=== PATIENT | male | born 1965 | race Caucasian/White ===

== ENCOUNTER 2018-01-26 13:47 | Emergency (ER) | payer BC, SELFPAY ==
[2018-01-26 14:41] LABS: Absolute Lymphocytes (CBC) 1.6 K/uL (0.7-4.9); Absolute Monocytes 0.4 K/uL (0.1-1.3); Absolute Neutrophil 7.6 K/uL (1.8-8.0); Basophils % 0.9 % (0-1.3); Eosinophils % 0.5 % (0-4.4); Lymphocytes % 16.2 % (15.3-44.8); MCH 27.3 pg (27.0-35.0); MCV 82.9 fL (80-100); MPV 7.7 fL (7.6-11.3); Monocytes % 4.3 % (3.3-12.3); RBC Red Blood Cell Count 5.67 M/uL (4.33-5.43)
--- NOTE | 2018-01-26 14:41 | RAD REPORT ---
EXAM DESCRIPTION: CT - Head Brain Wo Cont - 01/26/2018 2:33 pm CLINICAL HISTORY: Dizziness, syncope. COMPARISON: 12/24/2013 TECHNIQUE: All CT scans are performed using dose optimization technique as appropriate and may inclu de automated exposure control or mA/KV adjustment according to patient size. FINDINGS: No intracranial hemorrhage, hydrocephalus or extra-axial fluid collection.No areas of brai n edema or evidence of midline shift. The paranasal sinuses and mastoids are clear. The calvarium is intact. IMPRESSION: No acute intracranial abnormality.
[2018-01-26 14:44] LABS: Protime INR 0.99
[2018-01-26] MEDS ORDERED: ONDANSETRON 4 MG/2 ML VIAL ONE (14:48)
[2018-01-26 14:51] LABS: Bicarbonate 32 mEq/L (21-31); Glucose Level 128 mg/dL (65-120); Potassium 3.9 mEq/L (3.6-5.0); Sodium Level 139 mEq/L (135-145)
[2018-01-26 14:54] LABS: BUN Blood Urea Nitrogen 12 mg/dL (6-20); Creatine Phosphokinase 142 IU/L (22-269)
[2018-01-26 15:01] LABS: CKMB Creatine Kinase MB 3.1 ng/ml (0.3-4.0)
[2018-01-26] MEDS ORDERED: NA CHLORIDE 0.9% 500 ML ONE (15:02)
--- NOTE | 2018-01-26 15:57 | ER ---
Nurse's Notes [facility] Name: Kingston Harris Age: 52 yrs Sex: Male : 1965 Arrival Date: 01/26/2018 Time: 13:48 Bed 5 Private MD: Diagnosis: Urgency of urination;Dehydration Presentation: 01/26 13:58 Presenting complaint: Patient states: Reports Dizziness, weakness, and urinary aj frequency. Patient appears SOB. Transition of care: patient was not received from another setting of care. Onset of symptoms was January 26, 2018. Initial Sepsis Screen: Does the patient meet any 2 criteria? No. Patient's initial sepsis screen is negative. Does the patient have a suspected source of infection? No. Patient's initial sepsis screen is negative. Care prior to arrival: None. 13:58 Method Of Arrival: Ambulatory 13:58 Acuity: SHANTE 3 aj Triage Assessment: 14:00 General: Appears in no apparent distress. uncomfortable, Behavior is cooperative, aj anxious. Pain: Denies pain. Neuro: Level of Consciousness is awake, alert, obeys commands, Oriented to person, place, time, situation, Appropriate for age. Respiratory: Reports shortness of breath Airway is patent Respiratory effort is even, unlabored, Respiratory pattern is regular, symmetrical, Onset: The symptoms/episode began/occurred the patient has mild shortness of breath. Derm: Skin is intact, is healthy with good turgor, Skin is pink, warm \T\ dry. normal. Historical: - Allergies: 14:00 Erythromycin; aj - Home Meds: 14:00 alprazolam 1 mg Oral tab twice a day [Active]; bisoprolol-hydrochlorothiazide 5-6.25 mg aj Oral tab 1 tab once daily [Active]; Remeron Oral [Active]; Suboxone 8-2 mg sublingual subl for Chronic pain [Active]; - PMHx: 14:00 Anxiety; Chronic pain; COPD; Degenerative disc disease; Hypertension; psoriasis; aj - PSHx: 14:00 None; aj - Immunization history:: Adult Immunizations up to date. - Family history:: not pertinent. - Social history:: Smoking status: unknown. - Hospitalizations: : No recent hospitalization is reported. Screenin:35 Abuse screen: Denies threats or abuse. Denies injuries from another. Nutritional jl7 screening: No deficits noted. Tuberculosis screening: No symptoms or risk factors identified. Fall Risk IV access (20 points). Total Joe Fall Scale indicates No Risk (0-24 pts). Assessment: 14:35 General: Appears in no apparent distress. uncomfortable, Behavior is anxious. Pain: jl7 Denies pain. Neuro: Level of Consciousness is awake, alert, obeys commands, Oriented to person, place, time, situation. Cardiovascular: Rhythm is sinus rhythm. Respiratory: Airway is patent Respiratory effort is even, unlabored, Respiratory pattern is regular, symmetrical, Breath sounds are clear bilaterally. GI: Reports nausea, Patient currently denies diarrhea, vomiting. : Urine is clear, Reports urinary frequency, since 0500. EENT: No signs and/or symptoms were reported regarding the EENT system. Derm: Skin is pink, warm \T\ dry. Musculoskeletal: No signs and/or symptoms reported regarding the musculoskeletal system. 15:30 Reassessment: No changes from previously documented assessment. Patient and/or family jl7 updated on plan of care and expected duration. Pain level reassessed. Patient is alert, oriented x 3, equal unlabored respirations, skin warm/dry/pink. Vital Signs: 14:00 BP 169 / 96; Pulse 63; Resp 24; Temp 98.4; Pulse Ox 97% on R/A; Weight 100.24 kg; aj Height 5 ft. 11 in. (180.34 cm); 15:00 BP 149 / 94; Pulse 66; Resp 16; Pulse Ox 97% ; jl7 15:45 BP 149 / 93; Pulse 65; Resp 16; Pulse Ox 98% ; jl7 14:00 Body Mass Index 30.82 (100.24 kg, 180.34 cm) ED Course: 13:48 Patient arrived in ED. sb2 13:52 Herve Gómez MD is Attending Physician. rn 13:59 Triage completed. aj 14:00 Arm band placed on left wrist. Patient placed in an exam room, on a stretcher. aj 14:14 Betito Simpson, ANGELA is Primary Nurse. jl7 14:24 Inserted saline lock: 20 gauge in right antecubital area, using aseptic technique. ss Blood collected. 14:31 CT completed. Patient moved to CT via stretcher. Patient moved back from CT. cw1 14:33 CT Head Brain wo Cont In Process Unspecified. EDMS 14:35 Patient has correct armband on for positive identification. Placed in gown. Bed in low jl7 position. Call light in reach. Side rails up X2. rodding anode worker on. Pulse ox on. NIBP on. 16:03 No provider procedures requiring assistance completed. IV discontinued, intact, jl7 bleeding controlled, No redness/swelling at site. Pressure dressing applied. Administered Medications: 14:50 Drug: Zofran 4 mg Route: IVP; Site: right antecubital; jl7 15:12 Follow up: Response: No adverse reaction; Nausea is decreased jl7 15:04 Drug: NS 0.9% 500 ml Route: IV; Rate: bolus; Site: right antecubital; jl7 15:30 Follow up: IV Status: Completed infusion jl7 Point of Care Testing: Blood Glucose: 14:05 Blood Glucose: 103 mg/dL; Ranges: Outcome: 15:56 Discharge ordered by . rn 16:03 Discharged to home ambulatory. jl7 16:03 Condition: stable 16:03 Discharge instructions given to patient, Instructed on discharge instructions, Demonstrated understanding of instructions, follow-up care. 16:04 Patient left the ED. jl7 Signatures: Dispatcher [employer] EDMS Yoselyn Hernandez RN Herve Roman MD MD rn Smirch, Shelby, RN RN ss Woodley, Crystal cw1 Betito Simpson RN RN jl7 Laury Bone sb2 Corrections: (The following items were deleted from the chart) 15:13 14:35 GI: No signs and/or symptoms were reported involving the gastrointestinal system. jl7 jl7
--- NOTE | 2018-01-26 15:57 | EDPHYS ---
Physician Documentation [facility] Name: Kingston Harris Age: 52 yrs Sex: Male : 1965 Arrival Date: 01/26/2018 Time: 13:48 Bed 5 Private MD: ED Physician Herve Gómez HPI: 01/26 14:29 This 52 yrs old Male presents to ER via Ambulatory with complaints of rn generalized weakness, increased urination. 14:29 The patient has shortness of breath at rest. Onset: The symptoms/episode began/occurred rn today. Duration: The symptoms are continuous. The patient's shortness of breath is aggravated by nothing, is alleviated by nothing. Severity of symptoms: At their worst the symptoms were moderate in the emergency department the symptoms are unchanged. The patient has not experienced similar symptoms in the past. Reports generalized weakness, fatigue, began today, reports increased thirst but increased urination as well, on suboxone, takes benzos for anxiety, no fever/headache/chest pain, no abd pain/vomiting/diarrhea. . Historical: - Allergies: 14:00 Erythromycin; aj - Home Meds: 14:00 alprazolam 1 mg Oral tab twice a day [Active]; bisoprolol-hydrochlorothiazide 5-6.25 mg aj Oral tab 1 tab once daily [Active]; Remeron Oral [Active]; Suboxone 8-2 mg sublingual subl for Chronic pain [Active]; - PMHx: 14:00 Anxiety; Chronic pain; COPD; Degenerative disc disease; Hypertension; psoriasis; aj - PSHx: 14:00 None; aj - Immunization history:: Adult Immunizations up to date. - Family history:: not pertinent. - Social history:: Smoking status: unknown. - Hospitalizations: : No recent hospitalization is reported. ROS: 14:29 Constitutional: Negative for fever, chills, and weight loss, Eyes: Negative for injury, rn pain, redness, and discharge, Neck: Negative for injury, pain, and swelling, Cardiovascular: Negative for chest pain, palpitations, and edema, Respiratory: Negative for shortness of breath, cough, wheezing, and pleuritic chest pain, Abdomen/GI: Negative for abdominal pain, nausea, vomiting, diarrhea, and constipation, Back: Negative for injury and pain, MS/Extremity: Negative for injury and deformity, Skin: Negative for injury, rash, and discoloration, Neuro: Negative for headache, numbness, tingling, and seizure. Exam: 14:29 Constitutional: This is a well developed, well nourished patient who is awake, alert, rn appears anxious Head/Face: Normocephalic, atraumatic. Eyes: Pupils equal round and reactive to light, extra-ocular motions intact. Lids and lashes normal. Conjunctiva and sclera are non-icteric and not injected. Cornea within normal limits. Periorbital areas with no swelling, redness, or edema. ENT: dry MM Neck: Trachea midline, no thyromegaly or masses palpated, and no cervical lymphadenopathy. Supple, full range of motion without nuchal rigidity, or vertebral point tenderness. No Meningismus. Cardiovascular: Regular rate and rhythm with a normal S1 and S2. No gallops, murmurs, or rubs. Normal PMI, no JVD. No pulse deficits. Respiratory: mild tachypnea, no retractions, speaking full sentences Abdomen/GI: Soft, non-tender, with normal bowel sounds. No distension or tympany. No guarding or rebound. No evidence of tenderness throughout. MS/ Extremity: Pulses equal, no cyanosis. Neurovascular intact. Full, normal range of motion. Equal circumference. Neuro: Awake and alert, GCS 15, oriented to person, place, time, and situation. Cranial nerves II-XII grossly intact. Motor strength 5/5 in all extremities. Sensory grossly intact. Cerebellar exam normal. Vital Signs: 14:00 BP 169 / 96; Pulse 63; Resp 24; Temp 98.4; Pulse Ox 97% on R/A; Weight 100.24 kg; aj Height 5 ft. 11 in. (180.34 cm); 15:00 BP 149 / 94; Pulse 66; Resp 16; Pulse Ox 97% ; jl7 15:45 BP 149 / 93; Pulse 65; Resp 16; Pulse Ox 98% ; jl7 14:00 Body Mass Index 30.82 (100.24 kg, 180.34 cm) aj MDM: 13:59 Patient medically screened. rn 15:51 Differential diagnosis: Anemia renal failure, hyperglycemia, UTI, dehydration. Data rn reviewed: vital signs, nurses notes, lab test result(s), EKG, radiologic studies, CT scan, and as a result, I will discharge patient. Counseling: I had a detailed discussion with the patient and/or guardian regarding: the historical points, exam findings, and any diagnostic results supporting the discharge/admit diagnosis, lab results, radiology results, the need for outpatient follow up, to return to the emergency department if symptoms worsen or persist or if there are any questions or concerns that arise at home. Response to treatment: the patient's symptoms have markedly improved after treatment, the patient's condition has returned to base line, the patient is now symptom free, patient is well hydrated. and as a result, I will discharge patient. ED course: Pt feels much better, normal HR, afebrile, no acute findings in blood work, normal ct scan of head and normal neuro exam, states feels much better. . 01/26 14:02 Order name: Urine Microscopic Only rn 01/26 14:02 Order name: Basic Metabolic Panel; Complete Time: 15:17 rn 01/26 14:02 Order name: BNP; Complete Time: 15:17 rn 01/26 14:02 Order name: CBC with Diff; Complete Time: 14:46 rn 01/26 14:02 Order name: Ckmb; Complete Time: 15:17 rn 01/26 14:02 Order name: CPK; Complete Time: 15:17 rn 01/26 14:02 Order name: CT Head Brain wo Cont; Complete Time: 14:41 rn 01/26 14:02 Order name: Magnesium; Complete Time: 15:17 rn 01/26 14:02 Order name: Protime (+inr); Complete Time: 14:46 rn 01/26 14:02 Order name: Ptt, Activated; Complete Time: 14:46 rn 01/26 14:02 Order name: Troponin (emerg Dept Use Only); Complete Time: 15:17 rn 01/26 14:02 Order name: [place] Screen Profile; Complete Time: 15:17 rn 01/26 15:09 Order name: Urine Dipstick--Ancillary (enter results) eb 01/26 15:37 Order name: Glucose, Ancillary Testing; Complete Time: 15:46 EDMS 01/26 14:02 Order name: EKG; Complete Time: 14:02 rn 01/26 14:02 Order name: Cardiac monitoring; Complete Time: 14:35 rn 01/26 14:02 Order name: EKG - Nurse/Tech; Complete Time: 14:35 rn 01/26 14:02 Order name: IV Saline Lock; Complete Time: 14:35 rn 01/26 14:02 Order name: Labs collected and sent; Complete Time: 14:35 rn 01/26 14:02 Order name: O2 Per Protocol; Complete Time: 14:35 rn 01/26 14:02 Order name: O2 Sat Monitoring; Complete Time: 14:35 rn 01/26 14:02 Order name: Urine Dipstick-Ancillary (obtain specimen); Complete Time: 15:05 rn Administered Medications: 14:50 Drug: Zofran 4 mg Route: IVP; Site: right antecubital; jl7 15:12 Follow up: Response: No adverse reaction; Nausea is decreased jl7 15:04 Drug: NS 0.9% 500 ml Route: IV; Rate: bolus; Site: right antecubital; jl7 15:30 Follow up: IV Status: Completed infusion jl7 Point of Care Testing: Blood Glucose: 14:05 Blood Glucose: 103 mg/dL; ss Ranges: Critical Glucose Levels:Adult <50 mg/dl or >400 mg/dl <40 mg/dl or >180 mg/dl Disposition: 01/26/18 15:56 Discharged to Home. Impression: Urgency of urination, Dehydration. - Condition is Stable. - Discharge Instructions: Dehydration, Adult. - Medication Reconciliation Form, Thank You Letter, Antibiotic Education, Prescription Opioid Use form. - Follow up: Private Physician; When: As needed; Reason: Recheck today's complaints, Re-evaluation by your physician. - Problem is new. - Symptoms have improved. Signatures: Dispatcher [employer] Yoselyn Mendez RN RN aj Nieto, Roman, MD MD rn Leal, Jahala, RN RN jl7 Corrections: (The following items were deleted from the chart) 16:04 15:56 01/26/2018 15:56 Discharged to Home. Impression: Urgency of urination; jl7 Dehydration. Condition is Stable. Forms are Medication Reconciliation Form, Thank You Letter, Antibiotic Education, Prescription Opioid Use. Follow up: Private Physician; When: As needed; Reason: Recheck today's complaints, Re-evaluation by your physician. Problem is new. Symptoms have improved. rn
[2018-01-26 16:06] LABS: Urine Bacteria NONE SEEN /HPF (NONE SEEN); Urine Culture Reflex Order NOT NEEDED; Urine RBC NONE SEEN /HPF (NONE SEEN)
[2018-01-26 16:19] VITALS: TEMP 98.4
[2018-01-26 16:22] VITALS: BP 149/93; O2SAT 98
[2018-01-26 16:22] LABS: Urine Blood NEGATIVE (NEG); Urine Glucose NEGATIVE (NEG); Urine Protein 1+ (NEG); Urine Specific Gravity 1.015 (1.005-1.030)
--- NOTE | 2018-01-27 11:07 | EKG ---
Test Date: 2018-01-26 Test Time: 13:55:11 Corporate Risk Analyst: KEYONA MEASUREMENT RESULTS: Intervals: Rate: 66 LA: 166 QRSD: 96 QT: 418 QTc: 438 [place]: P: 28 LA: 166 QRS: 51 T: 45 INTERPRETIVE STATEMENTS: Normal sinus rhythm Normal ECG Compared to ECG 01/30/2017 21:54:49 No significant changes Electronically Signed On 01-27-18 11:07:20 CDT by Alpesh Kelley
== END 2018-01-26 16:04 | disposition home or self-care (01) ==
LOC: ER 13:47
DX: E86.0 Dehydration (principal); R39.15 Urgency of urination; I10 Essential (primary) hypertension; J44.9 Chronic obstructive pulmonary disease, unspecified; Z88.3 Allergy status to other anti-infective agents
CPT/HCPCS: 36415; 70450; 80048; 81003; 81015; 82550; 82553; 82962; 83735; 83880; 84484; 85025; 85610; 85730; 86308; 93005; 96374; 99285; J2405

== ENCOUNTER 2018-02-14 10:18 | Emergency (ER) | payer BC, SELFPAY ==
[2018-02-14 10:47] LABS: Absolute Lymphocytes (CBC) 1.3 K/uL (0.7-4.9); Absolute Monocytes 0.5 K/uL (0.1-1.3); Absolute Neutrophil 12.5 K/uL (1.8-8.0); Basophils % 0.4 % (0-1.3); Eosinophils % 0.2 % (0-4.4); Hematocrit 48.8 % (39.6-49.0); Lymphocytes % 9.3 % (15.3-44.8); MCH 27.4 pg (27.0-35.0); MCV 82.5 fL (80-100); MPV 7.5 fL (7.6-11.3); Monocytes % 3.2 % (3.3-12.3); RBC Red Blood Cell Count 5.92 M/uL (4.33-5.43)
[2018-02-14 11:06] LABS: Protime INR 1.08
[2018-02-14 11:07] LABS: CKMB Creatine Kinase MB 1.8 ng/ml (0.3-4.0)
[2018-02-14] MEDS ORDERED: NA CHLORIDE 0.9% 1,000 ML ONE ×2 (11:08→13:13)
--- NOTE | 2018-02-14 11:13 | RAD REPORT ---
EXAM DESCRIPTION: CT - Head Brain Wo Cont - 02/14/2018 11:00 am CLINICAL HISTORY: TIA/CVA. COMPARISON: 01/26/2018, 12/24/2013 TECHNIQUE: All CT scans are performed using dose optimization technique as appropriate and may inclu de automated exposure control or mA/KV adjustment according to patient size. FINDINGS: No intracranial hemorrhage, hydrocephalus or extra-axial fluid collection.No areas of brai n edema or evidence of midline shift. The paranasal sinuses and mastoids are clear. The calvarium is intact. IMPRESSION: No acute intracranial abnormality.
--- NOTE | 2018-02-14 11:16 | RAD REPORT ---
EXAM DESCRIPTION: RAD - Chest Single View - 02/14/2018 10:51 am CLINICAL HISTORY: Hypertension, COPD. COMPARISON: 01/30/2017 FINDINGS: Portable technique limits examination quality. Linear subsegmental atelectasis in the right lung base is noted. The lungs are otherwise clear. The h eart is mildly prominent size. No displaced fractures. IMPRESSION: No acute intrathoracic process suspected.
[2018-02-14 11:19] LABS: Blood Morphology Comment NOT SEEN (NOT SEEN); Platelet Estimate ADEQ
[2018-02-14] MEDS ORDERED: ONDANSETRON 4 MG/2 ML VIAL ONE (11:30)
[2018-02-14 12:00] LABS: Bicarbonate 28 mEq/L (21-31); Glucose Level 132 mg/dL (65-120); Sodium Level 135 mEq/L (135-145)
[2018-02-14 12:06] LABS: ALT/SGPT 32 IU/L (10-60); AST/SGOT 26 IU/L (10-42); Albumin 4.4 g/dL (3.2-5.5); Alkaline Phosphatase 93 IU/L (42-121); BUN Blood Urea Nitrogen 14 mg/dL (6-20); Bilirubin Direct < 0.1 mg/dL (0-0.2); Bilirubin Total 0.8 mg/dL (0.3-1.2); Creatine Phosphokinase 87 IU/L (22-269); Magnesium 2.2 mg/dL (1.8-2.5); Protein, Total 8.5 g/dL (6.0-8.3)
[2018-02-14 13:32] LABS: Urine Blood TRACE (NEG); Urine Glucose NEGATIVE (NEG); Urine Protein 1+ (NEG); Urine Specific Gravity 1.015 (1.005-1.030)
[2018-02-14 14:21] LABS: Urine Bacteria <20 /HPF (NONE SEEN); Urine Culture Reflex Order NOT NEEDED; Urine RBC <5 /HPF (NONE SEEN)
--- NOTE | 2018-02-14 16:35 | ER ---
Nurse's Notes [facility] Name: Kingston Harris Age: 52 yrs Sex: Male : 1965 Arrival Date: 02/14/2018 Time: 10:23 Bed 24 Private MD: Diagnosis: Weakness;Dizziness Presentation: 02/14 10:23 Presenting complaint: EMS states: He has been feeling weak and dizzy for the past 4 aj1 days, and has noticed that he is urinating more often than usual and when he does urinate his urine is pink. Laying down is the only thing that makes the dizziness better. He has been weaning himself off of his medications because he does not want to take them anymore. Reports nausea and palpitations. Denies syncope, pain, chest pain. Transition of care: patient was not received from another setting of care. Onset of symptoms was February 10, 2018. Risk Assessment: Do you want to hurt yourself or someone else? Patient reports no desire to harm self or others. Initial Sepsis Screen: Does the patient meet any 2 criteria? No. Patient's initial sepsis screen is negative. Does the patient have a suspected source of infection? No. Patient's initial sepsis screen is negative. Care prior to arrival: Glucose check: 130. 10:23 Method Of Arrival: EMS: [facility] aj1 10:23 Acuity: SHANTE 3 aj1 Triage Assessment: 10:27 General: Appears in no apparent distress. uncomfortable, ill, Behavior is cooperative. aj1 Pain: Denies pain. Historical: - Allergies: 10:27 Erythromycin; aj1 - Home Meds: 10:27 alprazolam 1 mg Oral tab twice a day [Active]; bisoprolol-hydrochlorothiazide 10-6.25 aj1 mg oral tab [Active]; Remeron 45 mg oral tab once daily [Active]; Suboxone 8-2 mg sublingual subl twice daily for Chronic pain [Active]; - PMHx: 10:27 Anxiety; Chronic pain; COPD; Degenerative disc disease; Hypertension; psoriasis; aj1 - Immunization history:: Adult Immunizations up to date. - Social history:: Smoking status: Patient/guardian denies using tobacco. - Ebola Screening: : No symptoms or risks identified at this time. Screenin:28 Abuse screen: Denies threats or abuse. Denies injuries from another. Nutritional aj1 screening: No deficits noted. Tuberculosis screening: No symptoms or risk factors identified. 17:05 Fall Risk None identified. aj1 Assessment: 10:28 General: Appears uncomfortable, ill, Behavior is appropriate for age. Pain: Denies aj1 pain. Neuro: Level of Consciousness is awake, alert, obeys commands, Oriented to person, place, time, situation, Interstate Planner are weak bilaterally Speech is normal, Facial symmetry appears normal, Reports dizziness, weakness Denies syncope. Cardiovascular: Reports fatigue, nausea, palpitations, shortness of breath, Denies chest pain, diaphoresis, syncope, vomiting, Heart tones S1 S2 present Capillary refill < 3 seconds in bilateral fingers. Respiratory: Reports shortness of breath yesterday that is now resolved Airway is patent Respiratory effort is even, unlabored, Respiratory pattern is regular, symmetrical, Breath sounds are clear bilaterally. GI: Reports nausea, Patient currently denies abdominal pain, diarrhea, vomiting. : Reports urinary frequency, pink urine. EENT: No signs and/or symptoms were reported regarding the EENT system. Derm: Skin is pale. Musculoskeletal: Circulation, motion, and sensation intact. 11:30 Reassessment: Patient appears in no apparent distress at this time. No changes from aj1 previously documented assessment. Patient and/or family updated on plan of care and expected duration. Pain level reassessed. 12:30 Reassessment: Patient appears in no apparent distress at this time. No changes from aj1 previously documented assessment. Patient and/or family updated on plan of care and expected duration. Pain level reassessed. Patient states I just don't feel good, denies pain. 13:29 Reassessment: Patient appears in no apparent distress at this time. No changes from aj1 previously documented assessment. Patient and/or family updated on plan of care and expected duration. Pain level reassessed. Patient states I feel a little better but I still don't feel good. Patient given warm blanket. 14:33 Reassessment: Patient appears in no apparent distress at this time. No changes from aj1 previously documented assessment. Patient and/or family updated on plan of care and expected duration. Pain level reassessed. Patient is alert, oriented x 3, equal unlabored respirations, skin warm/dry/pink. Patient states feeling better. 15:36 Reassessment: Patient appears in no apparent distress at this time. No changes from aj1 previously documented assessment. Patient and/or family updated on plan of care and expected duration. Pain level reassessed. Patient is alert, oriented x 3, equal unlabored respirations, skin warm/dry/pink. 16:40 Reassessment: Patient appears in no apparent distress at this time. No changes from aj1 previously documented assessment. Patient and/or family updated on plan of care and expected duration. Pain level reassessed. Patient is alert, oriented x 3, equal unlabored respirations, skin warm/dry/pink. Vital Signs: 10:27 BP 139 / 76; Pulse 69; Resp 17; Temp 98.2(TE); Pulse Ox 95% on R/A; Weight 101.6 kg; aj1 Height 6 ft. 0 in. (182.88 cm); Pain 0/10; 11:00 BP 123 / 75 Supine; Pulse 68; aj1 11:03 BP 129 / 85 Sitting; Pulse 73; aj1 11:05 BP 125 / 88 Standing; Pulse 93; aj1 12:06 BP 134 / 86; Pulse 65; Resp 18; Pulse Ox 94% on R/A; aj1 13:30 BP 130 / 68; Pulse 54; Resp 18; Pulse Ox 95% on R/A; aj1 14:33 BP 156 / 84; Pulse 63; Resp 18; Pulse Ox 99% ; aj1 15:38 BP 143 / 78; Pulse 62; Resp 18; Pulse Ox 95% on R/A; aj1 16:52 BP 139 / 80; Pulse 66; Resp 18; Pulse Ox 97% on R/A; mt 10:27 Body Mass Index 30.38 (101.60 kg, 182.88 cm) aj1 ED Course: 10:23 Patient arrived in ED. aj1 10:26 Triage completed. aj1 10:26 Dustin Fernandez PA is PHCP. cp 10:26 Dustin Reyes MD is Attending Physician. cp 10:27 Arm band placed on. aj1 10:28 Ileana Lee, ANGELA is Primary Nurse. aj1 10:28 Patient has correct armband on for positive identification. Bed in low position. Call aj1 light in reach. Side rails up X 1. environmental monitoring technician on. Pulse ox on. NIBP on. 10:28 No provider procedures requiring assistance completed. aj1 10:30 Inserted saline lock: 22 gauge in right upper arm, using aseptic technique. Blood aj1 collected. 10:50 X-ray completed. Portable x-ray completed in exam room. Patient tolerated procedure ml well. 10:[address] vm2 10:52 XRAY Chest (1 view) In Process Unspecified. EDMS 11:00 CT completed. Patient tolerated procedure well. Patient moved to CT via stretcher. Patient moved back from CT. 11:01 CT Head Brain wo Cont In Process Unspecified. EDMS 12:07 Inserted saline lock: 22 gauge in left antecubital area, using aseptic technique. aj1 Previous IV infiltrated, IV to right upper arm dc'd. 17:05 IV discontinued, intact, bleeding controlled, No redness/swelling at site. Pressure aj1 dressing applied. Administered Medications: 11:15 Drug: NS 0.9% 1000 ml Route: IV; Rate: 1 bolus; Site: right upper arm; aj1 15:00 Follow up: IV Status: Completed infusion; IV Intake: 1000ml aj1 13:22 Drug: NS 0.9% 1000 ml Route: IV; Rate: 1 bolus; Site: left antecubital; aj1 17:00 Follow up: IV Status: Completed infusion; IV Intake: 1000ml aj1 15:16 Drug: NS 0.9% 1000 ml Route: IV; Rate: 125 ml/hr; Site: left antecubital; aj1 17:04 Follow up: IV Status: Order to discontinue infusion; IV Intake: 125ml aj1 Intake: 15:00 IV: 1000ml; Total: 1000ml. aj1 17:00 IV: 1000ml; Total: 2000ml. aj1 17:04 IV: 125ml; Total: 2125ml. aj1 Outcome: 16:35 Discharge ordered by . cp 17:06 Discharged to home ambulatory. aj1 17:06 Condition: good 17:06 Discharge instructions given to patient, Instructed on discharge instructions, follow up and referral plans. medication usage, Demonstrated understanding of instructions, follow-up care, wound care, Prescriptions given X 2. 17:06 Patient left the ED. aj1 Signatures: Dispatcher [employer] EDMS Ileana Lee RN RN aj1 Gabrielle Hauser Melissa ml Page, Corey, PA PA cp McGuire, Victoria 2 Michelle Mcnulty mt
--- NOTE | 2018-02-14 16:36 | EDPHYS ---
Physician Documentation [facility] Name: Kingston Harris Age: 52 yrs Sex: Male : 1965 Arrival Date: 02/14/2018 Time: 10:23 Bed 24 Private MD: ED Physician Dustin Reyes HPI: 02/14 11:04 This 52 yrs old Male presents to ER via EMS with complaints of Dizziness. cp 11:04 The patient presents with dizziness, feeling faint. cp 11:04 Onset: The symptoms/episode began/occurred 4 day(s) ago. cp 11:04 Modifying factors: the symptoms are aggravated by changing position. Associated signs cp and symptoms: Pertinent positives: nausea, near-syncope, general weakness, increased urination, Pertinent negatives: abdominal pain, chest pain, focal weakness, headache, shortness of breath, syncope. Severity of symptoms: in the emergency department the symptoms are unchanged despite home interventions. Patient's baseline: Neuro: alert and fully oriented, Motor: no deficits, Ambulation: walks without assistance, Speech: normal. Historical: - Allergies: 10:27 Erythromycin; aj1 - Home Meds: 10:27 alprazolam 1 mg Oral tab twice a day [Active]; bisoprolol-hydrochlorothiazide 10-6.25 aj1 mg oral tab [Active]; Remeron 45 mg oral tab once daily [Active]; Suboxone 8-2 mg sublingual subl twice daily for Chronic pain [Active]; - PMHx: 10:27 Anxiety; Chronic pain; COPD; Degenerative disc disease; Hypertension; psoriasis; aj1 - Immunization history:: Adult Immunizations up to date. - Social history:: Smoking status: Patient/guardian denies using tobacco. - Ebola Screening: : No symptoms or risks identified at this time. ROS: 11:10 Constitutional: Negative for body aches, chills, fever, poor PO intake. cp 11:10 Eyes: Negative for injury, pain, redness, and discharge. cp 11:10 ENT: Negative for drainage from ear(s), ear pain, sore throat, difficulty swallowing, difficulty handling secretions. 11:10 Cardiovascular: Negative for chest pain, edema, palpitations. 11:10 Respiratory: Negative for cough, shortness of breath, wheezing. 11:10 Abdomen/GI: Positive for nausea, Negative for abdominal pain, vomiting, diarrhea, constipation, black/tarry stool, rectal bleeding. 11:10 Back: Negative for pain at rest, pain with movement. 11:10 : Positive for urinary frequency, Negative for burning with urination, difficulty urinating. 11:10 Skin: Negative for cellulitis. 11:10 Neuro: Positive for dizziness, near syncope, general weakness, Negative for altered mental status, headache, numbness, syncope. 11:10 All other systems are negative. Exam: 11:15 Constitutional: The patient appears in no acute distress, alert, awake, cp non-diaphoretic, non-toxic, well developed, well nourished. 11:15 Head/Face: Normocephalic, atraumatic. Eyes: Pupils equal round and reactive to light, cp extra-ocular motions intact. Lids and lashes normal. Conjunctiva and sclera are non-icteric and not injected. Cornea within normal limits. Periorbital areas with no swelling, redness, or edema. ENT: Nares patent. No nasal discharge, no septal abnormalities noted. Tympanic membranes are normal and external auditory canals are clear. Oropharynx with no redness, swelling, or masses, exudates, or evidence of obstruction, uvula midline. Mucous membranes moist. Neck: Trachea midline, no thyromegaly or masses palpated, and no cervical lymphadenopathy. Supple, full range of motion without nuchal rigidity, or vertebral point tenderness. No Meningismus. Chest/axilla: Normal chest wall appearance and motion. Nontender with no deformity. No lesions are appreciated. 11:15 Cardiovascular: Rate: normal, Rhythm: regular, Pulses: Pulses are 2+ in right radial artery and left radial artery. Edema: is not appreciated, JVD: is not appreciated. 11:15 Respiratory: the patient does not display signs of respiratory distress, Respirations: normal, no use of accessory muscles, no retractions, no splinting, no tachypnea, labored breathing, is not present, Breath sounds: are clear throughout, no decreased breath sounds, no stridor, no wheezing. 11:15 Abdomen/GI: Inspection: abdomen appears normal, Bowel sounds: active, all quadrants, Palpation: abdomen is soft and non-tender, in all quadrants, rebound tenderness, is not appreciated, voluntary guarding, is not appreciated, involuntary guarding, is not appreciated. 11:15 Back: pain, is absent, ROM is normal. 11:15 Skin: cellulitis, is not appreciated, consistent with psoriasis, and is diffusely located. 11:15 Neuro: Orientation: to person, place \T\ time. Mentation: lucid, able to follow commands, Cerebellar function: is grossly normal, Motor: moves all fours, strength is normal, Sensation: no obvious gross deficits. 11:37 ECG was reviewed by the Attending Physician. cp Vital Signs: 10:27 BP 139 / 76; Pulse 69; Resp 17; Temp 98.2(TE); Pulse Ox 95% on R/A; Weight 101.6 kg; aj1 Height 6 ft. 0 in. (182.88 cm); Pain 0/10; 11:00 BP 123 / 75 Supine; Pulse 68; aj1 11:03 BP 129 / 85 Sitting; Pulse 73; aj1 11:05 BP 125 / 88 Standing; Pulse 93; aj1 12:06 BP 134 / 86; Pulse 65; Resp 18; Pulse Ox 94% on R/A; aj1 13:30 BP 130 / 68; Pulse 54; Resp 18; Pulse Ox 95% on R/A; aj1 14:33 BP 156 / 84; Pulse 63; Resp 18; Pulse Ox 99% ; aj1 15:38 BP 143 / 78; Pulse 62; Resp 18; Pulse Ox 95% on R/A; aj1 16:52 BP 139 / 80; Pulse 66; Resp 18; Pulse Ox 97% on R/A; mt 10:27 Body Mass Index 30.38 (101.60 kg, 182.88 cm) aj1 MDM: 10:38 Patient medically screened. cp 11:00 Differential diagnosis: cardiac arrhythmia, generalized weakness, GI bleed, cp hypovolemia, idiopathic dizziness, vertigo, dehydration, electrolyte abnormality. 16:00 Data reviewed: vital signs, nurses notes, lab test result(s), EKG, radiologic studies, cp CT scan, plain films. 16:00 Test interpretation: by ED physician or midlevel provider: ECG, plain radiologic cp studies. 16:30 Counseling: I had a detailed discussion with the patient and/or guardian regarding: the cp historical points, exam findings, and any diagnostic results supporting the discharge/admit diagnosis, lab results, radiology results, the need for outpatient follow up, a family practitioner, to return to the emergency department if symptoms worsen or persist or if there are any questions or concerns that arise at home. 02/14 10:29 Order name: Basic Metabolic Panel; Complete Time: 12:14 cp 02/14 12:14 Interpretation: Normal except: CL 96; GLUC 132. cp 02/14 10:29 Order name: BNP; Complete Time: 11:20 cp 02/14 10:29 Order name: CBC with Diff; Complete Time: 11:20 cp 02/14 11:21 Interpretation: Normal except: WBC 14.4; RBC 5.92; MPV 7.5; NANCY% 86.9; LYM% 9.3; MN% cp 3.2; NEUT A 12.5. 02/14 10:29 Order name: Ckmb; Complete Time: 12:14 cp 02/14 10:29 Order name: CPK; Complete Time: 12:14 cp 02/14 10:29 Order name: LFT's; Complete Time: 12:14 cp 02/14 12:14 Interpretation: Normal except: TP 8.5; GLOB 4.1. cp 02/14 10:29 Order name: Magnesium; Complete Time: 12:14 cp 02/14 10:29 Order name: PT-INR; Complete Time: 11:20 cp 02/14 10:29 Order name: Ptt, Activated; Complete Time: 11:20 cp 02/14 10:29 Order name: Troponin (emerg Dept Use Only); Complete Time: 11:20 cp 02/14 10:29 Order name: Urine Microscopic Only; Complete Time: 14:32 cp 02/14 15:54 Interpretation: Reviewed. cp 02/14 11:18 Order name: Manual Differential; Complete Time: 11:20 EDMS 02/14 11:21 Interpretation: Normal except: SEGS 88; LYM 8. cp 02/14 13:22 Order name: Urine Dipstick--Ancillary (enter results); Complete Time: 14:32 ag 02/14 14:33 Interpretation: UBLD TRACE; UPROT 1+. cp 02/14 15:29 Order name: Blood Culture Adult (2) cp 02/14 10:29 Order name: XRAY Chest (1 view); Complete Time: 11:20 cp 02/14 10:29 Order name: EKG; Complete Time: 10:30 cp 02/14 10:29 Order name: Cardiac monitoring; Complete Time: 10:32 cp 02/14 10:29 Order name: EKG - Nurse/Tech; Complete Time: 11:59 02/14 10:29 Order name: IV Saline Lock; Complete Time: 10:32 02/14 10:29 Order name: Labs collected and sent; Complete Time: 10:32 02/14 10:29 Order name: O2 Per Protocol; Complete Time: 10:32 02/14 10:29 Order name: O2 Sat Monitoring; Complete Time: 10:32 02/14 10:29 Order name: Urine Dipstick-Ancillary (obtain specimen); Complete Time: 13:22 02/14 10:29 Order name: CT Head Brain wo Cont; Complete Time: 11:20 02/14 11:21 Interpretation: Report reviewed. 02/14 10:29 Order name: Orthostatics; Complete Time: 11:15 02/14 15:29 Order name: Diet Regular; Complete Time: 15:29 cp EC:37 Rate is 62 beats/min. Rhythm is regular. AL interval is normal. QRS interval is normal. cp QT interval is normal. T waves are Inverted in lead aVL. No ST changes noted. Interpreted by me. Reviewed by me. Administered Medications: 11:15 Drug: NS 0.9% 1000 ml Route: IV; Rate: 1 bolus; Site: right upper arm; [facility] 15:00 Follow up: IV Status: Completed infusion; IV Intake: 1000ml [facility] 13:22 Drug: NS 0.9% 1000 ml Route: IV; Rate: 1 bolus; Site: left antecubital; aj1 17:00 Follow up: IV Status: Completed infusion; IV Intake: 1000ml [facility] 15:16 Drug: NS 0.9% 1000 ml Route: IV; Rate: 125 ml/hr; Site: left antecubital; aj1 17:04 Follow up: IV Status: Order to discontinue infusion; IV Intake: 125ml aj Disposition: 02/14/18 16:35 Discharged to Home. Impression: Weakness, Dizziness. - Condition is Stable. - Discharge Instructions: Dizziness, Weakness. - Prescriptions for Meclizine 25 mg Oral Tablet - take 1 tablet by ORAL route every 8 hours As needed; 30 tablet. Zofran 4 mg Oral Tablet - take 1 tablet by ORAL route every 12 hours As needed; 20 tablet. - Work release form, Medication Reconciliation Form, Thank You Letter, Antibiotic Education, Prescription Opioid Use form. - Follow up: Private Physician; When: 1 - 2 days; Reason: Recheck today's complaints. - Problem is new. - Symptoms have improved. Addendum: 02/18/2018 09:06 Co-signature as Attending Physician, Dustin Reyes MD I agree with the assessment and c sherwood plan of care. Signatures: Dispatcher [employer] EDIleana Adler RN RN aj1 Dustin Reyes MD MD cha Page, Corey, PA PA cp Corrections: (The following items were deleted from the chart) 02/14 17:06 16:35 02/14/2018 16:35 Discharged to Home. Impression: Weakness; Dizziness. Condition aj1 is Stable. Forms are Medication Reconciliation Form, Thank You Letter, Antibiotic Education, Prescription Opioid Use. Follow up: Private Physician; When: 1 - 2 days; Reason: Recheck today's complaints. Problem is new. Symptoms have improved. cp
[2018-02-14 17:21] VITALS: TEMP 98.2
[2018-02-14 17:30] VITALS: BP 139/80; O2SAT 97
--- NOTE | 2018-02-14 17:38 | EKG ---
Test Date: 2018-02-14 Test Time: 11:27:29 [employer]ics Systems Repairer: ЕЛЕНА MEASUREMENT RESULTS: Intervals: Rate: 62 ID: [id number] QRSD: 92 QT: 406 QTc: 412 [place]: P: 31 ID: [id number] QRS: 33 T: 60 INTERPRETIVE STATEMENTS: Normal sinus rhythm Possible Inferior infarct, age undetermined Abnormal ECG Compared to ECG 01/26/2018 13:55:11 Myocardial infarct finding now present Electronically Signed On 02-14-18 17:36:50 CDT by Julian Galaviz
== END 2018-02-14 17:06 | disposition home or self-care (01) ==
LOC: ER 10:18
DX: R53.1 Weakness (principal); I10 Essential (primary) hypertension; F41.9 Anxiety disorder, unspecified; J44.9 Chronic obstructive pulmonary disease, unspecified; Z88.3 Allergy status to other anti-infective agents
CPT/HCPCS: 36415; 70450; 71045; 80048; 80076; 81003; 81015; 82550; 82553; 83735; 83880; 84484; 85025; 85610; 85730; 87040; 93005; 96360; 96361; 99285; J2405; J7030

== ENCOUNTER 2020-01-13 12:18 | Emergency (ER) | payer BC, SELFPAY ==
--- OUTSIDE RECORDS SUMMARY | 2020-01-13 12:21 | XMS REPORT ---
:1965 Author Organization [facility] t Address [address] [place] [address] [address] [place] [address] Care Team Providers Name Role Phone Unavailable Unavailable Unavailable Problems This patient has no known problems. Allergies, Adverse Reactions, Alerts This patient has no known allergies or adverse reactions. Medications This patient has no known medications.
--- OUTSIDE RECORDS SUMMARY | 2020-01-13 12:21 | XMS REPORT | Encounter Summary ---
:1965 Author Care Team Providers Name Role Phone Dr. Warren Hu Primary Care Provider [phone] Malvin Crowder MD Critical Care Rn [phone] Greta Russell MD Coke Worker [phone] Sammy Bullock MD Coke Worker [phone] Scott Ren MD Addiction Medicine [phone] Reason for Visit Annual physical - male with PSA Instructions 1. Adult health examination CBC w/ auto diff CMP, serum or plasma TSH, serum or plasma lipid panel, serum PSA, serum or plasma HbA1c (hemoglobin A1c), bl ood 2. Screening for malignant neopl asm of colon colon cancer screening, st [facility] colonoscopy referral 3. Immunization Adacel (Tdap Adolesn/Adult )(PF)2 Lf-(2.5-5-3-5)-5 Lf/0.5 mL IM syringe 4. Hypertensive disorder bisoprolol 10 mg-hydrochlo rothiazide 6.25 mg tablet 5. Insomnia Remeron SolTab 45 mg disin tegrating tablet 6. Anxiety disorder alprazolam 1 mg tablet 7. Body mass index 30+ - obesity Discussion Note: None recorded.Patient educational handouts: No information available. Plan of Care Patient Instructions RTC prn Reminders Provider Appointments [employer] ATTENDANT/EST CPX on or around Luis E Hu MD 03/18/2020 Lab CBC W/ Auto 03/18/2019 [facility] CMP, Serum 03/18/2019 [facility] TSH, Serum 03/18/2019 [facility] Lipid Panel, 03/18/2019 [facility] PSA, Serum 03/18/2019 [facility] HbA1C 03/18/2019 [facility] jameel (Hemoglobin a1C), Practice Labor atory Blood Colon Cancer 03/18/2019 [facility] Screening, [facility] (C komal Orders Only) Referral Colonoscopy 03/18/2019 Sammy Bullock MD Referral Procedures None recorded. Surgeries None recorded. Imaging None recorded. Medications Name Start Date alprazolam 1 mg tablet Take 1 tablet every 12 hours by oral route as needed. bisoprolol 10 mg-hydrochlorothiazide 6.25 mg tablet Take 1 tablet every day by oral route. Remeron SolTab 45 mg disintegrating tablet Take 1 tablet every day by oral route at bedtime. Suboxone 8 mg-2 mg sublingual film per Addiction Medications Administered None recorded. Vitals Height Weight BMI Blood Pressure 6 ft 221.4 lbs 30 kg/m2 (1) 140/90 mm[H g] (2) 138/88 mm[Hg ] Lab Results None recorded. Allergies Code Code System Name Reaction Severity Status Onset 4053 RxNorm Erythromycin Base Respiratory Active Distress Problems Name Status Onset Date Source Anxiety Disorder Active 03/02/2019 Opioid Dependence Active 03/02/2019 Insomnia Active 03/02/2019 Hypertensive Disorder Active 03/02/2019 Psoriasis Active 03/02/2019 Procedures Date Name Performed by Extraction of [place] [facility] Information n ot available Cardiac Catheterization Information not available Vaccine List Vaccine Type Tdap 03/18/20190.5 mL Social History Smoking Status Former Smoker Past Encounters 03/18/2019 Adult Health Examination; Screening for Malignant Neoplasm of Colon; Immunization; Hypertensive Disorder; Insomnia; Anxiety Disorder; Body Mass Index 30+ - Obesity Warren Hu MD: [address] [address], Ph. 03/02/2019 Anxiety Disorder; Opioid Dependence; Bod y Mass Index 30+ - Obesity Warren Hu MD: [id number] [place], [address] [address], Ph. History of Present Illness Note: [place] desired.<div>
</div><div>anxiety disorder - Stable. Taking meds. No problems with side effects or cost.
<div>ALPRAZolam 1 mg tablet from every 12 hoursto every 12 hours as needed
</div><div>
</div><div>opioid d ependence - Stable. Taking meds. No problems with side effects or cost. Restarted Suboxone.
</div><div>Refer Addiction, Dr. Ren - more[place]</div></div>Review of Systems: ROS as noted in the HPI Review of Systems Comprehensive General Adult ROS Reported By: Patient Constitutional: Constitutional: no fever, no night sweats, no significant weight gain, no significant weight loss, no exercise intolerance Eyes: Eyes: no dry eyes, no vision change, no irritation ENMT: Ears: no difficulty hearing, no ear pain. Nose: no frequent nosebleeds, no nose problems , no sinus problems. Mouth/Throat: no sore throat, no bleeding gums, no snoring, no dry mouth, no mouth ulcers, no oral abnorm alities, no teeth problems Cardiovascular: Cardiovascular: no chest modesto n, no arm pain on exertion, no shortness of breath when wal [place], no shortness of breath when lying down, no palpitations, no known heart murmur, no lightheadedness Respiratory: Respiratory: no cough, no wh eezing, no shortness of breath, no coughing up blood, no sleep apnea Gastrointestinal: Gastrointestinal: no abdomin al pain, no nausea, no vomiting, no constipation, normal appe tite, no diarrhea, not vomiting blood, no dyspepsia, no GERD Genitourinary: Genitourinary: no incontinen ce, no difficulty urinating, no hematuria, no increased freq uency Musculoskeletal: Musculoskeletal: no muscle a ches, no muscle weakness, no arthralgias/joint pain, no b ack pain, no swelling in the extremities Integumentary: Skin: no abnormal mole, no j aundice, no rashes, no laceration Neurologic: Neurologic: no loss of consc iousness, no weakness, no numbness, no seizures, no di zziness, no migraines, no headaches, no tremor Psychiatric: Psych: no depression, no sle ep disturbances, feeling safe in a relationship, no alcohol abu se, no anxiety, no hallucinations, no suicidal thoughts Endocrine: Endocrine: no fatigue Hematologic/Lymphatic: Hematologic/Lymphatic no swo llen glands, no bruising, no excessive bleeding Allergic/Immunologic: Allergy/Immunologic: no runn y nose, no sinus pressure, no itching, no hives, no freque nt sneezing Physical Exam General Adult Exam (male) Reported By: Patient Constitutional: General Appearance: healthy- appearing, well-nourished, well-developed. Level of Dis tress: NAD. Ambulation: ambulating normally Psychiatric: Insight: good judgement. Men nicole Status: active and alert, normal mood, normal affect. Orienta tion: to time, to place, to person. Memory: recent memory normal , remote memory normal Head: Head: normocephalic, atrauma tic Eyes: Lids and Conjunctivae: non-i njected, no discharge, no pallor. Pupils: PERRLA. EOM: EOMI. L ens: clear. Sclerae: non-icteric. Vision: peripheral vision gr ossly intact, acuity grossly intact ENMT: Ears: no lesions on external ear, EACs clear, TMs clear, TM mobility normal. Hearing: no hearing loss. Nose: no lesions on external nose, nares patent, no septal deviation, nasal passages clear, no sinus tenderness, no nasal discharge. Lips, Teeth, and Gums: no mouth or lip ulcers , no bleeding gums, normal dentition. Oropharynx: moist mucous mem branes, no erythema, no exudates, tonsils not enlarged Neck: Neck: supple, trachea midlin e, no masses, FROM. Lymph Nodes: no cervical LAD, no supraclavic ular LAD, no axillary LAD, no inguinal LAD. Thyroid: no enlargement , non-tender, no nodules Lungs: Respiratory effort: no dyspn ea. Auscultation: breath sounds normal, good air movement, CTA excep t as noted, no wheezing, no rales/crackles, no rhonchi Cardiovascular: Heart Auscultation: RRR, nor mal S1, normal S2, no murmurs, no rubs, no gallops. Neck vessels: no carotid bruits. Pulses including femoral / pedal: normal thro ughout Abdomen: Bowel Sounds: normal. Inspec tion and Palpation: soft, non-distended, no tenderness , no guarding, no rebound tenderness, no masses, no CVA tenderness . Liver: non-tender, no hepatomegaly. Spleen: non-tender, no splen omegaly Male : Male Exam: patient declin ed exam Rectal: Rectal Exam: patient decline d exam Musculoskeletal:: Motor Strength and Tone: nor mal, normal tone. Joints, Bones, and Muscles: normal movement of all extremities, no contractures, no bony abnormalities, no malal ignment, no tenderness. Extremities: no cyanosis, no edema, no varic osities Neurologic: Gait and Station: normal gai t, normal station. Cranial Nerves: grossly intact. Sensation: g rossly intact. Reflexes: DTRs 2+ bilaterally throughout. Coor dination and Cerebellum: no tremor Skin: Inspection and palpation: no lesions, no jaundice Back: Thoracolumbar Appearance: no rmal curvature; No spinal tenderness to palpation Notes: Decline
--- OUTSIDE RECORDS SUMMARY | 2020-01-13 12:21 | XMS REPORT | Encounter Summary ---
:1965 Author Care Team Providers Name Role Phone Dr. Warren Hu Primary Care Provider [phone] Malvin Crowder MD Granite Countertop Installer [phone] Greta Russell MD Cabin Cleaning Supervisor [phone] Reason for Visit other - see typed reason Instructions 1. Anxiety disorder alprazolam 1 mg tablet 2. Opioid dependence addiction psychiatry refer ral 3. Body mass index 30+ - obesity body mass index: care inst ructions learning about healthy jazmin ght Discussion Note: None recorded. Plan of Care Patient Instructions RTC prn Reminders Provider Appointments None recorded. Lab None recorded. Referral Jona Ren Psychiatry Referral 03/02/2019 Procedures None recorded. Surgeries None recorded. Imaging None recorded. Medications Name Start Date alprazolam 1 mg tablet Take 1 tablet every 12 hours by oral route as needed. bisoprolol 10 mg-hydrochlorothiazide 6.25 mg tablet Take 1 tablet every day by oral route. Remeron SolTab 45 mg disintegrating tablet Take by oral route. Suboxone 8 mg-[address] 1 film every day by sublingual route. Medications Administered None recorded. Vitals Height Weight BMI Blood Pressure 6 ft 225.9 lbs 30.6 kg/m2 118/64 mm[Hg] Lab Results None recorded. Allergies Code Code System Name Reaction Severity Status Onset 4053 RxNorm Erythromycin Base Respiratory Active Distress Problems Name Status Onset Date Source Anxiety Disorder Active 03/02/2019 Opioid Dependence Active 03/02/2019 Insomnia Active 03/02/2019 Hypertensive Disorder Active 03/02/2019 Psoriasis Active 03/02/2019 Procedures Date Name Performed by Extraction of [place] Tooth Information n ot available Cardiac Catheterization Information not available Vaccine List None recorded. Social History Smoking Status Former Smoker Past Encounters 03/02/2019 Anxiety Disorder; Opioid Dependence; Bod y Mass Index 30+ - Obesity Warren Hu MD: [address], [address] [address], Ph. History of Present Illness Note: <div>Get est. Per Pt PCP has pancreatic CA and closed down office.</div><div>
</div>Anxiety - Stable. running out of meds. cutting meds to make it stretch. No problems with side effects or cost. <div>
</div><div>Opioid - Stable. running out of meds. cutting meds to make it stretch. No problems with side effects or cost.
</div><div> </div>Review of Systems: ROS as noted in the HPI Review of Systems Comprehensive General Adult ROS Reported By: Patient Constitutional: Constitutional: no fever Eyes: Eyes: no vision change, no i rritation ENMT: Ears: no difficulty hearing, no ear pain. Nose: no nose problems, no sinus problems. Mouth/Throat: no sore throat, no oral abnormalities Cardiovascular: Cardiovascular: no chest modesto n, no palpitations Respiratory: Respiratory: no cough, no wh eezing, no shortness of breath Gastrointestinal: Gastrointestinal: no abdomin al pain, no nausea, no vomiting, no constipation, normal appe tite, no diarrhea, no GERD Genitourinary: Genitourinary: no difficulty urinating, no hematuria, no increased frequency Musculoskeletal: Musculoskeletal: no muscle a ches Integumentary: Skin: no rashes Neurologic: Neurologic: no headaches Endocrine: Endocrine: no fatigue Hematologic/Lymphatic: Hematologic/Lymphatic no swo llen glands Allergic/Immunologic: Allergy/Immunologic: no runn y nose, no sinus pressure, no itching, no frequent sneezin g Physical Exam General Adult Exam (male) Reported By: Patient Constitutional: General Appearance: healthy- appearing, well-nourished, well-developed. Level of Dis tress: NAD. Ambulation: ambulating normally Psychiatric: Insight: good judgement. Men nicole Status: normal mood, normal affect Head: Head: normocephalic, atrauma tic Eyes: Lids and Conjunctivae: non-i njected, no discharge, no pallor. Pupils: PERRLA. EOM: EOMI ENMT: Ears: no lesions on external ear, EACs clear, TMs clear. Hearing: no hearing loss. Nose: no le sions on external nose, nares patent, nasal passages clear, no sin us tenderness, no nasal discharge. Oropharynx: moist mucous mem branes, no erythema, no exudates, tonsils not enlarged Neck: Neck: supple, trachea midlin e, no masses, FROM. Lymph Nodes: no cervical LAD, no supraclavic ular LAD Lungs: Respiratory effort: no dyspn ea. Auscultation: breath sounds normal, good air movement, CTA excep t as noted, no wheezing, no rales/crackles, no rhonchi Cardiovascular: Heart Auscultation: RRR, nor mal S1, normal S2, no murmurs, no rubs, no gallops Abdomen: Bowel Sounds: normal. Inspec tion and Palpation: soft, non-distended, no tenderness , no guarding, no masses. Liver: non-tender, no hepatomegaly. Spleen: non-tender, no splenomegaly Musculoskeletal:: Extremities: no edema Neurologic: Gait and Station: normal gai t, normal station Skin: Inspection and palpation: ra sh; flaky red rash in UE / Face
--- OUTSIDE RECORDS SUMMARY | 2020-01-13 12:22 | XMS REPORT | Encounter Summary ---
:1965 Author Care Team Providers Name Role Phone Dr. Warren Hu Primary Care Provider [phone] Malvin Crowder MD Director Of Digital Platforms [phone] Greta Russell MD Precision Filer Hand [phone] Sammy Bullock MD Precision Filer Hand [phone] Scott Ren MD Addiction Medicine [phone] Reason for Visit nausea; chronic conditions Instructions 1. Anxiety disorder alprazolam 1 mg tablet 2. Nausea ondansetron HCl 4 mg table t 3. Rheumatoid arthritis rheumatology referral 4. Opioid dependence 5. Body mass index 30+ - obesity body mass index: care inst ructions learning about healthy jazmin ght Discussion Note: None recorded. Plan of Care Patient Instructions RTC prn Reminders Provider Appointments INSOLE AND HEEL STIFFENER/EST CPX on or around Luis E Sweeneyg 03/18/2020 MD Fritz Lab None recorded. Referral Rheumatology 07/13/2019 Bola Burroughs MD Procedures None recorded. Surgeries None recorded. Imaging None recorded. Medications Name Start Date alprazolam 1 mg tablet Take 1 tablet every 12 hours by oral route as needed. bisoprolol 10 mg-hydrochlorothiazide 6.25 mg tablet Take 1 tablet every day by oral route. ondansetron HCl 4 mg tablet Take 1 tablet twice a day by oral route as needed. Remeron SolTab 45 mg disintegrating tablet Take 1 tablet every day by oral route at bedtime. Suboxone 8 mg-2 mg sublingual film per Addiction Medications Administered None recorded. Vitals Height Weight BMI Blood Pressure 6 ft 224 lbs 30.4 kg/m2 120/80 mm[Hg] Results Lab Results None recorded. Allergies Code Code System Name Reaction Severity Status Onset 4053 RxNorm Erythromycin Base Respiratory Active Distress Problems Name Status Onset Date Source Anxiety Disorder Active 03/02/2019 Opioid Dependence Active 03/02/2019 Insomnia Active 03/02/2019 Hypertensive Disorder Active 03/02/2019 Psoriasis Active 03/02/2019 Dyslipidemia Active 03/20/2019 Prediabetes Active 03/20/2019 Rheumatoid Arthritis Active 07/13/2019 Procedures Date Name Performed by Extraction of [place] Tooth Information n ot available Cardiac Catheterization Information not available Vaccine List Vaccine Type influenza, recombinant, quadrIvalent,inj ectable, preservative free 06/01/20190.5 mL Tdap 03/18/20190.5 mL Social History Tobacco Smoking Status Former Smoker Past Encounters 07/13/2019 Anxiety Disorder; Nausea; Rheumatoid Art hritis; Opioid Dependence; Body Mass Index 30+ - Obesity Warren Hu MD: [address], [address] [address], Ph. 06/29/2019 Anxiety Disorder; Body Mass Index 30+ - Obesity Warren Hu MD: [address], [address] [address], Ph. 06/15/2019 Anxiety Disorder; Body Mass Index 25-29 - Overweight Warren Hu MD: [address], [address] [address], Ph. History of Present Illness Note: Knee - swelling, better. Has RA. Not sure if related. No fall / trauma / strain.<div>No Tx.
<div>
</div><div>Opioids - considering stopping med. Talkedto an addiction center.<div>
</div><div>anxiety disorder - Stable. Takingmeds. No problems with side effects or cost.
</div><div>alprazolam 1 mg tablet&l t;/div><div>
</div><div>Nausea - not sure from what. Worst since eating Sushi 5 d ago. Would like med for prn use.</div><div>No diarrhea / vomitting.</div><div>No Tx.</div></div></div>Review of Systems: ROS as noted in the [...] By: Patient Constitutional: General Appearance: healthy- appearing, well-developed, obese. Level of Distress: NAD. Ambulation : ambulating normally Psychiatric: Insight: good judgement. Men nicole Status: active and alert, normal mood, normal affect Head: Head: normocephalic, atrauma tic Lungs: Respiratory effort: no dyspn ea. Auscultation: breath sounds normal, good air movement, CTA excep t as noted Cardiovascular: Heart Auscultation: RRR, nor mal S1, normal S2 Neurologic: Gait and Station: normal gai t, normal station
--- OUTSIDE RECORDS SUMMARY | 2020-01-13 12:22 | XMS REPORT | Encounter Summary ---
:1965 Author Care Team Providers Name Role Phone Dr. Warren Hu Primary Care Provider [phone] Malvni Crowder MD Airplane Flight Attendant [phone] Greta Russell MD Drafter Plumbing [phone] Sammy Bullock MD Drafter Plumbing [phone] Scott Ren MD Addiction Medicine [phone] Reason for Visit chronic conditions Instructions 1. Acute gastroenteritis Cipro 500 mg tablet 2. Serum TSH level abnormal TSH, serum or plasma T4, free, serum T3, total, serum 3. Anxiety disorder alprazolam 1 mg tablet 4. Screening for malignant neopl asm of colon colon cancer screening, [facility] 5. Body mass index 25-29 - overw eight learning about healthy [facility] Discussion Note: None recorded. Plan of Care Patient Instructions RTC prn Reminders Provider Appointments STORE WORKER/EST on or around Warren Hu MD CPX 03/18/2020 Lab TSH, 05/18/2019 [facility] Serum or Plasma Practice Laborat ory T4, 05/18/2019 [facility] Free, Serum Practice Laborat ory T3, 05/18/2019 [facility] Total, Serum Practice Laborat ory Colon 05/18/2019 [facility] Cancer Screening, Laboratories ( Cologuard Stool Orders Only) Referral None recorded. Procedures None recorded. Surgeries None recorded. Imaging None recorded. Medications Name Start Date alprazolam 1 mg tablet Take 1 tablet every 12 hours by oral route as needed. bisoprolol 10 mg-hydrochlorothiazide 6.25 mg tablet Take 1 tablet every day by oral route. buprenorphine hcl/naloxone hcl 8-2mg subl Cipro 500 mg tablet Take 1 tablet every 12 hours by oral route. Remeron SolTab 45 mg disintegrating tablet Take 1 tablet every day by oral route at bedtime. Suboxone 8 mg-2 mg sublingual film per Addiction Medications Administered None recorded. Vitals Height Weight BMI Blood Pressure 6 ft 215 lbs 29.2 kg/m2 128/90 mm[Hg] Lab Results None recorded. Allergies Code Code System Name Reaction Severity Status Onset 4053 RxNorm Erythromycin Base Respiratory Active Distress Problems Name Status Onset Date Source Anxiety Disorder Active 03/02/2019 Opioid Dependence Active 03/02/2019 Insomnia Active 03/02/2019 Hypertensive Disorder Active 03/02/2019 Psoriasis Active 03/02/2019 Dyslipidemia Active 03/20/2019 Prediabetes Active 03/20/2019 Procedures Date Name Performed by Extraction of [place] Tooth Information n ot available Cardiac Catheterization Information not available Vaccine List Vaccine Type Tdap 03/18/20190.5 mL Social History Tobacco Smoking Status Former Smoker Past Encounters 05/18/2019 Acute Gastroenteritis; Serum TSH Level A bnormal; Anxiety Disorder; Screening for Malignant Neoplasm of Colon; Body Mass Index 25-29 - Overweight Warren Anitra Hu MD: [address], [address], [place] [address], Ph. History of Present Illness Note: <div>[facility] - N, V, dehydrated. Lots of blood, Urine, EKG, Strep / Flu test. Provider Told Pt he was fine.</div><div>Dx: Stomach bug</div><div>Rx: Zofran, Tylenol, Reglan</div><div>x Thurs</div><div>Still does not feel well. Dec. appetite. No diarrhea. Still w/ sweats, chills, tingling in hands / feet.</div><div>
</div><div>Colonoscopy, refer GI - Dr. Bullock - not yet</div><div><br&gt ;</div><div></div><div>hypertensive disorder - Stable. Taking meds. No problems with side effects or cost. </div><div>bisoprolol 10 mg-hydrochlorothiazide 6.25 mg ta blet</div><div>
</div><div>insomnia - Stable. Taking meds. No problems with side effects or cost. </div><div>Remeron SolTab 45 mg disintegrating tablet from1 po qhs prn insomnia to 1 tablet every day at bedtime</div><div>
</div><div>anxiety disorder - Stable. Taking meds. No problems with side effects or cost. Addiction doctor and his CYRUS were filling med out of convenience so I would not have to refill. Pt said now they will not do it so he wants me to refill. Pt also had to switch pharms for supply issues.</div><div>ALPRAZolam 1 mg tablet</div><div>
</div><div>Your labs are normal except...
</div><div>1. Lipids are high. I recommend low fat diet andwalking. I will monitor.
</div><div>2. You are borderline diabetic. I recommendlow carb / sugar diet and walking. I will monitor.
</div><div>3. Your thyroid test is abnormal. I need to check more labs.
</div><div>4. Your white blood cellswere a little abnormal. This may be a lab variation or other cause. I will monitor.</div>Review of Systems: ROS as noted in the [...] appearing, well-nourished, well-developed. Level of Dis tress: NAD, acutely ill. Ambulation: ambulating normally Psychiatric: Insight: good judgement. [...]
--- OUTSIDE RECORDS SUMMARY | 2020-01-13 12:22 | XMS REPORT | Encounter Summary ---
:1965 Author Care Team Providers Name Role Phone Dr. Warren Hu Primary Care Provider [phone] Malvin Crowder MD Waste Reduction Coordinator [phone] Greta Russell MD Fire And Safety Helper [phone] Sammy Bullock MD Fire And Safety Helper [phone] Scott Ren MD Addiction Medicine [phone] Reason for Visit chronic conditions Instructions 1. Anxiety disorder alprazolam 1 mg tablet 2. Body mass index 25-29 - overw eight learning about healthy jazmin ght Discussion Note: None recorded. Plan of Care Patient Instructions RTC prn Reminders Provider Appointments FOREX TRADER/EST on or around Warren Hu, [facility] 03/18/2020 Lab None recorded. Referral None recorded. Procedures None recorded. Surgeries None recorded. Imaging None recorded. Medications Name Start Date alprazolam 1 mg tablet Take 1 tablet every 12 hours by oral route as needed. bisoprolol 10 mg-hydrochlorothiazide 6.25 mg tablet Take 1 tablet every day by oral route. bisoprolol fumarate/hydrochlorothiazide 10-6.25 mg tab s buprenorphine hcl/naloxone hcl 8-2mg subl mirtazapine odt 45 mg tbdp Remeron SolTab 45 mg disintegrating tablet Take 1 tablet every day by oral route at bedtime. Suboxone 8 mg-2 mg sublingual film per Addiction Medications Administered None recorded. Vitals Height Weight BMI Blood Pressure 6 ft 219 lbs 29.7 kg/m2 120/74 mm[Hg] Lab Results Date Name Specimen Result Interpretation Description Value Range Status Address 05/18/2019 T3, Normal T3, 114 76-181 [facility] Total, Total NG/dL NG/dL Practice Serum Laboratory : [address] 05/18/2019 T4, Free, T4 Free 1.12 0.70-1.48 Final [facility] Serum NG/dL NG/dL Practice Laboratory : [address] [place] 05/18/2019 TSH, Tsh 3.825 0.350-4.9 Final [facility] Serum or uIU/mL 40 uIU/mL Pract ice Plasma Laboratory : [address] [facility] Aruna [place] Allergies Code Code System Name Reaction Severity Status Onset 4053 RxNorm Erythromycin Base Respiratory Active Distress Problems Name Status Onset Date Source Anxiety Disorder Active 03/02/2019 Opioid Dependence Active 03/02/2019 Insomnia Active 03/02/2019 Hypertensive Disorder Active 03/02/2019 Psoriasis Active 03/02/2019 Dyslipidemia Active 03/20/2019 Prediabetes Active 03/20/2019 Procedures Date Name Performed by Extraction of [place] Tooth Information n ot available Cardiac Catheterization Information not available Vaccine List Vaccine Type influenza, recombinant, quadrIvalent,inj ectable, preservative free 06/01/20190.5 mL Tdap 03/18/20190.5 mL Social History Tobacco Smoking Status Former Smoker Past Encounters 06/15/2019 Anxiety Disorder; Body Mass Index 25-29 - Overweight Warren Hu MD: [address] [place] [address], Ph. 06/01/2019 Anxiety Disorder; Influenza Vaccination; Body Mass Index 25-29 - Overweight Warren Hu MD: [address] [place] [address], [address] [address], Ph. 05/18/2019 Acute Gastroenteritis; Serum TSH Level A bnormal; Anxiety Disorder; Screening for Malignant Neoplasm of Colon; Body Mass Index 25-29 - Overweight Warren Hu MD: [address] [place] [address], [address] [address], Ph. History of Present Illness Note: anxiety disorder - Stable. Taking meds. No problems with side effects or cost.
<div>ALPRAZolam 1 mg tablet
</div>Review of Systems: ROS as noted in [...]
--- OUTSIDE RECORDS SUMMARY | 2020-01-13 12:22 | XMS REPORT | Encounter Summary ---
:1965 Author Care Team Providers Name Role Phone Dr. Warren Hu Primary Care Provider [phone] Malvin Crowder MD Intervention Teacher [phone] Greta Russell MD Sales Inspector [phone] Sammy Bullock MD Sales Inspector [phone] Scott Ren MD Addiction Medicine [phone] Reason for Visit chronic conditions Instructions 1. Anxiety disorder alprazolam 1 mg tablet 2. Body mass index 30+ - obesity body mass index: care inst ructions learning about healthy jazmin ght Discussion Note: None recorded. Plan of Care Patient Instructions RTC prn Reminders Provider Appointments RIBBON BLOCKMAKER/EST on or around Warren Hu, [facility] 03/18/2020 Lab None recorded. Referral None recorded. [...] Height Weight BMI Blood Pressure 6 ft 222 lbs 30.1 kg/m2 125/80 mm[Hg] Results Lab Results None recorded. Allergies Code Code System Name Reaction Severity Status Onset 4053 RxNorm Erythromycin Base Respiratory Active Distress Problems Name Status Onset Date Source Anxiety Disorder Active 03/02/2019 Opioid Dependence Active 03/02/2019 Insomnia Active 03/02/2019 Hypertensive Disorder Active 03/02/2019 Psoriasis Active 03/02/2019 Dyslipidemia Active 03/20/2019 Prediabetes Active 03/20/2019 Procedures Date Name Performed by Extraction of [place] Tooth Information n ot available Cardiac Catheterization Information not available Vaccine List Vaccine Type influenza, recombinant, quadrIvalent,inj ectable, preservative free 06/01/20190.5 mL Tdap 03/18/20190.5 mL Social History Tobacco Smoking Status Former Smoker Past Encounters 06/29/2019 Anxiety Disorder; Body Mass Index 30+ - Obesity Warren Hu MD: [address], [address] [address], Ph. 06/15/2019 Anxiety Disorder; Body Mass Index 25-29 - Overweight Warren Hu MD: [address], [address], [place] [address], Ph. 06/01/2019 Anxiety Disorder; Influenza Vaccination; Body Mass Index 25-29 - Overweight Warren Hu MD: [address], [address], [place] [address], Ph. History of Present Illness Note: anxiety disorder - Stable. Taking meds. No problems with side effects or cost.
<div>alprazolam 1 mg tablet</div>Review of Systems: ROS as noted in the [...]
--- OUTSIDE RECORDS SUMMARY | 2020-01-13 12:22 | XMS REPORT | Encounter Summary ---
:1965 Author Care Team Providers Name Role Phone Dr. Warren Hu Primary Care Provider [phone] Malvin Crowder MD Internet Marketing Manager [phone] Greta Russell MD Hourly Shift Manager [phone] Sammy Bullock MD Hourly Shift Manager [phone] Scott Ren MD Addiction Medicine [phone] Reason for Visit chronic conditions Instructions 1. Anxiety disorder alprazolam 1 mg tablet 2. Influenza vaccination Flublok Quad [id number] (PF ) 180 mcg (45 mcg x 4)/0.5 mL IM syringe 3. Body mass index 25-29 - overw eight learning about healthy jazmin ght Discussion Note: None recorded. Plan of Care Patient Instructions RTC prn Reminders Provider Appointments CHEMICAL PUMPER/EST on or around Warren Sweeneyelma Hu, CPX 03/18/2020 Lab None recorded. Referral [...] Pressure 6 ft 219 lbs 29.7 kg/m2 122/82 mm[Hg] Lab Results Date Name Specimen Result Interpretation Description Value Range Status Address 05/18/2019 T3, Normal T3, 114 76-181 Final [facility] Total, Total NG/dL NG/dL Practice Serum Laboratory : [address] [address], [place] 05/18/2019 T4, Free, T4 Free 1.12 0.70-1.48 Final [facility] Serum NG/dL NG/dL Practice Laboratory : [address] [place] 05/18/2019 TSH, Tsh 3.825 0.350-4.9 Final [facility] Serum or uIU/mL 40 uIU/mL Pract ice Plasma Laboratory : [address] [place] Allergies Code Code System Name Reaction Severity Status Onset 4053 RxNorm Erythromycin Base Respiratory Active Distress Problems Name Status Onset Date Source Anxiety Disorder Active 03/02/2019 Opioid Dependence Active 03/02/2019 Insomnia Active 03/02/2019 Hypertensive Disorder Active 03/02/2019 Psoriasis Active 03/02/2019 Dyslipidemia Active 03/20/2019 Prediabetes Active 03/20/2019 Procedures Date Name Performed by Extraction of [place] Tooth Information n ot available Cardiac Catheterization Information not available Vaccine List Vaccine Type influenza, recombinant, quadrIvalent,inj ectable, preservative free 06/01/20190.5 mL Tdap 03/18/20190.5 mL Social History Tobacco Smoking Status Former Smoker Past Encounters 06/01/2019 Anxiety Disorder; Influenza Vaccination; Body Mass Index 25-29 - Overweight Warren Hu MD: [address] [place] [address], [address] [address], Ph. 05/18/2019 Acute Gastroenteritis; Serum TSH Level A bnormal; Anxiety Disorder; Screening for Malignant Neoplasm of Colon; Body Mass Index 25-29 - Overweight Warren Hu MD: [address] [place] [address], [facility] [address], [place] [address], Ph. History of Present Illness Note: acute gastroenteritis - resolved
<div>Cipro 500 mg tablet 1 tablet every 12 hours& lt;br></div><div>
</div><div>serum TSH level abnormal - resolved& lt;/div><div>
</div><div>anxiety disorder - Stable. Taking meds. No problems with side effects or cost. Pt only getting med from me now.
</div><div>ALPRAZolam 1 mg tablet
</div><div>
</div><div>1. Your lab results are Normal.</div>Review of Systems: ROS as noted in the [...]
--- OUTSIDE RECORDS SUMMARY | 2020-01-13 12:22 | XMS REPORT | Summary of Care ---
:1965 Author Organization [facility] - [facility] Address [address] [place] [address] Care Team Providers Name Role Phone Pcp, Does Not Have A Primary Care Provider Reason for Visit Reason Comments Nausea Shortness of Breath Auth/Cert Status Reason Specialty Diagnoses / Referred By Referred To Procedures Contact Contact Emergency Medicine [facility] Em ergency Dept [address] [place] [address] [place] [address] Fax: Encounter Details Date Type Department Care Team Description 05/14/2019 Emergency [facility]-Emergency Dejan Fishman III, Marieu e, unspecified type (Primary Dx); Department PA Acute viral syndrome [address] [place] [address] [place] [address] [place] [address] [place], [place] [id number] Allergies Active Allergy Reactions Severity Noted Date Comments Erythromycin Hives 06/16/2008 documented as of this encounter (statuses as of 05/14/2019) Medications Medication Sig Dispensed Refills Start Date End Date Status mirtazapine (REMERON) Take 45 mg by 0 Active 45 mg tablet mouth at bedtime. buprenorphine-naloxone Place 1 Film 0 Active (SUBOXONE) 8-2 mg under the tongue sublingual film 2 (two) times daily. albuterol (PROAIR HFA) Inhale 2 Puffs 8.5 g 2 02/20/2017 Active 90 mcg/actuation every 6 (six) inhaler hours as needed for Wheezing or Shortness of Breath (Max 2 times a day). ALPRAZolam (XANAX) 1 Take 1 tablet by 14 tablet 0 05/22/2017 Active mg tabletIndications: mouth 2 (two) Generalized anxiety times daily. disorder aspirin 81 mg chewable Take 1 tablet by 30 tablet 2 08/13/2017 Active tablet mouth daily. atorvastatin 20 mg Take 1 tablet by 30 tablet 2 08/13/2017 Active tablet mouth at bedtime. cyclobenzaprine 5 mg Take 1 tablet by 30 tablet 0 10/13/2017 Active tablet mouth 3 (three) times daily. traMADOL (ULTRAM) 50 Take 1 tablet by 20 tablet 0 10/13/2017 Active mg tablet mouth every 6 (six) hours as needed for Pain (scale 4-6). BISOPROLOL-HYDROCHLORO TAKE ONE TABLET 30 tablet 0 12/05/2018 Active THIAZIDE 10-6.25 mg BY MOUTH DAILY per tabletIndications: Essential hypertension ranitidine (ZANTAC) Take 1 tablet by 30 tablet 1 05/14/2019 Active 150 mg mouth 2 (two) tabletIndications: times daily. Fatigue, unspecified Follow up with type, Acute viral your MD for syndrome further evaluation and treatment. ondansetron (ZOFRAN Take 1 tablet by 6 tablet 0 05/14/2019 Active ODT) 4 mg mouth every 8 disintegrating (eight) hours as tabletIndications: needed for Nausea Fatigue, unspecified and Vomiting type, Acute viral (N/V). syndrome ibuprofen 600 mg Take 1 tablet by 10 tablet 0 05/14/201905/19 Active tabletIndications: mouth 4 (four) Fatigue, unspecified times daily as type, Acute viral needed for Pain syndrome (scale 4-6) for up to 5 days. acetaminophen Take 3 tablets by 60 tablet 0 05/14/2019 019 Active (TYLENOL) 325 mg mouth 4 (four) tabletIndications: times daily for 5 Fatigue, unspecified days. This is the type, Acute viral maximum safe dose syndrome for a healthy adult. documented as of this encounter (statuses as of 05/14/2019) Active Problems Problem Noted Date Chest pain 08/09/2017 Obesity (BMI 30-39.9) 02/26/2017 Chest pain, atypical 06/09/2016 Chest pain at rest 02/03/2016 Drug-seeking behavior 11/29/2013 Essential hypertension, benign 03/09/2009 Generalized anxiety disorder 03/09/2009 documented as of this encounter (statuses as of 05/14/2019) Social History Tobacco Use Types Packs/Day Years Used Date Former Smoker Cigarettes 1 25 Smokeless Tobacco: Never Used Comments: last smoke in 2012 Alcohol Use Drinks/Week oz/Week Comments No Sex Assigned at Date Recorded Not on file Job Start Date Occupation Industry Not on file Not on file Not on file Travel History Travel Start Travel End No recent travel history available. documented as of this encounter Last Filed Vital Signs Vital Sign Reading Time Taken Comments Blood Pressure 131/79 05/14/2019 7:00 PM CDT Pulse 57 05/14/2019 7:00 PM CDT Temperature 36.8 C (98.3 F) 05/14/2019 3:25 PM CDT Respiratory Rate 18 05/14/2019 7:00 PM CDT Oxygen Saturation 95% 05/14/2019 6:00 PM CDT Inhaled Oxygen Concentration - - Weight 99.8 kg (220 lb) 05/14/2019 3:25 PM CDT Height 182.9 cm (6') 05/14/2019 3:25 PM CDT Body Mass Index 29.84 05/14/2019 3:25 PM CDT documented in this encounter Discharge Instructions Dejan Valle III, PA - 05/14/2019 @@@@@@@@@@@@@@@@@@@@@@@@@@@@@@@@@@@@@@@@@@@@@@@@@@@@@ [facility] RETURN TO WORK / SCHOOL EXCUSE [place] Harris WAS SEEN IN THE ER AND DISCHARGED 05/14/2019 TODAY, 6:52 PM & May return to Work / School / Incarceration on 05/15/19 with No limitations unless indicated below. ___The following limitations apply until pt is seen by Physician and cleared to return to normal activity. ___ Light duty ___ No Sports ___ No work ___ Do not return until fever free for 24 hours. ___ No school Amari Fishman PA-C [facility] [address] [place] [address] [place] [address] If you are unprepared to return to work tomorrow due to pain please give this note to your employer and make a follow up appointment with your MD for further evaluation and limitations. ### The patient may have been given Narcotic pain medications during their stay in the ED that may show up on a Drug Screen. The hospital discharge paper work will identify these medications. @@@@@@@@@@@@@@@@@@@@@@@@@@@@@@@@@@@@@@@@@@@@@@@@@@@@@ Thank you for trusting us with your care. The emergency room is the first stop in the medical management of your complaint . Our primary pupose is to identify life threatening emergancies and to rapidly address those issues. We are releasing you today after evaluation for emergency or life threatening problems related to your complaint. At this time we are comfortable that your condition is stable enough to go home, take oral medications and follow up for further care. If you can't afford a doctor OR MEDICATIONS consider [facility], [address] [place] [address]; [phone] Medications [employer] WILL SHOW YOU WHERE YOU CAN GET YOUR MEDICATIONS CHEAPEST. 1. Call your doctor and let them know you were seen for ICD-10-CM ICD-9-CM 1. Fatigue, unspecified type R53.83 780.79 2. Acute viral syndrome B34.9 079.99 2. Schedule a follow up within 3 days of your ER visit. 3. Take your prescriptions to the pharmacy and get them filled today. 4. Take the medications as prescribed and until completed. 5. You have been referred for further care 6. You may need additional tests Your doctors will help you figure out what you need and how to get them done. 7. Please read all paperwork provided to you. Additional instructions See Attached NAUSEA VOMITING AND DIARRHEA CLEAR LIQUID DIET This includes liquids that you can see through and have no chunks in it. This includes diluted juices, diluted gatoraid, soup broth (no solid chunks), Jello and clear icee pops ( the kind you stick in the freezer and squeeze up ). This diet should be followed for 24 hours. The next 24 hours start the Brat diet listed below. If your symptoms return then go back to a clear liquid diet for another 24 hours. Repeat this process for up to 3 days. If you still have symptoms see your Doctor again for re-evaluation. What is the BRAT diet? If you have recently had an upset stomach or diarrhea, your doctor may suggest that you limit your diet to bland foods that won?t irritate your stomach. The BRAT diet is a bland-food diet that is oftenrecommended for adults and children. BRAT stands for Bananas, Rice, Applesauce and [place]. The BRAT diet can help you recover from an upset stomach or diarrhea for the following reasons: It includes ?binding? foods. These are low-fiber foods that can help make your stools firmer. It includes bananas, which are high in potassium and help replace nutrients your body has lost because of vomiting or diarrhea. When should I follow the BRAT diet? After you have diarrhea or vomiting, follow the BRAT diet to help your body ease back into normal eating. This diet may also help ease the nausea and vomiting some women experience during . You can add other bland foods to the BRAT diet. For example, you can try saltine crackers, boiled potatoes or clear soups. Don?t start eating dairy products and sugary or fatty foods right away. These foods may trigger nausea or lead to more diarrhea. When should I avoid the BRAT diet? Solid foods, like those in the BRAT diet, are not recommended for adults or children who are actively vomiting. Instead, stick to clear liquids at first and wait until you can eat solid foods without vomiting. If you have been vomiting or have diarrhea, drinking an electrolyte beverage (some brand names: Pedialyte, Rehydralyte) can help protect against dehydration. Use these products according to your doctor?s instructions. How long should I follow the BRAT diet? Both adults and children should follow the BRAT diet for only a short period of time because it doesnot provide all the elements of a healthy diet. Following the BRAT diet for too long can cause your body to become malnourished. This means you are not getting enough of many important nutrients. If your body is malnourished, it will be hard for you to get better. You should be able to start eating a more regular diet, including fruits and vegetables, within about 24 to 48 hours after vomiting or having diarrhea. Ask your family doctor if you have any questions about whether you or your child should follow the BRAT diet. AttachmentsThe following attachments cannot be sent through Care Everywhere. Viral Syndrome (Adult) (Paraguayan)documented in this encounter Plan of Treatment Name Type Priority Associated Diagnoses Date/Ti me BLOOD CULTURE SCREEN LAB STAT Fatigue, unspecified type 05/14/2019 5:04 PM CDT BLOOD CULTURE SCREEN LAB STAT Fatigue, unspecified type 05/14/2019 4:23 PM CDT URINE CULTURE LAB STAT Fatigue, unspecified type 0 05/14/2019 6:15 PM CDT THROAT CULTURE LAB STAT Fatigue, unspecified type 05/14/2019 4:24 PM CDT Name Type Priority Associated Diagnoses Order S chedule BLOOD CULTURE SCREEN LAB Routine Fatigue, unspecified type ONCE for 1 Occurrences starting 2018 until 05/14/2019 BLOOD CULTURE SCREEN LAB Routine Fatigue, unspecified type ONCE for 1 Occurrences starting 2018 until 05/14/2019 Lactic Acid Whole LAB Routine Fatigue, unspecified ty pe STAT for 1 Occurrences Blood starting 2018 URINE CULTURE LAB Routine Fatigue, unspecified type O NCE for 1 Occurrences starting 2018 until 05/14/2019 THROAT CULTURE LAB Routine Fatigue, unspecified type ONCE for 1 Occurrences starting 2018 until 05/14/2019 Health Maintenance Due Date Last Done Comments DTaP,Tdap,and Td Vaccines (1 - 1986 Tdap) COLONOSCOPY 2017 Zoster Recombinant Vaccine 2017 (SHINGRIX) (1 of 2) INFLUENZA VACCINE (Retired 05/24/2019 version) PNEUMOCOCCAL 0-64 YEARS COMBINED Aged Out No longer eligible based on SERIES patient's age to complete this topic documented as of this encounter Procedures Procedure Name Priority Date/Time Associated Diagnosis Comme nts ADC / LCC - DRUG STAT 05/14/2019 6:15 Fatigue, unspecified Results for this SCREEN TRIAGE PM CDT type procedure are in the results section. URINALYSIS STAT 05/14/2019 6:14 Fatigue, unspecified Res ults for this PM CDT type procedure are i n the results section. ACTIVATED PARTIAL STAT 05/14/2019 5:04 Fatigue, unspecifie d Results for this THRMPLAS MIKAEL PM CDT type procedure are i n the results section. PROTHROMBIN TIME / STAT 05/14/2019 5:04 Fatigue, unspecifi ed Results for this INR PM CDT type procedure are i n the results section. ADC,CLC OR LCC ONLY - STAT 05/14/2019 4:24 Fatigue, unspec ified Results for this INFLUENZA A & B PM CDT type procedure ar e in DIRECT ANTIGEN the results section. RAPID STREP SCREEN STAT 05/14/2019 4:24 Fatigue, unspecifi ed Results for this FOR GROUP A PM CDT type procedure are i n the results section. EBV-MONONUCLEOSIS STAT 05/14/2019 4:24 Fatigue, unspecifie d Results for this SCREEN PM CDT type procedure are i n the results section. ETHANOL STAT 05/14/2019 4:24 Fatigue, unspecified Res ults for this PM CDT type procedure are i n the results section. COMP. METABOLIC PANEL STAT 05/14/2019 4:24 Fatigue, unspec ified Results for this (31688) PM CDT type procedure are i n the results section. AMMONIA, PLASMA STAT 05/14/2019 4:24 Fatigue, unspecified Results for this PM CDT type procedure are i n the results section. MAGNESIUM STAT 05/14/2019 4:24 Fatigue, unspecified Res ults for this PM CDT type procedure are i n the results section. LIPASE STAT 05/14/2019 4:24 Fatigue, unspecified Res ults for this PM CDT type procedure are i n the results section. CREATINE KINASE STAT 05/14/2019 4:24 Fatigue, unspecified Results for this PM CDT type procedure are i n the results section. CBC WITH DIFFERENTIAL STAT 05/14/2019 4:23 Fatigue, unspec ified Results for this PM CDT type procedure are i n the results section. CBC WITH DIFF Routine 05/14/2019 4:23 Fatigue, unspecified Re sults for this PM CDT type procedure are i n the results section. LACTIC ACID WHOLE STAT 05/14/2019 4:13 Fatigue, unspecifie d Results for this BLOOD PM CDT type procedure are i n the results section. EKG-12 LEAD Routine 05/14/2019 3:39 PM CDT NOTICE OF PRIVACY Routine 05/14/2019 3:20 PRACTICES PM CDT CONSENT/REFUSAL FOR Routine 05/14/2019 3:20 DIAGNOSIS AND PM CDT TREATMENT documented in this encounter Results [facility] / LCC - DRUG SCREEN TRIAGE (05/14/2019 6:15 PM CDT) BENZO U Presumptive Negative [facility] Positive (A) HOSPITAL LABORATORY CASH U Negative Negative [facility] AMPHET Negative Negative [facility] THC Negative Negative [facility] METHADONE Negative Negative [facility] Meth U Negative Negative [facility] OPIATES Negative Negative [facility] Cocaine Metabolite Negative Negative [facility] PROPOXY Negative Negative [facility] Tric U Negative Negative [facility] PCP Negative Negative [facility] OXYCOD Negative Negative [facility] Specimen Urine - URINE, CLEAN CATCH Narrative Performed At Urine Drug Cutoff Ranges [facility] Benzodiazepines: 150 ng/mL Barbiturates: 200 ng/mL Amphetamine: 500 ng/mL Cannabinoids: 50ng/mL Methadone: 200 ng/mL Methamphetamine: 500 ng/mL Opiates: 100 ng/mL or 2000 ng/mL Cocaine: 150 ng/mL Propoxyphene:300 ng/mL Tricyclics:300 ng/mL Oxycodone: 100 ng/mL PCP: 25 ng/mL The results are to be used only for medical (i.e., treatment) purposes. Unconfirmed screening results must not be used for non-medical purposes (e.g., employment testing, legal testing). Performing Organization Address City/State/Zipcode Phone Number [facility] CLIA: [id number], [address] [place], [place] [address] URINALYSIS (05/14/2019 6:14 PM CDT) Pathologist Sig nature APPEARANCE Clear Clear [facility] COLOR Pale Yellow (A) Yellow [facility] PH 7.5 4.8 - 8.0 [facility] SP GRAVITY 1.010 1.003 - 1.030 [facility] GLU U QUAL Negative Negative [facility] BLOOD Negative Negative [facility] KETONES Negative Negative [facility] PROTEIN Negative Negative [facility] UROBILIN 0.2 mg/dL 0-1.0 mg/dL [facility] BILIRUBIN Negative Negative [facility] NITRITE Negative Negative [facility] LEUK EMIL Negative Negative [facility] RBC/HPF 0 0 - 3 HPF [facility] WBC/HPF 0 0 - 5 HPF [facility] BACTERIA Negative Negative [facility] Specimen Urine - URINE, CLEAN CATCH Performing Organization Address [facility] [[email or web address] Phone Number [facility] CLIA: [id number], [address] [place] [address] PROTHROMBIN TIME / INR (05/14/2019 5:04 PM CDT) PROTIME PATIENT 12.8 12.0 - 14.7 [facility] LABORATORY INR 1.0Comment: Normal [facility] INR <1.1; Warfarin [facility] Therapeutic range LABORATORY 2.0 to 3.0 or 2.5 to 3.5, depending upon the indications. Specimen Blood - VENOUS Performing Organization Address [facility] [[email or web address] Phone Number [facility] CLIA: [id number], [address] [place] [address] aPTT (05/14/2019 5:04 PM CDT) Pathologist Sig nature APTT Patient 32 23 - 38 Seconds [facility] Specimen Blood - VENOUS Narrative Performed At The [facility] patient population mean normal value [facility] for aPTT is 30 seconds. Performing Organization Address [facility] [[email or web address] Phone Number [facility] CLIA: [id number], [address] [place] [address] AMMONIA, PLASMA (05/14/2019 4:24 PM CDT) Pathologist Sig nature AMMONIA 24Comment: Slight 9 - 33 umol/L [facility] LABORATORY Specimen Blood - VENOUS Performing Organization Address [facility] [[email or web address] Phone Number [facility] CLIA: [id number], [address] [place] [address] ETHANOL (05/14/2019 4:24 PM CDT) Pathologist Sig nature ALCOHOL <10 mg/dL [facility] Specimen Blood - VENOUS Narrative Performed At <10 Negative [facility] 50-100 Toxic >100 Depression of SOW MANAGER >400 Fatalities Reported Performing Organization Address [facility] [[email or web address] Phone Number [facility] CLIA: [id number], [address] [place] [address] ADC,CLC OR LCC ONLY - INFLUENZA A & B DIRECT ANTIGEN (05/14/2019 4:24 PM CDT) Pathologist Sig nature Influenza A NEGATIVE Negative [facility] Influenza B NEGATIVE Negative [facility] Specimen Swab - NARE, LEFT SIDE Performing Organization Address [facility] Phone Number [facility] CLIA: [id number], [address] [place] [address] CREATINE KINASE (05/14/2019 4:24 PM CDT) Pathologist Sig nature CK 98 33 - 194 U/L [facility] Specimen Blood - VENOUS Performing Organization Address [facility] [[email or web address] Phone Number [facility] CLIA: [id number], [address] [place] [address] MAGNESIUM (05/14/2019 4:24 PM CDT) Pathologist Sig nature MAGNESIUM 2.3 1.7 - 2.4 mg/dL [facility] Specimen Blood - VENOUS Performing Organization Address [facility] Phone Number [facility] CLIA: [id number], [address] [place] [address] EBV-MONONUCLEOSIS SCREEN (05/14/2019 4:24 PM CDT) Pathologist Sig nature EBV Mononucleosis Screen Negative Negative [facility] Specimen Blood - VENOUS Performing Organization Address [facility] Phone Number [facility] CLIA: [id number], [address] [place] [address] RAPID STREP SCREEN FOR GROUP A (05/14/2019 4:24 PM CDT) Pathologist Sig nature Streptococcus pyogenes Negative Negative [facility] (group A) antigen [facility] LAB[facility] Specimen Swab - THROAT Performing Organization Address [facility] Phone Number [facility] CLIA: [id number], [address] [place] [address] LIPASE (05/14/2019 4:24 PM CDT) Pathologist Sig nature LIPASE 28 0 - 220 U/L [facility] Specimen Blood - VENOUS Performing Organization Address [facility] [[email or web address] Phone Number [facility] CLIA: [id number], [address] [place] [address] COMP. METABOLIC PANEL ([id number]) (05/14/2019 4:24 PM CDT) Pathologist Sig nature NA 141 135 - 145 [facility] mmol/L [facility] LABORAT[facility] K 4.1 3.5 - 5.0 [facility] mmol/L [facility] LAB[facility] CL 103 98 - 108 mmol/L [facility] CO2 TOTAL 27 23 - 31 mmol/L [facility] AGAP 11 2 - 16 [facility] BUN 13 7 - 23 mg/dL [facility] GLUCOSE 116 (H) 70 - 110 mg/dL [facility] CREATININE 0.70 0.60 - 1.25 [facility] mg/dL [facility] TOTAL BILI 0.4 0.1 - 1.1 mg/dL [facility] CALCIUM 9.4 8.6 - 10.6 [facility] mg/dL [facility] LAB[facility] T PROTEIN 8.1 6.3 - 8.2 g/dL [facility] ALBUMIN 4.4 3.5 - 5.0 g/dL [facility] ALK PHOS 96 34 - 122 U/L [facility] ALT(SGPT) 16 9 - 51 U/L [facility] AST(SGOT) 28 13 - 40 U/L [facility] eGFR Calculation 118.4 mL/min/1.73m2 [facility] (Non-[facility] LABORATORY Sudanese) eGFR Calculation 143.5 mL/min/1.73m2 [facility] () [facility] Specimen Blood - VENOUS Narrative Performed At Association of Glomerular Filtration Rate (GFR) [facility] LABORATORY and Staging of Kidney Disease* + + +- + | GFR (mL/min/1.73 m2)| With Kidney Damage|Without Kidney Damage + + +- + |>90| Stage one| Normal + + +- + |60-89|S tage two| Decreased GFR + + +- + |30-59|S tage three| Stage three + + +- + |15-29|S tage four | Stage four + + +- + |<15 (or dialysis)|Stage five | Stage five + + +- + *Each stage assumes the associated GFR level has been in effect for at least three months.Stages 1 to 5, with or without kidney disease, indicate chronic kidney disease . Notes: Determination of stages one and two (with eGFR >59mL/min/1.73 m2) requires estimation of kidney damage for at least three months as defined by structural or functional abnormalities of the kidney, manifested by either: Pathological abnormalities or Markers of kidney damage (including abnormalities in the composition of the blood or urine or abnormalities in imaging tests). Performing Organization Address City/State/Zipcode Phone Number [facility] CLIA: [id number], [address] [place], [place] [address] CBC WITH DIFFERENTIAL (05/14/2019 4:23 PM CDT) WBC 10.04 4.20 - 10.70 [facility] 10*3/L [facility] RBC 5.25 4.26 - 5.52 [facility] 10*6/L [facility] HGB 14.4 12.2 - 16.4 [facility] g/dL [facility] HCT 44.8 38.4 - 49.3 % [facility] MCV 85.3 81.7 - 95.6 [facility] LABORATORY MCH 27.4 26.1 - 32.7 [facility] pg [facility] LABORATORY MCHC 32.1 31.2 - 35.0 [facility] g/dL [facility] LABORATORY RDW-SD 42.2 38.5 - 51.6 [facility] LABORATORY RDW-CV 13.5 12.1 - 15.4 % [facility] PLT 188 150 - 328 [facility] 10*3/L [facility] MPV 10.7 9.8 - 13.0 fL [facility] IPF % 7.6Comment: Platelet 1.2 - 10.7 % [facility] count measured by HOSPITAL fluorescence method. LABORATORY NRBC/100 WBC 0.0 0.0 - 10.0 [facility] /100 WBCs [facility] NRBC x10^3 <0.01 10*3/L [facility] GRAN MAT (NEUT) % 70.3 % [facility] IMM GRAN % 0.30 % [facility] LYMPH % 22.6 % [facility] MONO % 5.5 % [facility] EOS % 0.6 % [facility] BASO % 0.7 % [facility] GRAN MAT 7.06 (H) 1.99 - 6.95 [facility] x10^3(ANC) 10*3/uL HOSPITAL LABORATORY IMM GRAN x10^3 0.03 0.00 - 0.06 [facility] 10*3/uL [facility] LAB[facility]ORY LYMPH x10^3 2.27 1.09 - 3.23 [facility] 10*3/uL [facility] LAB[facility]ORY MONO x10^3 0.55 0.36 - 1.02 [facility] 10*3/uL [facility]ITAL LABORATORY EOS x10^3 0.06 0.06 - 0.53 [facility] 10*3/uL [facility] BASO x10^3 0.07 0.01 - 0.09 [facility] 10*3/uL [facility] Specimen Blood - VENOUS Performing Organization Address City/[facility]/Zipcode Phone Number [facility] CLIA: [id number], [address] Lactic Acid Whole Blood (05/14/2019 4:13 PM CDT) [facility] LACTIC ACID 2.21 (H) 0.50 - 2.20 mmol/L [facility] Specimen Blood Performing Organization Address City/[facility] [email or web address] Phone Number [facility] CLIA: [id number], [address] documented in this encounter Visit Diagnoses Diagnosis Fatigue, unspecified type - Primary Acute viral syndrome documented in this encounter Administered Medications Medication Order MAR Action Action Date Dose Rate Site LORazepam (ATIVAN) injection 1 mg Given 05/14/2019 6:18 PM CDT 1 mg 1 mg, Slow IV Push, ONCE, 1 dose, [facility] 05/14/19 at 1900, STAT NaCl 0.9% (NS) bolus infusion New Bag 05/14/2019 5:05 PM CDT 1,000 mL 999 mL/hr 1,000 mL at 999 mL/hr, 1,000 mL, IV Infusion, ONCE, 1 dose, [facility] 05/14/19 at 1545, STAT ondansetron (ZOFRAN (PF)) injection 4 mg Given 05/14/2019 5:05 PM CDT 4 mg 4 mg, Slow IV Push, ONCE, 1 dose, Shawna 05/14/19 at 1645, Routine documented in this encounter Insurance Payer Benefit Plan Subscriber ID Effective Dates Phone Address Type / Group BCBS OF [facility] [id number] 2017-[id number] [phone] [address] PPO/POS [place] - OUT OF 7 [id number] [place] [address] (Work) [id number] documented as of this encounter"
--- OUTSIDE RECORDS SUMMARY | 2020-01-13 12:23 | XMS REPORT | Encounter Summary ---
:1965 Author Care Team Providers Name Role Phone Dr. Warren Hu Primary Care Provider [phone] Malvin Crowder MD Bridge Welder [phone] Greta Russell MD Roll Up Guider Operator [phone] Sammy Bullock MD Roll Up Guider Operator [phone] Scott Ren MD Addiction Medicine [phone] Reason for Visit chronic conditions Instructions 1. Psoriatic arthritis Otezla Starter 10 mg (4)-2 0 mg (4)-30 mg(47) tablets in a dose pack 2. Anxiety disorder alprazolam 1 mg tablet 3. Body mass index 30+ - obesity body mass index: care inst ructions learning about healthy jazmin ght Discussion Note: None recorded. Plan of Care Patient Instructions RTC prn Reminders Provider Appointments PUBLIC HEALTH AIDE/EST on or around Warren Hu CPX 03/18/2020 Lab None recorded. Referral None [...] a day by oral route as needed. Otezla Starter 10 mg (4)-20 mg (4)-30 mg(47) tablets i n a dose pack Start: 10 mg PO qam x1 day, then 10 mg PO bid x1 day, then 10 mg PO qam and 20 mg PO qpm x1 day, then 20 mg PO bid x1 day, then 20 mg PO qam and 30 mg PO qpm x1 day, then 30 mg PO bid Remeron SolTab 45 mg disintegrating tablet Take 1 tablet every day by oral route at bedtime. Suboxone 8 mg-2 mg sublingual film per Addiction Medications Administered None recorded. Vitals Height Weight BMI Blood Pressure 6 ft 225.4 lbs 30.6 kg/m2 138/78 mm[Hg] Results Lab Results None recorded. Allergies Code Code System Name Reaction Severity Status Onset 4053 RxNorm Erythromycin Base Respiratory Active Distress Problems Name Status Onset Date Source Anxiety Disorder Active 03/02/2019 Opioid Dependence Active 03/02/2019 Insomnia Active 03/02/2019 Hypertensive Disorder Active 03/02/2019 Psoriasis Active 03/02/2019 Dyslipidemia Active 03/20/2019 Prediabetes Active 03/20/2019 Rheumatoid Arthritis Active 07/13/2019 Psoriatic Arthritis Active 08/10/2019 Procedures Date Name Performed by Extraction of [place] To[facility] Information n ot available Cardiac Catheterization Information not available 07/27/2019 XR, Knee, 1 or 2 View [facility] Mary and [address] [place], [place] [phone] (Work Pl zaki) Vaccine List Vaccine Type influenza, recombinant, quadrIvalent,inj ectable, preservative free 06/01/20190.5 mL Tdap 03/18/20190.5 mL Social History Tobacco Smoking Status Former Smoker Past Encounters 08/10/2019 Psoriatic Arthritis; Anxiety Disorder; B sudha Mass Index 30+ - Obesity Warren Hu MD: [address] [address], Ph. 07/27/2019 Pain in Left Knee; Anxiety Disorder; Bod y Mass Index 30+ - Obesity Warren Hu MD: [address] [address], Ph. 07/13/2019 Anxiety Disorder; Nausea; Rheumatoid Art hritis; Opioid Dependence; Body Mass Index 30+ - Obesity Warren Hu MD: [address] [place], [address] [address], Ph. History of Present Illness Note: pain in left knee - better. thinks it is RA or Psoriatic Arth. Enbrel did not help. Humira helped in past for RA. Stopped when doc retired.
<div>XR, knee, 1 or 2 view - did not ne ed.
</div><div>predniSONE 20 mg tablet 2 tablets every day in the morning<br& gt;</div><div>
</div><div>anxiety disorder - Stable. Taking meds. No problems with side effects or cost.
</div><div>ALPRAZolam 1 mg tablet
</div>Review of Systems: ROS [...]
--- OUTSIDE RECORDS SUMMARY | 2020-01-13 12:23 | XMS REPORT | Encounter Summary ---
:1965 Author Care Team Providers Name Role Phone Dr. Warren Hu Primary Care Provider [phone] Malvin Crowder MD Talent Assistant [phone] Greta Russell MD Shoeshiner [phone] Sammy Bullock MD Shoeshiner [phone] Scott Ren MD Addiction Medicine [phone] Reason for Visit chronic conditions Instructions 1. Psoriasis dermatology referral 2. Anxiety disorder alprazolam 1 mg tablet 3. Body mass index 30+ - obesity body mass index: care inst ructions learning about healthy jazmin ght Discussion Note: None recorded. Plan of Care Patient Instructions RTC prn Reminders Provider Appointments ACCESS SERVICES LIBRARIAN/EST CPX on or around Luis E Hu, 03/18/2020 Lab None recorded. Referral Dermatology 08/24/2019 C-nario Referral Dermatology Clin ic Procedures None recorded. Surgeries None recorded. Imaging [...] Height Weight BMI Blood Pressure 6 ft 227 lbs 30.8 kg/m2 130/78 mm[Hg] Results Lab Results None recorded. Allergies [...] Procedures Date Name Performed by Extraction of [place] To[facility] Information n ot available Cardiac Catheterization Information not available 07/27/2019 XR, Knee, 1 or 2 View [facility] Mary and [address] [place], [place] [address] [phone] (Work Pl zaki) Vaccine List Vaccine Type influenza, recombinant, quadrIvalent,inj ectable, preservative free 06/01/20190.5 mL Tdap 03/18/20190.5 mL Social History Tobacco Smoking Status Former Smoker Past Encounters 08/24/2019 Psoriasis; Anxiety Disorder; Body Mass I ndex 30+ - Obesity Warren Hu MD: [address] [place], [facility] [address] [address], Ph. 08/10/2019 Psoriatic Arthritis; Anxiety Disorder; B sudha Mass Index 30+ - Obesity Warren Hu MD: [address] [place], [facility] [address], [place] [address], Ph. 07/27/2019 Pain in Left Knee; Anxiety Disorder; Bod y Mass Index 30+ - Obesity Warren Hu MD: [address] [place], [facility] [address], [place] [address], Ph. History of Present Illness Note: psoriatic arthritis - same. Med not covered. Wants to see Derm.
<div>Otezla Starter 10 mg (4)-20 mg (4)-30 mg(47) tablets in a dose pack Start: 10 mg PO qam x1 day, then 10 mg PO bid x1 day, then 10 mg PO qam and 20 mg PO qpm x1 day, then 20 mg PO bid x1 day, then 20 mg PO qam and 30 mg PO qpm x1 day, then 30 mg PO bid
</div><div>
</div><div>anxiety disorder - Stable. Taking meds. No problems with side effects or cost.
</div><div>ALPRAZolam 1 mg tablet
</div> Review of Systems: ROS as noted in the [...] Auscultation: RRR, nor mal S1, normal S2 Musculoskeletal:: Joints, Bones, and Muscles: limited ROM; below Neurologic: Gait and Station: normal gai t, normal station Notes: Lt knee brace
--- OUTSIDE RECORDS SUMMARY | 2020-01-13 12:23 | XMS REPORT | Encounter Summary ---
:1965 Author Care Team Providers Name Role Phone Dr. Warren Hu Primary Care Provider [phone] Malvin Crowder MD Helmet Hat Sweatband Puncher [phone] Eddie Leger DO Sweatband Maker [phone] Greta Russell MD Wire Spooler [phone] Sammy Bullock MD Wire Spooler [phone] Scott Ren MD Addiction Medicine [phone] Reason for Visit chronic conditions Instructions 1. Psoriatic arthritis 2. Anxiety disorder alprazolam 1 mg tablet 3. Obesity learning about healthy jazmin ght Discussion Note: None recorded. Plan of Care Patient Instructions RTC prn Reminders Provider Appointments RETAIL WIRELESS ASSOCIATE/EST on or around Warren Ayoub Fritz, CPX 03/07/2020 Lab None recorded. Referral None recorded. Procedures None recorded. Surgeries None recorded. Imaging None recorded. Medications Name Start Date alprazolam 1 mg tablet Take 1 tablet every 12 hours by oral route as needed. bisoprolol 10 mg-hydrochlorothiazide 6.25 mg tablet Take 1 tablet every day by oral route. isoniazid 300 mg tablet Take 1 tablet every day by oral route. Remeron SolTab 45 mg disintegrating tablet Take 1 tablet every day by oral route at bedtime. Suboxone 8 mg-2 mg sublingual film per Addiction Medications Administered None recorded. Vitals Height Weight BMI Blood Pressure 6 ft 226 lbs 30.7 kg/m2 123/83 mm[Hg] Results Lab Results None recorded. Allergies Code Code System Name Reaction Severity Status Onset 4053 RxNorm Erythromycin Base Respiratory Active Distress NKDA Problems Name Status Onset Date Source Anxiety Disorder Active 03/02/2019 Opioid Dependence Active 03/02/2019 Insomnia Active 03/02/2019 Hypertensive Disorder Active 03/02/2019 Psoriasis Active 03/02/2019 Dyslipidemia Active 03/20/2019 Prediabetes Active 03/20/2019 Rheumatoid Arthritis Active 07/13/2019 Psoriatic Arthritis Active 08/10/2019 Inactive Tuberculosis Active 09/21/2019 Procedures Date Name Performed by Extraction of [place] To[facility] Information n ot available Cardiac Catheterization Information not available Vaccine List Vaccine Type influenza, recombinant, quadrIvalent,inj ectable, preservative free 06/01/20190.5 mL Tdap 03/18/20190.5 mL Social History Tobacco Smoking Status Former Smoker Past Encounters 10/19/2019 Psoriatic Arthritis; Anxiety Disorder; O besity Warren Hu MD: [address] [address], Ph. 10/05/2019 Psoriatic Arthritis; Anxiety Disorder; O pioid Dependence; Body Mass Index 30+ - Obesity Warren Hu MD: [address] [place] [address], Ph. 09/21/2019 Inactive Tuberculosis; Anxiety Disorder; Body Mass Index 30+ - Obesity Warren Hu MD: [address] [address], Ph. History of Present Illness Note: psoriatic arthritis - same<div>
<div>anxiety disorder - Stable. Taking meds. No problems with side effects or cost. Needs refills.
</div><div>alprazolam 1mg tablet
</div><div>
</div><div>opioid dependence - above</div></div>Review of Systems: ROS as noted in the [...] Auscultation: RRR, nor mal S1, normal S2 Abdomen: Bowel Sounds: normal. Inspec tion and Palpation: soft, non-distended, no tenderness, no guarding, no masses. Liver: non-tender, no hepatomegaly. Spleen: non-te nder, no splenomegaly Neurologic: Gait and Station: normal gai t, normal station
--- OUTSIDE RECORDS SUMMARY | 2020-01-13 12:23 | XMS REPORT | Encounter Summary ---
:1965 Author Care Team Providers Name Role Phone Dr. Warren Hu Primary Care Provider [phone] Malvin Crowder MD Test Deck Supervisor [phone] Eddie Leger DO Cigar Head Piercer [phone] Greta Russell MD Refinery Pipeline Operator [phone] Sammy Bullock MD Refinery Pipeline Operator [phone] Scott Ren MD Addiction Medicine [phone] Reason for Visit chronic conditions Instructions 1. Psoriatic arthritis 2. Anxiety disorder alprazolam 1 mg tablet 3. Opioid dependence 4. Body mass index 30+ - obesity body mass index: care inst ructions learning about healthy jazmin ght Discussion Note: None recorded. Plan of Care Patient Instructions RTC prn Reminders Provider Appointments PERSONNEL INTERVIEWER/EST on or around Warren Ayoub Hu, CPX 03/07/2020 Lab None recorded. Referral None recorded. Procedures None recorded. Surgeries None recorded. Imaging None recorded. Medications Name Start Date alprazolam 1 mg tablet Take 1 tablet every 12 hours by oral route as needed. bisoprolol 10 mg-hydrochlorothiazide 6.25 mg tablet Take 1 tablet every day by oral route. buprenorphine hcl/naloxone hcl 8-2mg subl isoniazid 300 mg tablet Take 1 tablet every day by oral route. ondansetron HCl 4 mg tablet Take 1 tablet twice a day by oral route as needed. pyridoxine (vitamin B6) 50 mg tablet Take 1 tablet every day by oral route. Remeron SolTab 45 mg disintegrating tablet Take 1 tablet every day by oral route at bedtime. Suboxone 8 mg-2 mg sublingual film per Addiction Medications Administered None recorded. Vitals Height Weight BMI Blood Pressure 6 ft 226 lbs 30.7 kg/m2 123/80 mm[Hg] Results Lab Results None recorded. Allergies [...] Procedures Date Name Performed by Extraction of [place] To[facility] Information n ot available Cardiac Catheterization Information not available Vaccine List Vaccine Type influenza, recombinant, quadrIvalent,inj ectable, preservative free 06/01/20190.5 mL Tdap 03/18/20190.5 mL Social History Tobacco Smoking Status Former Smoker Past Encounters 10/05/2019 Psoriatic Arthritis; Anxiety Disorder; O pioid Dependence; Body Mass Index 30+ - Obesity Warren Hu MD: [address] [place] [address], Ph. 09/21/2019 Inactive Tuberculosis; Anxiety Disorder; Body Mass Index 30+ - Obesity Warren Hu MD: [address] [place] [address], Ph. 09/07/2019 Inactive Tuberculosis; Anxiety Disorder; Body Mass Index 25-29 - Overweight Warren Hu MD: [address] [place] [address], Ph. History of Present Illness Note: inactive tuberculosis - Stable. Taking meds. No problems with side effects or cost. <div>
<div>anxiety disorder - Stable. Taking meds. No problems with side effects or cost. &lt ;br></div><div>alprazolam 1 mg tablet</div></div> Review of Systems: ROS as noted in [...]
--- OUTSIDE RECORDS SUMMARY | 2020-01-13 12:23 | XMS REPORT | Encounter Summary ---
:1965 Author Care Team Providers Name Role Phone Dr. Warren Hu Primary Care Provider [phone] Malvin Crowder MD Pit Shovel Operator [phone] Eddie Leger DO Card Boxer [phone] Greta Russell MD [employer] [phone] Sammy Bullock MD [employer] [phone] Scott Ren MD Addiction Medicine [phone] Reason for Visit other - see typed reason Instructions 1. Inactive tuberculosis isoniazid 300 mg tablet pyridoxine (vitamin B6) 50 mg tablet 2. Anxiety disorder alprazolam 1 mg tablet alprazolam 1 mg tablet alprazolam 1 mg tablet 3. Body mass index 25-29 - overw eight learning about healthy jazmin ght Discussion Note: None recorded. Plan of Care Patient Instructions RTC prn Reminders Provider Appointments PHYSICIAN/EST on or around Warren Hu, CPX 03/07/2020 Lab None recorded. Referral None recorded. Procedures None recorded. Surgeries None recorded. Imaging None recorded. Medications Name Start Date alprazolam 1 mg tablet Take 1 tablet every 12 hours by oral route as needed. bisoprolol 10 mg-hydrochlorothiazide 6.25 mg tablet Take 1 tablet every day by oral route. bisoprolol fumarate/hydrochlorothiazide 10-6.25 mg tab s buprenorphine hcl/naloxone hcl 8-2mg subl isoniazid 300 mg tablet Take 1 tablet every day by oral route. mirtazapine odt 45 mg tbdp ondansetron HCl 4 mg tablet Take 1 tablet twice a day by oral route as needed. prednisone 10 mg tabs pyridoxine (vitamin B6) 50 mg tablet Take 1 tablet every day by oral route. Remeron SolTab 45 mg disintegrating tablet Take 1 tablet every day by oral route at bedtime. Suboxone 8 mg-2 mg sublingual film per Addiction Medications Administered None recorded. Vitals Height Weight BMI Blood Pressure 6 ft 220.8 lbs 29.9 kg/m2 121/85 mm[Hg] Results Lab Results None recorded. Allergies [...] Procedures Date Name Performed by Extraction of [place] Tooth Information n ot available Cardiac Catheterization Information not available Vaccine List Vaccine Type influenza, recombinant, quadrIvalent,inj ectable, preservative free 06/01/20190.5 mL Tdap 03/18/20190.5 mL Social History Tobacco Smoking Status Former Smoker Past Encounters 09/07/2019 Inactive Tuberculosis; Anxiety Disorder; Body Mass Index 25-29 - Overweight Warren Hu MD: [address] [address], Ph. 08/24/2019 Psoriasis; Anxiety Disorder; Body Mass I ndex 30+ - Obesity Warren Hu MD: [address] [place] [address], Ph. 08/10/2019 Psoriatic Arthritis; Anxiety Disorder; B sudha Mass Index 30+ - Obesity Warren Hu MD: [address] [place] [phone], Ph. History of Present Illness Note: psoriasis - w/u done. Wanted to start on Humira. Pt did a blood test. Tested positive for TB. No coughing up blood, wt loss, fevers. Derm will not Tx Psoriasis until TB txd. Neds letter for work.<div>Refer [place], Dr. Leger - saw CYRUS<div>
</div><div>anxiety disorder - Stable. Taking meds. No problems with side effects or cost.
</div><div>ALPRAZolam 1 mg tablet
</div></div>Review of Systems: ROS as noted in the [...] Patient Constitutional: General Appearance: healthy- appearing, well-developed, overweight. Level of Distress: NAD. Ambu lation: ambulating normally Psychiatric: Insight: good judgement. Men nicole Status: normal mood, normal affect Head: Head: normocephalic, atrauma tic Eyes: Lids and Conjunctivae: non-i njected, no discharge, no pallor. Pupils: PERRLA. EOM: EOMI ENMT: Ears: no lesions on external ear, EACs clear, TMs clear. Hearing: no hearing loss. Nose: no lesio ns on external nose, nares patent, nasal passages clear, no sinus ten derness, no nasal discharge. Oropharynx: moist mucous membranes, no e rythema, no exudates, tonsils not enlarged Neck: Neck: supple, trachea midlin e, no masses, FROM. Lymph Nodes: no cervical LAD, no supraclavic ular LAD Lungs: Respiratory effort: no dyspn ea. Auscultation: breath sounds normal, good air movement, CTA excep t as noted, no wheezing, no rales/crackles, no rhonchi Cardiovascular: Heart Auscultation: RRR, nor mal S1, normal S2, no murmurs, no rubs, no gallops Neurologic: Gait and Station: normal gai t, normal station
--- OUTSIDE RECORDS SUMMARY | 2020-01-13 12:23 | XMS REPORT | Encounter Summary ---
:1965 Author Care Team Providers Name Role Phone Dr. Warren Hu Primary Care Provider [phone] Malvin Crowder MD Senior Business Architect [phone] Eddie Leger DO Plane Tableman [phone] Greta Russell MD Director Of Consulting Services [phone] Sammy Bullock MD Director Of Consulting Services [phone] Scott Ren MD Addiction Medicine [phone] Reason for Visit Anxiety disorder Instructions 1. Inactive tuberculosis 2. Anxiety disorder alprazolam 1 mg tablet 3. Body mass index 30+ - obesity body mass index: care inst ructions learning about healthy jazmin ght Discussion Note: None recorded. Plan of Care Patient Instructions RTC prn Reminders Provider Appointments Est 10/05/2019 Warren Hu, Patient 1:45PM MD ARTIST MANAGER/EST CPX on or around Elian Hu, 03/07/2020 Lab None recorded. Referral None recorded. [...] Height Weight BMI Blood Pressure 6 ft 222.2 lbs 30.1 kg/m2 111/73 mm[Hg] Results Lab Results None recorded. Allergies [...] Procedures Date Name Performed by Extraction of [place] To[facility] Information n ot available Cardiac Catheterization Information not available Vaccine List Vaccine Type influenza, recombinant, quadrIvalent,inj ectable, preservative free 06/01/20190.5 mL Tdap 03/18/20190.5 mL Social History Tobacco Smoking Status Former Smoker Past Encounters 09/21/2019 Inactive Tuberculosis; Anxiety Disorder; Body Mass Index 30+ - Obesity Warren Hu MD: [address] [address], Ph. 09/07/2019 Inactive Tuberculosis; Anxiety Disorder; Body Mass Index 25-29 - Overweight Warren Hu MD: [address] [address], Ph. 08/24/2019 Psoriasis; Anxiety Disorder; Body Mass I ndex 30+ - Obesity Warren Hu MD: [address] [facility] [address], [place] [address], Ph. History of Present Illness Note: <div>inactive tuberculosis - Stable. Taking meds. No problems with side effects or cost.
</div><div>isoniazid 300 mg tablet
</div><div>pyridoxine (vitamin B6) 50 mg tablet</div><div>
</div>anxiety disorder - Stable. Taking meds. No problems [...]
--- OUTSIDE RECORDS SUMMARY | 2020-01-13 12:23 | XMS REPORT | Encounter Summary ---
:1965 Author Care Team Providers Name Role Phone Dr. Warren Hu Primary Care Provider [phone] Malvin Crowder MD Table Games Shift Manager [phone] Greta Russell MD Hspt Tutor [phone] Sammy Bullock MD Hspt Tutor [phone] Scott Ren MD Addiction Medicine [phone] Reason for Visit Left knee pain/problem; chronic conditio ns Instructions 1. Pain in left knee XR, knee, 1 or 2 view prednisone 20 mg tablet 2. Anxiety disorder alprazolam 1 mg tablet 3. Body mass index 30+ - obesity body mass index: care inst ructions learning about healthy jazmin ght Discussion Note: None recorded. Plan of Care Patient Instructions RTC prn Reminders Provider Appointments Est 08/10/2019 Warren Hu, Patient 9:00AM PRESIDENT/EST CPX on or around Elian Hu, 03/18/2020 Lab None recorded. Referral None recorded. Procedures None recorded. Surgeries None recorded. Imaging XR, Knee, 07/27/2019 [facility] Mri 1 or 2 View [place] Medications Name Start Date alprazolam 1 mg tablet Take 1 tablet every 12 hours by oral route as needed. bisoprolol 10 mg-hydrochlorothiazide 6.25 mg tablet Take 1 tablet every day by oral route. ondansetron HCl 4 mg tablet Take 1 tablet twice a day by oral route as needed. prednisone 20 mg tablet Take 2 tablets every day by oral route in the morning . Remeron SolTab 45 mg disintegrating tablet Take 1 tablet every day by oral route at bedtime. Suboxone 8 mg-2 mg sublingual film per Addiction Medications Administered None recorded. Vitals Height Weight BMI Blood Pressure 6 ft 225 lbs 30.5 kg/m2 136/82 mm[Hg] Results Lab Results None recorded. Allergies Code Code System Name Reaction Severity Status Onset 4053 RxNorm Erythromycin Base Respiratory Active Distress Problems Name Status Onset Date Source Anxiety Disorder Active 03/02/2019 Opioid Dependence Active 03/02/2019 Insomnia Active 03/02/2019 Hypertensive Disorder Active 03/02/2019 Psoriasis Active 03/02/2019 Dyslipidemia Active 03/20/2019 Prediabetes Active 03/20/2019 Rheumatoid Arthritis Active 07/13/2019 Procedures Date Name Performed by Extraction of [place] Tooth Information n ot available Cardiac Catheterization Information not available 07/27/2019 XR, Knee, 1 or 2 View [place] [facility] and [address] [place] [address] [phone] (Work Pl zaki) Vaccine List Vaccine Type influenza, recombinant, quadrIvalent,inj ectable, preservative free 06/01/20190.5 mL Tdap 03/18/20190.5 mL Social History Tobacco Smoking Status Former Smoker Past Encounters 07/27/2019 Pain in Left Knee; Anxiety Disorder; Bod y Mass Index 30+ - Obesity Warren Hu MD: [address] [place] [phone], Ph. 07/13/2019 Anxiety Disorder; Nausea; Rheumatoid Art hritis; Opioid Dependence; Body Mass Index 30+ - Obesity Warren Hu MD: [address] [place] [phone], Ph. 06/29/2019 Anxiety Disorder; Body Mass Index 30+ - Obesity Warren Hu MD: [address] [place] [phone], Ph. History of Present Illness Note: <div>Knee Pain - Lt knee pops, stiff. Hard to squat down.</div><div>No fall /trauma / strain.</div><div>x 6 - 7 wks.</div><div>ibuprofen helps some.</d iv><div>
</div>anxiety disorder - Stable. Taking meds. No problems with sideeffects or cost.
<div>ALPRAZolam 1 mg tablet
</div><div>
</div><div>nausea - Stable. Taking meds. No problems with side effects or cost.<br&g t;</div><div>ondansetron HCl 4 mg tablet 1 tablet 2 times a day as needed
</d iv><div>
</div><div>rheumatoid arthritis - stable
</div><div>Refer Rheum, Dr. Cedillo - has appt</div><div></div><div>opioid dependence - Stable. Taking meds. No problems with side effects or cost.
</div><div>F/U Addiction, Dr. Ren.</div> Review of Systems: ROS as noted in [...] normal S2 Musculoskeletal:: Joints, Bones, and Muscles: tenderness; below Neurologic: Gait and Station: normal gai t, normal station Notes: Skin: numerous plaques on sk in<div>Lt knee: mild swell, TTP inf patella, drawer neg, shanelle - can not relax due to pain.</div>
--- OUTSIDE RECORDS SUMMARY | 2020-01-13 12:24 | XMS REPORT | Encounter Summary ---
:1965 Author Care Team Providers Name Role Phone Warren Ayoub Fritz Primary Care Provider [phone] Malvin Crowder MD Sheetmetal Worker [phone] Eddie Leger DO Fuel Injection Servicer [phone] Greta Russell MD Rv Mechanic [phone] Sammy Bullock MD Rv Mechanic [phone] Oziel Hernandez III, MD Orthopedic Surgeon [phone] Scott Ren MD Addiction Medicine [phone] Reason for Visit Left knee pain/problem; chronic conditio ns Instructions 1. Pain in left knee prednisone 20 mg tablet cyclobenzaprine 10 mg tabl et 2. Anxiety disorder alprazolam 1 mg tablet 3. Body mass index 30+ - obesity body mass index: care inst ructions learning about healthy jazmin ght Discussion Note: None recorded. Plan of Care Patient Instructions RTC prn Reminders Provider Appointments SKIN GRADER/EST on or around Warren Hu, CPX 03/07/2020 Lab None recorded. Referral None recorded. Procedures None recorded. Surgeries None recorded. Imaging None recorded. Medications Name Start Date alprazolam 1 mg tablet Take 1 tablet every 12 hours by oral route as needed. bisoprolol 10 mg-hydrochlorothiazide 6.25 mg tablet Take 1 tablet every day by oral route. cyclobenzaprine 10 mg tablet Take 1 tablet as needed by oral route in the evening. isoniazid 300 mg tablet Take 1 tablet every day by oral route. prednisone 20 mg tablet Take 2 tablets every day by oral route in the morning . Remeron SolTab 45 mg disintegrating tablet Take 1 tablet every day by oral route at bedtime. Suboxone 8 mg-2 mg sublingual film per Addiction Medications Administered None recorded. Vitals Height Weight BMI Blood Pressure 6 ft 225 lbs 30.5 kg/m2 145/84 mm[Hg] Results Lab Results None recorded. Allergies [...] Procedures Date Name Performed by Extraction of [place] Tooth Information n ot available Cardiac Catheterization Information not available Vaccine List Vaccine Type influenza, recombinant, quadrIvalent,inj ectable, preservative free 06/01/20190.5 mL Tdap 03/18/20190.5 mL Social History Tobacco Smoking Status Former Smoker Past Encounters 11/02/2019 Pain in Left Knee; Anxiety Disorder; Bod y Mass Index 30+ - Obesity Warren Hu MD: [address] [place] [phone], Ph. 10/19/2019 Psoriatic Arthritis; Anxiety Disorder; O besity Warren Hu MD: [address] [place] [address], Ph. 10/05/2019 Psoriatic Arthritis; Anxiety Disorder; O pioid Dependence; Body Mass Index 30+ - Obesity Warren Hu MD: [address] [place] [phone], Ph. History of Present Illness Note: Knee Pain - worst on Lt. No fall / trauma / strain. Pt does lift heavy things at work but nothing unusual.<div>Ibuprofen not helping.</div><div>Pt has appt w/ Ortho at end of sat.
<div>
</div><div>anxiety disorder - Stable. Taking meds. No problems with side effects or cost. </div><div>alprazolam 1 mg tablet</div></div>Review of Systems: ROS as noted in the [...] obese. Level of Distress: NAD. Ambulation : limited ambulation Psychiatric: Insight: good judgement. Men nicole Status: [...] no hepatomegaly. Spleen: non-tender, no splenomegaly Musculoskeletal:: Joints, Bones, and Muscles: limited ROM, tenderness; Lt knee brace Neurologic: Gait and Station: irregular gait
--- OUTSIDE RECORDS SUMMARY | 2020-01-13 12:24 | XMS REPORT | Encounter Summary ---
:1965 Author Care Team Providers Name Role Phone Dr. Warren Hu Primary Care Provider [phone] Malvin Crowder MD Sightseeing Guide [phone] Eddie Leger DO Director Quality Systems [phone] Greta Russell MD Stadium Manager [phone] Sammy Bullock MD Stadium Manager [phone] Oziel Hernandez III, MD Orthopedic Surgeon [phone] Scott Ren MD Addiction Medicine [phone] Reason for Visit anxiety Instructions 1. Upper respiratory infection 2. Anxiety disorder alprazolam 1 mg tablet 3. Obesity learning about healthy jazmin ght Discussion Note: None recorded. Plan of Care Patient Instructions RTC prn Reminders Provider Appointments Est 11/30/2019 Warren Hu, Patient 10:00AM BINDER TECHNICIAN/EST CPX on or around Elian elma Ayoub Hu, 03/07/2020 Lab None recorded. Referral None recorded. Procedures None recorded. Surgeries None recorded. Imaging None recorded. Medications Name Start Date alprazolam 1 mg tablet Take 1 tablet every 12 hours by oral route as needed. bisoprolol 10 mg-hydrochlorothiazide 6.25 mg tablet Take 1 tablet every day by oral route. buprenorphine hcl/naloxone hcl 8-2mg subl cyclobenzaprine 10 mg tablet Take 1 tablet as needed by oral route in the evening. etodolac 500 mg tabs isoniazid 300 mg tablet Take 1 tablet every day by oral route. mirtazapine odt 45 mg tbdp prednisone 20 mg tablet Take 2 tablets every day by oral route in the morning . Remeron SolTab 45 mg disintegrating tablet Take 1 tablet every day by oral route at bedtime. Suboxone 8 mg-2 mg sublingual film per Addiction Medications Administered None recorded. Vitals Height Weight BMI Blood Pressure 6 ft 223 lbs 30.2 kg/m2 119/86 mm[Hg] Results Lab Results None recorded. Allergies [...] Procedures Date Name Performed by Extraction of [place] Tooth Information n ot available Cardiac Catheterization Information not available Vaccine List Vaccine Type influenza, recombinant, quadrIvalent,inj ectable, preservative free 06/01/20190.5 mL Tdap 03/18/20190.5 mL Social History Tobacco Smoking Status Former Smoker Past Encounters 11/16/2019 Upper Respiratory Infection; Anxiety Dis order; Obesity Warren Hu MD: [address] [address], Ph. 11/02/2019 Pain in Left Knee; Anxiety Disorder; Bod y Mass Index 30+ - Obesity Warren Hu MD: [address] [address], Ph. 10/19/2019 Psoriatic Arthritis; Anxiety Disorder; O besity Warren Hu MD: [address] [address], Ph. History of Present Illness Note: <div>Sick - Pt had "Flu-like symptoms" last week. Better now.</div><div>No ST,cough.</div><div>F 99.1.</div><div>No Tx.</div><div>
&lt ;/div>pain in left knee - better w/ Lodine. Sx recommended but PT is not ready.
<div>Saw Ortho.
</div><div>predniSONE 20 mg tablet 2 tablets every day in the morning
</div><div>cyclobenzaprine 10 mg tablet 1 tablet as needed in the evening& lt;br></div><div>
</div><div>anxiety disorder - Stable. Taking meds. No problems with side effects or cost. Needs refills.
</div><div>ALPRAZolam1 mg tablet
</div>Review of Systems: ROS as [...]
--- OUTSIDE RECORDS SUMMARY | 2020-01-13 12:24 | XMS REPORT | Encounter Summary ---
:1965 Author Care Team Providers Name Role Phone Dr. Warren Hu Primary Care Provider [phone] Malvin Crowder MD Auto Dealership Porter [phone] Eddie Leger DO Manager Utilization [phone] Greta Russell MD Rehab Specialist [phone] Sammy Bullock MD Rehab Specialist [phone] Oziel Hernandez III, MD Orthopedic Surgeon [phone] Scott Ren MD Addiction Medicine [phone] Reason for Visit chronic conditions; Telemedicine Visit Instructions 1. Anxiety disorder alprazolam 1 mg tablet Discussion Note: None recorded.Patient educational handouts: No information available. Plan of Care Patient Instructions RTC CPX 03/12 or later. Reminders Provider Appointments SAIL REPAIRER/EST on or around Warren Sweeneyelma Hu, CPX 03/07/2020 Lab None recorded. Referral None recorded. Procedures None recorded. Surgeries None recorded. Imaging None recorded. Medications Name Start Date alprazolam 1 mg tablet Take 1 tablet every 12 hours by oral route as needed. bisoprolol 10 mg-hydrochlorothiazide 6.25 mg tablet Take 1 tablet every day by oral route. buprenorphine 8 mg-naloxone 2 mg sublingual tablet per addict cyclobenzaprine 10 mg tablet Take 1 tablet as needed by oral route in the evening. etodolac 500 mg tablet Take 1 tablet every day by oral route as needed for 3 0 days. mirtazapine 45 mg disintegrating tablet Take 1 tablet every day by oral route at bedtime. Medications Administered None recorded. Vitals Height Weight BMI Blood Pressure 6 ft 222 lbs 30.1 kg/m2 Results Lab Results None recorded. Allergies Code [...] Procedures Date Name Performed by Extraction of [place] Tooth Information n ot available Cardiac Catheterization Information not available Vaccine List Vaccine Type influenza, recombinant, quadrIvalent,inj ectable, preservative free 06/01/20190.5 mL Tdap 03/18/20190.5 mL Social History Tobacco Smoking Status Former Smoker Past Encounters 01/11/2020 Anxiety Disorder Warren Hu MD: [address] [place] [address] [address], Ph. 12/28/2019 Anxiety Disorder Warren Hu MD: [address] [place] [address] [place] [phone], Ph. 12/14/2019 Anxiety Disorder Warren Hu MD: [address] [place] [address], [address] [place] [phone], Ph. History of Present Illness Note: I confirm that I received verbal consent from the patient for the virtual visit.<div>
</div><div>anxiety disorder - Stable. Taking meds. No problems with side effects or cost. Needs refills.
</div><div>alprazolam 1 mg tablet</div>Review of Systems: ROS as [...] appearing, well-nourished, well-developed. Level of Dis tress: NAD Psychiatric: Insight: good judgement. Men nicole Status: active and alert, normal mood, normal affect Head: Head: normocephalic, atrauma tic Lungs: Respiratory effort: no dyspn ea
--- OUTSIDE RECORDS SUMMARY | 2020-01-13 12:24 | XMS REPORT | Encounter Summary ---
:1965 Author Care Team Providers Name Role Phone Warren Ayoub Fritz Primary Care Provider [phone] Malvin Crowder MD Headrig Sawyer [phone] Eddie Leger DO Fire Hydrant Mechanic [phone] Greta Russell MD Middle School Guidance Counselor [phone] Sammy Bullock MD Middle School Guidance Counselor [phone] Oziel Hernandez III, MD Orthopedic Surgeon [phone] Scott Ren MD Addiction Medicine [phone] Reason for Visit Anxiety disorder Instructions 1. Anxiety disorder alprazolam 1 mg tablet Discussion Note: None recorded.Patient educational handouts: No information available. Plan of Care Patient Instructions RTC CPX 03/12 Reminders Provider Appointments MANAGER OF CREATIVE SERVICES/EST on or around Warren Hu, CPX 03/07/2020 Lab None recorded. Referral None recorded. Procedures None recorded. Surgeries None recorded. Imaging None recorded. Medications Name Start Date alprazolam 1 mg tablet Take 1 tablet every 12 hours by oral route as needed. bisoprolol 10 mg-hydrochlorothiazide 6.25 mg tablet Take 1 tablet every day by oral route. buprenorphine 8 mg-naloxone 2 mg sublingual tablet buprenorphine hcl/naloxone hcl 8-2mg subl cyclobenzaprine 10 [...] per Addiction Medications Administered None recorded. Vitals None recorded. Results Lab Results None recorded. Allergies Code [...] Procedures Date Name Performed by Extraction of [place] Tooth Information n ot available Cardiac Catheterization Information not available Vaccine List Vaccine Type influenza, recombinant, quadrIvalent,inj ectable, preservative free 06/01/20190.5 mL Tdap 03/18/20190.5 mL Social History Tobacco Smoking Status Former Smoker Past Encounters 12/14/2019 Anxiety Disorder Warren Hu MD: [address] [place] [address], Ph. 11/30/2019 Cough; Anxiety Disorder; Body Mass Index 30+ - Obesity Warren Hu MD: [address] [place] [phone], Ph. 11/16/2019 Upper Respiratory Infection; Anxiety Dis order; Obesity Warren Hu MD: [address] [place] [phone], Ph. History of Present Illness Note: <div>Telehealth visit.</div><div>
</div><div>anxiety disorder - Stable. Taking meds. No problems with side effects or cost. Needs refills.
</div><div>ALPRAZolam 1 mg tablet</div><div>
</div>cough - better. Still some cough. Breathing well.<div>Do not take Tamiflu since no F.
</div><div>Bromfed DM 2 mg-30 mg-10 mg/5 mL oral syrup
</div><div>amoxicillin 875 mg tablet 1 tablet every 12 hours for 10 days
</div><div>
</div> Review of Systems: ROS as noted in the HPI Review of Systems None recorded. Physical Exam General Adult Exam (male) Reported By: Patient Constitutional: General Appearance: healthy- appearing, well-nourished, well-developed. Level of Dis tress: NAD Psychiatric: Insight: good judgement. Men nicole Status: active and alert, normal mood, normal affect Lungs: Respiratory effort: no dyspn ea
--- OUTSIDE RECORDS SUMMARY | 2020-01-13 12:24 | XMS REPORT | Encounter Summary ---
:1965 Author Care Team Providers Name Role Phone Dr. Plummerg Anitra Hu Primary Care Provider [phone] Malvin Crowder MD Packing Line Operator [phone] Eddie Leger DO Mine Boss [phone] Greta Russell MD Plasterer Maintenance [phone] Sammy Bullock MD Plasterer Maintenance [phone] Oziel Hernandez III, MD Orthopedic Surgeon [phone] Scott Ren MD Addiction Medicine [phone] Reason for Visit chronic conditions; Telemedicine Visit Instructions 1. Anxiety disorder alprazolam 1 mg tablet Discussion Note: None recorded.Patient educational handouts: No information available. Plan of Care Patient Instructions RTC CPX 03/12 Reminders Provider Appointments TAX ACCOUNTING MANAGER/EST on or around Warren Hu, CPX 03/07/2020 [...] Procedures Date Name Performed by Extraction of [place] Tooth Information n ot available Cardiac Catheterization Information not available Vaccine List Vaccine Type influenza, recombinant, quadrIvalent,inj ectable, preservative free 06/01/20190.5 mL Tdap 03/18/20190.5 mL Social History Tobacco Smoking Status Former Smoker Past Encounters 12/28/2019 Anxiety Disorder Warren Hu MD: [address] [place] [phone], Ph. 12/14/2019 Anxiety Disorder Warren Hu MD: [address] [facility] [address] [place] [phone], Ph. 11/30/2019 Cough; Anxiety Disorder; Body Mass Index 30+ - Obesity Warren Hu MD: [address] [facility] [address] [place] [phone], Ph. History of Present Illness Note: I confirm that I received verbal consent from the patient for the virtual visit.<div>
</div><div>anxiety disorder - Stable. Taking meds. No problems with side effects or cost. Needs refills.
</div><div>alprazolam 1 mg tablet</div> Review of Systems: ROS as noted in the HPI Review of Systems None recorded. Physical Exam General Adult Exam (male) Reported By: Patient Constitutional: General Appearance: healthy- appearing, well-nourished, well-developed. Level of Dis tress: NAD. Ambulation: ambulating normally Psychiatric: Insight: good judgement. Men nicole Status: active and alert, normal mood, normal affect Head: Head: normocephalic, atrauma tic Lungs: Respiratory effort: no dyspn ea Neurologic: Gait and Station: normal gai t
--- OUTSIDE RECORDS SUMMARY | 2020-01-13 12:24 | XMS REPORT | Encounter Summary ---
:1965 Author Care Team Providers Name Role Phone Warren Nelsoni Primary Care Provider [phone] Malvin Crowder MD Aircraft Engine Technician [phone] Eddie Leger DO Supervisor Residential [phone] Greta Russell MD Screw Eye Assembler [phone] Sammy Bullock MD Screw Eye Assembler [phone] Oziel Hernandez III, MD Orthopedic Surgeon [phone] Scott Ren MD Addiction Medicine [phone] Reason for Visit Anxiety disorder Instructions 1. Cough Bromfed DM 2 mg-30 mg-10 m g/5 mL oral syrup amoxicillin 875 mg tablet 2. Anxiety disorder alprazolam 1 mg tablet 3. Body mass index 30+ - obesity body mass index: care inst ructions learning about healthy jazmin ght Discussion Note: None recorded. Plan of Care Patient Instructions RTC CPX 03/12 Reminders Provider Appointments NON DESTRUCTIVE TESTING SUPERVISOR/EST on or around Warren Hu, CPX 03/07/2020 Lab None recorded. Referral None recorded. Procedures None recorded. Surgeries None recorded. Imaging None recorded. Medications Name Start Date alprazolam 1 mg tablet Take 1 tablet every 12 hours by oral route as needed. amoxicillin 875 mg tablet Take 1 tablet every 12 hours by oral route for 10 day s. bisoprolol 10 mg-hydrochlorothiazide 6.25 mg tablet Take 1 tablet every day by oral route. Bromfed DM 2 mg-30 mg-10 mg/5 mL oral syrup Take 10 mL every 6 hours by oral route as needed. prn cough and congestion buprenorphine hcl/naloxone hcl 8-2mg subl cyclobenzaprine 10 mg tablet Take 1 tablet as needed by oral route in the evening. etodolac 500 mg tabs isoniazid 300 mg tablet Take 1 tablet every day by oral route. mirtazapine odt 45 mg tbdp oseltamivir 75 mg capsule Take 1 capsule twice a day by oral route. prednisone 20 mg tablet Take 2 tablets every day by oral route in the morning . Remeron SolTab 45 mg disintegrating tablet Take 1 tablet every day by oral route at bedtime. Suboxone 8 mg-2 mg sublingual film per Addiction Medications Administered None recorded. Vitals Height Weight BMI Blood Pressure 6 ft 223 lbs 30.2 kg/m2 115/80 mm[Hg] Results Lab Results None recorded. Allergies [...] Tobacco Smoking Status Former Smoker Past Encounters 11/30/2019 Cough; Anxiety Disorder; Body Mass Index 30+ - Obesity Warren Hu MD: [address] [place] [phone], Ph. 11/16/2019 Upper Respiratory Infection; Anxiety Dis order; Obesity Warren Hu MD: [address] [place] [phone], Ph. 11/02/2019 Pain in Left Knee; Anxiety Disorder; Bod y Mass Index 30+ - Obesity Warren Hu MD: [address] [place] [phone], Ph. History of Present Illness Note: influenza-like symptoms - AF.
<div>oseltamivir 75 mg capsule - did not pick.
</div><div>
</div><div>cough - Pt had coughing, sneezing, tearyeyed. AF.
</div><div>No ST, sinus pressure, PEREZ.</div><div>Bromfed DM 2 mg-30 mg-10 mg/5 mL oral syrup - has not picked up.
</div><div>amoxicillin 875 mg tablet - Pt was on Amoxicillin from [facility] for tooth abcess.</div><div>
</div><div>anxiety disorder - Stable. Taking meds. No [...]
[2020-01-13] MEDS ORDERED: NA CHLORIDE 0.9% 1,000 ML ONE (12:49)
[2020-01-13] MEDS ORDERED: ONDANSETRON 4 MG/2 ML VIAL ONE (12:49)
[2020-01-13 12:56] LABS: Absolute Lymphocytes (CBC) 2.2 K/uL (0.7-4.9); Basophils % 0.8 % (0-1.3); Hematocrit 44.4 % (39.6-49.0); MPV 7.7 fL (7.6-11.3); RBC Red Blood Cell Count 5.29 M/uL (4.33-5.43)
[2020-01-13 13:10] LABS: BUN Blood Urea Nitrogen 8 mg/dL (7-18); Bicarbonate 29 mmol/L (21-32); Glucose Level 113 mg/dL (74-106); Sodium Level 138 mmol/L (136-145)
--- NOTE | 2020-01-13 13:28 | EDPHYS ---
Physician Documentation [facility] Name: Kingston Harris Age: 54 yrs Sex: Male : 1965 Arrival Date: 01/13/2020 Time: 12: Bed 5 Private MD: ED Physician Henry Li HPI: 01/12 13:26 This 54 yrs old Male presents to ER via Ambulatory with complaints of kb Diarrhea. 13:26 The patient presents to the emergency department with nausea, diarrhea. Onset: The kb symptoms/episode began/occurred 2 day(s) ago. Possible causes: bad food exposure. The symptoms are aggravated by nothing. The symptoms are alleviated by nothing. Associated signs and symptoms: Pertinent positives: diarrhea, nausea, Pertinent negatives: abdominal pain, fever, vomiting. Severity of symptoms: At their worst the symptoms were moderate in the emergency department the symptoms are unchanged. The patient has not experienced similar symptoms in the past. The patient has not recently seen a physician. Pt reports nausea and diarrhea that started after eating [place] 2 days ago. . Historical: - Allergies: 12:25 Erythromycin; sv - PMHx: 12:25 Anxiety; Chronic pain; COPD; Degenerative disc disease; Hypertension; psoriasis; sv - Immunization history:: Flu vaccine is up to date. - Social history:: Smoking status: Patient denies any tobacco usage or history of. ROS: 13:25 Constitutional: Negative for fever, chills, and weight loss, Neck: Negative for injury, kb pain, and swelling, Cardiovascular: Negative for chest pain, palpitations, and edema, Respiratory: Negative for shortness of breath, cough, wheezing, and pleuritic chest pain, Back: Negative for injury and pain, : Negative for injury, bleeding, discharge, and swelling, MS/Extremity: Negative for injury and deformity, Skin: Negative for injury, rash, and discoloration, Neuro: Negative for headache, weakness, numbness, tingling, and seizure. 13:25 Abdomen/GI: Positive for nausea, diarrhea, Negative for abdominal pain, vomiting. Exam: 13:25 Constitutional: This is a well developed, well nourished patient who is awake, alert, kb and in no acute distress. Head/Face: Normocephalic, atraumatic. Chest/axilla: Normal chest wall appearance and motion. Nontender with no deformity. No lesions are appreciated. Cardiovascular: Regular rate and rhythm with a normal S1 and S2. No gallops, murmurs, or rubs. Normal PMI, no JVD. No pulse deficits. Respiratory: Lungs have equal breath sounds bilaterally, clear to auscultation and percussion. No rales, rhonchi or wheezes noted. No increased work of breathing, no retractions or nasal flaring. Abdomen/GI: Soft, non-tender, with normal bowel sounds. No distension or tympany. No guarding or rebound. No evidence of tenderness throughout. Back: No spinal tenderness. No costovertebral tenderness. Full range of motion. Skin: Warm, dry with normal turgor. Normal color with no rashes, no lesions, and no evidence of cellulitis. MS/ Extremity: Pulses equal, no cyanosis. Neurovascular intact. Full, normal range of motion. Neuro: Awake and alert, GCS 15, oriented to person, place, time, and situation. Cranial nerves II-XII grossly intact. Motor strength 5/5 in all extremities. Sensory grossly intact. Cerebellar exam normal. Normal gait. Vital Signs: 12:25 BP 126 / 96; Pulse 75; Resp 18; Pulse Ox 100% ; Weight 100.24 kg; Height 6 ft. 0 in. sv (182.88 cm); 12:25 Body Mass Index 29.97 (100.24 kg, 182.88 cm) sv MDM: 12:30 Patient medically screened. kb 13:25 Data reviewed: vital signs, nurses notes. Data interpreted: Pulse oximetry: on room air kb is 100 %. Interpretation: normal. Counseling: I had a detailed discussion with the patient and/or guardian regarding: the historical points, exam findings, and any diagnostic results supporting the discharge/admit diagnosis, lab results, the need for outpatient follow up, a family practitioner, to return to the emergency department if symptoms worsen or persist or if there are any questions or concerns that arise at home. 01/12 12:34 Order name: Basic Metabolic Panel; Complete Time: 13:20 kb 01/12 12:34 Order name: CBC with Diff; Complete Time: 13:05 kb 01/12 12:34 Order name: IV Saline Lock; Complete Time: 12:49 kb 01/12 12:34 Order name: Labs collected and sent; Complete Time: 12:50 kb Administered Medications: 12:45 Drug: NS 0.9% 1000 ml Route: IV; Rate: 1000 ml; Site: right forearm; bp 12:45 Drug: Zofran (Ondansetron) 4 mg Route: IVP; Site: right forearm; bp Disposition: 15:37 Co-signature as Attending Physician, Henry Li MD I agree with the assessment and kdr plan of care. Disposition: 01/13/20 13:27 Discharged to Home. Impression: Diarrhea, unspecified. - Condition is Stable. - Discharge Instructions: Food Choices to Help Relieve Diarrhea, Adult, Diarrhea, Adult, [id number], Food Poisoning, [id number]. - Prescriptions for Zofran 4 mg Oral Tablet - take 1 tablet by ORAL route every 6 hours As needed; 20 tablet. - Work release form, Medication Reconciliation Form, Thank You Letter, Antibiotic Education, Prescription Opioid Use form. - Follow up: Emergency Department; When: As needed; Reason: Worsening of condition. Follow up: Private Physician; When: 2 - 3 days; Reason: Recheck today's complaints, Continuance of care, Re-evaluation by your physician. Signatures: Dispatcher [employer] EDMS Irais Angeles, SHEET ROCK APPLICATOR-C SHEET ROCK APPLICATOR-Ckb Ambika Lam, RN RN Henry Carpio MD MD [facility] Dewey Dior, RN RN bp Corrections: (The following items were deleted from the chart) 14:58 13:27 01/13/2020 13:27 Discharged to Home. Impression: Diarrhea, unspecified. Condition sv is Stable. Forms are Medication Reconciliation Form, Thank You Letter, Antibiotic Education, Prescription Opioid Use. Follow up: Emergency Department; When: As needed; Reason: Worsening of condition. Follow up: Private Physician; When: 2 - 3 days; Reason: Recheck today's complaints, Continuance of care, Re-evaluation by your physician. kb
--- NOTE | 2020-01-13 13:28 | ER ---
Nurse's Notes [facility] Name: Kingston Harris Age: 54 yrs Sex: Male : 1965 Arrival Date: 01/13/2020 Time: 12: Bed 5 Private MD: Diagnosis: Diarrhea, unspecified Presentation: 01/12 12:23 Chief complaint: Patient states: diarrhea, decreased appetite, since Saturday. sv Coronavirus screen: Proceed with normal triage. Patient denies a cough. Patient denies shortness of breath or difficulty breathing. Patient reports a measured and/or subjective temperature greater than 100.4F. Patient denies travel on a cruise ship or to a country [facility] currently lists as an affected area. Patient denies contact with known and/or suspected case of COVID-19. Ebola Screen: No symptoms or risks identified at this time. Risk Assessment: Do you want to hurt yourself or someone else? Patient reports no desire to harm self or others. Onset of symptoms was January 11, 2020. 12:23 Method Of Arrival: Ambulatory sv 12:23 Acuity: SHANTE 3 sv Triage Assessment: 12:23 General: Appears in no apparent distress. comfortable, Behavior is calm, cooperative, sv appropriate for age. Neuro: Level of Consciousness is awake, alert, obeys commands, Gait is steady. Respiratory: Respiratory effort is even, unlabored. GI: Reports diarrhea. 12:36 General: Appears in no apparent distress. comfortable, obese, Behavior is cooperative, bp appropriate for age, anxious. Pain: Denies pain. EENT: No deficits noted. Neuro: No deficits noted. Cardiovascular: No deficits noted. Respiratory: No deficits noted. GI: Reports diarrhea. : No signs and/or symptoms were reported regarding the genitourinary system. Derm: No deficits noted. Musculoskeletal: No deficits noted. Historical: - Allergies: 12:25 Erythromycin; sv - PMHx: 12:25 Anxiety; Chronic pain; COPD; Degenerative disc disease; Hypertension; psoriasis; sv - Immunization history:: Flu vaccine is up to date. - Social history:: Smoking status: Patient denies any tobacco usage or history of. Screenin:37 Abuse screen: Denies threats or abuse. Denies injuries from another. Nutritional bp screening: No deficits noted. Tuberculosis screening: No symptoms or risk factors identified. Fall Risk None identified. Assessment: 12:37 General: SEE TRIAGE NOTE. bp Vital Signs: 12:25 BP 126 / 96; Pulse 75; Resp 18; Pulse Ox 100% ; Weight 100.24 kg; Height 6 ft. 0 in. sv (182.88 cm); 12:25 Body Mass Index 29.97 (100.24 kg, 182.88 cm) sv ED Course: 12:22 Patient arrived in ED. as 12:25 Triage completed. sv 12:25 Arm band placed on. sv 12:30 Irais Angeles FNP-C is PHCP. kb 12:30 Henry Li MD is Attending Physician. kb 12:36 Dewey Dior, RN is Primary Nurse. bp 12:37 Patient has correct armband on for positive identification. Bed in low position. Call bp light in reach. Side rails up X2. 12:48 Initial lab(s) drawn, by me, sent to lab. Inserted saline lock: 20 gauge in right dh3 forearm, using aseptic technique. Blood collected. Administered Medications: 12:45 Drug: NS 0.9% 1000 ml Route: IV; Rate: 1000 ml; Site: right forearm; bp 12:45 Drug: Zofran (Ondansetron) 4 mg Route: IVP; Site: right forearm; bp Outcome: 13:27 Discharge ordered by MD. kb 14:58 Patient left the ED. sv Signatures: Irais Angeles FNP-C FNP-Ckb Verde, Stephanie, RN RN sv Martinez, Amelia as Herrera, [facility] Dewey Dior, ANGELA RN bp
[2020-01-13 15:03] VITALS: BP 126/96; O2SAT 100
== END 2020-01-13 14:58 | disposition home or self-care (01) ==
LOC: ER 12:18
DX: R19.7 Diarrhea, unspecified (principal); R11.0 Nausea; I10 Essential (primary) hypertension; Z88.3 Allergy status to other anti-infective agents
CPT/HCPCS: 85025; 80048; 36415; 96374; 99283; J7030; J2405

== ENCOUNTER 2020-10-22 06:19 | Emergency (ER) | payer BC, SELFPAY ==
--- OUTSIDE RECORDS SUMMARY | 2020-10-22 06:22 | XMS REPORT | Encounter Summary ---
:1965 Author Care Team Providers Name Role Phone Dr. Warren Hu Primary Care Provider [phone] Malvin Crowder MD Medicine Teacher [phone] Eddie Leger DO Client Resource Specialist [phone] Greta Russell MD Assistant Store Manager Sales [phone] Sammy Bullock MD Assistant Store Manager Sales [phone] Oziel Hernandez III, MD Orthopedic Surgeon [phone] Scott Ren MD Addiction Medicine [phone] Reason for Visit chronic conditions Instructions 1. Hypertensive disorder 2. Anxiety disorder alprazolam 1 mg tablet 3. Obesity learning about healthy jazmin ght Discussion Note: None recorded. Plan of Care Patient Instructions RTC prn Reminders Provider Appointments None recorded. Lab None recorded. Referral None recorded. Procedures None recorded. Surgeries None recorded. Imaging None recorded. Medications Name Start Date alprazolam 1 mg tablet Take 1 tablet every 12 hours by oral route as needed. bisoprolol 10 mg-hydrochlorothiazide 6.25 mg tablet TAKE ONE TABLET BY MOUTH DAILY buprenorphine 8 mg-naloxone 2 mg sublingual tablet per addict mirtazapine [address] ONE TABLET BY MOUTH AT BEDTIME ondansetron HCl 4 mg tablet TAKE 1 TABLET BY MOUTH EVERY 6 HOURS NEEDED Medications Administered None recorded. Vitals Height Weight BMI Blood Pressure 6 ft 225 lbs 30.5 kg/m2 124/82 mm[Hg] Results Lab Results None recorded. Allergies Code Code System Name Reaction Severity Status Onset 4053 RxNorm Erythromycin Base Respiratory Active Distress Problems Name Status Onset Date Source Anxiety Disorder Active 03/02/2019 Opioid Dependence Active 03/02/2019 Insomnia Active 03/02/2019 Hypertensive Disorder Active 03/02/2019 Psoriasis Active 03/02/2019 Dyslipidemia Active 03/20/2019 Rheumatoid Arthritis Active 07/13/2019 Psoriatic Arthritis Active 08/10/2019 Inactive Tuberculosis Active 09/21/2019 Procedures Date Name Performed by Extraction of [facility] Information n ot available Cardiac Catheterization Information not available Vaccine List Vaccine Type influenza, injectable, quadrivalent 06/04/2020 influenza, recombinant, quadrIvalent,inj ectable, preservative free 06/01/20190.5 mL Tdap 03/18/20190.5 mL zoster, unspecified formulation 06/04/2020 09/22/2020 Social History Tobacco Smoking Status Former Smoker Past Encounters Encounter Date Diagnosis Provider 10/11/2020 Hypertensive Disorder; Anxiety Warren Hu MD: 6122 Disorder; Obesity [facility], [address], [place] [address], Ph. 09/26/2020 Psoriatic Arthritis; Anxiety Warren Hu MD: 6122 Disorder; Opioid Dependence; [facility] , [address], Body Mass Index 25-29 - [place], [place] [phone], Overweight Ph. 09/12/2020 Anxiety Disorder; Body Mass Warren chery MD: 6122 Index 25-29 - Overweight [facility], [address], [place] [address], Ph. History of Present Illness Note: anxiety disorder - Stable. Taking meds. No problems with side effects or cost. Needs refills.
<div>alprazolam 1 mg tablet</div> Review of Systems: ROS [...]
--- OUTSIDE RECORDS SUMMARY | 2020-10-22 06:22 | XMS REPORT | Encounter Summary ---
:1965 Author Care Team Providers Name Role Phone Dr. Warren Hu Primary Care Provider [phone] Malvin Crowder MD Registered Midwife [phone] Eddie Leger DO Intelligence Specialist [phone] Greta Russell MD Mobile Home Lot Utility Worker [phone] Sammy Bullock MD Mobile Home Lot Utility Worker [phone] Oziel Hernandez III, MD Orthopedic Surgeon [phone] Scott Ren MD Addiction Medicine [phone] Reason for Visit chronic conditions; Telemedicine Visit [...] PLACE ONE TABLET BY MOUTH AT BEDTIME Medications Administered None recorded. Vitals Height Weight BMI Blood Pressure 6 ft 226 lbs 30.7 kg/m2 Results Lab Results None recorded. Allergies [...] Procedures Date Name Performed by Extraction of [place] [facility] Information n ot available Cardiac Catheterization Information not available Vaccine List Vaccine Type influenza, injectable, quadrivalent 06/04/2020 influenza, recombinant, quadrIvalent,inj ectable, preservative free 06/01/20190.5 mL Tdap 03/18/20190.5 mL zoster, unspecified formulation 06/04/2020 Social History Tobacco Smoking Status Former Smoker Past Encounters Encounter Date Diagnosis Provider 07/29/2020 Anxiety Disorder; Body Mass Warren Anitra chery MD: 6122 Index 30+ - Obesity [facility], [address], [place] [address], Ph. History of Present Illness Note: I confirm that I received verbal consent from the patient for the virtual visit.
This telemedicine encounter was performed using live {{video and audio*|audio only because either patient did not have technology or unable to connect due to technical problems}}.<div>
<div&g t;
</div><div>anxiety disorder - Stable. Taking meds. No problems with side effects or cost. Needs refills.
</div><div>alprazolam 1 mg tablet</div></div>Review of Systems: ROS [...] ea Neurologic: Gait and Station: normal gai t, normal station"
--- OUTSIDE RECORDS SUMMARY | 2020-10-22 06:22 | XMS REPORT | Encounter Summary ---
:1965 Author Care Team Providers Name Role Phone Dr. Warren Hu Primary Care Provider [phone] Malvin Crowder MD Trailer Sections Assembler [phone] Eddie Leger DO Tile Helper [phone] Greta Russell MD Sas Programmer [phone] Sammy Bullock MD Sas Programmer [phone] Oziel Hernandez III, MD Orthopedic Surgeon [phone] Scott Ren MD Addiction Medicine [phone] Reason for Visit chronic conditions; Telemedicine Visit Instructions 1. Anxiety disorder alprazolam 1 mg tablet 2. Body mass index 25-29 - overw eight learning about healthy jazmin ght Discussion Note: None recorded. Plan of Care Patient Instructions RTC prn Reminders Provider Appointments [facility] 09/12/2020 Warren Hu MD 9:15AM Lab None recorded. Referral None recorded. Procedures [...] NEEDED Medications Administered None recorded. Vitals Height 6 ft Results Lab Results None recorded. Allergies Code [...] Procedures Date Name Performed by Extraction of [place] [facility] Information n ot available Cardiac Catheterization Information not available Vaccine List Vaccine Type influenza, injectable, quadrivalent 06/04/2020 influenza, recombinant, quadrIvalent,inj ectable, preservative free 06/01/20190.5 mL Tdap 03/18/20190.5 mL zoster, unspecified formulation 06/04/2020 Social History Tobacco Smoking Status Former Smoker Past Encounters Encounter Date Diagnosis Provider 08/29/2020 Anxiety Disorder; Body Mass Warren chery MD: 6122 Index 25-29 - Overweight [address] [address], Ph. 08/12/2020 Anxiety Disorder; Body Mass Warren chery MD: 6122 Index 25-29 - Overweight [address] [address], Ph. History of Present Illness Note: I confirm that I received verbal consent from the patient for the virtual visit.
This telemedicine encounter was performed using live {{video and audio|audio only because either patient did not have technology or unable to connect due to technical problems*}}.
<strong>(for a udio only)</strong> Total time spent with patient: {{5#| }} minutes.<div>
</div><div>anxiety disorder - Stable. Taking meds. No [...] itching, no frequent sneezin g Physical Exam Telemedicine/Virtual Visit Reported By: Patient Constitutional: Level of Distress: NAD Psychiatric: Insight: good judgement Notes: Voice only"
--- OUTSIDE RECORDS SUMMARY | 2020-10-22 06:22 | XMS REPORT | Continuity of Care Document ---
:1965 Author Organization [facility] t Address 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 ge tuberculos Tuberculos 2-30 Fa [facility] is is 00:00: Practic 00 e Psoriatic Psoriatic Problem Active 2018-09 Анна gordo arthritis Arthritis 1-18 Fami ly 00:00: Practic 00 e Rheumatoid Rheumatoid Problem Active 2018-09 [facility] arthritis Arthritis 0-21 Fami ly 00:00: Practic 00 e Dyslipidem Dyslipidem Problem Active [facility] ia ia 6-28 Family 00:00: Practic 00 e Anxiety Anxiety Problem Active [facility] disorder Disorder 6-10 Family 00:00: Practic 00 e Opioid Opioid Problem Active [facility] dependence Dependence 6-10 [facility] 00:00: Practic 00 e Insomnia Insomnia Problem Active Blackman ge 6-10 Family 00:00: Practic 00 e Hypertensi Hypertensi Problem Active V illage ve ve 6-10 Family disorder Disorder 00:00: Practi c 00 e Psoriasis Psoriasis Problem Active Анна gordo 6-10 Family 00:00: Practic 00 e Allergies, Adverse Reactions, Alerts Allergy Allergy Status Severity Reaction(s) Onset Inactive Treating Comm ents Source Name Type Date Date Clinician Erythrom Allergy Active Respiratory Vi llage ycin to distress [facility] Practic e e Social History Smoking Status Start Date Stop Date Source Former Smoker [facility] P ractice Medications Ordered Filled Start Stop Current Ordering Indication Dosage Frequency Signature Comments Components Source Medication Medication Date Date Medication? Clinician (SIG) Name Name alprazolam alprazolam No 1 Q12H alprazolam [facility] 1 mg tablet 1 mg tablet 1 mg F amily Take 1 Take 1 tablet Practic tablet tablet Take 1 e every 12 every 12 tablet hours by hours by every 12 oral route oral route hours by as needed. as needed. oral route as needed. bisoprolol bisoprolol No bisoprolol [facility] 10 10 10 Family mg-hydrochl mg-hydrochl mg-hydroch Practic orothiazide orothiazide lorothiazi e 6.25 mg 6.25 mg de 6.25 mg tablet TAKE tablet TAKE tablet ONE TABLET ONE TABLET TAKE ONE BY MOUTH BY MOUTH TABLET BY DAILY DAILY MOUTH DAILY buprenorphi buprenorphi No buprenorph [facility] ne 8 ne 8 ine 8 Family mg-naloxone mg-naloxone mg-naloxon Practic 2 mg 2 mg e 2 mg e sublingual sublingual sublingual tablet per tablet per tablet per addict addict addict mirtazapine mirtazapine No mirtazapin [facility] 45 mg 45 mg e 45 mg Family disintegrat disintegrat disintegra Practic ing tablet ing tablet ting e PLACE ONE PLACE ONE tablet TABLET BY TABLET BY PLACE ONE MOUTH AT MOUTH AT TABLET BY BEDTIME BEDTIME MOUTH AT BEDTIME ondansetron ondansetron No ondansetro [facility] HCl 4 mg HCl 4 mg n HCl 4 mg F amily tablet TAKE tablet TAKE tablet Practic 1 TABLET BY 1 TABLET BY TAKE 1 e MOUTH EVERY MOUTH EVERY TABLET BY 6 HOURS 6 HOURS MOUTH NEEDED NEEDED EVERY 6 HOURS NEEDED Immunizations Ordered Immunization Filled Immunization Date Status Commen ts Source Name Name zoster, unspecified zoster, unspecified 2020-09-[address] [facility] formulation formulation 00:00:00 Practice zoster, unspecified zoster, unspecified 2020-06-[address] [facility] formulation formulation 00:00:00 Practice influenza, influenza, 2020-06-[address] [facility] injectable, injectable, 00:00:00 Practice quadrivalent quadrivalent influenza, influenza, 2019-06-[address] [facility] recombinant, recombinant, 13:21:00 Practice quadrIvalent,injecta quadrIvalent,injecta ble, preservative ble, preservative free free Tdap Tdap 2019-03-18 Completed [facility] 11:21:00 [facility] Vital Signs Vital Name Observation Time Observation Value Comments Source BP Diastolic 2020-10-11 00:00:00 82 mm[Hg] [facility] Height 2020-10-11 00:00:00 72 [in_i] [facility] BMI (Body Mass 2020-10-11 00:00:00 30.5 kg/m2 [facility] BP Systolic 2020-10-11 00:00:00 124 mm[Hg] [facility] Body Weight 2020-10-11 00:00:00 225 [lb_av] [facility] BP Diastolic 2020-09-26 00:00:00 79 mm[Hg] [facility] Height 2020-09-26 00:00:00 72 [in_i] [facility] BMI (Body Mass 2020-09-26 00:00:00 29.8 kg/m2 [facility] BP Systolic 2020-09-26 00:00:00 116 mm[Hg] [facility] Body Weight 2020-09-26 00:00:00 220 [lb_av] [facility] BP Diastolic 2020-09-12 00:00:00 59 mm[Hg] [facility] Height 2020-09-12 00:00:00 72 [in_i] [facility] BP Systolic 2020-09-12 00:00:00 102 mm[Hg] [facility] Height 2020-08-29 00:00:00 72 [in_i] [facility] Height 2020-08-12 00:00:00 72 [in_i] [facility] BMI (Body Mass 2020-08-12 00:00:00 30.5 kg/m2 [facility] Body Weight 2020-08-12 00:00:00 225 [lb_av] [facility] Height 2020-07-29 00:00:00 72 [in_i] [facility] BMI (Body Mass 2020-07-29 00:00:00 30.7 kg/m2 [facility] Body Weight 2020-07-29 00:00:00 226 [lb_av] [facility] BP Diastolic 2020-06-27 00:00:00 81 mm[Hg] [facility] Height 2020-06-27 00:00:00 72 [in_i] [facility] BMI (Body Mass 2020-06-27 00:00:00 30 kg/m2 [facility] BP Systolic 2020-06-27 00:00:00 139 mm[Hg] [facility] Body Weight 2020-06-27 00:00:00 221 [lb_av] [facility] Height 2020-06-13 00:00:00 72 [in_i] [facility] Height 2020-05-31 00:00:00 72 [in_i] [facility] Height 2020-05-16 00:00:00 72 [in_i] [facility] Height 2020-05-03 00:00:00 72 [in_i] [facility] Height 2020-04-18 00:00:00 72 [in_i] [facility] BMI (Body Mass 2020-04-18 00:00:00 30.4 kg/m2 [facility] Body Weight 2020-04-18 00:00:00 224 [lb_av] [facility] BP Diastolic 2020-04-04 00:00:00 87 mm[Hg] [facility] Height 2020-04-04 00:00:00 72 [in_i] [facility] BMI (Body Mass 2020-04-04 00:00:00 30.4 kg/m2 [facility] BP Systolic 2020-04-04 00:00:00 143 mm[Hg] [facility] Body Weight 2020-04-04 00:00:00 224 [lb_av] [facility] Height 2020-03-21 00:00:00 72 [in_i] [facility] Height 2020-03-07 00:00:00 72 [in_i] [facility] BMI (Body Mass 2020-03-07 00:00:00 30.4 kg/m2 [facility] Body Weight 2020-03-07 00:00:00 224.5 [lb_av] [facility] BP Diastolic 2020-02-22 00:00:00 86 mm[Hg] [facility] Height 2020-02-22 00:00:00 72 [in_i] [facility] BMI (Body Mass 2020-02-22 00:00:00 30.4 kg/m2 [facility] BP Systolic 2020-02-22 00:00:00 142 mm[Hg] [facility] Body Weight 2020-02-22 00:00:00 224.5 [lb_av] [facility] Height 2020-02-08 00:00:00 72 [in_i] [facility] BP Diastolic 2020-01-25 00:00:00 82 mm[Hg] [facility] Height 2020-01-25 00:00:00 72 [in_i] [facility] BMI (Body Mass 2020-01-25 00:00:00 30.1 kg/m2 [facility] BP Systolic 2020-01-25 00:00:00 140 mm[Hg] [facility] Body Weight 2020-01-25 00:00:00 222 [lb_av] [facility] Height 2020-01-11 00:00:00 72 [in_i] [facility] BMI (Body Mass 2020-01-11 00:00:00 30.1 kg/m2 [facility] Body Weight 2020-01-11 00:00:00 222 [lb_av] [facility] BP Diastolic 2019-11-30 00:00:00 80 mm[Hg] [facility] Height 2019-11-30 00:00:00 72 [in_i] [facility] BMI (Body Mass 2019-11-30 00:00:00 30.2 kg/m2 [facility] BP Systolic 2019-11-30 00:00:00 115 mm[Hg] [facility] Body Weight 2019-11-30 00:00:00 223 [lb_av] [facility] BP Diastolic 2019-11-16 00:00:00 86 mm[Hg] [facility] Height 2019-11-16 00:00:00 72 [in_i] [facility] BMI (Body Mass 2019-11-16 00:00:00 30.2 kg/m2 [facility] BP Systolic 2019-11-16 00:00:00 119 mm[Hg] [facility] Body Weight 2019-11-16 00:00:00 223 [lb_av] [facility] BP Diastolic 2019-11-02 00:00:00 84 mm[Hg] [facility] Height 2019-11-02 00:00:00 72 [in_i] [facility] BMI (Body Mass 2019-11-02 00:00:00 30.5 kg/m2 [facility] BP Systolic 2019-11-02 00:00:00 145 mm[Hg] [facility] Body Weight 2019-11-02 00:00:00 225 [lb_av] [facility] BP Diastolic 2019-10-19 00:00:00 83 mm[Hg] [facility] Height 2019-10-19 00:00:00 72 [in_i] [facility] BMI (Body Mass 2019-10-19 00:00:00 30.7 kg/m2 [facility] BP Systolic 2019-10-19 00:00:00 123 mm[Hg] [facility] Body Weight 2019-10-19 00:00:00 226 [lb_av] [facility] BP Diastolic 2019-10-05 00:00:00 80 mm[Hg] [facility] Height 2019-10-05 00:00:00 72 [in_i] [facility] BMI (Body Mass 2019-10-05 00:00:00 30.7 kg/m2 [facility] BP Systolic 2019-10-05 00:00:00 123 mm[Hg] [facility] Body Weight 2019-10-05 00:00:00 226 [lb_av] [facility] BP Diastolic 2019-09-21 00:00:00 73 mm[Hg] [facility] Height 2019-09-21 00:00:00 72 [in_i] [facility] BMI (Body Mass 2019-09-21 00:00:00 30.1 kg/m2 [facility] BP Systolic 2019-09-21 00:00:00 111 mm[Hg] [facility] Body Weight 2019-09-21 00:00:00 222.2 [lb_av] [facility] BP Diastolic 2019-09-07 00:00:00 85 mm[Hg] [facility] Height 2019-09-07 00:00:00 72 [in_i] [facility] BMI (Body Mass 2019-09-07 00:00:00 29.9 kg/m2 [facility] BP Systolic 2019-09-07 00:00:00 121 mm[Hg] [facility] Body Weight 2019-09-07 00:00:00 220.8 [lb_av] [facility] BP Diastolic 2019-08-24 00:00:00 78 mm[Hg] [facility] Height 2019-08-24 00:00:00 72 [in_i] [facility] BMI (Body Mass 2019-08-24 00:00:00 30.8 kg/m2 [facility] BP Systolic 2019-08-24 00:00:00 130 mm[Hg] [facility] Body Weight 2019-08-24 00:00:00 227 [lb_av] [facility] BP Diastolic 2019-08-10 00:00:00 78 mm[Hg] [facility] Height 2019-08-10 00:00:00 72 [in_i] [facility] BMI (Body Mass 2019-08-10 00:00:00 30.6 kg/m2 [facility] BP Systolic 2019-08-10 00:00:00 138 mm[Hg] [facility] Body Weight 2019-08-10 00:00:00 225.4 [lb_av] [facility] BP Diastolic 2019-07-27 00:00:00 82 mm[Hg] [facility] Height 2019-07-27 00:00:00 72 [in_i] [facility] BMI (Body Mass 2019-07-27 00:00:00 30.5 kg/m2 [facility] BP Systolic 2019-07-27 00:00:00 136 mm[Hg] [facility] Body Weight 2019-07-27 00:00:00 225 [lb_av] [facility] BP Diastolic 2019-07-13 00:00:00 80 mm[Hg] [facility] Height 2019-07-13 00:00:00 72 [in_i] [facility] BMI (Body Mass 2019-07-13 00:00:00 30.4 kg/m2 [facility] BP Systolic 2019-07-13 00:00:00 120 mm[Hg] [facility] Body Weight 2019-07-13 00:00:00 224 [lb_av] [facility] BP Diastolic 2019-06-29 00:00:00 80 mm[Hg] [facility] Height 2019-06-29 00:00:00 72 [in_i] [facility] BMI (Body Mass 2019-06-29 00:00:00 30.1 kg/m2 [facility] BP Systolic 2019-06-29 00:00:00 125 mm[Hg] [facility] Body Weight 2019-06-29 00:00:00 222 [lb_av] [facility] BP Diastolic 2019-06-15 00:00:00 74 mm[Hg] [facility] Height 2019-06-15 00:00:00 72 [in_i] [facility] BMI (Body Mass 2019-06-15 00:00:00 29.7 kg/m2 [facility] BP Systolic 2019-06-15 00:00:00 120 mm[Hg] [facility] Body Weight 2019-06-15 00:00:00 219 [lb_av] [facility] BP Diastolic 2019-06-01 00:00:00 82 mm[Hg] [facility] Height 2019-06-01 00:00:00 72 [in_i] [facility] BMI (Body Mass 2019-06-01 00:00:00 29.7 kg/m2 [facility] BP Systolic 2019-06-01 00:00:00 122 mm[Hg] [facility] Body Weight 2019-06-01 00:00:00 219 [lb_av] [facility] BP Diastolic 2019-05-18 00:00:00 90 mm[Hg] [facility] Height 2019-05-18 00:00:00 72 [in_i] [facility] BMI (Body Mass 2019-05-18 00:00:00 29.2 kg/m2 [facility] BP Systolic 2019-05-18 00:00:00 128 mm[Hg] [facility] Body Weight 2019-05-18 00:00:00 215 [lb_av] [facility] BP Diastolic 2019-03-18 00:00:00 90 mm[Hg] [facility] Height 2019-03-18 00:00:00 72 [in_i] [facility] BMI (Body Mass 2019-03-18 00:00:00 30 kg/m2 [facility] BP Systolic 2019-03-18 00:00:00 140 mm[Hg] [facility] Body Weight 2019-03-18 00:00:00 221.4 [lb_av] [facility] BP Diastolic 2019-03-02 00:00:00 64 mm[Hg] [facility] Height 2019-03-02 00:00:00 72 [in_i] [facility] BMI (Body Mass 2019-03-02 00:00:00 30.6 kg/m2 [facility] BP Systolic 2019-03-02 00:00:00 118 mm[Hg] [facility] Body Weight 2019-03-02 00:00:00 225.9 [lb_av] [facility] Procedures Procedure Date / Time Performing Clinician Source Performed X-RAY OF KNEE 1 OR 2 VIEW 2019-07-27 00:00:00 [facility] Extraction of Brady Tooth Blackman ge [facility] Cardiac Catheterization [facility] Plan of Care Planned Activity Planned Date Details Comments Source Instructions [facility] Encounters Start End Encounter Admission Attending Care Care Encounter Source Date/Time Date/Time Type Type Clinicians Facility Department ID 2020-10-11 2020-10-11 Warren Ayoub [facility] [place] - [id number] [address] [facility] 00:00:00 00:00:00 MD Fritz: [facility] [address] [facility] [place] [facility] [address], ([facility]) [place] [address] , Ph. 2020-09-26 2020-09-26 Warren Ayoub [facility] [place] - [id number] [address] [facility] 00:00:00 00:00:00 MD Fritz: [facility] [address] [facility] [place] [facility] [address], ([facility]) [place] [address] , Ph. 2020-09-12 2020-09-12 Warren Ayoub [facility] [place] - [id number] [address] [facility] 00:00:00 00:00:00 MD Fritz: [facility] [address] [facility] [place] [facility] [address], ([facility]) [place] [address] , Ph. 2020-08-29 2020-08-29 Warren Ayoub [facility] [place] - [id number] [address] [facility] 00:00:00 00:00:00 MD Fritz: [facility] [address] [facility] [place] [facility] [address], ([facility]) [place] [address] , Ph. 2020-08-12 2020-08-[address] [facility] [place] - [id number] 0 [facility] 00:00:00 00:00:00 MD Fritz: [facility] [address] [facility] [place] [facility] [place] [address], ([facility]) [place] [address] , Ph. 2020-07-29 2020-07-[address] [facility] [place] - [id number] [address] [facility] 00:00:00 00:00:00 MD Fritz: [facility] [address] [facility] [place] [facility] [place] [address], ([facility]) [place] [address] , Ph. 2020-06-27 2020-06-[address] [facility] [place] - [id number] [facility] 00:00:00 00:00:00 [facility] MD: [address] [facility] - Pract [facility] [place] [facility] [place] [address], ([facility]) [place] [address] , Ph. 2020-06-13 2020-06-13 [facility] [place] [facility] [id number] [address] [facility] 00:00:00 00:00:00 MD Fritz: [facility] [address] [facility] - [facility] [place] [facility], [place] [address], ([facility]) [place] [address] , Ph. 2020-05-31 2020-05-[address] [facility] [place] - [id number] 8 [facility] 00:00:00 00:00:00 MD Fritz: [facility] [address] [facility] [place] [facility] [place] [address], ([facility]) [place] [address] , Ph. 2020-05-16 2020-05-[address] [facility] [place] - [id number] 4 [facility] 00:00:00 00:00:00 MD Fritz: [facility] [address] [facility] [place] [facility], [place] [address], ([facility]) [place] [address] , Ph. 2020-05-03 2020-05-[address] [facility] [place] - [id number] 1 [facility] 00:00:00 00:00:00 MD Fritz: [facility] [address] [facility] [place] [facility], [place] [address], ([facility]) [place] [address] , Ph. 2020-04-18 2020-04-18 [facility] [place] [facility] [id number] 7 [facility] 00:00:00 00:00:00 MD Fritz: [facility] [address] [facility] - [facility] [place] [facility], [place] [address], ([facility]) [place] [address] , Ph. 2020-04-04 2020-04-[address] [facility] [place] - [id number] 3 [facility] 00:00:00 00:00:00 MD Fritz: [facility] [address] [facility] [place] [facility], [place] [address], ([facility]) [place] [address] , Ph. 2020-03-21 2020-03-[address] [facility] [place] - [id number] 9 [facility] 00:00:00 00:00:00 MD Fritz: [facility] [address] [facility] [place] [facility], [place] [address], ([facility]) [place] [address] , Ph. 2020-03-07 2020-03-07 [facility] [place] [facility] [id number] 5 [facility] 00:00:00 00:00:00 MD Fritz: [facility] [address] [facility] [place] [facility], [place] [address], ([facility]) [place] [address] , Ph. 2020-02-22 2020-02-22 [facility] [place] - [id number] 1 [facility] 00:00:00 00:00:00 MD Fritz: [facility] [address] [facility] - [facility] [place] [facility], [place] [address], ([facility]) [place] [address] , Ph. 2020-02-08 2020-02-[address] [facility] [place] - [id number] 8 [facility] 00:00:00 00:00:00 MD Fritz: [facility] [address] [facility] - [facility] [place] [facility], [place] [address], ([facility]) [place] [address] , Ph. 2020-01-25 2020-01-[address] [facility] [place] - [id number] [address] [facility] 00:00:00 00:00:00 MD Fritz: [facility] [address] [facility] [place] [facility], [place] [address], ([facility]) [place] [address] , Ph. 2020-01-11 2020-01-11 [facility] [place] - [id number] 0 [facility] 00:00:00 00:00:00 MD Fritz: [facility] [address] [facility] - [facility] [place] [facility], [place] [address], ([facility]) [place] [address] , Ph. 2019-12-28 2019-12-28 [facility] [place] - [id number] 6 [facility] 00:00:00 00:00:00 MD Fritz: [facility] [address] [facility] [place] [facility], [place] [address], ([facility]) [place] [address] , Ph. 2019-12-14 2019-12-[address] [facility] [place] - [id number] 3 [facility] 00:00:00 00:00:00 MD Fritz: [facility] [address] [facility] - [facility] [place] [facility], [place] [address], ([facility]) [place] [address] , Ph. 2019-11-30 2019-11-[address] [facility] [place] - [id number] 9 [facility] 00:00:00 00:00:00 MD Fritz: [facility] [address] [facility] - [facility] [place] [facility], [place] [address], ([facility]) [place] [address] , Ph. 2019-11-16 2019-11-[address] [facility] [place] - [id number] 4 [facility] 00:00:00 00:00:00 MD Fritz: [facility] [address] [facility] [place] [facility], [place] [address], ([facility]) [place] [address] , Ph. 2019-11-02 2019-11-[address] [facility] [place] - [id number] [facility] 00:00:00 00:00:00 MD Fritz: [facility] [address] [facility] - [facility] [place] [facility], [place] [address], ([facility]) [place] [address] , Ph. 2019-10-19 2019-10-[address] [facility] [place] - [id number] 7 [facility] 00:00:00 00:00:00 MD Fritz: [facility] [address] [facility] - [facility] [place] [facility], [place] [address], ([facility]) [place] [address] , Ph. 2019-10-05 2019-10-[address] [facility] [place] - [id number] 3 [facility] 00:00:00 00:00:00 MD Fritz: [facility] [address] [facility] [place] [facility], [place] [address], ([facility]) [place] [address] , Ph. 2019-09-21 2019-09-21 Warren Ayoub [facility] [place] - [id number] [address] [facility] 00:00:00 00:00:00 MD Fritz: [facility] [address] [facility] [place] [facility], [place] [address], ([place] [address] , Ph. 2019-09-07 2019-09-07 Warren ARMSTRONG [place] - [id number] [address] [facility] 00:00:00 00:00:00 MD Fritz: [facility] [address] [facility] [place] [facility], [place] [address], ([place] [address] , Ph. 2019-08-24 2019-08-24 Warren ARMSTRONG [place] - [id number] [address] [facility] 00:00:00 00:00:00 MD Fritz: [facility] [address] [facility] - [facility] [place], [address], [place] [address] , Ph. 2019-08-10 2019-08-[address] [facility] [place] - [id number] [address] [facility] 00:00:00 00:00:00 MD Fritz: [facility] [address] [facility] - [facility] [place], [address], [place] [address] , Ph. 2019-07-27 2019-07-[address] [facility] [place] - [id number] [address] [facility] 00:00:00 00:00:00 MD Fritz: [facility] [address] [facility] [place], [address], [place] [address] , Ph. 2019-07-13 2019-07-[address] [facility] [place] - [id number] [address] [facility] 00:00:00 00:00:00 MD Fritz: [facility] [address] [facility] [place], [address], [place] [address] , Ph. 2019-06-29 2019-06-29 Warren ARMSTRONG [place] - [id number] [address] [facility] 00:00:00 00:00:00 MD Fritz: [facility] [address] [facility] [place], Practice - [address], [place] [address] , Ph. 2019-06-15 2019-06-15 Warren Sweeneyg PAT[place] - [id number] [address] [facility] 00:00:00 00:00:00 MD Fritz: [facility] [address] [facility] [place], Practice - [address], [place] [address] , Ph. 2019-06-01 2019-06-01 Warren Ayoub [place] - [id number] [address] [facility] 00:00:00 00:00:00 MD Fritz: [facility] Famil y [address] [place], Practice - [address], [place] [address] , Ph. 2019-05-18 2019-05-18 Warrenelma ARMSTRONG [place] - [id number] [address] [facility] 00:00:00 00:00:00 MD Fritz: [facility] [address] [facility] [place], Practice - e [address], [place] [address] , Ph. 2019-05-14 2019-05-14 [facility] [place] [phone] [id number] 15:30:19 19:49:00 Dejan Walter [id number] [place] [id number] [place] [id number] 2019-03-18 2019-03-18 Warren Sweeneyg [place] - [id number] 6 [facility] 00:00:00 00:00:00 MD Fritz: [facility] [address] [facility] [place], Practice - e [address], [place] [address] , Ph. 2019-03-02 2019-03-02 Warren Ayoub [place] - [id number] 0 [facility] 00:00:00 00:00:00 MD Fritz: [facility] Alejandre y [address] [facility], [facility] - [address], [place] [address] , Ph. Results Test Description Test Time Test Comments Results Result Comments Source CBC W Auto Differential panel - Blood 2020-05-13 00:00:00 Test Item Value Reference Range Interpretation Comme nts WBC (test code = WBC) 7.65 x10*3/?L 4.23-9.07 RBC (test code = RBC) 5.25 10*12/L 4.63-6.08 hemoglobin (test code = hemoglobin) 14.40 g/dL 13.70-17.50 hematocrit (test code = hematocrit) 46.2 % 40.1-51.0 MCV (test code = MCV) 88.0 fL 80.0-100.0 MCH (test code = MCH) 27.4 pg 25.7-32.2 MCHC (test code = MCHC) 31.2 g/dL 32.3-36.5 L RDW-SD (test code = RDW-SD) 47.1 fL 35.1-43.9 H platelet count (test code = platelet count) 278.0 k/uL 163.0-337. 0 MPV (test code = MPV) 10.1 fL 7.5-11.5 neut% (test code = neut%) 58.9 % 34.0-67.9 lymph% (test code = lymph%) 31.4 % 21.8-53.1 mon% (test code = mon%) 6.3 % 5.3-12.2 eos% (test code = eos%) 2.5 % 0.8-7.0 baso% (test code = baso%) 0.9 % 0.2-1.2 neut# (test code = neut#) 4.5 x10*3/?L 1.8-5.4 lymph# (test code = lymph#) 2.4 x10*3/?L 1.3-3.6 mon# (test code = mon#) 0.5 x10*3/?L 0.3-0.8 eos# (test code = eos#) 0.19 x10*3/?L 0.04-0.54 baso# (test code = baso#) 0.07 x10*3/?L 0.01-0.08 [facility] - Serum or Plasma 2020-05-13 00:00:00 Test Item Value Reference Range Interpretation Comments ALT (test code = ALT) 22 U/L 0-55 AST (test code = AST) 17 U/L 5-34 BUN (test code = BUN) 12.3 mg/dL 8.4-25.0 alk phos (test code = alk phos) 103 unit/L 40-150 glucose (test code = glucose) 96 mg/dL 70-99 albumin (test code = albumin) 3.8 g/dL 3.4-5.1 creatinine (test code = 0.79 mg/dL 0.72-1.25 creatinine) eGFR non- (test >60 code = eGFR non-) total bilirubin (test code = 0.3 mg/dL 0.2-1.2 total bilirubin) eGFR - (test >60 code = eGFR - ) sodium (test code = sodium) 139 mEq/L 135-145 potassium (test code = potassium) 4.4 mEq/L 3.5-5.3 chloride (test code = chloride) 99 mmol/L 98-110 total protein (test code = total 7.2 g/dL 6.1-8.2 protein) calcium (test code = calcium) 9.8 mg/dL 8.6-10.4 CO2 (test code = CO2) 33.7 mmol/L 20.0-32.0 H anion gap (test code = anion gap) 6 calc [facility] - Serum or [id number] 00:00:00 Test Item Value Reference Range Interpretation Comments HDL (test code = HDL) 43 mg/dL triglyceride (test code = 305 mg/dL <150 H triglyceride) VLDL (calculated) (test code = VLDL 61 mg/dL (calculated)) cholesterol/HDL ratio (test code = 6.3 mg/dL cholesterol/HDL ratio) non-HDL cholesterol (calculated) 228 mg/dL <160 H (test code = non-HDL cholesterol (calculated)) cholesterol (test code = 271 mg/dL <200 H cholesterol) Cholesterol in LDL [Mass/volume] in 167 mg/dL <130 H Serum or Plasma (test code = 2089-1) [facility]Units/volume] in Serum or [id number] 00:00:00 Test Item Value Reference Range Interpretation Comments TSH (test code = TSH) 2.328 uIU/mL 0.350-4.940 [facility], serum or [id number] 00:00:00 Test Item Value Reference Range Interpretation Comments PSA, total (test code = PSA, 0.33 NG/mL <4.00 total) [facility]Hemoglobin.total in [id number] 00:00:00 Test Item Value Reference Range Interpretation Comments Hemoglobin A1c/Hemoglobin.total in 5.9 % 1.0-5.7 H Blood (test code = 4548-4) average blood glucose (calculated) 123 mg/dL (test code = average blood glucose (calculated)) [facility] - [id number] 00:00:00 Test Item Value Reference Range Interpretation Comments WBC (test code = WBC) 7.65 x10*3/?L 4.23-9.07 RBC (test code = RBC) 5.25 10*12/L 4.63-6.08 hemoglobin (test code = 14.40 g/dL 13.70-17.50 hemoglobin) hematocrit (test code = 46.2 % 40.1-51.0 hematocrit) MCV (test code = MCV) 88.0 fL 80.0-100.0 MCH (test code = MCH) 27.4 pg 25.7-32.2 MCHC (test code = MCHC) 31.2 g/dL 32.3-36.5 L RDW-SD (test code = RDW-SD) 47.1 fL 35.1-43.9 H platelet count (test code = 278.0 k/uL 163.0-337.0 platelet count) MPV (test code = MPV) 10.1 fL 7.5-11.5 neut% (test code = neut%) 58.9 % 34.0-67.9 lymph% (test code = lymph%) 31.4 % 21.8-53.1 mon% (test code = mon%) 6.3 % 5.3-12.2 eos% (test code = eos%) 2.5 % 0.8-7.0 baso% (test code = baso%) 0.9 % 0.2-1.2 neut# (test code = neut#) 4.5 x10*3/?L 1.8-5.4 lymph# (test code = lymph#) 2.4 x10*3/?L 1.3-3.6 mon# (test code = mon#) 0.5 x10*3/?L 0.3-0.8 eos# (test code = eos#) 0.19 x10*3/?L 0.04-0.54 baso# (test code = baso#) 0.07 x10*3/?L 0.01-0.08 [facility] 2000 [facility] - Serum or Plasma 2020-05-13 00:00:00 Test Item Value Reference Range Interpretation Comments ALT (test code = ALT) 22 U/L 0-55 AST (test code = AST) 17 U/L 5-34 BUN (test code = BUN) 12.3 mg/dL 8.4-25.0 alk phos (test code = alk phos) 103 unit/L 40-150 glucose (test code = glucose) 96 mg/dL 70-99 albumin (test code = albumin) 3.8 g/dL 3.4-5.1 creatinine (test code = 0.79 mg/dL 0.72-1.25 creatinine) eGFR non- (test >60 code = eGFR non-) total bilirubin (test code = 0.3 mg/dL 0.2-1.2 total bilirubin) eGFR - (test >60 code = eGFR - ) sodium (test code = sodium) 139 mEq/L 135-145 potassium (test code = potassium) 4.4 mEq/L 3.5-5.3 chloride (test code = chloride) 99 mmol/L 98-110 total protein (test code = total 7.2 g/dL 6.1-8.2 protein) calcium (test code = calcium) 9.8 mg/dL 8.6-10.4 CO2 (test code = CO2) 33.7 mmol/L 20.0-32.0 H anion gap (test code = anion gap) 6 calc [facility] 1996 panel - Serum or [id number] 00:00:00 Test Item Value Reference Range Interpretation Comments HDL (test code = HDL) 43 mg/dL triglyceride (test code = 305 mg/dL <150 H triglyceride) VLDL (calculated) (test code = VLDL 61 mg/dL (calculated)) cholesterol/HDL ratio (test code = 6.3 mg/dL cholesterol/HDL ratio) non-HDL cholesterol (calculated) 228 mg/dL <160 H (test code = non-HDL cholesterol (calculated)) cholesterol (test code = 271 mg/dL <200 H cholesterol) Cholesterol in LDL [Mass/volume] in 167 mg/dL <130 H Serum or Plasma (test code = 2089-1) [facility] [Units/volume] in Serum or [id number] 00:00:00 Test Item Value Reference Range Interpretation Comments TSH (test code = TSH) 2.328 uIU/mL 0.350-4.940 [facility], serum or [id number] 00:00:00 Test Item Value Reference Range Interpretation Comments PSA, total (test code = PSA, 0.33 NG/mL <4.00 total) [facility]/Hemoglobin.total in [id number] 00:00:00 Test Item Value Reference Range Interpretation Comments Hemoglobin A1c/Hemoglobin.total in 5.9 % 1.0-5.7 H Blood (test code = 4548-4) average blood glucose (calculated) 123 mg/dL (test code = average blood glucose (calculated)) [facility] ([facility]3) [Mass/volume] in Serum or Plasma 2019-05-19 00:00:00 Test Item Value Reference Range Interpretation Comments T3, total (test code = T3, total) 114 NG/dL 76-181 [facility] (T4) free [Mass/volume] in Serum or Plasma 2019-05-19 00:00:00 Test Item Value Reference Range Interpretation Comments T4 free (test code = T4 free) 1.12 NG/dL 0.70-1.48 [facility] [Units/volume] in Serum or [id number] 00:00:00 Test Item Value Reference Range Interpretation Comments TSH (test code = TSH) 3.825 uIU/mL 0.350-4.940 [facility] (T3) [Mass/volume] in Serum or Plasma 2019-05-19 00:00:00 Test Item Value Reference Range Interpretation Comments T3, total (test code = T3, total) 114 NG/dL 76-181 [facility] (T4[facility] free [Mass/volume] in Serum or Plasma 2019-05-19 00:00:00 Test Item Value Reference Range Interpretation Comments T4 free (test code = T4 free) 1.12 NG/dL 0.70-1.48 [facility] [Units/volume] in Serum or [id number] 00:00:00 Test Item Value Reference Range Interpretation Comments TSH (test code = TSH) 3.825 uIU/mL 0.350-4.940 [facility]
--- OUTSIDE RECORDS SUMMARY | 2020-10-22 06:22 | XMS REPORT | Encounter Summary ---
:1965 Author Care Team Providers Name Role Phone Dr. Warren Hu Primary Care Provider [phone] Malvin Crowder MD Clerk Analyst [phone] Eddie Leger DO Syrup Blender [phone] Greta Russell MD Physiologist [phone] Sammy Bullock MD Physiologist [phone] Oziel Hernandez III, MD Orthopedic Surgeon [phone] Scott Ren MD Addiction Medicine [phone] Reason for Visit chronic conditions; Telemedicine Visit [...] Administered None recorded. Vitals Height Weight BMI 6 ft 225 lbs 30.5 kg/m2 Results Lab Results None recorded. Allergies [...] Procedures Date Name Performed by [facility] [place] [facility] Information n ot available Cardiac Catheterization Information not available Vaccine List Vaccine Type influenza, injectable, quadrivalent 06/04/2020 influenza, recombinant, quadrIvalent,inj ectable, preservative free 06/01/20190.5 mL Tdap 03/18/20190.5 mL zoster, unspecified formulation 06/04/2020 Social History Tobacco Smoking Status Former Smoker Past Encounters Encounter Date Diagnosis Provider 08/12/2020 Anxiety Disorder; Body Mass Warren chery MD: 6122 Index 25-29 - Overweight [facility], [address], [place] [address], Ph. 07/29/2020 Anxiety Disorder; Body Mass Warren chery MD: 6122 Index 30+ - Obesity [facility], [address], [place] [address], Ph. History of Present Illness Note: [...] or cost. Needs refills.
</div><div>ALPRAZolam 1 mg tablet</div><div><div>
</div></div>Review of Systems: ROS as noted in [...]
--- OUTSIDE RECORDS SUMMARY | 2020-10-22 06:22 | XMS REPORT | Encounter Summary ---
:1965 Author Care Team Providers Name Role Phone Dr. Warren Hu Primary Care Provider [phone] Malvin Crowder MD Slime Plant Operator Helper [phone] Eddie Leger DO Farmworker Machine [phone] Greta Russell MD Computer Graphic Designer [phone] Sammy Bullock MD Computer Graphic Designer [phone] Oziel Hernandez III, MD Orthopedic Surgeon [phone] Scott Ren MD Addiction Medicine [phone] Reason for Visit chronic conditions; Telemedicine Visit [...] NEEDED Medications Administered None recorded. Vitals Height Blood Pressure 6 ft 102/59 mm[Hg] Results Lab Results None recorded. Allergies [...] Procedures Date Name Performed by [facility] [place] [facility] Information n ot available Cardiac Catheterization Information not available Vaccine List Vaccine Type influenza, injectable, quadrivalent 06/04/2020 influenza, recombinant, quadrIvalent,inj ectable, preservative free 06/01/20190.5 mL Tdap 03/18/20190.5 mL zoster, unspecified formulation 06/04/2020 Social History Tobacco Smoking Status Former Smoker Past Encounters Encounter Date Diagnosis Provider 09/12/2020 Anxiety Disorder; Body Mass Warren chery MD: 6122 Index 25-29 - Overweight [address] [address], Ph. 08/29/2020 Anxiety Disorder; Body Mass Warren chery MD: 6122 Index 25-29 - Overweight [address] [address], Ph. History of Present Illness Note: [...] NAD Psychiatric: Insight: good judgement Notes: Voice only
--- OUTSIDE RECORDS SUMMARY | 2020-10-22 06:22 | XMS REPORT | Encounter Summary ---
:1965 Author Care Team Providers Name Role Phone Dr. Warren Hu Primary Care Provider [phone] Malvin Crowder MD Linux Network Systems Administrator [phone] Eddie Leger DO Drill Press Tender [phone] Greta Russell MD Industrial Energy Engineer [phone] Sammy Bullock MD Industrial Energy Engineer [phone] Oziel Hernandez III, MD Orthopedic Surgeon [phone] Scott Ren MD Addiction Medicine [phone] Reason for Visit chronic conditions Instructions 1. Psoriatic arthritis 2. Anxiety disorder alprazolam 1 mg tablet 3. Opioid dependence 4. Body mass index 25-29 - overw eight learning about healthy jazmin ght Discussion Note: None recorded. Plan of Care Patient Instructions RTC prn Reminders Provider Appointments Work in 10/10/2020 Warren Hu MD Same Day 9:15AM Lab None recorded. Referral None recorded. [...] TABLET BY MOUTH EVERY 6 HOURS NEEDED Shingrix (PF) 50 mcg/0.5 mL intramuscular suspension, kit Medications Administered None recorded. Vitals Height Weight BMI Blood Pressure 6 ft 220 lbs 29.8 kg/m2 116/79 mm[Hg] Results Lab Results None recorded. Allergies [...] Procedures Date Name Performed by [facility] [place] [facility] Information n ot available Cardiac Catheterization Information not available Vaccine List Vaccine Type influenza, injectable, quadrivalent 06/04/2020 influenza, recombinant, quadrIvalent,inj ectable, preservative free 06/01/20190.5 mL Tdap 03/18/20190.5 mL zoster, unspecified formulation 06/04/2020 Social History Tobacco Smoking Status Former Smoker Past Encounters Encounter Date Diagnosis Provider 09/26/2020 Psoriatic Arthritis; Anxiety Warren Hu MD: 6122 Disorder; Opioid Dependence; [facility], Body Mass Index 25-29 - [place], [place] [phone], Overweight Ph. 09/12/2020 Anxiety Disorder; Body Mass Warren chery MD: 6122 Index 25-29 - Overweight [address] [address], Ph. 08/29/2020 Anxiety Disorder; Body Mass Warren chery MD: 6122 Index 25-29 - Overweight [address] [address], Ph. History of Present Illness Note: [...]
[2020-10-22] MEDS ORDERED: LIDOCAINE VISCOUS 2% SOLN 15 ML UDC ONE (08:07)
--- NOTE | 2020-10-22 08:13 | ER ---
Nurse's Notes [facility] Name: Kingston Harris Age: 55 yrs Sex: Male : 1965 Arrival Date: 10/22/2020 Time: 06:19 Bed 27 Private MD: Diagnosis: Foreign body in left ear Presentation: 10/22 07:30 Chief complaint: Patient states: "there is a bug in my L ear. It's fluttering in ss there.". Coronavirus screen: Client denies travel out of the [place] in the last 14 days. Ebola Screen: Patient denies exposure to infectious person. Patient denies travel to an Ebola-affected area in the 21 days before illness onset. Initial Sepsis Screen: Does the patient meet any 2 criteria? No. Patient's initial sepsis screen is negative. Does the patient have a suspected source of infection? No. Patient's initial sepsis screen is negative. Risk Assessment: Do you want to hurt yourself or someone else? Patient reports no desire to harm self or others. Onset of symptoms was October 22, 2020. 07:30 Method Of Arrival: Ambulatory ss 07:30 Acuity: SHANTE 4 ss Historical: - Allergies: 07:33 Erythromycin; ss - PMHx: 07:33 Anxiety; Chronic pain; COPD; Degenerative disc disease; Hypertension; psoriasis; ss - Immunization history:: Adult Immunizations up to date. - Social history:: Smoking status: Patient denies any tobacco usage or history of. - Family history:: not pertinent. Screenin:34 Abuse screen: Denies threats or abuse. Denies injuries from another. Nutritional ss screening: No deficits noted. Tuberculosis screening: Never had TB. Fall Risk None identified. Assessment: 07:34 General: Appears uncomfortable, Behavior is cooperative, anxious. Pain: Complains of ss pain in left ear Pain currently is 7 out of 10 on a pain scale. Quality of pain is described as "fluttering" discomfort. Neuro: Level of Consciousness is awake, alert, obeys commands, Oriented to person, place, time, situation. Cardiovascular: Capillary refill < 3 seconds is brisk in bilateral fingers. Respiratory: Airway is patent Respiratory effort is even, unlabored, Respiratory pattern is regular, symmetrical. GI: No signs and/or symptoms were reported involving the gastrointestinal system. EENT: Nares are clear Oral mucosa is moist. Derm: Skin is intact, is healthy with good turgor, Skin is dry. Musculoskeletal: Circulation, motion, and sensation intact. Range of motion: intact in all extremities, Swelling absent. 07:47 Reassessment: Dr. Costello at bedside attempting to remove insect from L ear with ss suction. Vital Signs: 07:30 BP 144 / 86; Pulse 71; Resp 19; Temp 98.1(TE); Pulse Ox 100% on R/A; Pain 7/10; ss ED Course: 06:19 Patient arrived in ED. cf2 07:25 Rodrigo Costello MD is Attending Physician. ma2 07:30 Kalani Vásquez RN is Primary Nurse. ss 07:32 Triage completed. ss 07:33 Arm band placed on right wrist. ss 07:34 Patient has correct armband on for positive identification. Bed in low position. Call ss light in reach. 08:19 No provider procedures requiring assistance completed. Patient did not have IV access ss during this emergency room visit. Administered Medications: 08:00 Drug: Viscous Lidocaine Liquid (4 %) 1 application {Note: administered to L ear by Dr. mary Costello. .} Route: Mucous Membrane; 08:21 Follow up: Response: No adverse reaction; Marked relief of symptoms Outcome: 08:12 Discharge ordered by . wy2 08:19 Discharged to home ambulatory. 08:19 Condition: good 08:19 Discharge instructions given to patient, Instructed on discharge instructions, follow up and referral plans. medication usage, Demonstrated understanding of instructions, follow-up care, medications, Prescriptions given X 1. 08:21 Patient left the ED. Signatures: Kalani áVsquez RN RN Rodrigo Costello MD MD ma2 [place], [place] cf2
--- NOTE | 2020-10-22 08:13 | EDPHYS ---
Physician Documentation [facility] Name: Kingston Harris Age: 55 yrs Sex: Male : 1965 Arrival Date: 10/22/2020 Time: 06:19 Bed 27 Private MD: ED Physician Rodrigo Costello HPI: 10/22 08:10 This 55 yrs old Male presents to ER via Ambulatory with complaints of Insect ma2 In Ear. 08:10 The patient presents with pain. Onset: The symptoms/episode began/occurred suddenly, 1 ma2 day(s) ago. Severity of symptoms: At their worst the symptoms were moderate in the emergency department the symptoms are unchanged. The patient has not experienced similar symptoms in the past. Historical: - Allergies: 07:33 Erythromycin; ss - PMHx: 07:33 Anxiety; Chronic pain; COPD; Degenerative disc disease; Hypertension; psoriasis; ss - Immunization history:: Adult Immunizations up to date. - Social history:: Smoking status: Patient denies any tobacco usage or history of. - Family history:: not pertinent. ROS: 08:10 Constitutional: Negative for fever, chills, and weight loss. ma2 08:10 All other systems are negative. Exam: 08:10 Constitutional: This is a well developed, well nourished patient who is awake, alert, ma2 and in no acute distress. Head/Face: Normocephalic, atraumatic. Eyes: Pupils equal round and reactive to light, extra-ocular motions intact. Lids and lashes normal. Conjunctiva and sclera are non-icteric and not injected. Cornea within normal limits. Periorbital areas with no swelling, redness, or edema. ENT: Nares patent. No nasal discharge, no septal abnormalities noted. has insect in left ear, Tympanic membranes are normal and external auditory canals are clear. Oropharynx with no redness, swelling, or masses, exudates, or evidence of obstruction, uvula midline. Mucous membranes moist. Neck: Trachea midline, no thyromegaly or masses palpated, and no cervical lymphadenopathy. Supple, full range of motion without nuchal rigidity, or vertebral point tenderness. No Meningismus. Chest/axilla: Normal chest wall appearance and motion. Nontender with no deformity. No lesions are appreciated. Cardiovascular: Regular rate and rhythm with a normal S1 and S2. No gallops, murmurs, or rubs. Normal PMI, no JVD. No pulse deficits. Respiratory: Lungs have equal breath sounds bilaterally, clear to auscultation and percussion. No rales, rhonchi or wheezes noted. No increased work of breathing, no retractions or nasal flaring. Vital Signs: 07:30 BP 144 / 86; Pulse 71; Resp 19; Temp 98.1(TE); Pulse Ox 100% on R/A; Pain 7/10; ss Procedures: 08:14 Foreign Body Removal: an insect, from the left ear canal, by using alligator clamps, ma2 lidocaine lavage, normal saline irrigation, Dressing: The patient tolerated the removal well. MDM: 07:25 Patient medically screened. ma2 08:10 Differential diagnosis: otitis media, otitis externa, ruptured TM, foreign body, ma2 cerumen impaction, foreign body on left ear. Data reviewed: vital signs, nurses notes. Counseling: I had a detailed discussion with the patient and/or guardian regarding: the historical points, exam findings, and any diagnostic results supporting the discharge/admit diagnosis, the presence of at least one elevated blood pressure reading (>120/80) during this emergency department visit, the need for outpatient follow up. Response to treatment: the patient's symptoms have markedly improved after treatment. Administered Medications: 08:00 Drug: Viscous Lidocaine Liquid (4 %) 1 application {Note: administered to L ear by Dr. mary Costello. .} Route: Mucous Membrane; 08:21 Follow up: Response: No adverse reaction; Marked relief of symptoms Disposition: 10/22/20 08:12 Discharged to Home. Impression: Foreign body in left ear. - Condition is Stable. - Discharge Instructions: Otitis Externa, [id number], Ear Foreign Body, [id number]. - Prescriptions for Ciprodex 0.3- 0.1 % Otic Drops, Suspension - instill 4 drop by OTIC route every 12 hours for 7 days , for ears ONLY; 1 Container. - Medication Reconciliation Form, Thank You Letter, Antibiotic Education, Prescription Opioid Use form. - Follow up: Private Physician; When: Tomorrow; Reason: Continuance of care. Signatures: Kalani Vásquez RN RN ss Alzahri, Mohammad, MD MD ma2 Corrections: (The following items were deleted from the chart) 08:21 08:12 10/22/2020 08:12 Discharged to Home. Impression: Foreign body in left ear. ss Condition is Stable. Forms are Medication Reconciliation Form, Thank You Letter, Antibiotic Education, Prescription Opioid Use. Follow up: Private Physician; When: Tomorrow; Reason: Continuance of care. ma2
[2020-10-22 08:25] VITALS: BP 144/86; TEMP 98.1; O2SAT 100
== END 2020-10-22 08:21 | disposition home or self-care (01) ==
LOC: ER 06:19
PROC: 09C47ZZ Extirpation of Matter from Left External Auditory Canal, Via Natural or Artificial Opening (ICD-10-PCS; principal; 2020-10-22)
DX: T16.2XXA Foreign body in left ear, initial encounter (principal); J44.9 Chronic obstructive pulmonary disease, unspecified; G89.29 Other chronic pain; F41.9 Anxiety disorder, unspecified; I10 Essential (primary) hypertension; L40.9 Psoriasis, unspecified
CPT/HCPCS: 99283

== ENCOUNTER 2021-08-21 21:19 | Emergency (ER) | payer BC ==
--- OUTSIDE RECORDS SUMMARY | 2021-08-21 21:23 | XMS REPORT | Continuity of Care Document ---
:1965 Author Organization [facility] t Address [address] [place] [address] Care Team Providers Name Role Phone HU Primary Care Physician Unavailable Bui_Q_WAG Attending Clinician Unavailable Bui_Q Attending Clinician Unavailable Triston LOPES Attending Clinician Unavailable Sean Kiser Attending Clinician Bui_Q_WAG Admitting Clinician Unavailable Bui_Q Admitting Clinician Unavailable Payers Payer Name Policy Type Policy Number Effective Date Expiration Date S ource [place] [id number] 2020 [place] [id number] 2019 [place] [id number] 2017 OUT OF [place] [id number] 2018 2019 00[place]00:00 [place] 00:00:00 Problems Condition Condition Condition Status Onset Resolution Last Treating Co mments Source Name Details Category Date Date Treatment Clinician Date Inactive 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 ge tuberculos Tuberculos 2-30 Fa lisa is is 00:00: Practic 00 e Psoriatic Psoriatic Problem Active 2018-09 Анна gordo arthritis Arthritis 1-18 Fami ly 00:00: Practic 00 e Rheumatoid Rheumatoid Problem Active 2018-09 [facility] arthritis Arthritis 0-21 Fami ly 00:00: Practic 00 e Dyslipidem Dyslipidem Problem Active [facility] ia ia 6-28 Family 00:00: Practic 00 e Anxiety Anxiety Problem Active [place] disorder Disorder 6-10 Family 00:00: Practic e Opioid Opioid Problem Active [facility] dependence Dependence 6-10 Fa lisa 00:00: Practic 00 e Insomnia Insomnia Problem Active Yehuda ge 6-10 Family 00:00: Practic 00 e Hypertensi Hypertensi Problem Active [facility] ve ve 6-10 Family disorder Disorder 00:00: Practi c 00 e Psoriasis Psoriasis Problem Active Анна gordo 6-10 Family 00:00: Practic 00 e Allergies, Adverse Reactions, Alerts Allergy Allergy Status Severity Reaction(s) Onset Inactive Treating Comm ents Source Name Type Date Date Clinician ERYTHROM DRUG Active Hives [facility]16 [facility] [place] [facility] Erythrom Allergy Active Respiratory [facility] ycin to distress [facility] e e Social History Smoking Status Start Date Stop Date Source Former Smoker [facility] Medications Ordered Filled Start Stop Current Ordering Indication Dosage Frequency Signature Comments Components Source Medication Medication Date Date Medication? Clinician (SIG) Name Name buprenorphi buprenorphi 2020-09 No buprenorph [facility] ne 8 ne 8 0-11 ine 8 Family mg-naloxone mg-naloxone 00:00: mg-naloxon Practic 2 mg 2 mg 00 e 2 mg e sublingual sublingual sublingual tablet tablet tablet alprazolam alprazolam No alprazolam [facility] 1 mg tablet 1 mg tablet 1 mg F amily TAKE 1 TAKE 1 tablet Practic TABLET BY TABLET BY TAKE 1 e MOUTH EVERY MOUTH EVERY TABLET BY 12 HOURS 12 HOURS MOUTH NEEDED FOR NEEDED FOR EVERY 12 ANXIETY ANXIETY HOURS NEEDED FOR ANXIETY bisoprolol bisoprolol No bisoprolol [facility] 10 10 10 Family mg-hydrochl mg-hydrochl mg-hydroch Practic orothiazide orothiazide lorothiazi e 6.25 mg 6.25 mg de 6.25 mg tablet TAKE tablet TAKE tablet ONE TABLET ONE TABLET TAKE ONE BY MOUTH BY MOUTH TABLET BY DAILY DAILY MOUTH DAILY mirtazapine mirtazapine No mirtazapin [facility] 45 mg 45 mg e 45 mg Family disintegrat disintegrat disintegra Practic ing tablet ing tablet ting e PLACE ONE PLACE ONE tablet TABLET BY TABLET BY PLACE ONE MOUTH AT MOUTH AT TABLET BY BEDTIME BEDTIME MOUTH AT BEDTIME ondansetron ondansetron No 1 BID ondansetro [facility] HCl 4 mg HCl 4 mg n HCl 4 mg F amily tablet Take tablet Take tablet Practic 1 tablet 1 tablet Take 1 e twice a day twice a day tablet by oral by oral twice a route as route as day by needed. needed. oral route as needed. Immunizations Ordered Immunization Filled Immunization Date Status Commen ts Source Name Name COVID-19 vaccine, COVID-19 vaccine, 2021-06-18 Completed [facility] vector-nr, vector-nr, 00:00:00 Practice rS-ChAdOx1, PF, 0.5 rS-ChAdOx1, PF, 0.5 mL ([employer]) mL ([employer]) influenza, influenza, 2021-06-05 Completed [facility] recombinant, recombinant, 11:15:00 Practice quadrIvalent,injecta quadrIvalent,injecta ble, preservative ble, preservative free free zoster, unspecified zoster, unspecified 2020-09-22 Completed [facility] formulation formulation 00:00:00 Practice zoster, unspecified zoster, unspecified 2020-06-04 Completed [facility] formulation formulation 00:00:00 Practice influenza, influenza, 2020-06-04 [facility] injectable, injectable, 00:00:00 Practice quadrivalent quadrivalent influenza, influenza, 2019-06-01 Completed [facility] recombinant, recombinant, 13:21:00 Practice quadrIvalent,injecta quadrIvalent,injecta ble, preservative ble, preservative free free Tdap Tdap 2019-03-18 [facility] 11:21:00 Practice Vital Signs Vital Name Observation Time Observation Value Comments Source BP Diastolic 2021-08-14 00:00:00 83 mm[Hg] [facility] Height 2021-08-14 00:00:00 72 [in_i] [facility] BMI (Body Mass 2021-08-14 00:00:00 31 kg/m2 [facility] e Family Index) Practice BP Systolic 2021-08-14 00:00:00 126 mm[Hg] [facility] Body Weight 2021-08-14 00:00:00 228.4 [lb_av] [facility] BP Diastolic 2021-07-25 00:00:00 90 mm[Hg] [facility] Height 2021-07-25 00:00:00 72 [in_i] [facility] BP Systolic 2021-07-25 00:00:00 160 mm[Hg] [facility] BP Diastolic 2021-07-03 00:00:00 89 mm[Hg] [facility] Height 2021-07-03 00:00:00 72 [in_i] [facility] BMI (Body Mass 2021-07-03 00:00:00 31.1 kg/m2 [facility] BP Systolic 2021-07-03 00:00:00 136 mm[Hg] [facility] Body Weight 2021-07-03 00:00:00 229 [lb_av] [facility] BP Diastolic 2021-06-19 00:00:00 83 mm[Hg] [facility] Height 2021-06-19 00:00:00 72 [in_i] [facility] BMI (Body Mass 2021-06-19 00:00:00 31.3 kg/m2 [facility] BP Systolic 2021-06-19 00:00:00 125 mm[Hg] [facility] Body Weight 2021-06-19 00:00:00 230.6 [lb_av] [facility] Height 2021-06-17 00:00:00 72 [in_i] [facility] BMI (Body Mass 2021-06-17 00:00:00 30.9 kg/m2 [facility] Body Weight 2021-06-17 00:00:00 228 [lb_av] [facility] BP Diastolic 2021-06-05 00:00:00 71 mm[Hg] [facility] Height 2021-06-05 00:00:00 72 [in_i] [facility] BMI (Body Mass 2021-06-05 00:00:00 30.9 kg/m2 [facility] BP Systolic 2021-06-05 00:00:00 113 mm[Hg] [facility] Body Weight 2021-06-05 00:00:00 228 [lb_av] [facility] BP Diastolic 2021-05-22 00:00:00 85 mm[Hg] [facility] Height 2021-05-22 00:00:00 72 [in_i] [facility] BMI (Body Mass 2021-05-22 00:00:00 30.8 kg/m2 [facility] BP Systolic 2021-05-22 00:00:00 151 mm[Hg] [facility] Body Weight 2021-05-22 00:00:00 227 [lb_av] [facility] BP Diastolic 2021-05-09 00:00:00 85 mm[Hg] [facility] Height 2021-05-09 00:00:00 72 [in_i] [facility] BMI (Body Mass 2021-05-09 00:00:00 31.1 kg/m2 [facility] BP Systolic 2021-05-09 00:00:00 137 mm[Hg] [facility] Body Weight 2021-05-09 00:00:00 229 [lb_av] [facility] BP Diastolic 2021-04-24 00:00:00 87 mm[Hg] [facility] Height 2021-04-24 00:00:00 72 [in_i] [facility] BMI (Body Mass 2021-04-24 00:00:00 30.4 kg/m2 [facility] BP Systolic 2021-04-24 00:00:00 134 mm[Hg] [facility] Body Weight 2021-04-24 00:00:00 224 [lb_av] [facility] BP Diastolic 2021-04-10 00:00:00 83 mm[Hg] [facility] Height 2021-04-10 00:00:00 72 [in_i] [facility] BMI (Body Mass 2021-04-10 00:00:00 30.1 kg/m2 [facility] BP Systolic 2021-04-10 00:00:00 116 mm[Hg] [facility] Body Weight 2021-04-10 00:00:00 222 [lb_av] [facility] BP Diastolic 2021-03-27 00:00:00 78 mm[Hg] [facility] Height 2021-03-27 00:00:00 72 [in_i] [facility] BMI (Body Mass 2021-03-27 00:00:00 30.4 kg/m2 [facility] BP Systolic 2021-03-27 00:00:00 113 mm[Hg] [facility] Body Weight 2021-03-27 00:00:00 224 [lb_av] [facility] Height 2021-03-13 00:00:00 72 [in_i] [facility] BMI (Body Mass 2021-03-13 00:00:00 30.5 kg/m2 [facility] Body Weight 2021-03-13 00:00:00 225 [lb_av] [facility] BP Diastolic 2021-02-27 00:00:00 80 mm[Hg] [facility] Height 2021-02-27 00:00:00 72 [in_i] [facility] BMI (Body Mass 2021-02-27 00:00:00 30 kg/m2 [facility] BP Systolic 2021-02-27 00:00:00 123 mm[Hg] [facility] Body Weight 2021-02-27 00:00:00 221 [lb_av] [facility] BP Diastolic 2021-02-14 00:00:00 82 mm[Hg] [facility] Height 2021-02-14 00:00:00 72 [in_i] [facility] BMI (Body Mass 2021-02-14 00:00:00 30.3 kg/m2 [facility] BP Systolic 2021-02-14 00:00:00 132 mm[Hg] [facility] Body Weight 2021-02-14 00:00:00 223.4 [lb_av] [facility] BP Diastolic 2021-01-31 00:00:00 77 mm[Hg] [facility] Height 2021-01-31 00:00:00 72 [in_i] [facility] BMI (Body Mass 2021-01-31 00:00:00 30.5 kg/m2 [facility] BP Systolic 2021-01-31 00:00:00 118 mm[Hg] [facility] Body Weight 2021-01-31 00:00:00 225 [lb_av] [facility] BP Diastolic 2021-01-17 00:00:00 78 mm[Hg] [facility] Height 2021-01-17 00:00:00 72 [in_i] [facility] BMI (Body Mass 2021-01-17 00:00:00 30.1 kg/m2 [facility] BP Systolic 2021-01-17 00:00:00 114 mm[Hg] [facility] Body Weight 2021-01-17 00:00:00 222.2 [lb_av] [facility] BP Diastolic 2021-01-03 00:00:00 76 mm[Hg] [facility] Height 2021-01-03 00:00:00 72 [in_i] [facility] BMI (Body Mass 2021-01-03 00:00:00 29.7 kg/m2 [facility] BP Systolic 2021-01-03 00:00:00 120 mm[Hg] [facility] Body Weight 2021-01-03 00:00:00 219 [lb_av] [facility] BP Diastolic 2020-12-20 00:00:00 87 mm[Hg] [facility] Height 2020-12-20 00:00:00 72 [in_i] [facility] BMI (Body Mass 2020-12-20 00:00:00 29.8 kg/m2 [facility] BP Systolic 2020-12-20 00:00:00 136 mm[Hg] [facility] Body Weight 2020-12-20 00:00:00 220 [lb_av] [facility] BP Diastolic 2020-12-06 00:00:00 73 mm[Hg] [facility] Height 2020-12-06 00:00:00 72 [in_i] [facility] BMI (Body Mass 2020-12-06 00:00:00 30.2 kg/m2 [facility] BP Systolic 2020-12-06 00:00:00 123 mm[Hg] [facility] Body Weight 2020-12-06 00:00:00 223 [lb_av] [facility] BP Diastolic 2020-11-22 00:00:00 83 mm[Hg] [facility] Height 2020-11-22 00:00:00 72 [in_i] [facility] BMI (Body Mass 2020-11-22 00:00:00 30.2 kg/m2 [facility] BP Systolic 2020-11-22 00:00:00 133 mm[Hg] [facility] Body Weight 2020-11-22 00:00:00 223 [lb_av] [facility] Height 2020-11-10 00:00:00 72 [in_i] [facility] BMI (Body Mass 2020-11-10 00:00:00 30.7 kg/m2 [facility] Body Weight 2020-11-10 00:00:00 226 [lb_av] [facility] BP Diastolic 2020-10-25 00:00:00 74 mm[Hg] [facility] Height 2020-10-25 00:00:00 72 [in_i] [facility] BMI (Body Mass 2020-10-25 00:00:00 30.7 kg/m2 [facility] BP Systolic 2020-10-25 00:00:00 108 mm[Hg] [facility] Body Weight 2020-10-25 00:00:00 226 [lb_av] [facility] BP Diastolic 2020-10-11 00:00:00 82 mm[Hg] [facility] Height 2020-10-11 00:00:00 72 [in_i] [facility] BMI (Body Mass 2020-10-11 00:00:00 30.5 kg/m2 [facility] BP Systolic 2020-10-11 00:00:00 124 mm[Hg] [facility] Body Weight 2020-10-11 00:00:00 225 [lb_av] [facility] BP Diastolic 2020-09-26 00:00:00 79 mm[Hg] [facility] Height 2020-09-26 00:00:00 72 [in_i] [facility] BMI (Body Mass 2020-09-26 00:00:00 [...] Family Practice Height 2020-08-12 00:00:00 72 [in_i] [facility] BMI (Body Mass 2020-08-12 00:00:00 [...] 2020-04-18 00:00:00 224 [lb_av] [facility] Height 2020-04-04 00:00:00 72 [in_i] [facility] BMI (Body Mass 2020-04-04 00:00:00 30.4 kg/m2 [facility] BP Systolic 2020-04-04 00:00:00 143 mm[Hg] [facility] Body Weight 2020-04-04 00:00:00 224 [lb_av] [facility] BP Diastolic 2020-04-04 00:00:00 87 mm[Hg] [facility] Height 2020-03-21 00:00:00 72 [...] Practice BP Diastolic 2019-03-18 00:00:00 90 mm[Hg] [facility] Height 2019-03-18 00:00:00 72 [in_i] [facility] BMI (Body Mass 2019-03-18 00:00:00 30 kg/m2 [facility] Index) Practice BP Systolic 2019-03-18 00:00:00 140 mm[Hg] [facility] Body Weight 2019-03-18 00:00:00 221.4 [lb_av] [facility] BP Diastolic 2019-03-02 00:00:00 64 mm[Hg] [facility] Height 2019-03-02 00:00:00 72 [in_i] [facility] BMI (Body Mass 2019-03-02 00:00:00 30.6 kg/m2 [facility] Family Index) Practice BP Systolic 2019-03-02 00:00:00 118 mm[Hg] [facility] Body Weight 2019-03-02 00:00:00 225.9 [lb_av] [facility] Procedures Procedure Date / Time Performing Clinician Source Performed X-RAY OF CHEST 2 VIEW 2021-04-24 00:00:00 [facility] X-RAY OF KNEE 1 OR 2 VIEW 2019-07-27 00:00:[address] [facility] Extraction of [place] Tooth Yehuda ge [facility] Cardiac Catheterization [facility] Plan of Care Planned Activity Planned Date Details Comments Source Future Appointment 2021-08-28 14:15:00 Warren Hu, [address] [facility]; [facility] [address], [place] [address] Instructions [facility] Encounters Start End Encounter Admission Attending Care Care Encounter Source Date/Time Date/Time Type Type Clinicians Facility Department ID 2021-08-13 Outpatient Bui_Q_WAG VFP VFP [id number] [facility] 19:11:25 [id number] Family Practic e 2021-08-13 Outpatient Bui_Q_WAG VFP VFP [id number] [facility] 15:49:22 14810 Family Practic e 2021-08-13 Outpatient Bui_Q VFP VFP [id number] [facility] 11:03:24 28301 Family Practic e 2021-08-13 Outpatient Bui_Q VFP VFP [id number] [facility] 04:58:46 15316 Family Practic e 2021-08-13 Outpatient Bui_Q VFP VFP [id number] [facility] 02:33:20 [id number] Family Practic e 2021-08-13 Outpatient Bui_Q VFP VFP [id number] [facility] 01:21:01 [id number] Family Practic e 2021-08-12 Outpatient Bui_Q VFP VFP [id number] [facility] 22:31:19 [id number] Family Practic e 2021-08-12 Outpatient Bui_Q VFP VFP [id number] [facility] 22:17:14 [id number] Family Practic e 2021-08-12 Outpatient Bui_Q VFP VFP [id number] [facility] 22:02:16 24470 Family Practic e 2021-08-12 Outpatient Bui_Q VFP VFP [id number] [facility] 18:41:43 [id number] Family Practic e 2021-08-12 Outpatient Bui_Q VFP VFP [id number] [facility] 17:14:25 [id number] Family Practic e 2021-08-12 Outpatient Bui_Q VFP VFP [id number] [facility] 16:33:49 [id number] Family Practic e 2021-08-12 Outpatient Bui_Q VFP VFP [id number] [facility] 13:46:10 [id number] Family Practic e 2021-08-12 Outpatient Bui_Q VFP VFP [id number] [facility] 12:14:16 [id number] Family Practic e 2021-08-12 Outpatient Bui_Q VFP VFP [id number] [facility] 11:34:34 [id number] Family Practic e 2021-08-11 Outpatient Bui_Q VFP VFP [id number] [facility] 07:57:32 71852 Family Practic e 2021-08-09 Outpatient Bui_Q VFP VFP [id number] [facility] 13:47:13 [id number] Family Practic e 2021-08-09 Outpatient Bui_Q VFP VFP [id number] [facility] 13:36:59 [id number] Family Practic e 2021-08-09 Outpatient Bui_Q VFP VFP [id number] [facility] 13:29:42 [id number] Family Practic e 2021-08-09 Outpatient Bui_Q VFP VFP [id number] [facility] 12:51:19 [id number] Family Practic e 2021-08-09 Outpatient Bui_Q_WAG VFP VFP [id number] [facility] 12:39:18 [id number] Family Practic e 2021-08-09 Outpatient Bui_Q VFP VFP [id number] [facility] 12:33:05 [id number] Family Practic e 2021-08-09 Outpatient Bui_Q VFP VFP [id number] [facility] 11:51:29 [id number] Family Practic e 2021-08-09 Outpatient Bui_Q VFP VFP [id number] [facility] 11:47:42 [id number] Family Practic e 2021-08-09 Outpatient Bui_Q VFP VFP [id number] [facility] 11:32:23 [id number] Family Practic e 2021-08-09 Outpatient Bui_Q VFP VFP [id number] [facility] 11:06:26 [id number] Family Practic e 2021-08-09 Outpatient Bui_Q VFP VFP [id number] [facility] 10:50:17 [id number] Family Practic e 2021-08-09 Outpatient Bui_Q VFP VFP [id number] [facility] 10:35:50 [id number] Family Practic e 2021-08-09 Outpatient Bui_Q VFP VFP [id number] [facility] 10:13:28 [id number] Family Practic e 2021-08-09 Outpatient Bui_Q_WAG VFP VFP [id number] [facility] 10:03:02 [id number] Family Practic e 2021-08-09 Outpatient Bui_Q VFP VFP [id number] [facility] 08:23:07 [id number] Family Practic e 2021-08-09 Outpatient Bui_Q VFP VFP [id number] [facility] 08:07:44 07958 Family Practic e 2021-08-09 Outpatient Bui_Q VFP VFP [id number] [facility] 07:58:30 [id number] Family Practic e 2021-08-09 Outpatient Bui_Q_WAG VFP VFP [id number] [facility] 07:33:18 [id number] Family Practic e 2021-08-09 Outpatient Bui_Q VFP VFP [id number] [facility] 07:26:25 [id number] Family Practic e 2021-08-09 Outpatient Bui_Q VFP VFP [id number] [facility] 07:16:46 78425 Family Practic e 2021-08-09 Outpatient Bui_Q VFP VFP [id number] [facility] 07:12:05 [id number] Family Practic e 2021-08-09 Outpatient Bui_Q VFP VFP [id number] [facility] 07:11:23 [id number] Family Practic e 2021-08-09 Outpatient Bui_Q VFP VFP [id number] [facility] 06:33:13 [id number] Family Practic e 2021-08-09 Outpatient Bui_Q VFP VFP [id number] [facility] 06:30:29 [id number] Family Practic e 2021-08-09 Outpatient Bui_Q VFP VFP [id number] [facility] 06:25:31 [id number] Family Practic e 2021-08-08 Outpatient Bui_Q_WAG VFP VFP [id number] [facility] 14:31:29 [id number] Family Practic e 2021-08-08 Outpatient Bui_Q_WAG VFP VFP [id number] [facility] 13:53:19 35623 Family Practic e 2021-08-08 Outpatient Bui_Q_WAG VFP VFP [id number] [facility] 12:47:46 [id number] Family Practic e 2021-08-08 Outpatient Bui_Q VFP VFP [id number] [facility] 12:41:06 [id number] Family Practic e 2021-08-08 Outpatient Bui_Q VFP VFP [id number] [facility] 12:17:55 30786 Family Practic e 2021-08-08 Outpatient Bui_Q VFP VFP [id number] [facility] 12:04:41 66771 Family Practic e 2021-08-08 Outpatient Bui_Q_WAG VFP VFP [id number] [facility] 10:58:59 [id number] Family Practic e 2021-08-08 Outpatient Bui_Q_WAG VFP VFP [id number] [facility] 09:22:26 [id number] Family Practic e 2021-08-08 Outpatient Bui_Q VFP VFP [id number] [facility] 09:02:26 [id number] Family Practic e 2021-08-08 Outpatient Bui_Q_WAG VFP VFP [id number] [facility] 07:17:09 [id number] Family Practic e 2021-08-08 Outpatient Bui_Q_WAG VFP VFP [id number] [facility] 04:54:06 Family Practic e 2021-08-08 Outpatient Bui_Q_WAG VFP VFP [id number] [facility] 02:45:35 Family Practic e 2021-08-08 Outpatient Bui_Q VFP VFP [id number] [facility] 02:27:43 Family Practic e 2021-08-08 Outpatient Bui_Q_WAG VFP VFP [id number] [facility] 02:04:37 [id number] Family Practic e 2021-08-08 Outpatient Bui_Q VFP VFP [id number] [facility] 01:49:30 [id number] Family Practic e 2021-08-08 Outpatient Bui_Q VFP VFP [id number] [facility] 01:00:13 [id number] Family Practic e 2021-08-07 Outpatient Bui_Q_WAG VFP VFP [id number] [facility] 23:37:23 [id number] Family Practic e 2021-08-07 Outpatient Bui_Q_WAG VFP VFP [id number] [facility] 21:13:33 70946 Family Practic e 2021-08-07 Outpatient Bui_Q_WAG VFP VFP [id number] [facility] 20:37:10 [id number] Family Practic e 2021-08-07 Outpatient Bui_Q_WAG VFP VFP [id number] [facility] 19:30:34 [id number] Family Practic e 2021-08-07 Outpatient Bui_Q VFP VFP [id number] [facility] 17:12:53 [id number] Family Practic e 2021-08-07 Outpatient Bui_Q_WAG VFP VFP [id number] [facility] 16:08:07 [id number] Family Practic e 2021-08-07 Outpatient Bui_Q VFP VFP [id number] [facility] 14:23:15 [id number] Family Practic e 2021-08-07 Outpatient Bui_Q VFP VFP [id number] [facility] 14:16:35 [id number] Family Practic e 2021-08-07 Outpatient Bui_Q VFP VFP [id number] [facility] 13:07:07 [id number] Family Practic e 2021-08-07 Outpatient Bui_Q_WAG VFP VFP [id number] [facility] 12:08:23 [id number] Family Practic e 2021-08-07 Outpatient Bui_Q VFP VFP [id number] [facility] 11:23:48 [id number] Family Practic e 2021-08-07 Outpatient Bui_Q_WAG VFP VFP [id number] [facility] 09:53:09 [id number] Family Practic e 2021-08-07 Outpatient Bui_Q_WAG VFP VFP [id number] [facility] 09:15:09 [id number] Family Practic e 2021-08-07 Outpatient Bui_Q VFP VFP [id number] [facility] 08:43:52 [id number] Family Practic e 2021-08-07 Outpatient Bui_Q VFP VFP [id number] [facility] 07:22:19 66751 Family Practic e 2021-08-07 Outpatient Bui_Q VFP VFP [id number] [facility] 06:14:17 [id number] Family Practic e 2021-08-07 Outpatient Bui_Q_WAG VFP VFP [id number] [facility] 06:02:36 97525 Family Practic e 2021-08-07 Outpatient Bui_Q VFP VFP [id number] [facility] 04:50:28 [id number] Family Practic e 2021-08-07 Outpatient Bui_Q_WAG VFP VFP [id number] [facility] 03:46:02 [id number] Family Practic e 2021-08-07 Outpatient Bui_Q_WAG VFP VFP [id number] [facility] 03:22:49 [id number] Family Practic e 2021-08-07 Outpatient Bui_Q_WAG VFP VFP [id number] [facility] 01:08:15 83529 Family Practic e 2021-08-07 Outpatient Bui_Q_WAG VFP VFP [id number] [facility] 00:30:30 [id number] Family Practic e 2021-08-06 Outpatient Bui_Q VFP VFP [id number] [facility] 23:11:39 [id number] Family Practic e 2021-08-06 Outpatient Bui_Q_WAG VFP VFP [id number] [facility] 22:42:31 [id number] Family Practic e 2021-08-06 Outpatient Bui_Q_WAG VFP VFP [id number] [facility] 22:10:17 [id number] Family Practic e 2021-08-06 Outpatient Bui_Q_WAG VFP VFP [id number] [facility] 21:25:15 [id number] Family Practic e 2021-08-06 Outpatient Bui_Q_WAG VFP VFP [id number] [facility] 19:45:17 [id number] Family Practic e 2021-08-06 Outpatient Bui_Q VFP VFP [id number] [facility] 19:13:52 [id number] Family Practic e 2021-08-06 Outpatient Bui_Q_WAG VFP VFP [id number] [facility] 18:59:42 [id number] Family Practic e 2021-08-06 Outpatient Bui_Q VFP VFP [id number] [facility] 17:39:23 [id number] Family Practic e 2021-08-06 Outpatient Bui_Q VFP VFP [id number] [facility] 13:02:25 93474 Family Practic e 2021-08-06 Outpatient Bui_Q_WAG VFP VFP [id number] [facility] 09:51:56 [id number] Family Practic e 2021-08-06 Outpatient Bui_Q VFP VFP [id number] [facility] 07:11:48 80725 Family Practic e 2021-08-05 Outpatient Bui_Q_WAG VFP VFP [id number] [facility] 22:16:11 [id number] Family Practic e 2021-08-05 Outpatient Bui_Q_WAG VFP VFP [id number] [facility] 19:35:52 [id number] Family Practic e 2021-08-05 Outpatient Bui_Q VFP VFP [id number] [facility] 17:02:51 [id number] Family Practic e 2021-08-05 Outpatient Bui_Q_WAG VFP VFP [id number] [facility] 14:01:11 [id number] Family Practic e 2021-08-05 Outpatient Bui_Q VFP VFP [id number] [facility] 12:00:53 [id number] Family Practic e 2021-08-05 Outpatient Bui_Q_WAG VFP VFP [id number] [facility] 05:08:43 [id number] Family Practic e 2021-08-05 Outpatient Bui_Q VFP VFP [id number] [facility] 03:22:09 [id number] Family Practic e 2021-08-05 Outpatient Bui_Q VFP VFP [id number] [facility] 02:00:10 [id number] Family Practic e 2021-08-05 Outpatient Bui_Q VFP VFP [id number] [facility] 01:33:02 [id number] Family Practic e 2021-08-05 Outpatient Bui_Q_WAG VFP VFP [id number] [facility] 01:10:26 [id number] Family Practic e 2021-08-05 Outpatient Bui_Q_WAG VFP VFP [id number] Village 00:29:16 15535 Family Practic e 2021-08-04 Outpatient Bui_Q VFP VFP [id number] Village 23:40:40 28220 Family Practic e 2021-08-04 Outpatient Bui_Q_WAG VFP VFP [id number] Village 23:04:50 63611 Family Practic e 2021-08-04 Outpatient Bui_Q VFP VFP [id number] [facility] 22:45:55 48847 Family Practic e 2021-08-04 Outpatient Bui_Q_WAG VFP VFP [id number] Village 21:10:32 28054 Family Practic e 2021-08-04 Outpatient Bui_Q_WAG VFP VFP [id number] Village 20:55:37 89640 Family Practic e 2021-08-04 Outpatient Bui_Q VFP VFP [id number] [facility] 20:35:57 49973 Family Practic e 2021-08-04 Outpatient Bui_Q_WAG VFP VFP [id number] [facility] 20:33:33 06871 Family Practic e 2021-08-04 Outpatient Bui_Q VFP VFP [id number] [facility] 19:58:47 88910 Family Practic e 2021-08-04 Outpatient Bui_Q VFP VFP [id number] [facility] 19:50:18 69431 Family Practic e 2021-08-04 Outpatient Bui_Q VFP VFP [id number] Village 19:48:50 64456 Family Practic e 2021-08-04 Outpatient Bui_Q_WAG VFP VFP [id number] [facility] 19:46:12 33425 Family Practic e 2021-08-04 Outpatient Bui_Q VFP VFP [id number] [facility] 19:40:15 92554 Family Practic e 2021-08-04 Outpatient Bui_Q_WAG VFP VFP [id number] Village 18:46:03 82493 Family Practic e 2021-08-04 Outpatient Bui_Q_WAG VFP VFP [id number] Village 18:13:18 28257 Family Practic e 2021-08-04 Outpatient Bui_Q VFP VFP [id number] Village 18:03:19 63551 Family Practic e 2021-08-04 Outpatient Bui_Q VFP VFP [id number] [facility] 17:55:49 53754 Family Practic e 2021-08-04 Outpatient Bui_Q_WAG VFP VFP [id number] [facility] 17:01:27 21347 Family Practic e 2021-08-04 Outpatient Bui_Q_WAG VFP VFP [id number] [facility] 16:52:39 09879 Family Practic e 2021-08-04 Outpatient Bui_Q_WAG VFP VFP [id number] [facility] 16:37:16 54450 Family Practic e 2021-08-04 Outpatient Bui_Q VFP VFP [id number] [facility] 16:30:36 94630 Family Practic e 2021-08-04 Outpatient Bui_Q VFP VFP [id number] [facility] 16:05:29 18867 Family Practic e 2021-08-04 Outpatient Bui_Q_WAG VFP VFP [id number] Village 15:40:36 79746 Family Practic e 2021-08-04 Outpatient Bui_Q_WAG VFP VFP [id number] Village 15:17:19 25329 Family Practic e 2021-08-04 Outpatient Bui_Q VFP VFP [id number] [facility] 15:13:28 74027 Family Practic e 2021-07-23 Emergency [facility] [id number] [facility] 2021-08-14 Outpatient Bui_Q VFP VFP [id number] [place] 03:45:00 03:45:00 [id number] Family Practic e 2021-08-14 2021-08-14 [facility] [place] [facility] [id number] 2 [facility] 00:00:00 00:00:00 MD Fritz: [facility] F[facility] y 6122 Medical - Practi c Hamida VM_HOU[address] [place] [address], ([facility]) [place] [address] , Ph. 2021-07-25 2021-07-25 Warren Ayoub [facility] [place] - [id number] 2 Village 00:00:00 00:00:00 MD Fritz: [facility] 6122 Medical - Practi c Hamida VM_HOU_[address], [place] [address], ([facility]) [place] [address] , Ph. 2021-07-17 2021-07-17 [facility] [id number] Univers 14:00:00 14:00:00 PETRA [facility] 2021-07-17 2021-07-17 [facility] [id number] Univers 14:00:00 14:00:00 PETRA [id number] [facility] 2021-07-14 2021-07-14 [facility] [id number] Univers 10:30:00 10:30:00 PETRA [id number] [facility] 2021-07-03 2021-07-03 [facility] [place] [facility] [id number] 1 Village 00:00:00 00:00:00 MD Fritz: [facility] F[facility] y 6122 Medical - Practi c Conrad VM_HOU_East e , [place] [address], ([facility]) [facility] [place] [address] , Ph. 2021-06-19 2021-06-19 Warren Ayoub [facility] [place] - [id number] 7 Village 00:00:00 00:00:00 MD Fritz: [facility] 6122 Medical - Practi c Conrad VM_HOU_[address] e , [place] [address], ([place]) [place] [address] , Ph. 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 2021-06-05 2021-06-05 [facility] [place] - [id number] 3 Village 00:00:00 00:00:00 MD Fritz: [facility] 6122 Medical - Practi c Conrad VM_HOU_[address], [place] [address], ([facility]) [place] [address] , Ph. 2021-05-22 2021-05-22 [facility] [place] - [id number] 0 [place] 00:00:00 00:00:00 MD Fritz: [facility] 6122 Medical - Practi c Hamida VM_HOU[address], [place] [address], ([facility]) [place] [address] , Ph. 2021-05-09 2021-05-09 [facility] [place] - [id number] 7 Village 00:00:00 00:00:00 MD Fritz: [facility] 6122 Medical - Practi c Hamida VM_HOU[address], [place] [address], ([facility]) [place] [address] , Ph. 2021-04-24 2021-04-24 Warren Ayoub [facility] [place] - [id number] 2 Village 00:00:00 00:00:00 MD Fritz: [facility] 6122 Medical - Practi c Hamida VM_HOU[address], [place] [address], ([facility]) [place] [address] , Ph. 2021-04-10 2021-04-10 [facility] [place] - [id number] 9 [facility] 00:00:00 00:00:00 MD Fritz: [place] [facility] 6122 Medical - Practi c Hamida VM_HOU[address], [place] [address], ([facility]) [place] [address] , Ph. 2021-03-27 2021-03-27 Warren Ayoub [facility] [place] - [id number] 5 [facility] 00:00:00 00:00:00 MD Fritz: [place] [facility] 6122 Medical - Practi c Conrad VM_HOU_[address], [place] [address], ([facility]) [place] [address] , Ph. 2021-03-13 2021-03-13 Warren Ayoub [facility] [place] - [id number] 1 [facility] 00:00:00 00:00:00 MD Fritz: [facility] 6122 Medical - Practi c Hamida VM_HOU[address], [place] [address], ([facility]) [place] [address] , Ph. 2021-02-27 2021-02-27 [facility] [place] - [id number] 7 [facility] 00:00:00 00:00:00 MD Fritz: [place] [facility] 6122 Medical - Practi c Hamida VM_HOU[address], [place] [address], ([facility]) [place] [address] , Ph. 2021-02-14 2021-02-14 [facility] [place] - [id number] 5 [facility] 00:00:00 00:00:00 MD Fritz: [place] [facility] 6122 Medical - Practi c Hamida VM_HOU[facility], [place] [address], ([facility]) [place] [address] , Ph. 2021-01-31 2021-01-31 Warren Ayoub [facility] [place] - [id number] 1 [facility] 00:00:00 00:00:00 MD Fritz: [place] [facility] 6122 Medical - Practi c Conrad VM_HOU_[address], [place] [address], ([facility]) [place] [address] , Ph. 2021-01-17 2021-01-17 [facility] [place] - [id number] 7 Village 00:00:00 00:00:00 MD Fritz: [facility] 6122 Medical - Practi c Conrad VM_HOU_[address], [place] [address], ([facility]) [place] [address] , Ph. 2021-01-03 2021-01-03 [facility] [place] - [id number] 3 [place] 00:00:00 00:00:00 MD Fritz: [facility] 6122 Medical - Practi c Hamida VM_HOU_[address], [place] [address], ([facility]) [place] [address] , Ph. 2020-12-20 2020-12-20 [facility] [place] - [id number] 0 Village 00:00:00 00:00:00 MD Fritz: [facility] 6122 Medical - Practi c Hamida VM_HOU_[address], [place] [address], ([facility]) [place] [address] , Ph. 2020-12-06 2020-12-06 [facility] [place] - [id number] 6 Village 00:00:00 00:00:00 MD Fritz: [facility] 6122 Medical - Practi c Hamida VM_HOU[facility], [place] [address], ([facility]) [place] [address] , Ph. 2020-11-22 2020-11-22 [facility] [place] - [id number] 2 Village 00:00:00 00:00:00 MD Fritz: [facility] 6122 Medical - Practi c Hamida VM_HOU_[address], [place] [address], ([facility]) [place] [address] , Ph. 2020-11-10 2020-11-10 Warren Ayoub [facility] [place] - [id number] 8 Village 00:00:00 00:00:00 MD Fritz: [facility] F[facility] y [address] Medical - Practi c Shadow VM_HOU_Shad e [place] ow [place]ish [facility], [facility] [address] [address] , Ph. 2020-10-25 2020-10-25 Warren Ayoub [facility] [place] - [id number] 2 Village 00:00:00 00:00:00 MD Fritz: [facility] 6122 Medical - Practi c Conrad VM_HOU_[address], [place] [address], ([facility]) [place] [address] , Ph. 2020-10-11 2020-10-11 Warren Ayoub [facility] [place] - [id number] 9 [facility] 00:00:00 00:00:00 MD Fritz: [place] [facility] 6122 Medical - Practi c Conrad VM_HOU_[address], [place] [address], ([facility]) [place] [address] , Ph. 2020-09-26 2020-09-26 [facility] [place] - [id number] 4 [facility] 00:00:00 00:00:00 MD Fritz: [facility] 6122 Medical - Practi c Hamida VM_HOU_[address], [place] [address], ([facility]) [place] [address] , Ph. 2020-09-12 2020-09-12 [facility] [place] - [id number] 1 Village 00:00:00 00:00:00 MD Fritz: [facility] 6122 Medical - Practi c Conrad VM_HOU_[address], [place] [address], ([facility]) [place] [address] , Ph. 2020-08-29 2020-08-29 Warren Ayoub [facility] [place] - [id number] 7 [facility] 00:00:00 00:00:00 MD Fritz: [place] [facility] 6122 Medical - Practi c Hamida VM_HOU_[address], [address] [place] [address], ([facility]) [place] [address] , Ph. 2020-08-12 2020-08-12 Warren Ayoub [facility] [place] - [id number] 0 [facility] 00:00:00 00:00:00 MD Fritz: [facility] Famil y 6122 Medical - Practi c Conrad VM_HOU_[address], [place] [address], ([facility]) [place] [address] , Ph. 2020-07-29 2020-07-29 Warren Ayoub [facility] [place] - [id number] 6 [facility] 00:00:00 00:00:00 MD Fritz: [facility] Famil y 6122 Medical - Practi c Conrad VM_HOU_[address], [place] [address], ([facility]) [place] [address] , Ph. 2020-06-27 2020-06-27 Marie O [facility] [place] - [id number] [facility] 00:00:00 00:00:00 [facility] Cat[facility] joy MD: 6122 Medical - Pract ic Hamida VM_HOU_[address], [place] [address], ([facility]) [place] [address] , Ph. 2020-06-13 2020-06-13 Warren Ayoub [facility] [place] - [id number] 1 [facility] 00:00:00 00:00:00 MD Fritz: [facility] Famil y 6122 Medical - Practi c Conrad VM_HOU_[address], [place] [address], ([facility]) [place] [address] , Ph. 2020-05-31 2020-05-31 Warren Ayoub [facility] [place] - [id number] 8 Village 00:00:00 00:00:00 MD Fritz: [facility] Famil y 6122 Medical - Practi c Hamida VM_HOU_[address], [place] [address], ([facility]) [place] [address] , Ph. 2020-05-16 2020-05-16 Warren Ayoub VFP [place] - [id number] 4 Village 00:00:00 00:00:00 MD Fritz: [facility] 6122 Medical - Practi c Conrad VM_HOU_[address], [place] [address], ([facility]) [place] [address] , Ph. 2020-05-03 2020-05-03 Warren Ayoub [facility] [place] - [id number] 1 [facility] 00:00:00 00:00:00 MD Fritz: [place] F[facility] 6122 Medical - Practi c Conrad VM_HOU_[address], [address] [place] [address], ([facility]) [place] [address] , Ph. 2020-04-18 2020-04-18 [facility] [place] - [id number] 7 [facility] 00:00:00 00:00:00 MD Fritz: [place] F[facility] 6122 Medical - Practi c Conrad VM_HOU_[address], [place] [address], ([facility]) [place] [address] , Ph. 2020-04-04 2020-04-04 [facility] [place] - [id number] 3 [facility] 00:00:00 00:00:00 MD Fritz: [place] F[facility] 6122 Medical - Practi c Hamida VM_HOU_[address], [place] [address], ([facility]) [place] [address] , Ph. 2020-03-21 2020-03-21 Warren Ayoub [facility] [place] - [id number] 9 [facility] 00:00:00 00:00:00 MD Fritz: [place] F[facility] 6122 Medical - Practi c Conrad VM_HOU_[address], [place] [address], ([facility]) [place] [address] , Ph. 2020-03-07 2020-03-07 Warren Ayoub [facility] [place] - [id number] 5 Village 00:00:00 00:00:00 MD Fritz: [facility] F[facility] 6122 Medical - Practi c Conrad VM_HOU_[address], [address] [place] [address], ([facility]) [place] [address] , Ph. 2020-02-22 2020-02-22 Wraren Ayoub VFP [place] - [id number] 1 [facility] 00:00:00 00:00:00 MD Fritz: [facility] Famil y 6122 Medical - Practi c Hamida VM_HOU_[place] [address], ([facility]) [place] [address] , Ph. 2020-02-11 2020-02-11 Outpatient Bui_Q VFP VFP [id number] [facility] 02:41:00 02:41:00 [id number] Family Practic e 2020-02-08 2020-02-08 Outpatient Bui_Q_WAG VFP VFP [id number] 10:22:00 10:22:00 [id number] Family Practic e 2020-02-08 2020-02-08 Warren Ayoub VFP [place] - [id number] [address] [place] [address] 00:00:00 00:00:00 MD Fritz: [facility] Famil y 6122 Medical - Practi c Conrad VM_HOU_[address] ([facility]) [place] [address] , Ph. 2020-02-04 2020-02-04 Outpatient Bui_Q VFP VFP [id number] [facility] 11:22:00 11:22:00 [id number] Family Practic e 2020-01-26 2020-01-26 Outpatient Bui_Q_WAG VFP VFP [id number] 11:23:00 11:23:00 16331 Family Practic e 2020-01-25 2020-01-25 Outpatient Bui_Q_WAG VFP VFP [id number] 11:11:00 11:11:00 [id number] Family Practic e 2020-01-25 2020-01-25 Warren Ayoub VFP [place] - [id number] [address] [place] [address] 00:00:00 00:00:00 MD Fritz: [facility] Famil y 6122 Medical - Practi c Hamida VM_HOU_[address] [place] [address], ([facility]) [place] [address] , Ph. 2020-01-12 2020-01-12 Outpatient Bui_Q_WAG VFP VFP [id number] [facility] 01:05:00 01:05:00 [id number] Family Practic e 2020-01-12 2020-01-12 Outpatient Bui_Q VFP VFP [id number] [facility] 01:05:00 01:05:00 [id number] Family Practic e 2020-01-11 2020-01-11 Outpatient Bui_Q_WAG VFP VFP [id number] [facility] 08:53:00 08:53:00 13486 Family Practic e 2020-01-11 2020-01-11 Warren Ayoub VFP [place] - [id number] 0 [facility] 00:00:00 00:00:00 MD Fritz: [facility] Pili y [address] [address], ([place] [address] , Ph. 2020-01-07 2020-01-07 Outpatient Bui_Q_WAG VFP VFP [id number] [facility] 11:57:00 11:57:00 18233 Family Practic e 2019-12-31 2019-12-31 Outpatient Bui_Q_WAG VFP VFP [id number] [facility] 02:02:00 02:02:00 [id number] Family Practic e 2019-12-31 2019-12-31 Outpatient Bui_Q VFP VFP [id number]- [facility] 02:02:00 02:02:00 52404 Family Practic e 2019-12-29 2019-12-29 Outpatient Bui_Q_WAG VFP VFP [id number] [facility] 03:51:00 03:51:00 [id number] Family Practic e 2019-12-28 2019-12-28 Outpatient Bui_Q_WAG VFP VFP [id number] [facility] 12:31:00 12:31:00 [id number] Family Practic e 2019-12-28 2019-12-28 Warren Ayoub VFP [place] - [id number] 6 [facility] 00:00:00 00:00:00 MD Fritz: [facility] Pili y [address] [address], ([place] [address] , Ph. 2019-12-26 2019-12-26 Outpatient Bui_Q_WAG VFP VFP [id number] [facility] 09:55:00 09:55:00 60305 Family Practic e 2019-12-26 2019-12-26 Outpatient Bui_Q VFP VFP [id number] [facility] 09:55:00 09:55:00 [id number] Family Practic e 2019-12-24 2019-12-24 Outpatient Bui_Q_WAG VFP VFP [id number] [facility] 02:38:00 02:38:00 [id number] Family Practic e 2019-12-22 2019-12-22 Outpatient Bui_Q VFP VFP [id number] [facility] 01:05:00 01:05:00 [id number] Family Practic e 2019-12-14 2019-12-14 Outpatient Bui_Q_WAG VFP VFP [id number] [facility] 09:11:00 09:11:00 [id number] Family Practic e 2019-12-14 2019-12-14 Warren Ayoub VFP [place] - [id number] 3 [facility] 00:00:00 00:00:00 MD Fritz: [facility] Famil y 6122 Medical - Practi [facility] [address], ([place] [address] , Ph. 2019-12-10 2019-12-10 Outpatient Bui_Q VFP VFP [id number] [facility] 12:35:00 12:35:00 [id number] Family Practic e 2019-12-02 2019-12-02 Outpatient Bui_Q_WAG VFP VFP [id number] [facility] 01:54:00 01:54:00 [id number] Family Practic e 2019-11-30 2019-11-30 Outpatient Bui_Q_WAG VFP VFP [id number] [facility] 11:54:00 11:54:00 [id number] Family Practic e 2019-11-30 2019-11-30 Warren Ayoub VFP [place] - [id number] 9 Village 00:00:00 00:00:00 MD Fritz: [facility] Famil y 6122 Medical - Practi c Conrad VM_HOU_[address] [place] [address], ([facility]) [place] [address] , Ph. 2019-11-26 2019-11-26 Outpatient Bui_Q_WAG VFP VFP [id number] [facility] 07:38:00 07:38:00 08405 Family Practic e 2019-11-26 2019-11-26 Outpatient Bui_Q VFP VFP [id number] [facility] 07:38:00 07:38:00 [id number] Family Practic e 2019-11-18 2019-11-18 Outpatient Bui_Q_WAG VFP VFP [id number] [facility] 12:27:00 12:27:00 [id number] Family Practic e 2019-11-16 2019-11-16 Outpatient Bui_Q_WAG VFP VFP [id number] [facility] 12:41:00 12:41:00 [id number] Family Practic e 2019-11-16 2019-11-16 Warren Ayoub VFP - [id number] [facility] 00:00:00 00:00:00 MD Fritz: [facility] Famil y 6122 Medical - Practi c Conrad VM_DAVIDU[address] [address], ([facility]) [place] [address] , Ph. 2019-11-06 2019-11-06 Outpatient Bui_Q VFP VFP [id number] [facility] 04:13:00 04:13:00 15711 Family Practic e 2019-11-06 2019-11-06 Outpatient Bui_Q VFP VFP [id number] [facility] 04:13:00 04:13:00 [id number] Family Practic e 2019-11-02 2019-11-02 Outpatient Bui_Q_WAG VFP VFP [id number] [facility] 01:57:00 01:57:00 01234 Family Practic e 2019-11-02 2019-11-02 Warren Ayoub VFP [place] - [id number] [facility] 00:00:00 00:00:00 MD Fritz: [facility] Famil y 6122 Medical - Practi c Conrad VM_HOU_[address] [place] [address], ([facility]) [place] [address] , Ph. 2019-10-21 2019-10-21 Outpatient Bui_Q_WAG VFP VFP [id number] [facility] 02:33:00 02:33:00 59953 Family Practic e 2019-10-21 2019-10-21 Outpatient Bui_Q VFP VFP [id number] [facility] 02:33:00 02:33:00 04336 Family Practic e 2019-10-21 2019-10-21 Outpatient Bui_Q VFP VFP [id number]- [facility] 02:33:00 02:33:00 18775 Family Practic e 2019-10-19 2019-10-19 Outpatient Bui_Q_WAG VFP VFP [id number] [facility] 07:45:00 07:45:00 50483 Family Practic e 2019-10-19 2019-10-19 Warren Ayoub VFP - [id number] [address] [place] [address] 00:00:00 00:00:00 MD Fritz: [facility] Pili y 6122 [facility] - [address] [address] , Ph. 2019-10-09 2019-10-09 Outpatient Bui_Q VFP VFP [id number] [facility] 03:41:00 03:41:00 55088 Family Practic e 2019-10-09 2019-10-09 Outpatient Bui_Q VFP VFP [id number] [facility] 03:41:00 03:41:00 [id number] Family Practic e 2019-10-05 2019-10-05 Outpatient Bui_Q_WAG VFP VFP [id number] [facility] 06:38:00 06:38:00 60614 Family Practic e 2019-10-05 2019-10-05 Warren Ayoub VFP - [id number] [address] [place] [address] 00:00:00 00:00:00 MD Fritz: [facility] y [address] ([place] [address] , Ph. 2019-09-22 2019-09-22 Outpatient Bui_Q VFP VFP [id number] [facility] 08:03:00 08:03:00 [id number] Family Practic e 2019-09-21 2019-09-21 Warren Ayoub [facility] [place] - [id number] 0 [facility] 00:00:00 00:00:00 MD Fritz: [facility] 6122 Medical - Practi c Hamida VM_HOU_[address], [place] [address], ([place] [address] , Ph. 2019-09-07 2019-09-07 Warren Ayoub [facility] [place] - [id number] 6 [facility] 00:00:00 00:00:00 MD Fritz: [facility] 6122 Medical - Practi c Conrad VM_HOU_[address], [place] [address], ([place] [address] , Ph. 2019-08-24 2019-08-24 Warren Ayoub [facility] [place] - [id number] 2 [facility] 00:00:00 00:00:00 MD Fritz: [facility] 9430 Medical - Practi c Hamida, VM_HOU_[address], [place] [address] , Ph. 2019-08-10 2019-08-10 Warren Ayoub [facility] [place] - [id number] 8 [facility] 00:00:00 00:00:00 MD Fritz: [facility] 9430 Medical - Practi c Conrad, VM_HOU_[address], [place] [address] , Ph. 2019-07-27 2019-07-27 Warren Ayoub [facility] [place] - [id number] 4 [facility] 00:00:00 00:00:00 MD Fritz: [facility] 9430 Medical - Practi c Ham[place], VM_HOU_[address], [place] [address] , Ph. 2019-07-13 2019-07-13 Warren Ayoub [facility] [place] - [id number] 1 [facility] 00:00:00 00:00:00 MD Fritz: [facility] F[facility] 9430 Medical - Practi c Conrad, VM_HOU_[address], [facility] [place] [address] , Ph. 2019-06-29 2019-06-29 [facility] [place] - [id number] 7 [facility] 00:00:00 00:00:00 MD Fritz: [facility] 9430 Family Practic [place], Practice - e [address], [place] [address] , Ph. 2019-06-15 2019-06-15 [facility] [place] - [id number] 3 [facility] 00:00:00 00:00:00 MD Fritz: [facility] Famil y 9430 Family Practic Conrad, Practice - e [address], [place] [address] , Ph. 2019-06-01 2019-06-01 [facility] [place] - [id number] 9 [facility] 00:00:00 00:00:00 MD Fritz: [facility] Famil y 9430 Family Practic Conrad, Practice - e [address], [place] [address] , Ph. 2019-05-18 2019-05-18 [facility] [place] - [id number] 6 [facility] 00:00:00 00:00:00 MD Fritz: [facility] Famil y 9430 Family Practic Ham[place], Practice - e [address], [place] [address] , Ph. 2019-05-14 2019-05-14 Emergency [facility] [phone] [id number] 15:30:19 19:49:00 Dejan Walter [id number] [place] [id number] [place] [id number] 4 2019-03-18 2019-03-18 [facility] [place] - [id number] 6 [facility] 00:00:00 00:00:00 MD Fritz: [facility] Famil y 9430 Family Practic Conrad, Practice - e [address], [place] [address] , Ph. 2019-03-02 2019-03-02 Warren Ayoub [facility] [place] - [id number] [facility] 00:00:00 00:00:00 MD Fritz: [facility] [address], [address], [place] [address] , Ph. Results Test Description Test Time Test Comments Results Result Comments Source CBC W Auto Differential panel - Blood 2021-05-11 00:00:00 Test Item Value Reference Range Interpretation Comme nts white blood cell count (test code = white blood cell 10.3 thousand/ uL 3.8-10.8 count) red blood cell count (test code = red blood cell 5.47 million/uL 4. 20-5.80 count) hemoglobin (test code = hemoglobin) 15.2 g/dL 13.2-17.1 hematocrit (test code = hematocrit) 46.8 % 38.5-50.0 MCV (test code = MCV) 85.6 fL 80.0-100.0 MCH (test code = MCH) 27.8 pg 27.0-33.0 MCHC (test code = MCHC) 32.5 g/dL 32.0-36.0 RDW (test code = RDW) 13.7 % 11.0-15.0 platelet count (test code = platelet count) 316 thousand/uL 140-400 MPV (test code = MPV) 10.1 fL 7.5-12.5 absolute neutrophils (test code = absolute 6757 cells/uL 9122-3793 neutrophils) absolute lymphocytes (test code = absolute 2647 cells/uL 850-3900 lymphocytes) absolute monocytes (test code = absolute monocytes) 649 cells/uL 20 0-950 absolute eosinophils (test code = absolute 175 cells/uL 15-500 eosinophils) absolute basophils (test code = absolute basophils) 72 cells/uL 0- 200 neutrophils (test code = neutrophils) 65.6 % lymphocytes (test code = lymphocytes) 25.7 % monocytes (test code = monocytes) 6.3 % eosinophils (test code = eosinophils) 1.7 % basophils (test code = basophils) 0.7 % [facility] or Plasma 2021-05-11 00:00:00 Test Item Value Reference Range Interpretation Comments ALT (test code = ALT) 23 U/L 0-55 AST (test code = AST) 16 U/L 5-34 BUN (test code = BUN) 12.8 mg/dL 8.4-25.0 alk phos (test code = alk phos) 104 unit/L 40-150 glucose (test code = glucose) 86 mg/dL 70-99 albumin (test code = albumin) 3.9 g/dL 3.4-5.1 creatinine (test code = 0.83 mg/dL 0.72-1.25 creatinine) eGFR non- (test >60 code = eGFR non-) total bilirubin (test code = 0.3 mg/dL 0.2-1.2 total bilirubin) eGFR - (test >60 code = eGFR - ) sodium (test code = sodium) 140 mEq/L 135-145 potassium (test code = potassium) 4.8 mEq/L 3.5-5.3 chloride (test code = chloride) 98 mmol/L 98-110 total protein (test code = total 7.7 g/dL 6.1-8.2 protein) calcium (test code = calcium) 9.8 mg/dL 8.4-10.4 CO2 (test code = CO2) 29.7 mmol/L 20.0-32.0 anion gap (test code = anion gap) 12 [facility] Auto Differential panel - [id number] 00:00:00 Test Item Value Reference Range Interpretation Comments white blood cell count (test 10.3 thousand/uL 3.8-10.8 code = white blood cell count) red blood cell count (test 5.47 million/uL 4.20-5.80 code = red blood cell count) hemoglobin (test code = 15.2 g/dL 13.2-17.1 hemoglobin) hematocrit (test code = 46.8 % 38.5-50.0 hematocrit) MCV (test code = MCV) 85.6 fL 80.0-100.0 MCH (test code = MCH) 27.8 pg 27.0-33.0 MCHC (test code = MCHC) 32.5 g/dL 32.0-36.0 RDW (test code = RDW) 13.7 % 11.0-15.0 platelet count (test code = 316 thousand/uL 140-400 platelet count) MPV (test code = MPV) 10.1 fL 7.5-12.5 absolute neutrophils (test 6757 cells/uL 8169-4185 code = absolute neutrophils) absolute lymphocytes (test 2647 cells/uL 850-3900 code = absolute lymphocytes) absolute monocytes (test 649 cells/uL 200-950 code = absolute monocytes) absolute eosinophils (test 175 cells/uL 15-500 code = absolute eosinophils) absolute basophils (test 72 cells/uL 0-200 code = absolute basophils) neutrophils (test code = 65.6 % neutrophils) lymphocytes (test code = 25.7 % lymphocytes) monocytes (test code = 6.3 % monocytes) eosinophils (test code = 1.7 % eosinophils) basophils (test code = 0.7 % basophils) [facility] - [facility] or Plasma 2021-05-11 00:00:00 Test Item Value Reference Range Interpretation Comments ALT (test code = ALT) 23 U/L 0-55 AST (test code = AST) 16 U/L 5-34 BUN (test code = BUN) 12.8 mg/dL 8.4-25.0 alk phos (test code = alk phos) 104 unit/L 40-150 glucose (test code = glucose) 86 mg/dL 70-99 albumin (test code = albumin) 3.9 g/dL 3.4-5.1 creatinine (test code = 0.83 mg/dL 0.72-1.25 creatinine) eGFR non- (test >60 code = eGFR non-) total bilirubin (test code = 0.3 mg/dL 0.2-1.2 total bilirubin) eGFR - (test >60 code = eGFR - ) sodium (test code = sodium) 140 mEq/L 135-145 potassium (test code = potassium) 4.8 mEq/L 3.5-5.3 chloride (test code = chloride) 98 mmol/L 98-110 total protein (test code = total 7.7 g/dL 6.1-8.2 protein) calcium (test code = calcium) 9.8 mg/dL 8.4-10.4 CO2 (test code = CO2) 29.7 mmol/L 20.0-32.0 anion gap (test code = anion gap) 12 calc [facility] - Serum or [id number] 00:00:00 Test Item Value Reference Range Interpretation Comments HDL (test code = HDL) 48 mg/dL triglyceride (test code = 272 mg/dL <150 H triglyceride) VLDL (calculated) (test code = VLDL 54 mg/dL (calculated)) cholesterol/HDL ratio (test code = 5.7 mg/dL cholesterol/HDL ratio) non-HDL cholesterol (calculated) 225 mg/dL <160 H (test code = non-HDL cholesterol (calculated)) cholesterol (test code = 273 mg/dL <200 H cholesterol) Cholesterol in LDL [Mass/volume] in 171 mg/dL <130 H Serum or Plasma (test code = 2089-1) [facility] [Units/volume] in Serum or [id number] 00:00:00 Test Item Value Reference Range Interpretation Comments TSH (test code = TSH) 2.979 uIU/mL 0.350-4.940 [facility], serum or [id number] 00:00:00 Test Item Value Reference Range Interpretation Comments PSA, total (test code = PSA, 0.46 NG/mL <4.00 total) [facility]/Hemoglobin.total in [id number] 00:00:00 Test Item Value Reference Range Interpretation Comments Hemoglobin A1c/Hemoglobin.total in 5.9 % 1.0-5.7 H Blood (test code = 4548-4) average blood glucose (calculation) 123 mg/dL (test code = average blood glucose (calculation)) [facility] - Serum or [id number] 00:00:00 Test Item Value Reference Range Interpretation Comments HDL (test code = HDL) 48 mg/dL triglyceride (test code = 272 mg/dL <150 H triglyceride) VLDL (calculated) (test code = VLDL 54 mg/dL (calculated)) cholesterol/HDL ratio (test code = 5.7 mg/dL cholesterol/HDL ratio) non-HDL cholesterol (calculated) 225 mg/dL <160 H (test code = non-HDL cholesterol (calculated)) cholesterol (test code = 273 mg/dL <200 H cholesterol) Cholesterol in LDL [Mass/volume] in 171 mg/dL <130 H Serum or Plasma (test code = 2089-1) [facility] [Units/volume] in Serum or [id number] 00:00:00 Test Item Value Reference Range Interpretation Comments TSH (test code = TSH) 2.979 uIU/mL 0.350-4.940 [facility], serum or [id number] 00:00:00 Test Item Value Reference Range Interpretation Comments PSA, total (test code = PSA, 0.46 NG/mL <4.00 total) [facility]/Hemoglobin.total in [id number] 00:00:00 Test Item Value Reference Range Interpretation Comments Hemoglobin A1c/Hemoglobin.total in 5.9 % 1.0-5.7 H Blood (test code = 4548-4) average blood glucose (calculation) 123 mg/dL (test code = average blood glucose (calculation)) [facility] - [id number] 00:00:00 Test Item Value Reference Range Interpretation [...] (test code = baso#) 0.07 x10*3/?L 0.01-0.08 [facility] - Serum or [...] (test code = anion gap) 6 calc [facility] panel - Serum or [id number] 00:00:00 Test Item Value Reference Range Interpretation [...] Serum or Plasma (test code = 2089-1) [facility] [Units/volume] in Serum or [id number] 00:00:00 Test Item Value Reference Range Interpretation Comments TSH (test code = TSH) 2.328 uIU/mL 0.350-4.940 [facility], serum or [id number] 00:00:00 Test Item Value Reference Range Interpretation Comments PSA, total (test code = PSA, 0.33 NG/mL <4.00 total) [facility]/Hemoglobin.total in [id number] 00:00:00 Test Item Value Reference Range Interpretation Comments Hemoglobin A1c/Hemoglobin.total in 5.9 % 1.0-5.7 H Blood (test code = 4548-4) average blood glucose (calculated) 123 mg/dL (test code = average blood glucose (calculated)) [facility] Differential panel - [id number] 00:00:00 Test Item Value Reference Range Interpretation [...] (test code = baso#) 0.07 x10*3/?L 0.01-0.08 [facility] panel - Serum or [...] (test code = anion gap) 6 calc [facility] panel - Serum or [id number] 00:00:00 Test Item Value Reference Range Interpretation [...] Serum or Plasma (test code = 2089-1) [facility] [Units/volume] in Serum or [id number] 00:00:00 Test Item Value Reference Range Interpretation Comments TSH (test code = TSH) 2.328 uIU/mL 0.350-4.940 [facility], serum or [id number] 00:00:00 Test Item Value Reference Range Interpretation Comments PSA, total (test code = PSA, 0.33 NG/mL <4.00 total) [facility]/Hemoglobin.total in [id number] 00:00:00 Test Item Value Reference Range Interpretation Comments Hemoglobin A1c/Hemoglobin.total in 5.9 % 1.0-5.7 H Blood (test code = 4548-4) average blood glucose (calculated) 123 mg/dL (test code = average blood glucose (calculated)) [facility]iodothyronine (T3) [Mass/volume] in Serum or Plasma 2019-05-19 00:00:00 Test Item Value Reference Range Interpretation Comments T3, total (test code = T3, total) 114 NG/dL 76-181 [facility]roxine (T4) free [Mass/volume] in Serum or Plasma 2019-05-19 00:00:00 Test Item Value Reference Range Interpretation Comments T4 free (test code = T4 free) 1.12 NG/dL 0.70-1.48 [facility] [Units/volume] in Serum or [id number] 00:00:00 Test Item Value Reference Range Interpretation Comments TSH (test code = TSH) 3.825 uIU/mL 0.350-4.940 [facility]ronine (T3) [Mass/volume] in Serum or Plasma 2019-05-19 00:00:00 Test Item Value Reference Range Interpretation Comments T3, total (test code = T3, total) 114 NG/dL 76-181 [facility] (T4[facility] free [Mass/volume] in Serum or Plasma 2019-05-19 00:00:00 Test Item Value Reference Range Interpretation Comments T4 free (test code = T4 free) 1.12 NG/dL 0.70-1.48 [facility] [Units/volume] in Serum or [id number] 00:00:00 Test Item Value Reference Range Interpretation Comments TSH (test code = TSH) 3.825 uIU/mL 0.350-4.940 [facility]
[2021-08-21 22:23] LABS: SARS-COV-2 RT PCR NEGATIVE (NEGATIVE)
--- NOTE | 2021-08-21 23:24 | EDPHYS ---
Physician Documentation [facility] Name: Kingston Harris Age: 56 yrs Sex: Male : 1965 Arrival Date: 08/21/2021 Time: 21:24 Bed 12 Private MD: ED Physician Herve Gómez HPI: 08/21 21:39 This 56 yrs old Unknown Male presents to ER via Ambulatory with complaints of kb Dizziness, Cough, Decreased Appetite. 21:40 The patient or guardian reports cough, that is intermittent, described as mild, flu kb symptoms, low-grade fever, myalgias, no appetite. Onset: The symptoms/episode began/occurred yesterday. Severity of symptoms: At their worst the symptoms were mild, moderate, in the emergency department the symptoms are unchanged. Modifying factors: The symptoms are alleviated by nothing, the symptoms are aggravated by nothing. Associated signs and symptoms: Pertinent positives: fever, Pertinent negatives: chest pain, diarrhea, ear ache, nausea, rhinorrhea, sore throat, vomiting. The patient has not experienced similar symptoms in the past. The patient has not recently seen a physician. Pt reports cough, fever, chills, bodyaches, malaise, decreased appetite and dizziness since yesterday. Historical: - Allergies: 21:31 Erythromycin; ld1 - Home Meds: 21:31 alprazolam 1 mg Oral tab twice a day [Active]; bisoprolol-hydrochlorothiazide 10-6.25 ld1 mg Oral tab [Active]; Remeron 45 mg Oral tab once daily [Active]; Suboxone 8-2 mg sublingual subl twice daily for Chronic pain [Active]; - PMHx: 21:31 Anxiety; Chronic pain; COPD; Degenerative disc disease; Hypertension; psoriasis; ld1 - PSHx: 21:31 Heart cath; ld1 - Immunization history:: Adult Immunizations up to date, Client reports receiving the 2nd dose of the Covid vaccine. - Social history:: Smoking status: Patient denies any tobacco usage or history of. Patient uses street drugs, marijuana, Patient/guardian denies using alcohol. ROS: 21:39 Cardiovascular: Negative for chest pain, palpitations, and edema. kb 21:39 Constitutional: Positive for body aches, chills, fatigue, fever, malaise. 21:39 Respiratory: Positive for cough, Negative for dyspnea on exertion, hemoptysis, orthopnea, pleurisy, shortness of breath, sputum production, wheezing. 21:39 Neuro: Positive for dizziness. 21:39 All other systems are negative. Exam: 21:39 Constitutional: This is a well developed, well nourished patient who is awake, alert, kb and in no acute distress. Head/Face: Normocephalic, atraumatic. ENT: Moist Mucous membranes Cardiovascular: Regular rate and rhythm with a normal S1 and S2. No gallops, murmurs, or rubs. No pulse deficits. Respiratory: Respirations even and unlabored. No increased work of breathing, no retractions or nasal flaring. Skin: Warm, dry with normal turgor. Normal color. MS/ Extremity: Pulses equal, no cyanosis. Neurovascular intact. Full, normal range of motion. Neuro: Awake and alert, GCS 15, oriented to person, place, time, and situation. Moves all extremities. Normal gait. Psych: Awake, alert, with orientation to person, place and time. Behavior, mood, and affect are within normal limits. Vital Signs: 21:30 BP 130 / 85; Pulse 90; Resp 18; Temp 99.3(O); Pulse Ox 96% on R/A; Weight 101.6 kg; ld1 Height 6 ft. 0 in. (182.88 cm); Pain 7/10; 22:40 BP 152 / 84; Pulse 86; Resp 19; Pulse Ox 95% on R/A; bb 23:29 BP 119 / 77; Pulse 81; Resp 18; Pulse Ox 100% on R/A; ld1 21:30 Body Mass Index 30.38 (101.60 kg, 182.88 cm) ld1 MDM: 21:39 Patient medically screened. kb 21:39 Data reviewed: vital signs, nurses notes. Data interpreted: Pulse oximetry: on room air kb is 96 %. Interpretation: normal. 23:23 Counseling: I had a detailed discussion with the patient and/or guardian regarding: the kb historical points, exam findings, and any diagnostic results supporting the discharge/admit diagnosis, lab results, radiology results, the need for outpatient follow up, a family practitioner, to return to the emergency department if symptoms worsen or persist or if there are any questions or concerns that arise at home. 08/21 21:38 Order name: COVID-19/FLU A+B (Document "Date of Onset" if Symptomatic); Complete Time: ld1 22:32 08/21 21:38 Order name: Strep; Complete Time: 22:02 ld1 08/21 21:38 Order name: XRAY Chest Pa And Lat (2 Views) ld1 08/21 22:03 Order name: Throat Culture EDMS Administered Medications: No medications were administered Disposition: 08/22 00:18 Co-signature as Attending Physician, Herve Gómez MD I agree with the assessment and rn plan of care. Attestation: The patient's history, exam findings, diagnostics, and a summary of any interventions or procedures was reviewed in detail with Irais SNYDER. Disposition Summary: 08/21/21 23:23 Discharge Ordered Location: Home kb Condition: Stable kb Diagnosis - Acute upper respiratory infection, unspecified kb Followup: kb - With: Emergency Department - When: As needed - Reason: Worsening of condition Followup: kb - With: Private Physician - When: 2 - 3 days - Reason: Recheck today's complaints, Continuance of care, Re-evaluation by your physician Discharge Instructions: - Discharge Summary Sheet kb - Upper Respiratory Infection, Adult, [id number] kb - Viral Respiratory Infection, [id number] kb Forms: - Medication Reconciliation Form kb - Thank You Letter kb - Antibiotic Education kb - Prescription Opioid Use kb - Work release form ld1 Prescriptions: - Augmentin 875-125 mg Oral Tablet - take 1 tablet by ORAL route every 12 hours for 10 days; 20 tablet; Refills: 0, kb Product Selection Permitted Signatures: Dispatcher [employer] Irais Madison FNP-C FNP-Ckb Nieto, Roman, MD MD rn Sury Abel RN RN ld1
--- NOTE | 2021-08-21 23:24 | ER ---
Nurse's Notes [facility] Name: Kingston Harris Age: 56 yrs Sex: Male : 1965 Arrival Date: 08/21/2021 Time: 21:24 Bed 12 Private MD: Diagnosis: Acute upper respiratory infection, unspecified Presentation: 08/21 21:30 Chief complaint: Patient states: Saturday morning I started coughing up phlegm. Pt ld1 reporting nausea, dizziness, unable to eat or drink. Coronavirus screen: Client presents with at least one sign or symptom that may indicate coronavirus-19. Standard/surgical mask placed on the client. Ebola Screen: No symptoms or risks identified at this time. Initial Sepsis Screen: Does the patient meet any 2 criteria? No. Patient's initial sepsis screen is negative. Does the patient have a suspected source of infection? No. Patient's initial sepsis screen is negative. Risk Assessment: Do you want to hurt yourself or someone else? Patient reports no desire to harm self or others. Onset of symptoms was August 21, 2021. 21:30 Method Of Arrival: Ambulatory ld1 21:30 Acuity: SHANTE 4 ld1 Triage Assessment: 21:31 General: Appears in no apparent distress. comfortable, Behavior is calm, cooperative, ld1 appropriate for age. Pain: Complains of pain in Whole body - body aches Pain does not radiate. Pain currently is 7 out of 10 on a pain scale. Quality of pain is described as aching, throbbing, Pain began suddenly, Is continuous. EENT: No signs and/or symptoms were reported regarding the EENT system. Neuro: Level of Consciousness is awake, alert, obeys commands, Oriented to person, place, time, situation, Appropriate for age. Cardiovascular: Capillary refill < 3 seconds Patient's skin is warm and dry. Respiratory: Airway is patent Respiratory effort is even, unlabored, Respiratory pattern is regular, symmetrical. GI: Abdomen is round non-distended. : No signs and/or symptoms were reported regarding the genitourinary system. Derm: No signs and/or symptoms reported regarding the dermatologic system. Musculoskeletal: No signs and/or symptoms reported regarding the musculoskeletal system. Historical: - Allergies: : Erythromycin; ld1 - Home Meds: 21:31 alprazolam 1 mg Oral tab twice a day [Active]; bisoprolol-hydrochlorothiazide 10-6.25 ld1 mg Oral tab [Active]; Remeron 45 mg Oral tab once daily [Active]; Suboxone 8-2 mg sublingual subl twice daily for Chronic pain [Active]; - PMHx: 21:31 Anxiety; Chronic pain; COPD; Degenerative disc disease; Hypertension; psoriasis; ld1 - PSHx: 21:31 Heart cath; ld1 - Immunization history:: Adult Immunizations up to date, Client reports receiving the 2nd dose of the Covid vaccine. - Social history:: Smoking status: Patient denies any tobacco usage or history of. Patient uses street drugs, marijuana, Patient/guardian denies using alcohol. Screenin:41 Abuse screen: Denies threats or abuse. Denies injuries from another. Nutritional bb screening: No deficits noted. Tuberculosis screening: No symptoms or risk factors identified. Fall Risk None identified. Assessment: 22:54 General: Appears in no apparent distress. uncomfortable, Behavior is calm, cooperative, kd3 appropriate for age. Pain: Complains of pain in pt reports generalized body aches 8/10. Neuro: No deficits noted. Level of Consciousness is awake, alert, obeys commands, Oriented to person, place, time, situation. Cardiovascular: No deficits noted. Patient's skin is warm and dry. Rhythm is sinus rhythm. Respiratory: No deficits noted. Airway is patent Respiratory effort is even, unlabored. GI: Patient currently denies cramping, diarrhea. Vital Signs: 21:30 BP 130 / 85; Pulse 90; Resp 18; Temp 99.3(O); Pulse Ox 96% on R/A; Weight 101.6 kg; ld1 Height 6 ft. 0 in. (182.88 cm); Pain 7/10; 22:40 BP 152 / 84; Pulse 86; Resp 19; Pulse Ox 95% on R/A; bb 23:29 BP 119 / 77; Pulse 81; Resp 18; Pulse Ox 100% on R/A; ld1 21:30 Body Mass Index 30.38 (101.60 kg, 182.88 cm) ld1 ED Course: 21:24 Patient arrived in ED. wm 21:31 Triage completed. ld1 21:31 Arm band placed on left wrist. ld1 21:38 COVID-19/FLU A+B (Document "Date of Onset" if Symptomatic) Sent. ld1 21:39 Irais Angeles F[facility]-C [facility]. kb 21:39 Herve Gómez MD is Attending Physician. kb 21:40 COVID-19/FLU A+B (Document "Date of Onset" if Symptomatic) Sent. ld1 21:40 Strep Sent. ld1 22:14 XRAY Chest Pa And Lat (2 Views) In Process Unspecified. EDMS 22:41 Patient has correct armband on for positive identification. Bed in low position. Call bb light in reach. Side rails up X2. 23:02 Alena Apodaca, RN is Primary Nurse. cc4 23:03 Throat Culture Sent. cc4 23:30 No provider procedures requiring assistance completed. Patient did not have IV access ld1 during this emergency room visit. Administered Medications: No medications were administered Outcome: 23:23 Discharge ordered by MD. kb 23:30 Discharged to home ambulatory. ld1 23:30 Condition: stable 23:30 Discharge instructions given to patient, Instructed on discharge instructions, follow up and referral plans. medication usage, Demonstrated understanding of instructions, follow-up care, medications, Prescriptions given X 1. 23:32 Patient left the ED. ld1 Signatures: Dispatcher [employer] EDMS Irais Angeles FNP-C FNP-Elizabeth Pedraza RN RN bb Sury Abel RN RN ld1 Ana Rdz Alena Apodaca, RN RN cc4 Micaela Urrutia RN RN kd3
[2021-08-21 23:40] VITALS: TEMP 99.3
[2021-08-21 23:42] VITALS: BP 119/77; O2SAT 100
--- NOTE | 2021-08-22 11:55 | RAD REPORT ---
EXAM DESCRIPTION: Chest Pa And Lat (2 Views) CLINICAL HISTORY: 56-year-old male with congestion. TECHNIQUE: Two-view, PA and lateral projections of the chest were obtained. COMPARISON: None. FINDINGS: Unremarkable cardiac and mediastinal silhouette. Heart size is normal. Tortuous atheroscl erotic thoracic aorta. Low lung volumes grossly clear without focal opacity, pneumothorax or pleural effusions. The visualized bones are within normal limits. IMPRESSION: No acute cardiopulmonary abnormalities. Electronically signed by: Patricia Harrison MD 08/21/2021 10:50 PM [employer] Due to temporary technical issues with the PACS/Fluency reporting system, reports are being signed by the in house radiologist without review as a courtesy to ensure prompt reporting. The interpreting r adiologist is fully responsible for the content of the report.
== END 2021-08-21 23:32 | disposition home or self-care (01) ==
LOC: ER 21:19
DX: J06.9 Acute upper respiratory infection, unspecified (principal); Z20.822 Contact with and (suspected) exposure to COVID-19
CPT/HCPCS: 87070; 87081; 0240U; 71046; 99284

== ENCOUNTER 2024-04-27 04:13 | Emergency (ER) | payer BC, SELFPAY ==
--- OUTSIDE RECORDS SUMMARY | 2024-04-27 04:18 | XMS REPORT | Continuity of Care Document ---
Author Name Unknown Address [address] [facility] [place] [address] [facility] thconnect Address [address] 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 Name Role Phone ROLLETAM Elizondo Primary Care Physician Unavailab lulu Tuttle Attending Clinician Unavailable Zulay_FARHAD Attending Clinician Unavailable HAYDEE ALBRECHT Attending Clinician Unavailab Haydee Perla DO Attending Clinician [phone] PETRA LOPES Attending Clinician UnavailDejan Guardado Attending Clinician [phone] Parag Admitting Clinician Unavailable Zulay_FARHAD Admitting Clinician Unavailable HAYDEE ALBRECHT Admitting Clinician Unavailab lulu Payers Payer Name Policy Type Policy Number Effective Date Expirati on Date Source [employer] [place] [id number] 2017 00:00:[place] [id number] 2020 00:00:00 2023 00[place]00[place] [id number] 2019 [place] [id number] 2018 00:00:00 2019 00:00:00 Problems Condition Name Condition Details Condition Category Status Onset Date Resolution Date Last Treatment Date Treating Clinician Comments Source Syphilis Syphilis Problem Active 01-07 00:00: 00 [facility] Gastroesop hageal reflux disease without esophagiti s Gastroesop hageal Reflux Disease without Esophagiti s Problem Active 12-28 00:00: 00 [facility] Drug dependence Drug Dependence Problem Active 12-28 00:00: 00 [facility] Secondary immune deficiency disorder Secondary Immune Deficiency Disorder Problem Active 12-27 00:00: 00 [facility] Benzodiaze pine dependence Benzodiaze pine Dependence Problem Active 2021-09 00:00: 00 [facility] Inactive tuberculos is Inactive Tuberculos is Problem Active 2018-09 00:00: 00 [facility] Psoriatic arthritis Psoriatic Arthritis Problem Active 2018-09 00:00: 00 [facility] Rheumatoid arthritis Rheumatoid Arthritis Problem Active 2018-09 00:00: 00 [facility] Dyslipidem ia Dyslipidem ia Problem Active 03-20 00:00: 00 [facility] Prediabete s Prediabete s Problem Active 03-20 00:00: 00 [facility] Anxiety disorder Anxiety Disorder Problem Active 03-02 00:00: 00 [facility] Opioid dependence Opioid Dependence Problem Active 03-02 00:00: 00 [facility] Insomnia Insomnia Problem Active 03-02 00:00: 00 [facility] Hypertensi ve disorder Hypertensi ve Disorder Problem Active 03-02 00:00: 00 [facility] Psoriasis Psoriasis Problem Active 03-02 00:00: 00 [facility] Chest pain Chest pain Disease Active 2016-09 00:00: 00 [facility] Obesity (BMI 30-39.9) Obesity (BMI 30-39.9) Disease Active 02-26 00:00: 00 [facility] Chest pain, atypical Chest pain, atypical Disease Recurre nce 06-09 00:00: 00 [facility] Chest pain at rest Chest pain at rest Disease Active 02-02 00:00: 00 [facility] Drug-seeki ng behavior Drug-seeki ng behavior Disease Active 11-29 00:00: 00 [facility] Essential hypertensi on, benign Essential hypertensi on, benign Disease Active 03-09 00:00: 00 [facility] Generalize d anxiety disorder Generalize d anxiety disorder Disease Active 03-09 00:00: 00 [facility] Allergies, Adverse Reactions, Alerts Allergy Name Allergy Type Status Severity Reaction(s) Onset Date Inactive Date Treating Clinician Comments Source ERYTHROM YCIN DRUG Active Hives 06-16 00:00: 00 [facility] Erythrom ycin Propensi ty to adverse reaction s Active Hives 06-16 00:00: 00 [facility] Erythrom ycin Base Allergy to substanc e Active Respiratory distress [facility] Social History Social Habit Start Date Stop Date Quantity Comments Source History of tobacco use Cigarette Smoker [facility] Exposure to SARS-CoV-2 (event) 2022-05-27 00:00:00 2022-06-06 13:21:00 Not sure [facility] Alcohol intake 2022-06-06 00:00:00 2022-06-06 00:00:00 Current non-drinker of alcohol (finding) [facility] Cigarettes smoked current (pack per day) - Reported 2017-08-09 00:00:00 2017-08-09 00:00:00 [facility] Cigarette pack-years 2017-08-09 00:00:00 2017-08-09 00:00:00 [facility] Tobacco use and exposure 2017-08-09 00:00:00 2017-08-09 00:00:00 Smokeless tobacco non-user [facility] Tobacco Comment 2017-08-09 00:00:00 2017-08-09 00:00:00 last smoke in 2012 [facility] Sex Assigned At 1965 00:00:00 1965 00:00:00 [facility] Smoking Status Start Date Stop Date Source Ex-smoker 2017-08-09 00:00:00 2017[facility] Ordered [facility]ication Name Filled Medication Name Start Date Stop Date Current Medication? Ordering Clinician Indication Dosage Frequency Signature (SIG) Comments Components Source iopamidol (ISOVUE 370-500 mL) injection 82 mL 06-06 19:15: 00 06-06 19:15 :00 No [id number] 82mL 82 mL, Intravenou s, ONCE, 1 dose, On Sat06/06/22 at 1415, Routine [facility] ondansetron (ZOFRAN (PF)) injection 4 mg 06-06 18:15: 00 06-06 18:28 :00 No 4mg 4 mg, Slow IV Push, ONCE, 1 dose, On Sat06/06/22 at 1315, ASYA [facility] ranitidine (ZANTAC) 150 mg tablet 05-14 00:00: 00 Yes [id number] 150mg Take 1 tablet by mouth 2 (two) times daily. Follow up with your MD for further evaluation and treatment. [facility] ondansetron (ZOFRAN ODT) 4 mg disintegrat ing tablet 05-14 00:00: 00 Yes [id number] 4mg Take 1 tablet by mouth every 8 (eight) hours as needed for Nausea and Vomiting (N/V). [facility] cyclobenzap rine 5 mg tablet 10-13 00:00: 00 Yes 5mg Take 1 tablet by mouth 3 (three) times daily. [facility] traMADOL (ULTRAM) 50 mg tablet 10-13 00:00: 00 Yes 50mg Take 1 tablet by mouth every 6 (six) hours as needed for Pain (scale 4-6). [facility] mirtazapine (REMERON) 45 mg tablet 2016-09 13:38: 40 Yes 45mg Take 45 mg by mouth at bedtime. [facility] buprenorphi ne-naloxone (SUBOXONE) 8-2 mg sublingual film 2016-09 13:38: 40 Yes 1{film} Place 1 Film under the tongue 2 (two) times daily. [facility] atorvastati n 20 mg tablet 2016-09 00:00: 00 Yes 20mg Take 1 tablet by mouth at bedtime. [facility] albuterol (PROAIR HFA) 90 mcg/actuati on inhaler 02-20 00:00: 00 Yes 2{puff} Inhale 2 Puffs every 6 (six) hours as needed for Wheezing or Shortness of Breath (Max 2 times a day). [facility] alprazolam 1 mg tablet TAKE 1 TABLET BY MOUTH EVERY 12 HOURS NEEDED FOR ANXIETY alprazolam 1 mg tablet TAKE 1 TABLET BY MOUTH EVERY 12 HOURS NEEDED FOR ANXIETY No alprazolam 1 mg tablet TAKE 1 TABLET BY MOUTH EVERY 12 HOURS NEEDED FOR ANXIETY [facility] bisoprolol 10 mg-hydrochl orothiazide 6.25 mg tablet TAKE ONE TABLET BY MOUTH DAILY bisoprolol 10 mg-hydrochl orothiazide 6.25 mg tablet TAKE ONE TABLET BY MOUTH DAILY No bisoprolol 10 mg-hydroch lorothiazi de 6.25 mg tablet TAKE ONE TABLET BY MOUTH DAILY [facility] buprenorphi ne 8 mg-naloxone [address] 1 tablet every day by sublingual route. buprenorphi ne 8 mg-naloxone [address] 1 tablet every day by sublingual route. No 1 Q1D buprenorph ine 8 mg-naloxon e [address] 1 tablet every day by sublingual route. [facility] dexamethaso ne sodium phosphate 4 mg/mL injection solution Inject 1 mL by intramuscul ar route. dexamethaso ne sodium phosphate 4 mg/mL injection solution Inject 1 mL by intramuscul ar route. No 1mL dexamethas one sodium phosphate 4 mg/mL injection solution Inject 1 mL by intramuscu lar route. [facility] Kenalog 40 mg/mL suspension for injection Take 1 mL by injection route. Kenalog 40 mg/mL suspension for injection Take 1 mL by injection route. No 1mL Kenalog 40 mg/mL suspension for injection Take 1 mL by injection route. [facility] mirtazapine 45 mg disintegrat ing tablet PLACE ONE TABLET BY MOUTH AT BEDTIME mirtazapine 45 mg disintegrat ing tablet PLACE ONE TABLET BY MOUTH AT BEDTIME No mirtazapin e [address] ting tablet PL[address] ONE TABLET BY MOUTH AT BEDTIME [facility] ondansetron 4 mg disintegrat ing tablet Place 1 tablet every 8 hours by translingua l route as needed for 5 days. ondansetron 4 mg disintegrat ing tablet Place 1 tablet every 8 hours by translingua l route as needed for 5 days. No 1 Q8H ondansetro n 4 mg disintegra ting tablet Place 1 tablet every 8 hours by translingu al route as needed for 5 days. [facility] alprazolam 1 mg tablet TAKE 1 TABLET BY MOUTH EVERY 12 HOURS NEEDED FOR ANXIETY alprazolam 1 mg tablet TAKE 1 TABLET BY MOUTH EVERY 12 HOURS NEEDED FOR ANXIETY No alprazolam 1 mg tablet TAKE 1 TABLET BY MOUTH EVERY 12 HOURS NEEDED FOR ANXIETY [facility] bisoprolol 10 mg-hydrochl orothiazide 6.25 mg tablet TAKE ONE TABLET BY MOUTH DAILY bisoprolol 10 mg-hydrochl orothiazide 6.25 mg tablet TAKE ONE TABLET BY MOUTH DAILY No bisoprolol 10 mg-hydroch lorothiazi de 6.25 mg tablet TAKE ONE TABLET BY MOUTH DAILY [facility] buprenorphi ne 8 mg-naloxone [address] 1 tablet every day by sublingual route. buprenorphi ne 8 mg-naloxone [address] 1 tablet every day by sublingual route. No 1 Q1D buprenorph ine 8 mg-naloxon e [address] 1 tablet every day by sublingual route. [facility] dexamethaso ne sodium phosphate 4 mg/mL injection solution Inject 1 mL by intramuscul ar route. dexamethaso ne sodium phosphate 4 mg/mL injection solution Inject 1 mL by intramuscul ar route. No 1mL dexamethas one sodium phosphate 4 mg/mL injection solution Inject 1 mL by intramuscu lar route. [facility] Kenalog 40 mg/mL suspension for injection Take 1 mL by injection route. Kenalog 40 mg/mL suspension for injection Take 1 mL by injection route. No 1mL Kenalog 40 mg/mL suspension for injection Take 1 mL by injection route. [facility] mirtazapine 45 mg disintegrat ing tablet PLACE ONE TABLET BY MOUTH AT BEDTIME mirtazapine 45 mg disintegrat ing tablet PLACE ONE TABLET BY MOUTH AT BEDTIME No mirtazapin e [address] tablet PL[address] ONE TABLET BY MOUTH AT BEDTIME [facility] ondansetron 4 mg disintegrat ing tablet Place 1 tablet every 8 hours by translingua l route as needed for 5 days. ondansetron 4 mg disintegrat ing tablet Place 1 tablet every 8 hours by translingua l route as needed for 5 days. No 1 Q8H ondansetro n 4 mg disintegra ting tablet Place 1 tablet every 8 hours by translingu al route as needed for 5 days. [facility] alprazolam 1 mg tablet TAKE 1 TABLET BY MOUTH EVERY 12 HOURS NEEDED FOR ANXIETY alprazolam 1 mg tablet TAKE 1 TABLET BY MOUTH EVERY 12 HOURS NEEDED FOR ANXIETY No alprazolam 1 mg tablet TAKE 1 TABLET BY MOUTH EVERY 12 HOURS NEEDED FOR ANXIETY [facility] bisoprolol 10 mg-hydrochl orothiazide 6.25 mg tablet TAKE ONE TABLET BY MOUTH DAILY bisoprolol 10 mg-hydrochl orothiazide 6.25 mg tablet TAKE ONE TABLET BY MOUTH DAILY No bisoprolol 10 mg-hydroch lorothiazi de 6.25 mg tablet TAKE ONE TABLET BY MOUTH DAILY [facility] buprenorphi ne 4 mg-naloxone [address] 2 FILMS under the tongue twice a day then TAPER DOSE buprenorphi ne 4 mg-naloxone [address] 2 FILMS under the tongue twice a day then TAPER DOSE No buprenorph ine 4 mg-naloxon e [address] 2 FILMS under the tongue twice a day then TAPER DOSE [facility] buprenorphi ne 8 mg-naloxone [address] 1 tablet every day by sublingual route. buprenorphi ne 8 mg-naloxone [address] 1 tablet every day by sublingual route. No 1 Q1D buprenorph ine 8 mg-naloxon e [address] 1 tablet every day by sublingual route. [facility] clonidine HCl 0.1 mg tablet take 1 tablet by mouth three times a day if needed for anxiety or ELEVATED VITALS clonidine HCl 0.1 mg tablet take 1 tablet by mouth three times a day if needed for anxiety or ELEVATED VITALS No clonidine HCl 0.1 mg tablet take 1 tablet by mouth three times a day if needed for anxiety or ELEVATED VITALS [facility] dexamethaso ne sodium phosphate 4 mg/mL injection solution Inject 1 mL by intramuscul ar route. dexamethaso ne sodium phosphate 4 mg/mL injection solution Inject 1 mL by intramuscul ar route. No 1mL dexamethas one sodium phosphate 4 mg/mL injection solution Inject 1 mL by intramuscu lar route. [facility] diazepam 10 mg tablet take 1 tablet by mouth twice a day then TAPER DOSE as directed by prescriber diazepam 10 mg tablet take 1 tablet by mouth twice a day then TAPER DOSE as directed by prescriber No diazepam 10 mg tablet take 1 tablet by mouth twice a day then TAPER DOSE as directed by prescriber [facility] divalproex 500 mg tablet,claudia yed release TAPER DOSE as directed by prescriber divalproex 500 mg tablet,claudia yed release TAPER DOSE as directed by prescriber No divalproex 500 mg tablet,del ayed release TAPER DOSE as directed by prescriber [facility] Kenalog 40 mg/mL suspension for injection Take 1 mL by injection route. Kenalog 40 mg/mL suspension for injection Take 1 mL by injection route. No 1mL Kenalog 40 mg/mL suspension for injection Take 1 mL by injection route. [facility] methocarbam ol 750 mg tablet take 1 tablet by mouth three times a day if needed for muscle aches or muscle spasm methocarbam ol 750 mg tablet take 1 tablet by mouth three times a day if needed for muscle aches or muscle spasm No methocarba mol 750 mg tablet take 1 tablet by mouth three times a day if needed for muscle aches or muscle spasm [facility] mirtazapine 45 mg disintegrat ing tablet PLACE ONE TABLET BY MOUTH AT BEDTIME mirtazapine 45 mg disintegrat ing tablet PLACE ONE TABLET BY MOUTH AT BEDTIME No mirtazapin e [address] tablet [address] ONE TABLET BY MOUTH AT BEDTIME [facility] ondansetron 4 mg disintegrat ing tablet DISSOLVE ONE TABLET BY MOUTH EVERY 8 HOURS NEEDED FOR 5 DAYS ondansetron 4 mg disintegrat ing tablet DISSOLVE ONE TABLET BY MOUTH EVERY 8 HOURS NEEDED FOR 5 DAYS No ondansetro n 4 mg disintegra ting tablet DISSOLVE ONE TABLET BY MOUTH EVERY 8 HOURS NEEDED FOR 5 DAYS [facility] ondansetron HCl 4 mg tablet take 1 tablet by mouth every 6 hours if needed for nausea ondansetron HCl 4 mg tablet take 1 tablet by mouth every 6 hours if needed for nausea No ondansetro n HCl 4 mg tablet take 1 tablet by mouth every 6 hours if needed for nausea [facility] triamcinolo ne acetonide 0.1 % topical ointment apply topically to affected area twice a day triamcinolo ne acetonide 0.1 % topical ointment apply topically to affected area twice a day No triamcinol one acetonide 0.1 % topical ointment apply topically to affected area twice a day [facility] bisoprolol 10 mg-hydrochl orothiazide 6.25 mg tablet TAKE ONE TABLET BY MOUTH DAILY bisoprolol 10 mg-hydrochl orothiazide 6.25 mg tablet TAKE ONE TABLET BY MOUTH DAILY No bisoprolol 10 mg-hydroch lorothiazi de 6.25 mg tablet TAKE ONE TABLET BY MOUTH DAILY [facility] diazepam 10 mg tablet Take 1 tablet as needed by oral route in the evening. diazepam 10 mg tablet Take 1 tablet as needed by oral route in the evening. No 1 diazepam 10 mg tablet Take 1 tablet as needed by oral route in the evening. [facility] ondansetron HCl 4 mg tablet take 1 tablet by mouth every 6 hours if needed for nausea ondansetron HCl 4 mg tablet take 1 tablet by mouth every 6 hours if needed for nausea No ondansetro n HCl 4 mg tablet take 1 tablet by mouth every 6 hours if needed for nausea [facility] quetiapine 100 mg tablet Take 1 tablet every day by oral route in the evening. quetiapine 100 mg tablet Take 1 tablet every day by oral route in the evening. No 1 Q1D quetiapine 100 mg tablet Take 1 tablet every day by oral route in the evening. [facility] triamcinolo ne acetonide 0.1 % topical ointment apply topically to affected area twice a day triamcinolo ne acetonide 0.1 % topical ointment apply topically to affected area twice a day No triamcinol one acetonide 0.1 % topical ointment apply topically to affected area twice a day [facility] bisoprolol 10 mg-hydrochl orothiazide 6.25 mg tablet TAKE 1 TABLET BY MOUTH DAILY bisoprolol 10 mg-hydrochl orothiazide 6.25 mg tablet TAKE 1 TABLET BY MOUTH DAILY No bisoprolol 10 mg-hydroch lorothiazi de 6.25 mg tablet TAKE 1 TABLET BY MOUTH DAILY [facility] diazepam 10 mg tablet Take 1 tablet as needed by oral route in the evening. diazepam 10 mg tablet Take 1 tablet as needed by oral route in the evening. No 1 diazepam 10 mg tablet Take 1 tablet as needed by oral route in the evening. [facility] mirtazapine 45 mg tablet Take 1 tablet every day by oral route. mirtazapine 45 mg tablet Take 1 tablet every day by oral route. No 1 Q1D mirtazapin e 45 mg tablet Take 1 tablet every day by oral route. [facility] ondansetron HCl 4 mg tablet take 1 tablet by mouth every 6 hours if needed for nausea ondansetron HCl 4 mg tablet take 1 tablet by mouth every 6 hours if needed for nausea No ondansetro n HCl 4 mg tablet take 1 tablet by mouth every 6 hours if needed for nausea [facility] quetiapine 100 mg tablet Take 1 tablet every day by oral route in the evening. quetiapine 100 mg tablet Take 1 tablet every day by oral route in the evening. No 1 Q1D quetiapine 100 mg tablet Take 1 tablet every day by oral route in the evening. [facility] triamcinolo ne acetonide 0.1 % topical ointment apply topically to affected area twice a day triamcinolo ne acetonide 0.1 % topical ointment apply topically to affected area twice a day No triamcinol one acetonide 0.1 % topical ointment apply topically to affected area twice a day [facility] alprazolam 1 mg tablet TAKE 1 TABLET BY MOUTH EVERY 12 HOURS NEEDED FOR ANXIETY alprazolam 1 mg tablet TAKE 1 TABLET BY MOUTH EVERY 12 HOURS NEEDED FOR ANXIETY No alprazolam 1 mg tablet TAKE 1 TABLET BY MOUTH EVERY 12 HOURS NEEDED FOR ANXIETY [facility] aspirin 81 mg chewable tablet CHEW 1 TABLET BY MOUTH DAILY aspirin 81 mg chewable tablet CHEW 1 TABLET BY MOUTH DAILY No aspirin 81 mg chewable tablet CHEW 1 TABLET BY MOUTH DAILY [facility] atorvastati n 40 mg tablet TAKE 1 TABLET BY MOUTH EVERYDAY AT BEDTIME atorvastati n 40 mg tablet TAKE 1 TABLET BY MOUTH EVERYDAY AT BEDTIME No atorvastat in 40 mg tablet TAKE 1 TABLET BY MOUTH EVERYDAY AT BEDTIME [facility] budesonide 0.5 mg/2 mL suspension for nebulizatio n USE 1 VIAL VIA NEBULIZER EVERY 12 HOURS budesonide 0.5 mg/2 mL suspension for nebulizatio n USE 1 VIAL VIA NEBULIZER EVERY 12 HOURS No budesonide 0.5 mg/2 mL suspension for nebulizati on USE 1 VIAL VIA NEBULIZER EVERY 12 HOURS [facility] famotidine 20 mg tablet TAKE 1 TABLET BY MOUTH TWICE A DAY famotidine 20 mg tablet TAKE 1 TABLET BY MOUTH TWICE A DAY No famotidine 20 mg tablet TAKE 1 TABLET BY MOUTH TWICE A DAY [facility] ipratropium 0.5 mg-albutero l 3 mg (2.5 mg base)/3 mL nebulizatio n soln 3 ML NEBULIZER RT EVERY 4 HOURS NEEDED FOR SHORTNESS OF BREATH AND/OR WHEEZING ipratropium 0.5 mg-albutero l 3 mg (2.5 mg base)/3 mL nebulizatio n soln 3 ML NEBULIZER RT EVERY 4 HOURS NEEDED FOR SHORTNESS OF BREATH AND/OR WHEEZING No ipratropiu m 0.5 mg-albuter ol 3 mg (2.5 mg base)/3 mL nebulizati on soln 3 ML NEBULIZER RT EVERY 4 HOURS NEEDED FOR SHORTNESS OF BREATH AND/OR WHEEZING [facility] lisinopril 10 mg tablet Take 1 tablet every day by oral route. lisinopril 10 mg tablet Take 1 tablet every day by oral route. No 1 Q1D lisinopril 10 mg tablet Take 1 tablet every day by oral route. [facility] mirtazapine 45 mg tablet Take 1 tablet as needed by oral route in the evening. mirtazapine 45 mg tablet Take 1 tablet as needed by oral route in the evening. No 1 mirtazapin e 45 mg tablet Take 1 tablet as needed by oral route in the evening. [facility] ondansetron HCl 4 mg tablet TAKE 1-2 TABLETS (4-8 MG) BY MOUTH EVERY 8 HOURS NEEDED ondansetron HCl 4 mg tablet TAKE 1-2 TABLETS (4-8 MG) BY MOUTH EVERY 8 HOURS NEEDED No ondansetro n HCl 4 mg tablet TAKE 1-2 TABLETS (4-8 MG) BY MOUTH EVERY 8 HOURS NEEDED [facility] triamcinolo ne acetonide 0.1 % topical cream triamcinolo ne acetonide 0.1 % topical cream No triamcinol one acetonide 0.1 % topical cream [facility] alprazolam 1 mg tablet TAKE 1 TABLET BY MOUTH EVERY 12 HOURS NEEDED FOR ANXIETY alprazolam 1 mg tablet TAKE 1 TABLET BY MOUTH EVERY 12 HOURS NEEDED FOR ANXIETY No alprazolam 1 mg tablet TAKE 1 TABLET BY MOUTH EVERY 12 HOURS NEEDED FOR ANXIETY [facility] aspirin 81 mg chewable tablet CHEW 1 TABLET BY MOUTH DAILY aspirin 81 mg chewable tablet CHEW 1 TABLET BY MOUTH DAILY No aspirin 81 mg chewable tablet CHEW 1 TABLET BY MOUTH DAILY [facility] atorvastati n 40 mg tablet TAKE 1 TABLET BY MOUTH EVERYDAY AT BEDTIME atorvastati n 40 mg tablet TAKE 1 TABLET BY MOUTH EVERYDAY AT BEDTIME No atorvastat in 40 mg tablet TAKE 1 TABLET BY MOUTH EVERYDAY AT BEDTIME [facility] budesonide 0.5 mg/2 mL suspension for nebulizatio n USE 1 VIAL VIA NEBULIZER EVERY 12 HOURS budesonide 0.5 mg/2 mL suspension for nebulizatio n USE 1 VIAL VIA NEBULIZER EVERY 12 HOURS No budesonide 0.5 mg/2 mL suspension for nebulizati on USE 1 VIAL VIA NEBULIZER EVERY 12 HOURS [facility] doxycycline hyclate 100 mg tablet Take 1 tablet twice a day by oral route. doxycycline hyclate 100 mg tablet Take 1 tablet twice a day by oral route. No 1 BID doxycyclin e hyclate 100 mg tablet Take 1 tablet twice a day by oral route. [facility] famotidine 20 mg tablet TAKE 1 TABLET BY MOUTH TWICE A DAY famotidine 20 mg tablet TAKE 1 TABLET BY MOUTH TWICE A DAY No famotidine 20 mg tablet TAKE 1 TABLET BY MOUTH TWICE A DAY [facility] ipratropium 0.5 mg-albutero l 3 mg (2.5 mg base)/3 mL nebulizatio n soln 3 ML NEBULIZER RT EVERY 4 HOURS NEEDED FOR SHORTNESS OF BREATH AND/OR WHEEZING ipratropium 0.5 mg-albutero l 3 mg (2.5 mg base)/3 mL nebulizatio n soln 3 ML NEBULIZER RT EVERY 4 HOURS NEEDED FOR SHORTNESS OF BREATH AND/OR WHEEZING No ipratropiu m 0.5 mg-albuter ol 3 mg (2.5 mg base)/3 mL nebulizati on soln 3 ML NEBULIZER RT EVERY 4 HOURS NEEDED FOR SHORTNESS OF BREATH AND/OR WHEEZING [facility] lisinopril 10 mg tablet Take 1 tablet every day by oral route. lisinopril 10 mg tablet Take 1 tablet every day by oral route. No 1 Q1D lisinopril 10 mg tablet Take 1 tablet every day by oral route. [facility] mirtazapine 45 mg tablet Take 1 tablet as needed by oral route in the evening. mirtazapine 45 mg tablet Take 1 tablet as needed by oral route in the evening. No 1 mirtazapin e 45 mg tablet Take 1 tablet as needed by oral route in the evening. [facility] ondansetron 4 mg disintegrat ing tablet Place 1 tablet twice a day by translingua l route as needed. ondansetron 4 mg disintegrat ing tablet Place 1 tablet twice a day by translingua l route as needed. No 1 BID ondansetro n 4 mg disintegra ting tablet Place 1 tablet twice a day by translingu al route as needed. [facility] ondansetron HCl 4 mg tablet TAKE 1-2 TABLETS (4-8 MG) BY MOUTH EVERY 8 HOURS NEEDED ondansetron HCl 4 mg tablet TAKE 1-2 TABLETS (4-8 MG) BY MOUTH EVERY 8 HOURS NEEDED No ondansetro n HCl 4 mg tablet TAKE 1-2 TABLETS (4-8 MG) BY MOUTH EVERY 8 HOURS NEEDED [facility] triamcinolo ne acetonide 0.1 % topical cream triamcinolo ne acetonide 0.1 % topical cream No triamcinol one acetonide 0.1 % topical cream [facility] Vital Signs Vital Name Observation Time Observation Value Comments S ource Height 2023-01-07 00:00:00 72 [in_i] [facility] BMI (Body Mass Index) 2023-01-07 00:00:00 25.8 kg/m2 [facility] Body Weight 2023-01-07 00:00:00 190 [lb_av] [facility] BP Diastolic 2022-12-27 00:00:00 113 mm[Hg] [facility] Height 2022-12-27 00:00:00 72 [in_i] [facility] BP Systolic 2022-12-27 00:00:00 159 mm[Hg] [facility] BP Diastolic 2022-09-25 00:00:00 98 mm[Hg] [facility] Height 2022-09-25 00:00:00 72 [in_i] [facility] BMI (Body Mass Index) 2022-09-25 00:00:00 29.2 kg/m2 [facility] BP Systolic 2022-09-25 00:00:00 158 mm[Hg] [facility] Body Weight 2022-09-25 00:00:00 215 [lb_av] [facility] Height 2022-09-07 00:00:00 72 [in_i] [facility] BMI (Body Mass Index) 2022-09-07 00:00:00 27.5 kg/m2 [facility] Body Weight 2022-09-07 00:00:00 203 [lb_av] [facility] Height 2022-06-14 00:00:00 72 [in_i] [facility] BMI (Body Mass Index) 2022-06-14 00:00:00 30 kg/m2 [facility] Body Weight 2022-06-14 00:00:00 221 [lb_av] [facility] Body temperature 2022-06-06 20:00:00 36.22 Valerie [facility] Oxygen saturation in Arterial blood by Pulse oximetry 2022-06-06 20:00:00 96 /min [facility] Systolic blood pressure 2022-06-06 20:00:00 118 mm[Hg] [facility] Diastolic blood pressure 2022-06-06 20:00:00 105 mm[Hg] [facility] Heart rate 2022-06-06 20:00:00 98 /min [facility] Respiratory rate 2022-06-06 19:00:00 17 /min [facility] Body height 2022-06-06 16:10:00 182.9 cm [facility] Body weight 2022-06-06 16:10:00 104.327 kg [facility] BMI 2022-06-06 16:10:00 31.19 kg/m2 [facility] BP Diastolic 2022-05-03 00:00:00 80 mm[Hg] [facility] Height 2022-05-03 00:00:00 72 [in_i] [facility] BMI (Body Mass Index) 2022-05-03 00:00:00 30 kg/m2 [facility] BP Systolic 2022-05-03 00:00:00 119 mm[Hg] [facility] Body Weight 2022-05-03 00:00:00 221 [lb_av] [facility] BP Diastolic 2022-04-29 00:00:00 99 mm[Hg] [facility] Height 2022-04-29 00:00:00 72 [in_i] [facility] BMI (Body Mass Index) 2022-04-29 00:00:00 27.9 kg/m2 [facility] BP Systolic 2022-04-29 00:00:00 172 mm[Hg] [facility] Body Weight 2022-04-29 00:00:00 206 [lb_av] [facility] Height 2022-04-19 00:00:00 72 [in_i] [facility] BMI (Body Mass Index) 2022-04-19 00:00:00 27.9 kg/m2 [facility] Body Weight 2022-04-19 00:00:00 206 [lb_av] [facility] Height 2022-04-05 00:00:00 72 [in_i] [facility] BMI (Body Mass Index) 2022-04-05 00:00:00 28.5 kg/m2 [facility] Body Weight 2022-04-05 00:00:00 210 [lb_av] [facility] BP Diastolic 2022-03-23 00:00:00 83 mm[Hg] [facility] Height 2022-03-23 00:00:00 72 [in_i] [facility] BMI (Body Mass Index) 2022-03-23 00:00:00 29.6 kg/m2 [facility] BP Systolic 2022-03-23 00:00:00 140 mm[Hg] [facility] Body Weight 2022-03-23 00:00:00 218 [lb_av] [facility] BP Diastolic 2022-03-09 00:00:00 72 mm[Hg] [facility] Height 2022-03-09 00:00:00 72 [in_i] [facility] BMI (Body Mass Index) 2022-03-09 00:00:00 30 kg/m2 [facility] BP Systolic 2022-03-09 00:00:00 130 mm[Hg] [facility] Body Weight 2022-03-09 00:00:00 221 [lb_av] [facility] Height 2022-02-22 00:00:00 72 [in_i] [facility] BMI (Body Mass Index) 2022-02-22 00:00:00 30.2 kg/m2 [facility] Body Weight 2022-02-22 00:00:00 223 [lb_av] [facility] BP Diastolic 2022-02-08 00:00:00 89 mm[Hg] [facility] Height 2022-02-08 00:00:00 72 [in_i] [facility] BMI (Body Mass Index) 2022-02-08 00:00:00 29.8 kg/m2 [facility] BP Systolic 2022-02-08 00:00:00 138 mm[Hg] [facility] Body Weight 2022-02-08 00:00:00 220 [lb_av] [facility] Height 2022-01-22 00:00:00 72 [in_i] [facility] BMI (Body Mass Index) 2022-01-22 00:00:00 29.8 kg/m2 [facility] Body Weight 2022-01-22 00:00:00 220 [lb_av] [facility] Height 2022-01-12 00:00:00 72 [in_i] [facility] BMI (Body Mass Index) 2022-01-12 00:00:00 29.8 kg/m2 [facility] Body Weight 2022-01-12 00:00:00 220 [lb_av] [facility] Height 2021-12-15 00:00:00 72 [in_i] [facility] BMI (Body Mass Index) 2021-12-15 00:00:00 28.8 kg/m2 [facility] Body Weight 2021-12-15 00:00:00 212 [lb_av] [facility] Height 2021-12-04 00:00:00 72 [in_i] [facility] BMI (Body Mass Index) 2021-12-04 00:00:00 28.8 kg/m2 [facility] Body Weight 2021-12-04 00:00:00 212 [lb_av] [facility] BP Diastolic 2021-11-17 00:00:00 68 mm[Hg] [facility] Height 2021-11-17 00:00:00 72 [in_i] [facility] BMI (Body Mass Index) 2021-11-17 00:00:00 28.8 kg/m2 [facility] BP Systolic 2021-11-17 00:00:00 139 mm[Hg] [facility] Body Weight 2021-11-17 00:00:00 212 [lb_av] [facility] Height 2021-10-31 00:00:00 72 [in_i] [facility] BMI (Body Mass Index) 2021-10-31 00:00:00 29.8 kg/m2 [facility] Body Weight 2021-10-31 00:00:00 220 [lb_av] [facility] BP Diastolic 2021-10-09 00:00:00 84 mm[Hg] [facility] Height 2021-10-09 00:00:00 72 [in_i] [facility] BMI (Body Mass Index) 2021-10-09 00:00:00 30.1 kg/m2 [facility] BP Systolic 2021-10-09 00:00:00 136 mm[Hg] [facility] Body Weight 2021-10-09 00:00:00 222.2 [lb_av] [facility] Di[facility] 2021-09-25 00:00:00 85 mm[Hg] [facility] Height 2021-09-25 00:00:00 72 [in_i] [facility] BMI (Body Mass Index) 2021-09-25 00:00:00 29.8 kg/m2 [facility] BP Systolic 2021-09-25 00:00:00 125 mm[Hg] [facility] Body Weight 2021-09-25 00:00:00 220 [lb_av] [facility] BP Diastolic 2021-09-11 00:00:00 85 mm[Hg] [facility] Height 2021-09-11 00:00:00 72 [in_i] [facility] BMI (Body Mass Index) 2021-09-11 00:00:00 29.8 kg/m2 [facility] BP Systolic 2021-09-11 00:00:00 134 mm[Hg] [facility] Body Weight 2021-09-11 00:00:00 220 [lb_av] [facility] Height 2021-08-28 00:00:00 72 [in_i] [facility] BMI (Body Mass Index) 2021-08-28 00:00:00 29.8 kg/m2 [facility] Body Weight 2021-08-28 00:00:00 220 [lb_av] [facility] BP Diastolic 2021-08-14 00:00:00 83 mm[Hg] [facility] Height 2021-08-14 00:00:00 72 [in_i] [facility] BMI (Body Mass Index) 2021-08-14 00:00:00 31 kg/m2 [facility] BP Systolic 2021-08-14 00:00:00 126 mm[Hg] [facility] Body Weight 2021-08-14 00:00:00 228.4 [lb_av] [facility] BP Diastolic 2021-07-25 00:00:00 90 mm[Hg] [facility] Height 2021-07-25 00:00:00 72 [in_i] [facility] BP Systolic 2021-07-25 00:00:00 160 mm[Hg] [facility] BP Diastolic 2021-07-03 00:00:00 89 mm[Hg] [facility] Height 2021-07-03 00:00:00 72 [in_i] [facility] BMI (Body Mass Index) 2021-07-03 00:00:00 31.1 kg/m2 [facility] BP Systolic 2021-07-03 00:00:00 136 mm[Hg] [facility] Body Weight 2021-07-03 00:00:00 229 [lb_av] [facility] BP Diastolic 2021-06-19 00:00:00 83 mm[Hg] [facility] Height 2021-06-19 00:00:00 72 [in_i] [facility] BMI (Body Mass Index) 2021-06-19 00:00:00 31.3 kg/m2 [facility] BP Systolic 2021-06-19 00:00:00 125 mm[Hg] [facility] Body Weight 2021-06-19 00:00:00 230.6 [lb_av] [facility] 2021-06-17 00:00:00 72 [in_i] [facility] BMI (Body Mass Index) 2021-06-17 00:00:00 30.9 kg/m2 [facility] Body Weight 2021-06-17 00:00:00 228 [lb_av] [facility] BP Diastolic 2021-06-05 00:00:00 71 mm[Hg] [facility] Height 2021-06-05 00:00:00 72 [in_i] [facility] BMI (Body Mass Index) 2021-06-05 00:00:00 30.9 kg/m2 [facility] BP Systolic 2021-06-05 00:00:00 113 mm[Hg] [facility] Body Weight 2021-06-05 00:00:00 228 [lb_av] [facility] BP Diastolic 2021-05-22 00:00:00 85 mm[Hg] [facility] Height 2021-05-22 00:00:00 72 [in_i] [facility] BMI (Body Mass Index) 2021-05-22 00:00:00 30.8 kg/m2 [facility] BP Systolic 2021-05-22 00:00:00 151 mm[Hg] [facility] Body Weight 2021-05-22 00:00:00 227 [lb_av] [facility] BP Diastolic 2021-05-09 00:00:00 85 mm[Hg] [facility] Height 2021-05-09 00:00:00 72 [in_i] [facility] BMI (Body Mass Index) 2021-05-09 00:00:00 31.1 kg/m2 [facility] BP Systolic 2021-05-09 00:00:00 137 mm[Hg] [facility] Body Weight 2021-05-09 00:00:00 229 [lb_av] [facility] BP Diastolic 2021-04-24 00:00:00 87 mm[Hg] [facility] Height 2021-04-24 00:00:00 72 [in_i] [facility] BMI (Body Mass Index) 2021-04-24 00:00:00 30.4 kg/m2 [facility] BP Systolic 2021-04-24 00:00:00 134 mm[Hg] [facility] Body Weight 2021-04-24 00:00:00 224 [lb_av] [facility] BP Diastolic 2021-04-10 00:00:00 83 mm[Hg] [facility] Height 2021-04-10 00:00:00 72 [in_i] [facility] BMI (Body Mass Index) 2021-04-10 00:00:00 30.1 kg/m2 [facility] BP Systolic 2021-04-10 00:00:00 116 mm[Hg] [facility] Body Weight 2021-04-10 00:00:00 222 [lb_av] [facility] BP Diastolic 2021-03-27 00:00:00 78 mm[Hg] [facility] Height 2021-03-27 00:00:00 72 [in_i] [facility] BMI (Body Mass Index) 2021-03-27 00:00:00 30.4 kg/m2 [facility] BP Systolic 2021-03-27 00:00:00 113 mm[Hg] [facility] Body Weight 2021-03-27 00:00:00 224 [lb_av] [facility] Height 2021-03-13 00:00:00 72 [in_i] [facility] BMI (Body Mass Index) 2021-03-13 00:00:00 30.5 kg/m2 [facility] Body Weight 2021-03-13 00:00:00 225 [lb_av] [facility] BP Diastolic 2021-02-27 00:00:00 80 mm[Hg] [facility] Height 2021-02-27 00:00:00 72 [in_i] [facility] BMI (Body Mass Index) 2021-02-27 00:00:00 30 kg/m2 [facility] BP Sy[facility]olic 2021-02-27 00:00:00 123 mm[Hg] [facility] Body Weight 2021-02-27 00:00:00 221 [lb_av] [facility] BP Diastolic 2021-02-14 00:00:00 82 mm[Hg] [facility] Height 2021-02-14 00:00:00 72 [in_i] [facility] BMI (Body Mass Index) 2021-02-14 00:00:00 30.3 kg/m2 [facility] BP Systolic 2021-02-14 00:00:00 132 mm[Hg] [facility] Body Weight 2021-02-14 00:00:00 223.4 [lb_av] [facility] BP Diastolic 2021-01-31 00:00:00 77 mm[Hg] [facility] Height 2021-01-31 00:00:00 72 [in_i] [facility] BMI (Body Mass Index) 2021-01-31 00:00:00 30.5 kg/m2 [facility] BP Systolic 2021-01-31 00:00:00 118 mm[Hg] [facility] Body Weight 2021-01-31 00:00:00 225 [lb_av] [facility] BP Diastolic 2021-01-17 00:00:00 78 mm[Hg] [facility] Height 2021-01-17 00:00:00 72 [in_i] [facility] BMI (Body Mass Index) 2021-01-17 00:00:00 30.1 kg/m2 [facility] BP Systolic 2021-01-17 00:00:00 114 mm[Hg] [facility] Body Weight 2021-01-17 00:00:00 222.2 [lb_av] [facility] BP Diastolic 2021-01-03 00:00:00 76 mm[Hg] [facility] Height 2021-01-03 00:00:00 72 [in_i] [facility] BMI (Body Mass Index) 2021-01-03 00:00:00 29.7 kg/m2 [facility] BP Systolic 2021-01-03 00:00:00 120 mm[Hg] [facility] Body Weight 2021-01-03 00:00:00 219 [lb_av] [facility] BP Diastolic 2020-12-20 00:00:00 87 mm[Hg] [facility] Height 2020-12-20 00:00:00 72 [in_i] [facility] BMI (Body Mass Index) 2020-12-20 00:00:00 29.8 kg/m2 [facility] BP Systolic 2020-12-20 00:00:00 136 mm[Hg] [facility] Body Weight 2020-12-20 00:00:00 220 [lb_av] [facility] BP Diastolic 2020-12-06 00:00:00 73 mm[Hg] [facility] Height 2020-12-06 00:00:00 72 [in_i] [facility] BMI (Body Mass Index) 2020-12-06 00:00:00 30.2 kg/m2 [facility] BP Systolic 2020-12-06 00:00:00 123 mm[Hg] [facility] Body Weight 2020-12-06 00:00:00 223 [lb_av] [facility] BP Diastolic 2020-11-22 00:00:00 83 mm[Hg] [facility] Height 2020-11-22 00:00:00 72 [in_i] [facility] BMI (Body Mass Index) 2020-11-22 00:00:00 30.2 kg/m2 [facility] BP Systolic 2020-11-22 00:00:00 133 mm[Hg] [facility] Body Weight 2020-11-22 00:00:00 223 [lb_av] [facility] Height 2020-11-10 00:00:00 72 [in_i] [facility] BMI (Body Mass Index) 2020-11-10 00:00:00 30.7 kg/m2 [facility] Body Weight 2020-11-10 00:00:00 226 [lb_av] [facility] BP Diastolic 2020-10-25 00:00:00 74 mm[Hg] [facility] Height 2020-10-25 00:00:00 72 [in_i] [facility] BMI (Body Mass Index) 2020-10-25 00:00:00 30.7 kg/m2 [facility] BP Systolic 2020-10-25 00:00:00 108 mm[Hg] [facility] Body Weight 2020-10-25 00:00:00 226 [lb_av] [facility] BP Diastolic 2020-10-11 00:00:00 82 mm[Hg] [facility] Height 2020-10-11 00:00:00 72 [in_i] [facility] BMI (Body Mass Index) 2020-10-11 00:00:00 30.5 kg/m2 [facility] BP Systolic 2020-10-11 00:00:00 124 mm[Hg] [facility] Body Weight 2020-10-11 00:00:00 225 [lb_av] [facility] BP Diastolic 2020-09-26 00:00:00 79 mm[Hg] [facility] Height 2020-09-26 00:00:00 72 [in_i] [facility] BMI (Body Mass Index) 2020-09-26 00:00:00 29.8 kg/m2 [facility] BP Systolic 2020-09-26 00:00:00 116 mm[Hg] [facility] Body Weight 2020-09-26 00:00:00 220 [lb_av] [facility] BP Diastolic 2020-09-12 00:00:00 59 mm[Hg] [facility] Height 2020-09-12 00:00:00 72 [in_i] [facility] BP Systolic 2020-09-12 00:00:00 102 mm[Hg] [facility] Height 2020-08-29 00:00:00 72 [in_i] [facility] Height 2020-08-12 00:00:00 72 [in_i] [facility] BMI (Body Mass Index) 2020-08-12 00:00:00 30.5 kg/m2 [facility] Body Weight 2020-08-12 00:00:00 225 [lb_av] [facility]нна [facility] Height 2020-07-29 00:00:00 72 [in_i] [facility] BMI (Body Mass Index) 2020-07-29 00:00:00 30.7 kg/m2 [facility] Body Weight 2020-07-29 00:00:00 226 [lb_av] [facility] BP Diastolic 2020-06-27 00:00:00 81 mm[Hg] [facility] Height 2020-06-27 00:00:00 72 [in_i] [facility] BMI (Body Mass Index) 2020-06-27 00:00:00 30 kg/m2 [facility] BP Systolic 2020-06-27 00:00:00 139 mm[Hg] [facility] Body Weight 2020-06-27 00:00:00 221 [lb_av] Анна [facility] Height 2020-06-13 00:00:00 72 [in_i] [facility] Height 2020-05-31 00:00:00 72 [in_i] [facility] Height 2020-05-16 00:00:00 72 [in_i] [facility] Height 2020-05-03 00:00:00 72 [in_i] [facility] Height 2020-04-18 00:00:00 72 [in_i] [facility] BMI (Body Mass Index) 2020-04-18 00:00:00 30.4 kg/m2 [facility] Body Weight 2020-04-18 00:00:00 224 [lb_av] [facility] BP Diastolic 2020-04-04 00:00:00 87 mm[Hg] [facility] Height 2020-04-04 00:00:00 72 [in_i] [facility] BMI (Body Mass Index) 2020-04-04 00:00:00 30.4 kg/m2 [facility] BP Systolic 2020-04-04 00:00:00 143 mm[Hg] [facility] Body Weight 2020-04-04 00:00:00 224 [lb_av] [facility] Height 2020-03-21 00:00:00 72 [in_i] [facility] Height 2020-03-07 00:00:00 72 [in_i] [facility] BMI (Body Mass Index) 2020-03-07 00:00:00 30.4 kg/m2 [facility] Body Weight 2020-03-07 00:00:00 224.5 [lb_av] [facility] BP Diastolic 2020-02-22 00:00:00 86 mm[Hg] [facility] Height 2020-02-22 00:00:00 72 [in_i] [facility] BMI (Body Mass Index) 2020-02-22 00:00:00 30.4 kg/m2 [facility] BP Systolic 2020-02-22 00:00:00 142 mm[Hg] [facility] Body Weight 2020-02-22 00:00:00 224.5 [lb_av] [facility] Height 2020-02-08 00:00:00 72 [in_i] [facility] BP Diastolic 2020-01-25 00:00:00 82 mm[Hg] [facility]на [facility] Height 2020-01-25 00:00:00 72 [in_i] [facility] BMI (Body Mass Index) 2020-01-25 00:00:00 30.1 kg/m2 [facility] BP Systolic 2020-01-25 00:00:00 140 mm[Hg] [facility] Body Weight 2020-01-25 00:00:00 222 [lb_av] [facility] Height 2020-01-11 00:00:00 72 [in_i] [facility] BMI (Body Mass Index) 2020-01-11 00:00:00 30.1 kg/m2 [facility] Body Weight 2020-01-11 00:00:00 222 [lb_av] [facility] BP Diastolic 2019-11-30 00:00:00 80 mm[Hg] [facility] Height 2019-11-30 00:00:00 72 [in_i] [facility] BMI (Body Mass Index) 2019-11-30 00:00:00 30.2 kg/m2 [facility] BP Systolic 2019-11-30 00:00:00 115 mm[Hg] [facility] Body Weight 2019-11-30 00:00:00 223 [lb_av] [facility] BP Diastolic 2019-11-16 00:00:00 86 mm[Hg] [facility] Height 2019-11-16 00:00:00 72 [in_i] [facility] BMI (Body Mass Index) 2019-11-16 00:00:00 30.2 kg/m2 [facility] BP Systolic 2019-11-16 00:00:00 119 mm[Hg] [facility] Body Weight 2019-11-16 00:00:00 223 [lb_av] [facility] BP Diastolic 2019-11-02 00:00:00 84 mm[Hg] [facility]на [facility] Height 2019-11-02 00:00:00 72 [in_i] [facility] BMI (Body Mass Index) 2019-11-02 00:00:00 30.5 kg/m2 [facility] BP Systolic 2019-11-02 00:00:00 145 mm[Hg] [facility] Body Weight 2019-11-02 00:00:00 225 [lb_av] [facility] BP Diastolic 2019-10-19 00:00:00 83 mm[Hg] [facility]нна [facility] Height 2019-10-19 00:00:00 72 [in_i] [facility] BMI (Body Mass Index) 2019-10-19 00:00:00 30.7 kg/m2 [facility] BP Systolic 2019-10-19 00:00:00 123 mm[Hg] [facility] Body Weight 2019-10-19 00:00:00 226 [lb_av] [facility] BP Diastolic 2019-10-05 00:00:00 80 mm[Hg] [facility] Height 2019-10-05 00:00:00 72 [in_i] [facility] BMI (Body Mass Index) 2019-10-05 00:00:00 30.7 kg/m2 [facility] BP Systolic 2019-10-05 00:00:00 123 mm[Hg] [facility] Body Weight 2019-10-05 00:00:00 226 [lb_av] [facility] BP Diastolic 2019-09-21 00:00:00 73 mm[Hg] [facility] Height 2019-09-21 00:00:00 72 [in_i] [facility] BMI (Body Mass Index) 2019-09-21 00:00:00 30.1 kg/m2 [facility] BP Systolic 2019-09-21 00:00:00 111 mm[Hg] [facility] Body Weight 2019-09-21 00:00:00 222.2 [lb_av] [facility] BP Diastolic 2019-09-07 00:00:00 85 mm[Hg] Анна [facility] Height 2019-09-07 00:00:00 72 [in_i] [facility] BMI (Body Mass Index) 2019-09-07 00:00:00 29.9 kg/m2 [facility] BP Systolic 2019-09-07 00:00:00 121 mm[Hg] [facility] Body Weight 2019-09-07 00:00:00 220.8 [lb_av] [facility] BP Diastolic 2019-08-24 00:00:00 78 mm[Hg] [facility] Height 2019-08-24 00:00:00 72 [in_i] [facility] BMI (Body Mass Index) 2019-08-24 00:00:00 30.8 kg/m2 [facility] BP Systolic 2019-08-24 00:00:00 130 mm[Hg] [facility] Body Weight 2019-08-24 00:00:00 227 [lb_av] [facility] BP Diastolic 2019-08-10 00:00:00 78 mm[Hg] [facility] Height 2019-08-10 00:00:00 72 [in_i] [facility] BMI (Body Mass Index) 2019-08-10 00:00:00 30.6 kg/m2 [facility] BP Systolic 2019-08-10 00:00:00 138 mm[Hg] [facility] Body Weight 2019-08-10 00:00:00 225.4 [lb_av] [facility] BP Diastolic 2019-07-27 00:00:00 82 mm[Hg] [facility] Height 2019-07-27 00:00:00 72 [in_i] [facility] BMI (Body Mass Index) 2019-07-27 00:00:00 30.5 kg/m2 [facility] BP Systolic 2019-07-27 00:00:00 136 mm[Hg] [facility] Body Weight 2019-07-27 00:00:00 225 [lb_av] [facility] BP Diastolic 2019-07-13 00:00:00 80 mm[Hg] [facility] Height 2019-07-13 00:00:00 72 [in_i] [facility] BMI (Body Mass Index) 2019-07-13 00:00:00 30.4 kg/m2 [facility] BP Systolic 2019-07-13 00:00:00 120 mm[Hg] [facility] Body Weight 2019-07-13 00:00:00 224 [lb_av] [facility] BP Diastolic 2019-06-29 00:00:00 80 mm[Hg] [facility] Height 2019-06-29 00:00:00 72 [in_i] [facility] BMI (Body Mass Index) 2019-06-29 00:00:00 30.1 kg/m2 [facility] BP Systolic 2019-06-29 00:00:00 125 mm[Hg] [facility] Body Weight 2019-06-29 00:00:00 222 [lb_av] [facility] BP Diastolic 2019-06-15 00:00:00 74 mm[Hg] [facility] Height 2019-06-15 00:00:00 72 [in_i] [facility] BMI (Body Mass Index) 2019-06-15 00:00:00 29.7 kg/m2 [facility] BP Systolic 2019-06-15 00:00:00 120 mm[Hg] [facility] Body Weight 2019-06-15 00:00:00 219 [lb_av] [facility] BP Diastolic 2019-06-01 00:00:00 82 mm[Hg] [facility] Height 2019-06-01 00:00:00 72 [in_i] [facility] BMI (Body Mass Index) 2019-06-01 00:00:00 29.7 kg/m2 [facility] BP Systolic 2019-06-01 00:00:00 122 mm[Hg] [facility] Body Weight 2019-06-01 00:00:00 219 [lb_av] [facility] BP Diastolic 2019-05-18 00:00:00 90 mm[Hg] [facility] Height 2019-05-18 00:00:00 72 [in_i] [facility] BMI (Body Mass Index) 2019-05-18 00:00:00 29.2 kg/m2 [facility] BP Systolic 2019-05-18 00:00:00 128 mm[Hg] [facility] Body Weight 2019-05-18 00:00:00 215 [lb_av] [facility] BP Diastolic 2019-03-18 00:00:00 90 mm[Hg] [facility] Height 2019-03-18 00:00:00 72 [in_i] [facility] BMI (Body Mass Index) 2019-03-18 00:00:00 30 kg/m2 [facility] BP Systolic 2019-03-18 00:00:00 140 mm[Hg] [facility] Body Weight 2019-03-18 00:00:00 221.4 [lb_av] [facility] BP Diastolic 2019-03-02 00:00:00 64 mm[Hg] [facility] Height 2019-03-02 00:00:00 72 [in_i] [facility] BMI (Body Mass Index) 2019-03-02 00:00:00 30.6 kg/m2 [facility] BP Systolic 2019-03-02 00:00:00 118 mm[Hg] [facility] Body Weight 2019-03-02 00:00:00 225.9 [lb_av] [facility] Procedures Procedure Date / Time Performed Performing Clinician Source Cardiac Catheterization 2022-11-21 00:00:00 [facility] XR CHEST 1 VW 2022-06-06 18:38:27 Haydee Albrecht [facility] CT STROKE ANGIOGRAM HEAD 2022-06-06 18:22:37 Haydee Alrbecht [facility] CT STROKE ANGIOGRAM NECK 2022-06-06 18:22:37 Haydee Albrecht [facility] CT STROKE HEAD WO CONTRAST 2022-06-06 18:00:45 Haydee Tierney [facility] TROPONIN I 2022-06-06 17:36:00 [facility] METABOLIC PANEL (75744) 2022-06-06 17:36:00 Haydee Albrecht [facility] CBC WITH DIFF 2022-06-06 17:36:00 [facility] / INR 2022-06-06 17:36:00 Sarah Albrecht [facility] COVID-19 (ID NOW RAPID TESTING) 2022-06-06 17:36:00 Haydee Albrecht [facility] CONSENT/REFUSAL FOR DIAGNOSIS AND TREATMENT 2022-06-06 16:05:20 Doctor Unassigned, [place] [facility] X-RAY OF CHEST 2 VIEW 2021-04-24 00:00:00 [facility] X-RAY OF KNEE 1 OR 2 VIEW 2019-07-27 00:00:00 [facility] Colonoscopy 2017-09-23 00:00:00 [facility] Cardiac Catheterization 2014-09-23 00:00:00 [facility] Extraction of [place] [facility] Plan of Care Planned Activity Planned Date Details Comments Source Future Scheduled Test 1. Your st ool lab results are Normal. [code = 1. Your stool lab results are Normal.] [facility] Instructions [facility] Practice Encounters Start Date/Time End Date/Time Encounter Type Admission Type Attending Clinicians Care Facility Care Department Encounter ID Source 2021-07-23 11:29:56 Emergency [facility] [id number] [facility] 2023-11-02 00:00:00 2023-11-02 00:00:00 Outpatient B[facility]_Q_HOU_M D VFP VFP [id number] [facility] e 2023-05-28 00:00:00 2023-05-28 00:00:00 Outpatient [facility]_HOU_M D VFP VFP [id number] [facility] 2023-01-29 00:00:00 2023-01-29 00:00:00 Outpatient Bui_Q VFP VFP [id number] [facility] 2023-01-27 00:00:00 2023-01-27 00:00:00 Outpatient Bui_Q_WAGDN U VFP VFP [id number] [facility] 2023-01-22 00:00:00 2023-01-22 00:00:00 Outpatient Bui_Q VFP VFP [id number] [facility] 2023-01-09 00:00:00 2023-01-09 00:00:00 Outpatient Bui_Q VFP VFP [id number] [facility] 2023-01-07 00:00:00 2023-01-07 00:00:00 Outpatient Bui_Q VFP VFP [id number] [facility] 2023-01-07 00:00:00 2023-01-07 00:00:00 Outpatient Bui_Q_WAGDN U VFP VFP [id number] [facility] 2023-01-07 00:00:00 2023-01-07 00:00:00 Outpatient Bui_Q_WAGDN U VFP VFP [id number] [facility] 2023-01-07 00:00:00 2023-01-07 00:00:00 Outpatient Bui_Q_WAGDN U VFP VFP [id number] [facility] 2023-01-07 00:00:00 2023-01-07 00:00:00 Warren Rolle MD: [id number] [facility] [place] [facility], [address], [place] [address] , [place] [facility] [place]_DAVIDU_[place] [id number] [facility] 2022-12-28 00:00:00 2022-12-28 00:00:00 Outpatient Bui_Q VFP VFP [id number] [facility] 2022-12-27 00:00:00 2022-12-27 00:00:00 Outpatient Bui_Q VFP VFP [id number] [facility] 2022-12-27 00:00:00 2022-12-27 00:00:00 Outpatient Bui_Q_WAGDN U VFP VFP [id number] [facility] 2022-12-27 00:00:00 2022-12-27 00:00:00 Warren Rolle MD: [id number], [address], [place] [address] , Ph. [place]FP [place] [facility] [place] VM_HOU_[place] [id number] [facility] 2022-12-25 00:00:00 2022-12-25 00:00:00 Outpatient Bui_Q VFP VFP [id number] [facility] 2022-12-11 00:00:00 2022-12-11 00:00:00 Outpatient Bui_Q VFP VFP [id number] [facility] 2022-12-11 00:00:00 2022-12-11 00:00:00 Outpatient Bui_Q_WAGDN U VFP VFP [id number] [facility] 2022-11-06 00:00:00 2022-11-06 00:00:00 Outpatient Bui_Q VFP VFP [id number] [facility] 2022-10-02 00:00:00 2022-10-02 00:00:00 Outpatient Bui_Q VFP VFP [id number] [facility] 2022-09-25 00:00:00 2022-09-25 00:00:00 Outpatient Bui_Q VFP VFP [id number] [facility] 2022-09-25 00:00:00 2022-09-25 00:00:00 Caty Elliott, : [id number], [address], [place] [address] , Ph. VFP [facility] - [place] VM_HOU_[place] [id number] [facility] 2022-09-18 00:00:00 2022-09-18 00:00:00 Outpatient Bui_Q_WAGDN U VFP VFP [id number] [facility] 2022-09-18 00:00:00 2022-09-18 00:00:00 Outpatient Bui_Q_WAGDN U VFP VFP [id number] [facility] 2022-09-18 00:00:00 2022-09-18 00:00:00 Outpatient Bui_Q_WAGDN U VFP VFP [id number] [facility] 2022-09-07 00:00:00 2022-09-07 00:00:00 Outpatient Bui_Q VFP VFP [id number] [facility] 2022-09-07 00:00:00 2022-09-07 00:00:00 Outpatient Bui_Q_WAGDN U VFP VFP [id number] [facility] 2022-09-07 00:00:00 2022-09-07 00:00:00 Warren Rolle MD: [id number] [address], [facility] [address], [place] [address] , Ph. VFP [facility] - [place] VM_HOU_[place] [id number] [facility] 2022-07-20 00:00:00 2022-07-20 00:00:00 Outpatient Bui_Q VFP VFP [id number] [facility] 2022-07-03 00:00:00 2022-07-03 00:00:00 Outpatient Bui_Q VFP VFP [id number] [facility] 2022-06-28 00:00:00 2022-06-28 00:00:00 Warren Rolle MD: [id number], [address], [place] [address] , Ph. VFP [facility] - [place] VM_HOU_[place] [id number] [facility] 2022-06-22 00:00:00 2022-06-22 00:00:00 Outpatient Bui_Q VFP VFP [id number] [facility] 2022-06-15 00:00:00 2022-06-15 00:00:00 Outpatient Bui_Q_WAGDN U VFP VFP [id number] [facility] 2022-06-14 00:00:00 2022-06-14 00:00:00 Outpatient Bui_Q VFP VFP [id number] [facility] 2022-06-14 00:00:00 2022-06-14 00:00:00 Warren Rolle MD: [id number], [address], [place] [address] , Ph. [place] [facility] [place] VM_HOU_[place] [id number] [facility] 2022-06-06 12:00:00 2022-06-06 15:27:00 Emergency HAYDEE BARKER [facility] ERT [id number] [facility] 2022-06-06 12:00:00 2022-06-06 15:27:00 Emergency Haydee Albrecht [facility] [id number] [facility] 2022-06-04 00:00:00 2022-06-04 00:00:00 Outpatient Bui_Q_WAGDN U VFP VFP [id number] [facility] 2022-05-31 00:00:00 2022-05-31 00:00:00 Outpatient Bui_Q VFP VFP [id number] [facility] 2022-05-31 00:00:00 2022-05-31 00:00:00 Warren Rolle MD: [id number], [address], [place] [address] , Ph. [place] [facility] [place]_HOU_[place] [id number] [facility] 2022-05-28 00:00:00 2022-05-28 00:00:00 Outpatient Bui_Q VFP VFP [id number] [facility] 2022-05-22 00:00:00 2022-05-22 00:00:00 Outpatient Bui_Q_WAGDN U VFP VFP [id number] [facility] 2022-05-19 00:00:00 2022-05-19 00:00:00 Outpatient Bui_Q VFP VFP [id number] [facility] 2022-05-17 00:00:00 2022-05-17 00:00:00 Outpatient Bui_Q VFP VFP [id number] [facility] 2022-05-17 00:00:00 2022-05-17 00:00:00 Warren Rolle MD: [id number] [facility], [address], [place] [address] , Ph. VFP [place] - [facility] - VM_HOU_[place] [id number] [facility] 2022-05-11 00:00:00 2022-05-11 00:00:00 Outpatient Bui_Q VFP VFP [id number] [facility] 2022-05-08 00:00:00 2022-05-08 00:00:00 Outpatient Bui_Q VFP VFP [id number] [facility] 2022-05-07 00:00:00 2022-05-07 00:00:00 Outpatient Bui_Q_WAGDN U VFP VFP [id number] [facility] 2022-05-03 00:00:00 2022-05-03 00:00:00 Outpatient Bui_Q VFP VFP [id number] [facility] 2022-05-03 00:00:00 2022-05-03 00:00:00 Warren Rolle MD: [id number], [address], [place] [address] , Ph. VFP [place] - [facility] - VM_HOU_[place] [id number] [facility] 2022-04-29 00:00:00 2022-04-29 00:00:00 Outpatient Bui_Q VFP VFP [id number] [facility] 2022-04-29 00:00:00 2022-04-29 00:00:00 GUALBERTO Mason: [id number] [facility], [address], [place] [address] , Ph. VFP [place] - [facility] - VM_HOU_Stefania Au (WAAmanda) [id number] [facility] 2022-04-20 00:00:00 2022-04-20 00:00:00 Outpatient Bui_Q_WAGDN U VFP VFP [id number] [facility] 2022-04-19 00:00:00 2022-04-19 00:00:00 Outpatient Bui_Q VFP VFP [id number] [facility] 2022-04-19 00:00:00 2022-04-19 00:00:00 Warren Rolle MD: [id number] [address], [address], [place] [address] , Ph. VFP [place] - [facility] - VM_HOU_[place] [id number] [facility] 2022-04-13 05:28:00 2022-04-13 05:28:00 Outpatient Bui_Q_WAGDN U VFP VFP [id number] [facility] 2022-04-13 00:00:00 2022-04-13 00:00:00 Outpatient Bui_Q_WAGDN U VFP VFP [id number] [facility] 2022-04-12 00:00:00 2022-04-12 00:00:00 Outpatient Bui_Q VFP VFP [id number] [facility] 2022-04-10 05:32:00 2022-04-10 05:32:00 Outpatient Bui_Q VFP VFP [id number] [facility] 2022-04-06 07:55:00 2022-04-06 07:55:00 Outpatient Bui_Q VFP VFP [id number] [facility] 2022-04-05 02:14:00 2022-04-05 02:14:00 Outpatient Bui_Q VFP VFP [id number] [facility] 2022-04-05 00:00:00 2022-04-05 00:00:00 Warren Rolle MD: [id number], [address], [place] [address] , Ph. VFP [place] - [facility] - VM_HOU_[place] [id number] [facility] 2022-03-26 02:40:00 2022-03-26 02:40:00 Outpatient Bui_Q VFP VFP [id number] [facility] 2022-03-23 12:22:00 2022-03-23 12:22:00 Outpatient Bui_Q VFP VFP [id number] [facility] 2022-03-23 12:22:00 2022-03-23 12:22:00 Outpatient Bui_Q_WAGDN U VFP VFP [id number] [facility] 2022-03-23 00:00:00 2022-03-23 00:00:00 Warren Rolle MD: [id number], [address], [place] [address] , Ph. VFP [place] - [facility] - VM_HOU_[place] [id number] [facility] 2022-03-22 03:24:00 2022-03-22 03:24:00 Outpatient Bui_Q VFP VFP [id number] [facility] 2022-03-19 02:45:00 2022-03-19 02:45:00 Outpatient Bui_Q VFP VFP [id number] [facility] 2022-03-13 04:04:00 2022-03-13 04:04:00 Outpatient Bui_Q_WAGDN U VFP VFP [id number] [facility] 2022-03-13 04:04:00 2022-03-13 04:04:00 Outpatient Bui_Q_WAGDN U VFP VFP [id number] [facility] 2022-03-09 04:10:00 2022-03-09 04:10:00 Outpatient Bui_Q VFP VFP [id number] [facility] 2022-03-09 00:00:00 2022-03-09 00:00:00 Warren Rolle MD: [id number], [address], [place] [address] , Ph. VFP [place] - [facility] - VM_HOU_[place] [id number] [facility] 2022-03-02 04:53:00 2022-03-02 04:53:00 Outpatient Bui_Q VFP VFP [id number] [facility] 2022-03-02 04:53:00 2022-03-02 04:53:00 Outpatient Bui_Q_WAGDN U VFP VFP [id number] [facility] 2022-03-01 05:10:00 2022-03-01 05:10:00 Outpatient Bui_Q VFP VFP [id number] [facility] 2022-02-27 01:16:00 2022-02-27 01:16:00 Outpatient Bui_Q VFP VFP [id number] [facility] 2022-02-22 05:00:00 2022-02-22 05:00:00 Outpatient Bui_Q VFP VFP [id number] [facility] 2022-02-22 00:00:00 2022-02-22 00:00:00 Warren Rolle MD: [id number], [address], [place] [address] , Ph. VFP [place] - [facility] - VM_HOU_[place] [id number] [facility] 2022-02-09 05:30:00 2022-02-09 05:30:00 Outpatient Bui_Q VFP VFP [id number] [facility] 2022-02-09 05:30:00 2022-02-09 05:30:00 Outpatient Bui_Q_WAGDN U VFP VFP [id number] [facility] 2022-02-09 05:30:00 2022-02-09 05:30:00 Outpatient Bui_Q VFP VFP [id number] [facility] 2022-02-08 06:21:00 2022-02-08 06:21:00 Outpatient Bui_Q VFP VFP [id number] [facility] 2022-02-08 00:00:00 2022-02-08 00:00:00 Warren Rolle MD: [id number] [facility], [address], [place] [address] , Ph. VFP [place] - [facility] - VM_HOU_[place] [id number] [facility] 2022-02-01 01:31:00 2022-02-01 01:31:00 Outpatient Bui_Q_WAGDN U VFP VFP [id number] [facility] 2022-01-26 06:33:00 2022-01-26 06:33:00 Outpatient Bui_Q VFP VFP [id number] [facility] 2022-01-24 11:00:00 2022-01-24 11:00:00 Outpatient Bui_Q VFP VFP [id number] [facility] 2022-01-22 05:00:00 2022-01-22 05:00:00 Outpatient Bui_Q VFP VFP [id number] [facility] 2022-01-22 00:00:00 2022-01-22 00:00:00 Warren Rolle MD: [id number], [address], [place] [address] , Ph. VFP [place] - [facility] - VM_HOU_[place] [id number] [facility] 2022-01-18 12:26:00 2022-01-18 12:26:00 Outpatient Bui_Q VFP VFP [id number] [facility] 2022-01-12 12:37:00 2022-01-12 12:37:00 Outpatient Bui_Q VFP VFP [id number] [facility] 2022-01-12 12:37:00 2022-01-12 12:37:00 Outpatient Bui_Q_WAGDN U VFP VFP [id number] [facility] 2022-01-12 00:00:00 2022-01-12 00:00:00 Warren Rolle MD: [id number] [address], [address], [place] [address] , Ph. VFP [place] - [facility] - VM_HOU_[place] [id number] [facility] 2022-01-08 05:49:00 2022-01-08 05:49:00 Outpatient Bui_Q_WAGDN U VFP VFP [id number] [facility] 2022-01-08 05:49:00 2022-01-08 05:49:00 Outpatient Bui_Q_WAGDN U VFP VFP [id number] [facility] 2022-01-04 04:30:00 2022-01-04 04:30:00 Outpatient Bui_Q VFP VFP [id number] [facility] 2021-12-29 05:31:00 2021-12-29 05:31:00 Outpatient Bui_Q VFP VFP [id number] [facility] 2021-12-29 00:00:00 2021-12-29 00:00:00 Warren Rolle MD: [address], [address], [place] [address] , Ph. VFP [place] - [facility] - VM_HOU_[place] [id number] [facility] 2021-12-21 03:39:00 2021-12-21 03:39:00 Outpatient Bui_Q VFP VFP [id number] [facility] 2021-12-18 12:50:00 2021-12-18 12:50:00 Outpatient Bui_Q_WAGDN U VFP VFP [id number] [facility] 2021-12-15 05:57:00 2021-12-15 05:57:00 Outpatient Bui_Q VFP VFP [id number] [facility] 2021-12-15 00:00:00 2021-12-15 00:00:00 Warren Rolle MD: [address], [address], [place] [address] , Ph. VFP [place] - [facility] - VM_HOU_[place] [id number] [facility] 2021-12-13 09:45:00 2021-12-13 09:45:00 Outpatient Bui_Q VFP VFP [id number] [facility] 2021-12-11 04:08:00 2021-12-11 04:08:00 Outpatient Bui_Q_WAGDN U VFP VFP [id number] [facility] 2021-12-09 08:47:00 2021-12-09 08:47:00 Outpatient Bui_Q VFP VFP [id number] [facility] 2021-12-04 06:26:00 2021-12-04 06:26:00 Outpatient Bui_Q VFP VFP [id number] [facility] 2021-12-04 00:00:00 2021-12-04 00:00:00 Warren Rolle MD: [id number], [address], [place] [address] , Ph. VFP [place] - [facility] - VM_HOU_[place] [id number] [facility] 2021-11-29 06:45:00 2021-11-29 06:45:00 Outpatient Bui_Q VFP VFP [id number] [facility] 2021-11-20 08:26:00 2021-11-20 08:26:00 Outpatient Bui_Q_WAGDN U VFP VFP [id number] [facility] 2021-11-17 05:46:00 2021-11-17 05:46:00 Outpatient Bui_Q VFP VFP [id number] [facility] 2021-11-17 00:00:00 2021-11-17 00:00:00 Warren Rolle MD: [id number] [facility], [facility] [address], [place] [address] , Ph. VFP [place] - [facility] - VM_HOU_[place] [id number] [facility] 2021-11-03 02:41:00 2021-11-03 02:41:00 Outpatient Bui_Q VFP VFP [id number] [facility] 2021-11-02 11:50:00 2021-11-02 11:50:00 Outpatient Bui_Q VFP VFP [id number] [facility] 2021-10-31 07:42:00 2021-10-31 07:42:00 Outpatient Bui_Q VFP VFP [id number] [facility] 2021-10-31 00:00:00 2021-10-31 00:00:00 Warren Rolle MD: [address] [facility] [address], [place] [address] , Ph. VFP [place] - [facility] - VM_HOU_[facility] [id number] [facility] 2021-10-25 05:21:00 2021-10-25 05:21:00 Outpatient Bui_Q_WAGDN U VFP VFP [id number] [facility] 2021-10-25 05:21:00 2021-10-25 05:21:00 Outpatient Bui_Q_WAGDN U VFP VFP [id number] [facility] 2021-10-25 04:13:00 2021-10-25 04:13:00 Outpatient Bui_Q VFP VFP [id number] [facility] 2021-10-23 02:22:00 2021-10-23 02:22:00 Outpatient Bui_Q VFP VFP [id number] [facility] 2021-10-23 00:00:00 2021-10-23 00:00:00 Warren Rolle MD: [address] [place] [address] , Ph. VFP [place] - [facility] - VM_HOU_[facility] [id number] [facility] 2021-10-12 02:48:00 2021-10-12 02:48:00 Outpatient Bui_Q_WAGDN U VFP VFP [id number] [facility] 2021-10-12 02:48:00 2021-10-12 02:48:00 Outpatient Bui_Q_WAGDN U VFP VFP [id number] [facility] 2021-10-09 07:05:00 2021-10-09 07:05:00 Outpatient Bui_Q VFP VFP [id number] [facility] 2021-10-09 00:00:00 2021-10-09 00:00:00 Warren Rolle MD: [address] [place] [address] , Ph. VFP [place] - [facility] - VM_HOU_[facility] ([place] [id number] [facility] 2021-10-04 02:41:00 2021-10-04 02:41:00 Outpatient Bui_Q_WAGDN U VFP VFP [id number] [facility] 2021-10-03 02:57:00 2021-10-03 02:57:00 Outpatient Bui_Q_WAGDN U VFP VFP [id number] [facility] 2021-09-25 12:55:00 2021-09-25 12:55:00 Outpatient Bui_Q VFP VFP [id number] [facility] 2021-09-25 00:00:00 2021-09-25 00:00:00 Warren Rolle MD: [address] [place] [phone] , Ph. VFP [place] - [facility] [id number] [facility] 2021-09-20 02:46:00 2021-09-20 02:46:00 Outpatient [facility] U VFP VFP [id number] [facility] 2021-09-20 02:46:00 2021-09-20 02:46:00 Outpatient [facility] VFP VFP [id number] [facility] 2021-09-20 02:46:00 2021-09-20 02:46:00 Outpatient [facility] VFP VFP [id number] [facility] 2021-09-12 01:32:00 2021-09-12 01:32:00 Outpatient [facility] VFP VFP [id number] [facility] 2021-09-11 10:04:00 2021-09-11 10:04:00 Outpatient Bui_Q VFP VFP [id number] [facility] 2021-09-11 00:00:00 2021-09-11 00:00:00 Warren Rolle MD: [address] [phone] , Ph. VFP [place] - [facility] - VM_HOU_[facility] ([place]) [id number] [facility] 2021-09-06 12:16:00 2021-09-06 12:16:00 Outpatient [facility] U VFP VFP [id number] [facility] 2021-09-06 12:16:00 2021-09-06 12:16:00 Outpatient [facility] U VFP VFP [id number] [facility] 2021-08-28 05:05:00 2021-08-28 05:05:00 Outpatient Bui_Q VFP VFP [id number] [facility] 2021-08-28 00:00:00 2021-08-28 00:00:00 Warren Rolle MD: [address] [place] [phone] , Ph. VFP [place] - [facility] - VM_HOU_[facility] ([place]) [id number] [facility] 2021-08-23 05:21:00 2021-08-23 05:21:00 Outpatient [facility] VFP VFP [id number] [facility] 2021-08-23 05:21:00 2021-08-23 05:21:00 Outpatient [facility] U VFP VFP [id number] [facility] 2021-08-14 03:45:00 2021-08-14 03:45:00 Outpatient Bui_Q VFP VFP [id number] [facility] 2021-08-14 00:00:00 2021-08-14 00:00:00 Warren Rolle MD: [address] [place] [phone] , Ph. VFP [place] - [facility] - VM_HOU_[facility] ([facility]) [id number] [facility] 2021-08-01 12:14:00 2021-08-01 12:14:00 Outpatient Bui_Q VFP VFP [id number] [facility] 2021-08-01 12:14:00 2021-08-01 12:14:00 Outpatient [facility] VFP VFP [id number] [facility] 2021-07-25 11:47:00 2021-07-25 11:47:00 Outpatient [facility] VFP VFP [id number] [facility] 2021-07-25 00:00:00 2021-07-25 00:00:00 Warren Rolle MD: [address] [address] , [place] [facility] [place] [facility] ([facility]) [id number] [facility] 2021-07-17 14:00:00 2021-07-17 14:00:00 Outpatient PETRA CISNEROS [facility] [id number] [facility] 2021-07-14 05:11:00 2021-07-14 05:11:00 Outpatient Bui_Q VFP VFP [id number] [facility] 2021-07-03 03:02:00 2021-07-03 03:02:00 Outpatient [facility] VFP VFP [id number] [facility] 2021-07-03 00:00:00 2021-07-03 00:00:00 aWrren Rolle MD: [address] [address] , [place]FP [place] [facility] ([facility]) (INACTIVE) [id number] [facility] 2021-06-26 03:50:00 2021-06-26 03:50:00 Outpatient Bui_Q VFP VFP [id number] [facility] 2021-06-26 03:50:00 2021-06-26 03:50:00 Outpatient [facility] VFP VFP [id number] [facility] 2021-06-19 12:52:00 2021-06-19 12:52:00 Outpatient [facility] VFP VFP [id number] [facility] 2021-06-19 00:00:00 2021-06-19 00:00:00 Warren Rolle MD: [address] [place] [phone] , Ph[place]FP [place] - [facility] - [facility] ([place]) [id number] [facility] 2021-06-17 11:56:00 2021-06-17 11:56:00 Outpatient [facility] VFP VFP [id number] [facility] 2021-06-17 00:00:00 2021-06-17 00:00:00 Ngoc Casanova, PATIENT ACCESS: [address] [place] [phone] , Ph. [place]FP [place] - [facility] - [facility] ([place]) [id number] [facility] 2021-06-08 07:02:00 2021-06-08 07:02:00 Outpatient Bui_Q VFP VFP [id number] [facility] 2021-06-08 07:02:00 2021-06-08 07:02:00 Outpatient Bui_Q VFP VFP [id number] [facility] 2021-06-05 11:22:00 2021-06-05 11:22:00 Outpatient [facility] VFP VFP [id number] [facility] 2021-06-05 00:00:00 2021-06-05 00:00:00 Warren Rolle MD: [address] [place] [phone] , [place]FP [place] [facility] ([place]) [id number] [facility] 2021-05-25 09:02:00 2021-05-25 09:02:00 Outpatient Bui_Q VFP VFP [id number] [facility] 2021-05-25 09:02:00 2021-05-25 09:02:00 Outpatient Bui_Q VFP VFP [id number] [facility] 2021-05-22 11:05:00 2021-05-22 11:05:00 Outpatient [facility] VFP VFP [id number] [facility] 2021-05-22 00:00:00 2021-05-22 00:00:00 Warren Rolle MD: [address] [phone] , [place] [facility] ([place]) [id number] [facility] 2021-05-13 05:35:00 2021-05-13 05:35:00 Outpatient [facility] VFP VFP [id number] [facility] 2021-05-13 05:35:00 2021-05-13 05:35:00 Outpatient Bui_Q VFP VFP [id number] [facility] 2021-05-09 03:21:00 2021-05-09 03:21:00 Outpatient [facility] VFP VFP [id number] [facility] 2021-05-09 03:21:00 2021-05-09 03:21:00 Outpatient Bui_Q VFP VFP [id number] [facility] 2021-05-09 00:00:00 2021-05-09 00:00:00 Warren Rolle MD: [address] [address], [place] [address] , [place] [facility] ([place]) [id number] [facility] 2021-04-27 10:42:00 2021-04-27 10:42:00 Outpatient [facility] VFP VFP [id number] [facility] 2021-04-27 10:42:00 2021-04-27 10:42:00 Outpatient Bui_Q VFP VFP [id number] [facility] 2021-04-24 05:45:00 2021-04-24 05:45:00 Outpatient [facility] VFP VFP [id number] [facility] 2021-04-24 00:00:00 2021-04-24 00:00:00 Warren Rolle MD: [address] [place] [phone] , Ph[place]FP [place] [facility] - [facility] ([place]) [id number] [facility] 2021-04-12 04:44:00 2021-04-12 04:44:00 Outpatient [facility] VFP VFP [id number] [facility] 2021-04-12 04:44:00 2021-04-12 04:44:00 Outpatient Bui_Q VFP VFP [id number] [facility] 2021-04-12 04:44:00 2021-04-12 04:44:00 Outpatient Bui_Q VFP VFP [id number] [facility] 2021-04-10 12:56:00 2021-04-10 12:56:00 Outpatient [facility] VFP VFP [id number] [facility] 2021-04-10 00:00:00 2021-04-10 00:00:00 Warren Rolle MD: [address] [phone] , Ph[place]FP [place] - [facility] - [facility] ([place]) [id number] [facility] 2021-03-31 06:46:00 2021-03-31 06:46:00 Outpatient Bui_Q VFP VFP [id number] [facility] 2021-03-27 05:31:00 2021-03-27 05:31:00 Outpatient [facility] VFP VFP [id number] [facility] 2021-03-27 00:00:00 2021-03-27 00:00:00 Warren Rolle MD: [address] [place] [phone] , [place]FP [place] [facility] - [facility] ([place]) [id number] [facility] 2021-03-16 07:30:00 2021-03-16 07:30:00 Outpatient Bui_Q VFP VFP [id number] [facility] 2021-03-16 07:30:00 2021-03-16 07:30:00 Outpatient Bui_Q VFP VFP [id number] [facility] 2021-03-13 03:45:00 2021-03-13 03:45:00 Outpatient [facility] VFP VFP [id number] [facility] 2021-03-13 00:00:00 2021-03-13 00:00:00 Warren Rolle MD: [address] [place] [phone] , Ph[place]FP [place] [facility] - [facility] ([place]) [id number] [facility] 2021-03-01 09:51:00 2021-03-01 09:51:00 Outpatient [facility] VFP VFP [id number] [facility] 2021-03-01 09:51:00 2021-03-01 09:51:00 Outpatient Bui_Q VFP VFP [id number] [facility] 2021-02-27 05:44:00 2021-02-27 05:44:00 Outpatient [facility] VFP VFP [id number] [facility] 2021-02-27 00:00:00 2021-02-27 00:00:00 Warren Rolle MD: [address] [place] [address] [address] , Ph[place]FP [place] - [facility] - [facility] ([place]) [id number] [facility] 2021-02-16 09:18:00 2021-02-16 09:18:00 Outpatient [facility] VFP VFP [id number] [facility] 2021-02-16 09:18:00 2021-02-16 09:18:00 Outpatient Bui_Q VFP VFP [id number] [facility] 2021-02-14 05:41:00 2021-02-14 05:41:00 Outpatient [facility] VFP VFP [id number] [facility] 2021-02-14 00:00:00 2021-02-14 00:00:00 Warren Rolle MD: [address] [place] [phone] , [place] [facility] ([place]) [id number] [facility] 2021-02-03 08:15:00 2021-02-03 08:15:00 Outpatient Bui_Q VFP VFP [id number] [facility] 2021-02-03 08:15:00 2021-02-03 08:15:00 Outpatient Bui_Q VFP VFP [id number] [facility] 2021-01-31 12:56:00 2021-01-31 12:56:00 Outpatient [facility] VFP VFP [id number] [facility] 2021-01-31 00:00:00 2021-01-31 00:00:00 Warren Rolle MD: [address] [place] [phone] , Ph[place]FP [place] [facility] - [facility] ([place]) [id number] [facility] 2021-01-21 02:45:2021-01-21 02:45:00 Outpatient Bui_Q VFP VFP [id number] [facility] 2021-01-19 12:24:00 2021-01-19 12:24:00 Outpatient [facility] VFP VFP [id number] [facility] 2021-01-17 12:22:00 2021-01-17 12:22:00 Outpatient [facility] VFP VFP [id number] [facility] 2021-01-17 00:00:00 2021-01-17 00:00:00 Warren Rolle MD: [address] [place] [phone] , Ph[place]FP [place] [facility] - [facility] ([place]) [id number] [facility] 2021-01-11 02:26:00 2021-01-11 02:26:00 Outpatient [facility] VFP VFP [id number] [facility] 2021-01-11 02:26:00 2021-01-11 02:26:00 Outpatient Bui_Q VFP VFP [id number] [facility] 2021-01-10 08:36:00 2021-01-10 08:36:00 Outpatient Bui_Q VFP VFP [id number] [facility] 2021-01-03 06:40:00 2021-01-03 06:40:00 Outpatient [facility] VFP VFP [id number] [facility] 2021-01-03 00:00:00 2021-01-03 00:00:00 Warren Rolle MD: [address] [phone] , Ph. [place]FP [place] - [facility] - [facility] ([place]) [id number] [facility] 2020-12-31 02:43:00 2020-12-31 02:43:00 Outpatient Bui_Q VFP VFP [id number] [facility] 2020-12-25 01:02:00 2020-12-25 01:02:00 Outpatient Bui_Q VFP VFP [id number] [facility] 2020-12-22 01:43:00 2020-12-22 01:43:00 Outpatient Bui_Q VFP VFP [id number] [facility] 2020-12-20 12:13:00 2020-12-20 12:13:00 Outpatient [facility] VFP VFP [id number] [facility] 2020-12-20 00:00:00 2020-12-20 00:00:00 Warren Rolle MD: [address] [place] [phone] , Ph[place]FP [place] - [facility] - [facility] ([place]) [id number] [facility] 2020-12-09 05:25:00 2020-12-09 05:25:00 Outpatient Bui_Q VFP VFP [id number] [facility] 2020-12-09 05:25:00 2020-12-09 05:25:00 Outpatient [facility] VFP VFP [id number] [facility] 2020-12-06 12:31:00 2020-12-06 12:31:00 Outpatient [facility] VFP VFP [id number] [facility] 2020-12-06 00:00:00 2020-12-06 00:00:00 Warren Rolle MD: [address] [place] [phone] , Ph[place]FP [place] - [facility] - [facility] ([place]) [id number] [facility] 2020-12-02 02:38:00 2020-12-02 02:38:00 Outpatient Bui_Q VFP VFP [id number] [facility] 2020-11-24 12:29:00 2020-11-24 12:29:00 Outpatient [facility] VFP VFP [id number] [facility] 2020-11-22 04:21:00 2020-11-22 04:21:00 Outpatient [facility] VFP VFP [id number] [facility] 2020-11-22 00:00:00 2020-11-22 00:00:00 Warren Rolle MD: [address] [facility], [address], [place] [address] , [place]FP [place] [facility] ([place]) [id number] [facility] 2020-11-20 01:02:00 2020-11-20 01:02:00 Outpatient [facility] VFP VFP [id number] [facility] 2020-11-20 01:02:00 2020-11-20 01:02:00 Outpatient Bui_Q VFP VFP [id number] [facility] 2020-11-14 07:23:00 2020-11-14 07:23:00 Outpatient Bui_Q VFP VFP [id number] [facility] 2020-11-10 10:16:00 2020-11-10 10:16:00 Outpatient Bui_Q VFP VFP [id number] [facility] 2020-11-10 00:00:00 2020-11-10 00:00:00 Warren Rolle MD: [address] [facility], [address], [place] [address] , [place]FP [place] [facility] [id number] [facility] 2020-11-08 10:56:00 2020-11-08 10:56:00 Outpatient [facility] VFP VFP [id number] [facility] 2020-11-08 10:56:00 2020-11-08 10:56:00 Outpatient Bui_Q VFP VFP [id number] [facility] 2020-10-27 04:32:00 2020-10-27 04:32:00 Outpatient [facility] VFP VFP [id number] [facility] 2020-10-27 04:32:00 2020-10-27 04:32:00 Outpatient Bui_Q VFP VFP [id number] [facility] 2020-10-25 05:41:00 2020-10-25 05:41:00 Outpatient [facility] VFP VFP [id number] [facility] 2020-10-25 00:00:00 2020-10-25 00:00:00 Warren Rolle MD: [address] [place] [phone] , Ph[place]FP [place] - [facility] - [facility] ([place]) [id number] [facility] 2020-10-13 02:36:00 2020-10-13 02:36:00 Outpatient [facility] VFP VFP [id number] [facility] 2020-10-13 02:36:00 2020-10-13 02:36:00 Outpatient Bui_Q VFP VFP [id number] [facility] 2020-10-13 02:36:00 2020-10-13 02:36:00 Outpatient Bui_Q VFP VFP [id number] [facility] 2020-10-11 06:18:00 2020-10-11 06:18:00 Outpatient [facility] VFP VFP [id number] [facility] 2020-10-11 00:00:00 2020-10-11 00:00:00 Warren Rolle MD: [address] [place] [phone] , Ph[place]FP [place] - [facility] - [facility] ([place]) [id number] [facility] 2020-10-08 03:55:00 2020-10-08 03:55:00 Outpatient [facility] VFP VFP [id number] [facility] 2020-10-04 07:14:00 2020-10-04 07:14:00 Outpatient Bui_Q VFP VFP [id number] [facility] 2020-10-04 07:14:00 2020-10-04 07:14:00 Outpatient Bui_Q VFP VFP [id number] [facility] 2020-09-29 06:24:00 2020-09-29 06:24:00 Outpatient [facility] VFP VFP [id number] [facility] 2020-09-26 12:00:00 2020-09-26 12:00:00 Outpatient [facility] VFP VFP [id number] [facility] 2020-09-26 00:00:00 2020-09-26 00:00:00 Warren Rolle MD: [address] [place] [phone] , [place]FP [place] - [facility] - [facility] ([facility]) [id number] [facility] 2020-09-14 02:35:00 2020-09-14 02:35:00 Outpatient Bui_Q VFP VFP [id number] [facility] 2020-09-14 02:35:00 2020-09-14 02:35:00 Outpatient [facility] VFP VFP [id number] [facility] 2020-09-12 01:36:00 2020-09-12 01:36:00 Outpatient [facility] VFP VFP [id number] [facility] 2020-09-12 00:00:00 2020-09-12 00:00:00 Warren Rolle MD: [address] [place] [phone] , Ph[place]FP [place] - [facility] - [facility] ([place]) [id number] [facility] 2020-08-31 10:52:00 2020-08-31 10:52:00 Outpatient [facility] VFP VFP [id number] [facility] 2020-08-31 10:52:00 2020-08-31 10:52:00 Outpatient Bui_Q VFP VFP [id number] [facility] 2020-08-29 01:06:00 2020-08-29 01:06:00 Outpatient [facility] VFP VFP [id number] [facility] 2020-08-29 00:00:00 2020-08-29 00:00:00 Warren Rolle MD: [address] [place] [phone] , Ph[place]FP [place] - [facility] [id number] [facility] 2020-08-15 08:14:00 2020-08-15 08:14:00 Outpatient [facility] VFP VFP [id number] [facility] 2020-08-15 08:14:00 2020-08-15 08:14:00 Outpatient Bui_Q VFP VFP [id number] [facility] 2020-08-12 06:13:00 2020-08-12 06:13:00 Outpatient [facility] VFP VFP [id number] [facility] 2020-08-12 00:00:00 2020-08-12 00:00:00 Warren Rolle MD: [address] [phone] , Ph[place]FP [place] - [facility] - [facility] ([place]ESSG) [id number] [facility] 2020-08-02 11:00:00 2020-08-02 11:00:00 Outpatient Bui_Q VFP VFP [id number] [facility] 2020-08-02 11:00:00 2020-08-02 11:00:00 Outpatient [facility] VFP VFP [id number] [facility] 2020-08-02 11:00:00 2020-08-02 11:00:00 Outpatient Bui_Q VFP VFP [id number] [facility] 2020-07-29 03:32:00 2020-07-29 03:32:00 Outpatient [facility] VFP VFP [id number] [facility] 2020-07-29 00:00:00 2020-07-29 00:00:00 Warren Rolle MD: [address] [facility], [address], [place] [address] , Ph. [place]FP [place] - [facility] - [facility] ([place]) [id number] [facility] 2020-07-22 10:19:00 2020-07-22 10:19:00 Outpatient Bui_Q VFP VFP [id number] [facility] 2020-07-22 10:19:00 2020-07-22 10:19:00 Outpatient Bui_Q VFP VFP [id number] [facility] 2020-06-30 09:04:00 2020-06-30 09:04:00 Outpatient [facility] VFP VFP [id number] [facility] 2020-06-27 05:27:00 2020-06-27 05:27:00 Outpatient [facility] VFP VFP [id number] [facility] 2020-06-27 00:00:00 2020-06-27 00:00:00 Marie Cardenas MD: [address] [facility], [address], [place] [address] , Ph. [place]FP [place] - [facility] - [facility] ([place]) [id number] [facility] 2020-06-16 10:16:00 2020-06-16 10:16:00 Outpatient [facility] VFP VFP [id number] [facility] 2020-06-16 10:16:00 2020-06-16 10:16:00 Outpatient Bui_Q VFP VFP [id number] [facility] 2020-06-16 10:16:00 2020-06-16 10:16:00 Outpatient Bui_Q VFP VFP [id number] [facility] 2020-06-13 07:51:00 2020-06-13 07:51:00 Outpatient [facility] VFP VFP [id number] [facility] 2020-06-13 00:00:00 2020-06-13 00:00:00 Warren Rolle MD: [address] [facility] [address], [place] [address] , Ph. VFP [place] - [facility] [id number] [facility] 2020-06-10 02:39:00 2020-06-10 02:39:00 Outpatient [facility] VFP VFP [id number] [facility] 2020-06-01 10:07:00 2020-06-01 10:07:00 Outpatient [facility] VFP VFP [id number] [facility] 2020-06-01 10:07:00 2020-06-01 10:07:00 Outpatient Bui_Q VFP VFP [id number] [facility] 2020-05-31 02:55:00 2020-05-31 02:55:00 Outpatient [facility] VFP VFP [id number] [facility] 2020-05-31 00:00:00 2020-05-31 00:00:00 Warren Rolle MD: [address] [facility] [address], [place] [address] , Ph. VFP [place] - [facility] - [facility] (W[place]) [id number] [facility] 2020-05-17 06:40:00 2020-05-17 06:40:00 Outpatient [facility] VFP VFP [id number] [facility] 2020-05-17 06:40:00 2020-05-17 06:40:00 Outpatient Bui_Q VFP VFP [id number] [facility] 2020-05-16 01:45:00 2020-05-16 01:45:00 Outpatient [facility] VFP VFP [id number] [facility] 2020-05-16 00:00:00 2020-05-16 00:00:00 Warren Rolle MD: [address] [phone] , Ph[place]FP [place] - [facility] [id number] [facility] 2020-05-12 12:48:00 2020-05-12 12:48:00 Outpatient Bui_Q VFP VFP [id number] [facility] 2020-05-12 12:48:00 2020-05-12 12:48:00 Outpatient Bui_Q VFP VFP [id number] [facility] 2020-05-06 09:36:00 2020-05-06 09:36:00 Outpatient [facility] VFP VFP [id number] [facility] 2020-05-03 11:02:00 2020-05-03 11:02:00 Outpatient [facility] VFP VFP [id number] [facility] 2020-05-03 00:00:00 2020-05-03 00:00:00 Warren Rolle MD: [address] [phone] , Ph[place]FP [place] - [facility] - [facility]_HOU_[facility] ([place]) [id number] [facility] 2020-04-22 06:30:00 2020-04-22 06:30:00 Outpatient [facility] VFP VFP [id number] [facility] 2020-04-18 09:49:00 2020-04-18 09:49:00 Outpatient [facility] VFP VFP [id number] [facility] 2020-04-18 09:49:00 2020-04-18 09:49:00 Outpatient Bui_Q VFP VFP [id number] [facility] 2020-04-18 00:00:00 2020-04-18 00:00:00 Warren Rolle MD: [address] [address] , Ph[place]FP [place] - [facility] [id number] [facility] 2020-04-07 01:15:00 2020-04-07 01:15:00 Outpatient [facility] VFP VFP [id number] [facility] 2020-04-06 08:47:00 2020-04-06 08:47:00 Outpatient Bui_Q VFP VFP [id number] [facility] 2020-04-04 04:06:00 2020-04-04 04:06:00 Outpatient [facility] VFP VFP [id number] [facility] 2020-04-04 00:00:00 2020-04-04 00:00:00 Warren Rolle MD: [address] [place] [phone] , [place]FP [place] - [facility] [id number] [facility] 2020-03-22 04:50:00 2020-03-22 04:50:00 Outpatient B[facility] VFP VFP [id number] [facility] 2020-03-22 04:50:00 2020-03-22 04:50:00 Outpatient Bui_Q VFP VFP [id number] [facility] 2020-03-22 04:50:00 2020-03-22 04:50:00 Outpatient Bui_Q VFP VFP [id number] [facility] 2020-03-21 12:42:00 2020-03-21 12:42:00 Outpatient [facility] VFP VFP [id number] [facility] 2020-03-21 00:00:00 2020-03-21 00:00:00 Warren Rolle MD: [address] [place] [phone] , [place]FP [place] - [facility] [id number] [facility] 2020-03-08 10:34:00 2020-03-08 10:34:00 Outpatient B[facility] VFP VFP [id number] [facility] 2020-03-08 10:34:00 2020-03-08 10:34:00 Outpatient Bui_Q VFP VFP [id number] [facility] 2020-03-08 10:34:00 2020-03-08 10:34:00 Outpatient Bui_Q VFP VFP [id number] [facility] 2020-03-07 07:40:00 2020-03-07 07:40:00 Outpatient [facility] VFP VFP [id number] [facility] 2020-03-07 00:00:00 2020-03-07 00:00:00 Warren Rolle MD: [address] [place] [phone] , Ph[place]FP [place] - [facility] - VM_[facility] (WAG) [id number] [facility] 2020-02-24 11:15:00 2020-02-24 11:15:00 Outpatient [facility] VFP VFP [id number] [facility] 2020-02-23 08:33:00 2020-02-23 08:33:00 Outpatient [facility] VFP VFP [id number] [facility] 2020-02-22 10:08:00 2020-02-22 10:08:00 Outpatient [facility] VFP VFP [id number] [facility] 2020-02-22 00:00:00 2020-02-22 00:00:00 Warren Rolle MD: [address] [phone] , Ph[place]FP [place] - [facility] - VM_HOU_[facility] ([place]) [id number] [facility] 2020-02-11 02:41:00 2020-02-11 02:41:00 Outpatient Bui_Q VFP VFP [id number] [facility] 2020-02-11 02:41:00 2020-02-11 02:41:00 Outpatient Bui_Q VFP VFP [id number] [facility] 2020-02-08 10:22:00 2020-02-08 10:22:00 Outpatient [facility]ui[facility] VFP VFP [id number] [facility] 2020-02-08 00:00:00 2020-02-08 00:00:00 Warren Rolle MD: [address] [place] [phone] , Ph. VFP [place] - [facility] - [facility] ([facility]) [id number] [facility] 2020-02-04 11:22:00 2020-02-04 11:22:00 Outpatient Bui_Q VFP VFP [id number] [facility] 2020-01-26 11:23:00 2020-01-26 11:23:00 Outpatient [facility] VFP VFP [id number] [facility] 2020-01-25 11:11:00 2020-01-25 11:11:00 Outpatient [facility] VFP VFP [id number] [facility] 2020-01-25 00:00:00 2020-01-25 00:00:00 Warren Rolle MD: [address] [place] [phone] , Ph. VFP [place] - [facility] - [facility] ([facility]) [id number] [facility] 2020-01-12 01:05:00 2020-01-12 01:05:00 Outpatient [facility] VFP VFP [id number] [facility] 2020-01-12 01:05:00 2020-01-12 01:05:00 Outpatient Bui_Q VFP VFP [id number] [facility] 2020-01-11 08:53:00 2020-01-11 08:53:00 Outpatient [facility] VFP VFP [id number] [facility] 2020-01-11 00:00:00 2020-01-11 00:00:00 Warren Rolle MD: [address] [phone] , Ph. VFP [place] - [facility] - [facility] ([facility]) [id number] [facility] 2020-01-07 11:57:00 2020-01-07 11:57:00 Outpatient [facility] VFP VFP [id number] [facility] 2019-12-31 02:02:00 2019-12-31 02:02:00 Outpatient [facility] VFP VFP [id number] [facility] 2019-12-31 02:02:00 2019-12-31 02:02:00 Outpatient Bui_Q VFP VFP [id number] [facility] 2019-12-29 03:51:00 2019-12-29 03:51:00 Outpatient [facility] VFP VFP [id number] [facility] 2019-12-28 12:31:00 2019-12-28 12:31:00 Outpatient [facility] VFP VFP [id number] [facility] 2019-12-28 00:00:00 2019-12-28 00:00:00 Warren Rolle MD: [address] [phone] , Ph. VFP [place] - [facility] (WAG) [id number] [facility] 2019-12-26 09:55:00 2019-12-26 09:55:00 Outpatient Bui_Q_WAG VFP VFP [id number] [facility] 2019-12-26 09:55:00 2019-12-26 09:55:00 Outpatient Bui_Q VFP VFP [id number] [facility] 2019-12-24 02:38:00 2019-12-24 02:38:00 Outpatient Bui_Q_WAG VFP VFP [id number] [facility] 2019-12-22 01:05:00 2019-12-22 01:05:00 Outpatient Bui_Q VFP VFP [id number] [facility] 2019-12-14 09:11:00 2019-12-14 09:11:00 Outpatient Bui_Q_WAG VFP VFP [id number] [facility] 2019-12-14 00:00:00 2019-12-14 00:00:00 Warren Rolle MD: [address] [place] [address] , Ph. VFP [place] - [facility] - VM_DAVIDU_[facility] (WAG) [id number] [facility] 2019-12-10 12:35:00 2019-12-10 12:35:00 Outpatient Bui_Q VFP VFP [id number] [facility] 2019-12-02 01:54:00 2019-12-02 01:54:00 Outpatient Bui_Q_WAG VFP VFP [id number] [facility] 2019-11-30 11:54:00 2019-11-30 11:54:00 Outpatient Bui_Q_WAG VFP VFP [id number] [facility] 2019-11-30 00:00:00 2019-11-30 00:00:00 Warren Rolle MD: [address] [place] [address] , Ph. VFP [place] - [facility] - VM_HOU_[facility] (WAG) [id number] [facility] 2019-11-26 07:38:00 2019-11-26 07:38:00 Outpatient Bui_Q_WAG VFP VFP [id number] [facility] 2019-11-26 07:38:00 2019-11-26 07:38:00 Outpatient Bui_Q VFP VFP [id number] [facility] 2019-11-18 12:27:00 2019-11-18 12:27:00 Outpatient Bui_Q_WAG VFP VFP [id number] [facility] 2019-11-16 12:41:00 2019-11-16 12:41:00 Outpatient Bui_Q_WAG VFP VFP [id number] [facility] 2019-11-16 00:00:00 2019-11-16 00:00:00 Warren Rolle MD: [address] [address] , Ph. VFP [place] - [facility] - VM_HOU_[facility] (WAG) [id number] [facility] 2019-11-06 04:13:00 2019-11-06 04:13:00 Outpatient Bui_Q VFP VFP [id number] [facility] 2019-11-06 04:13:00 2019-11-06 04:13:00 Outpatient Bui_Q VFP VFP [id number] [facility] 2019-11-02 01:57:00 2019-11-02 01:57:00 Outpatient Bui_Q_WAG VFP VFP [id number] [facility] 2019-11-02 00:00:00 2019-11-02 00:00:00 Warren Rolle MD: [address] [address] , Ph. VFP [place] [facility] - VM_HOU_[facility] (WAG) [id number] [facility] 2019-10-21 02:33:00 2019-10-21 02:33:00 Outpatient Bui_Q_WAG VFP VFP [id number] [facility] 2019-10-21 02:33:00 2019-10-21 02:33:00 Outpatient Bui_Q VFP VFP [id number] [facility] 2019-10-21 02:33:00 2019-10-21 02:33:00 Outpatient Bui_Q VFP VFP [id number] [facility] 2019-10-19 07:45:00 2019-10-19 07:45:00 Outpatient Bui_Q_WAG VFP VFP [id number] [facility] 2019-10-19 00:00:00 2019-10-19 00:00:00 Warren Rolle MD: [address] [place] [address] , Ph. VFP [place] - [facility] - VM_HOU_[facility] (WAG) [id number] [facility] 2019-10-09 03:41:00 2019-10-09 03:41:00 Outpatient Bui_Q VFP VFP [id number] [facility] 2019-10-09 03:41:00 2019-10-09 03:41:00 Outpatient Bui_Q VFP VFP [id number] [facility] 2019-10-05 06:38:00 2019-10-05 06:38:00 Outpatient Bui_Q_WAG VFP VFP [id number] [facility] 2019-10-05 00:00:00 2019-10-05 00:00:00 Warren Rolle MD: [address] [place] [address] , Ph. VFP [place] - [facility] - VM_HOU_[facility] (WAG) [id number] [facility] 2019-09-22 08:03:00 2019-09-22 08:03:00 Outpatient Bui_Q VFP VFP [id number] [facility] 2019-09-21 00:00:00 2019-09-21 00:00:00 Warren Rolle MD: [address] [place] [phone] , Ph. [facility] - [facility] - VM_HOU_[facility] (WAG) [id number] [facility] 2019-09-07 00:00:00 2019-09-07 00:00:00 Warren Rolle MD: [address], [address], [place] [address] , Ph. [facility] - [facility] - VM_HOU_[facility] (WAG) [id number] [facility] 2019-08-24 00:00:00 2019-08-24 00:00:00 Warren Rolle MD: [address], [facility] [address] [address] , Ph. [facility] - VM_HOU_[place] [id number] [facility] 2019-08-10 00:00:00 2019-08-10 00:00:00 Warren Rolle MD: [address], [address], [place] [address] , Ph. [facility] - VM_HOU_[place] [id number] [facility] 2019-07-27 00:00:00 2019-07-27 00:00:00 Warren Rolle MD: [address], [address], [place] [address] , Ph. [facility] - VM_HOU_[place] [id number] [facility] 2019-07-13 00:00:00 2019-07-13 00:00:00 Warren Rolle MD: [address], [address], [place] [address] , Ph. [facility] - VM_HOU_[place] [id number] [facility] 2019-06-29 00:00:00 2019-06-29 00:00:00 Warren Rolle MD: [address], [address], [place] [address] , Ph. VFP [place] - [facility] - VFP-[place] [id number] [facility] 2019-06-15 00:00:00 2019-06-15 00:00:00 Warren Rolle MD: [address], [address], [place] [address] , Ph. [place]FP [place] - [facility] - VFP-[place] [id number] [facility] 2019-06-01 00:00:00 2019-06-01 00:00:00 Warren Rolle MD: [address], [place] [address] , Ph. [place]FP [place] - [facility] - VFP-[place] [id number] [facility] 2019-05-18 00:00:00 2019-05-18 00:00:00 Warren Rolle MD: [address], [place] [address] , Ph. VFP [place] - [facility] - VFP-[place] [id number] [facility] 2019-05-14 15:30:19 2019-05-14 19:49:00 Emergency [facility] [id number] 2019-03-18 00:00:00 2019-03-18 00:00:00 Warren Rolle MD: [address], [place] [address] , Ph. VFP [place] - [facility] - VFP-[place] [id number] [facility] 2019-03-02 00:00:00 2019-03-02 00:00:00 Warren Rolle MD: [address], [place] [address] , Ph. VFP [place] - [facility] - VFP-[place] [id number] [facility] Results Test Description Test Time Test Comments Results Result Co mments Source [facility] (02239)2022-06-06 17:58:50* Test Item Value Reference Range Interpretation Comme nts NA (test code = 9267362884) 138 mmol/L 135-145 K (test code = 5135910873) 4.2 mmol/L 3.5-5 CL (test code = 7606937760) 97 mmol/L 98-108 L CO2 TOTAL (test code = 5918859467) 33 mmol/L 23-31 H AGAP (test code = 6460078295) 2-16 BUN (test code = 5455850899) 14 mg/dL 7-23 GLUCOSE (test code = 8560831374) 92 mg/dL 70-110 CREATININE (test code = 4764581966) 0.87 mg/dL 0.6-1.25 TOTAL BILI (test code = 5545350841) 0.5 mg/dL 0.1-1.1 CALCIUM (test code = 6686120490) 9.4 mg/dL 8.6-10.6 T PROTEIN (test code = 0201604425) 7.4 g/dL 6.3-8.2 ALBUMIN (test code = 4198352176) 4.5 g/dL 3.5-5 ALK PHOS (test code = 7149687615) 90 U/L 34-122 ALTv (test code = 1742-6) 27 U/L 5-50 AST(SGOT) (test code = 6114624938) 29 U/L 13-40 eGFR (test code = 0138254047) mL/min/1.73m2 KHURRAM (test code = KHURRAM) Association of Glomerular Filtration Rate (GFR) and Staging of Kidney Disease* + --+ --+ ------+| GFR (mL/min/1.73 m2) ?| With Kidney Damage ?| ?Without Kidney Damage+ --------+ --------+ +| ?>90 ?| ?Stage one ?| ? Normal ?+ ---+ ---+ -------+| ?60-89 ?| ?Stage two ?| ? Decreased GFR ? + --+ --+ ------+| ?30-59 ?| ?Stage three ?| ? Stage three ? + --+ --+ ------+| ?15-29 ?| ?Stage four ? | ? Stage four ?+ ---+ ---+ -------+| ?<15 (or dialysis) ? ?| ?Stage five ? | ? Stage five ?+ ---+ ---+ -------+ *Each stage assumes the associated GFR level has been in effect for at least three months. ?Stages 1 to 5, with or without kidney disease, indicate chronic kidney disease. Notes: Determination of stages one and two (with eGFR >59mL/min/1.73 m2) requires estimation of kidney damage for at least three months as defined by structural or functional abnormalities of the kidney, manifested by either:Pathological abnormalities or Markers of kidney damage (including abnormalities in the composition of the blood or urine or abnormalities in imaging tests). Lab Interpretation (test code = 18038-2) Abnormal [facility] Hospital[facility] / [id number] 17:55:05* Test Item Value Reference Range Interpretation Comme [facility] PROTIME PATIENT (test code = 5964-2) See_Comment [[employer]] The system which generated this result transmitted reference range: 12.0 - 14.7 Seconds. The reference range was not used to interpret this result as normal/abnormal. INR (test code = 6301-6) Normal INR <1.1; Warfarin Therapeutic range 2.0 to 3.0 or 2.5 to 3.5, depending upon the indications. Lab Interpretation (test code = 52640-2) Normal [facility] WITH [id number] 17:45:08* Test Item Value Reference Range Interpretation Comme [facility] WBC (test code = 6690-2) See_Comment H [Automated [employer]ander (f. [employer])] The system which generated this result transmitted reference range: 4.20 - 10.70 10*3/?L. The reference range was not used to interpret this result as normal/abnormal. RBC (test code = 789-8) See_Comment [[employer]] The system which generated this result transmitted reference range: 4.26 - 5.52 10*6/?L. The reference range was not used to interpret this result as normal/abnormal. HGB (test code = 718-7) 14.9 g/dL 12.2-16.4 HCT (test code = 4544-3) 46.4 % 38.4-49.3 MCV (test code = 787-2) 86.1 fL 81.7-95.6 MCH (test code = 785-6) 27.6 pg 26.1-32.7 MCHC (test code = 786-4) 32.1 g/dL 31.2-35 RDW-SD (test code = 22058-2) 47.0 fL 38.5-51.6 RDW-CV (test code = 788-0) 15.0 % 12.1-15.4 PLT (test code = 777-3) See_Comment [Automated [employer]] The system which generated this result transmitted reference range: 150 - 328 10*3/?L. The reference range was not used to interpret this result as normal/abnormal. MPV (test code = 61269-6) 9.1 fL 9.8-13 L NRBC/100 WBC (test code = 0109916503) See_Comment [[employer]ated [employer] ssage] The system which generated this result transmitted reference range: 0.0 - 10.0 /100 WBCs. The reference range was not used to interpret this result as normal/abnormal. NRBC x10^3 (test code = 0177556718) See_Comment [Automated [employer]] The system which generated this result transmitted reference range: 10*3/?L. The reference range was not used to interpret this result as normal/abnormal. GRAN MAT (NEUT) % (test code = 770-8) 71.4 % IMM GRAN % (test code = 9376203742) 0.40 % LYMPH % (test code = 736-9) 20.1 % MONO % (test code = 5905-5) 6.2 % EOS % (test code = 713-8) 1.3 % BASO % (test code = 706-2) 0.6 % GRAN MAT x10^3(ANC) (test code = 7469236825) 7.97 10*3/uL 1.99-6.95 H IMM GRAN x10^3 (test code = 6343099804) 0.04 10*3/uL 0-0.06 LYMPH x10^3 (test code = 731-0) 2.24 10*3/uL 1.09-3.23 MONO x10^3 (test code = 742-7) 0.69 10*3/uL 0.36-1.02 EOS x10^3 (test code = 711-2) 0.14 10*3/uL 0.06-0.53 BASO x10^3 (test code = 704-7) 0.07 10*3/uL 0.01-0.09 Lab Interpretation (test code = 64286-9) Abnormal [facility] HospitalNoninvasive colorectal cancer DNA and occult blood screening [Presence] in [id number] 12:42:00* Test Item Value Reference Range Interpretation Comme nts cologuard result reportable (test code = cologuard result reportable) negative negative [facility] cancer DNA and occult blood screening [Presence] in [id number] 12:42:00* Test Item Value Reference Range Interpretation Comme nts cologuard result reportable (test code = cologuard result reportable) negative negative [facility] HospitalAmylase [Enzymatic activity/volume] in Serum or Plasma 2022-05-04 00:00:00* Test Item Value Reference Range Interpretation Comme [facility] amylase (test code = amylase) 46 U/L 31-110 [facility] [Enzymatic activity/volume] in Serum or Plasma 2022-05-04 00:00:00* Test Item Value Reference Range Interpretation Comme [facility] lipase (test code = lipase) 18 U/L 13-78 [facility] HospitalCB W Auto Differential panel - [id number] 00:00:00 * Test Item Value Reference Range Interpretation Comme nts WBC (test code = WBC) 10.45 x10*3/?L 4.00-11.00 RBC (test code = RBC) 5.48 10*12/L 4.63-6.08 hemoglobin (test code = hemoglobin) 15.00 g/dL 13.70-17.50 hematocrit (test code = hematocrit) 48.7 % 40.1-51.0 MCV (test code = MCV) 88.9 fL 80.0-100.0 MCH (test code = MCH) 27.4 pg 25.7-32.2 MCHC (test code = MCHC) 30.8 g/dL 32.3-36.5 L RDW-SD (test code = RDW-SD) 46.2 fL 35.1-43.9 H platelet count (test code = platelet count) 297.0 k/uL 150.0-400.0 MPV (test code = MPV) 10.0 fL 7.5-11.5 neut% (test code = neut%) 63.1 % 34.0-67.9 lymph% (test code = lymph%) 26.2 % 21.8-53.1 mon% (test code = mon%) 6.3 % 5.3-12.2 eos% (test code = eos%) 3.3 % 0.8-7.0 baso% (test code = baso%) 0.7 % 0.2-1.2 neut# (test code = neut#) 6.6 x10*3/?L 1.8-5.4 H lymph# (test code = lymph#) 2.7 x10*3/?L 1.3-3.6 mon# (test code = mon#) 0.7 x10*3/?L 0.3-0.8 eos# (test code = eos#) 0.34 x10*3/?L 0.04-0.54 baso# (test code = baso#) 0.07 x10*3/?L 0.01-0.08 [facility] HospitalPSA, serum or [id number] 00:00:00* Test Item Value Reference Range Interpretation Comme nts PSA, total (test code = PSA, total) 0.49 NG/mL <4.00 [facility] HospitalLip[facility] 1996 panel - Serum or [id number] 00:00:00* Test Item Value Reference Range Interpretation Comme nts HDL (test code = HDL) 37 mg/dL L triglyceride (test code = triglyceride) 373 mg/dL <150 H VLDL (calculated) (test code = VLDL (calculated)) 75 mg/dL cholesterol/HDL ratio (test code = cholesterol/HDL ratio) 6.7 mg/dL non-HDL cholesterol (calcula rogers) (test code = non-HDL cholesterol (calculated)) 212 mg/dL <160 H cholesterol (test code = cholesterol) 249 mg/dL <200 H Cholesterol in LDL [Mass/vol ume] in Serum or Plasma (test code = 2089-1) 137 mg/dL <130 H [facility] HospitalThyrotropin [Units/volume] in Serum or [id number] 00:00:00* Test Item Value Reference Range Interpretation Comme [facility] TSH (test code = TSH) 3.892 uIU/mL 0.350-4.940 [facility] HospitalCom[facility] 2000 panel - Serum or Plasma 2022-05-04 00:00:00* Test Item Value Reference Range Interpretation Comme nts ALT (test code = ALT) 32 U/L 0-55 AST (test code = AST) 25 U/L 5-34 BUN (test code = BUN) 11.2 mg/dL 8.4-25.0 alk phos (test code = alk phos) 103 unit/L 40-150 glucose (test code = glucose) 110 mg/dL 70-99 H albumin (test code = albumin) 3.9 g/dL 3.4-5.1 creatinine (test code = creatinine) 0.77 mg/dL 0.72-1.25 eGFR non- (t est code = eGFR non-) >60 total bilirubin (test code = total bilirubin) 0.4 mg/dL 0.2-1.2 eGFR - (nils t code = eGFR - ) >60 sodium (test code = sodium) 140 mEq/L 135-145 potassium (test code = potassium) 4.4 mEq/L 3.5-5.3 chloride (test code = chloride) 97 mmol/L 98-110 L total protein (test code = t otal protein) 7.6 g/dL 6.1-8.2 calcium (test code = calcium) 9.9 mg/dL 8.4-10.4 CO2 (test code = CO2) 32.5 mmol/L 20.0-32.0 H anion gap (test code = anion gap) 11 calc [facility] HospitalHemoglobin A1c/Hemoglobin.total in [id number] 00:00:00* Test Item Value Reference Range Interpretation Comme nts Hemoglobin A1c/Hemoglobin.to nicole in Blood (test code = 4548-4) 6.4 % 1.0-5.7 H average blood glucose (calcu lation) (test code = average blood glucose (calculation)) 137 mg/dL [facility] HospitalAmylase [Enzymatic activity/volume] in Serum or Plasma 2022-05-04 00:00:00* Test Item Value Reference Range Interpretation Comme [facility] amylase (test code = amylase) 46 U/L 31-110 [facility] HospitalLipase [Enzymatic activity/volume] in Serum or Plasma 2022-05-04 00:00:00* Test Item Value Reference Range Interpretation Comme [facility] lipase (test code = lipase) 18 U/L 13-78 [facility] HospitalCB W Auto Differential panel - [id number] 00:00:00 * Test Item Value Reference Range Interpretation Comme [facility] WBC (test code = WBC) 10.45 x10*3/?L 4.00-11.00 RBC (test code = RBC) 5.48 10*12/L 4.63-6.08 hemoglobin (test code = hemoglobin) 15.00 g/dL 13.70-17.50 hematocrit (test code = hematocrit) 48.7 % 40.1-51.0 MCV (test code = MCV) 88.9 fL 80.0-100.0 MCH (test code = MCH) 27.4 pg 25.7-32.2 MCHC (test code = MCHC) 30.8 g/dL 32.3-36.5 L RDW-SD (test code = RDW-SD) 46.2 fL 35.1-43.9 H platelet count (test code = platelet count) 297.0 k/uL 150.0-400.0 MPV (test code = MPV) 10.0 fL 7.5-11.5 neut% (test code = neut%) 63.1 % 34.0-67.9 lymph% (test code = lymph%) 26.2 % 21.8-53.1 mon% (test code = mon%) 6.3 % 5.3-12.2 eos% (test code = eos%) 3.3 % 0.8-7.0 baso% (test code = baso%) 0.7 % 0.2-1.2 neut# (test code = neut#) 6.6 x10*3/?L 1.8-5.4 H lymph# (test code = lymph#) 2.7 x10*3/?L 1.3-3.6 mon# (test code = mon#) 0.7 x10*3/?L 0.3-0.8 eos# (test code = eos#) 0.34 x10*3/?L 0.04-0.54 baso# (test code = baso#) 0.07 x10*3/?L 0.01-0.08 [facility] HospitalPSA, serum or [id number] 00:00:00* Test Item Value Reference Range Interpretation Comme [facility] PSA, total (test code = PSA, total) 0.49 NG/mL <4.00 [facility] HospitalLipid 1995 panel - Serum or [id number] 00:00:00* Test Item Value Reference Range Interpretation Comme [facility] HDL (test code = HDL) 37 mg/dL L triglyceride (test code = triglyceride) 373 mg/dL <150 H VLDL (calculated) (test code = VLDL (calculated)) 75 mg/dL cholesterol/HDL ratio (test code = cholesterol/HDL ratio) 6.7 mg/dL non-HDL cholesterol (calcula rogers) (test code = non-HDL cholesterol (calculated)) 212 mg/dL <160 H cholesterol (test code = cholesterol) 249 mg/dL <200 H Cholesterol in LDL [Mass/vol ume] in Serum or Plasma (test code = 2089-1) 137 mg/dL <130 H [facility] HospitalThyrotropin [Units/volume] in Serum or [id number] 00:00:00* Test Item Value Reference Range Interpretation Comme [facility] TSH (test code = TSH) 3.892 uIU/mL 0.350-4.940 [facility] HospitalCom[facility] 1999 panel - Serum or Plasma 2022-05-04 00:00:00* Test Item Value Reference Range Interpretation Comme [facility] ALT (test code = ALT) 32 U/L 0-55 AST (test code = AST) 25 U/L 5-34 BUN (test code = BUN) 11.2 mg/dL 8.4-25.0 alk phos (test code = alk phos) 103 unit/L 40-150 glucose (test code = glucose) 110 mg/dL 70-99 H albumin (test code = albumin) 3.9 g/dL 3.4-5.1 creatinine (test code = creatinine) 0.77 mg/dL 0.72-1.25 eGFR non- (t est code = eGFR non-) >60 total bilirubin (test code = total bilirubin) 0.4 mg/dL 0.2-1.2 eGFR - (nils t code = eGFR - ) >60 sodium (test code = sodium) 140 mEq/L 135-145 potassium (test code = potassium) 4.4 mEq/L 3.5-5.3 chloride (test code = chloride) 97 mmol/L 98-110 L total protein (test code = t otal protein) 7.6 g/dL 6.1-8.2 calcium (test code = calcium) 9.9 mg/dL 8.4-10.4 CO2 (test code = CO2) 32.5 mmol/L 20.0-32.0 H anion gap (test code = anion gap) 11 [facility].total in [id number] 00:00:00* Test Item Value Reference Range Interpretation Comme [facility] Hemoglobin A1c/Hemoglobin.to nicole in Blood (test code = 4548-4) 6.4 % 1.0-5.7 H average blood glucose (calcu lation) (test code = average blood glucose (calculation)) 137 mg/dL [facility] W Auto Differential panel - [id number] 00:00:00 * Test Item Value Reference Range Interpretation Comme nts white blood cell count (test code = white blood cell count) 10.3 thousand/uL 3.8-10.8 red blood cell count (test code = red blood cell count) 5.47 million/uL 4.20-5.80 hemoglobin (test code = hemoglobin) 15.2 g/dL [...] 7.5-12.5 absolute neutrophils (test code = absolute neutrophils) 6757 cells/uL 9955-4235 absolute lymphocytes (test code = absolute lymphocytes) 2647 cells/uL 850-3900 absolute monocytes (test code = absolute monocytes) 649 cells/uL 200-950 absolute eosinophils (test code = absolute eosinophils) 175 cells/uL 15-500 absolute basophils (test code = absolute basophils) 72 cells/uL 0-200 neutrophils (test code = neutrophils) 65.6 % lymphocytes (test code = lymphocytes) 25.7 % monocytes (test code = monocytes) 6.3 % eosinophils (test code = eosinophils) 1.7 % basophils (test code = basophils) 0.7 % [facility]Com[facility] 2000 panel - Serum or Plasma 2021-05-11 00:00:00* Test Item Value Reference Range Interpretation Comme nts ALT (test code = ALT) 23 U/L 0-55 AST (test code = AST) 16 U/L 5-34 BUN (test code = BUN) 12.8 mg/dL 8.4-25.0 alk phos (test code = alk phos) 104 unit/L 40-150 glucose (test code = glucose) 86 mg/dL 70-99 albumin (test code = albumin) 3.9 g/dL 3.4-5.1 creatinine (test code = creatinine) 0.83 mg/dL 0.72-1.25 eGFR non- (t est code = eGFR non-) >60 total bilirubin (test code = total bilirubin) 0.3 mg/dL 0.2-1.2 eGFR - (nils t code = eGFR - ) >60 sodium (test code = sodium) 140 mEq/L 135-145 potassium (test code = potassium) 4.8 mEq/L 3.5-5.3 chloride (test code = chloride) 98 mmol/L 98-110 total protein (test code = t otal protein) 7.7 g/dL 6.1-8.2 calcium (test code = calcium) 9.8 mg/dL 8.4-10.4 CO2 (test code = CO2) 29.7 mmol/L 20.0-32.0 anion gap (test code = anion gap) 12 calc [facility]CBC W Auto Differential panel - [id number] 00:00:00 * Test Item Value Reference Range Interpretation Comme nts white blood cell count (test code = white blood cell count) 10.3 thousand/uL 3.8-10.8 red blood cell count (test code = red blood cell count) 5.47 million/uL 4.20-5.80 hemoglobin (test code = hemoglobin) 15.2 g/dL [...] 7.5-12.5 absolute neutrophils (test code = absolute neutrophils) 6757 cells/uL 8577-4001 absolute lymphocytes (test code = absolute lymphocytes) 2647 cells/uL 850-3900 absolute monocytes (test code = absolute monocytes) 649 cells/uL 200-950 absolute eosinophils (test code = absolute eosinophils) 175 cells/uL 15-500 absolute basophils (test code = absolute basophils) 72 cells/uL 0-200 neutrophils (test code = neutrophils) 65.6 % lymphocytes (test code = lymphocytes) 25.7 % monocytes (test code = monocytes) 6.3 % eosinophils (test code = eosinophils) 1.7 % basophils (test code = basophils) 0.7 % [facility]Com[facility] 2000 panel - Serum or Plasma 2021-05-11 00:00:00* Test Item Value Reference Range Interpretation Comme nts ALT (test code = ALT) 23 U/L 0-55 AST (test code = AST) 16 U/L 5-34 BUN (test code = BUN) 12.8 mg/dL 8.4-25.0 alk phos (test code = alk phos) 104 unit/L 40-150 glucose (test code = glucose) 86 mg/dL 70-99 albumin (test code = albumin) 3.9 g/dL 3.4-5.1 creatinine (test code = creatinine) 0.83 mg/dL 0.72-1.25 eGFR non- (t est code = eGFR non-) >60 total bilirubin (test code = total bilirubin) 0.3 mg/dL 0.2-1.2 eGFR - (nils t code = eGFR - ) >60 sodium (test code = sodium) 140 mEq/L 135-145 potassium (test code = potassium) 4.8 mEq/L 3.5-5.3 chloride (test code = chloride) 98 mmol/L 98-110 total protein (test code = t otal protein) 7.7 g/dL 6.1-8.2 calcium (test code = calcium) 9.8 mg/dL 8.4-10.4 CO2 (test code = CO2) 29.7 mmol/L 20.0-32.0 anion gap (test code = anion gap) 12 [facility] or [id number] 00:00:00* Test Item Value Reference Range Interpretation Comme nts HDL (test code = HDL) 48 mg/dL triglyceride (test code = triglyceride) 272 mg/dL <150 H VLDL (calculated) (test code = VLDL (calculated)) 54 mg/dL cholesterol/HDL ratio (test code = cholesterol/HDL ratio) 5.7 mg/dL non-HDL cholesterol (calcula rogers) (test code = non-HDL cholesterol (calculated)) 225 mg/dL <160 H cholesterol (test code = cholesterol) 273 mg/dL <200 H Cholesterol in LDL [Mass/vol ume] in Serum or Plasma (test code = 2089-1) 171 mg/dL <130 H [facility]Units/volume] in Serum or [id number] 00:00:00* Test Item Value Reference Range Interpretation Comme nts TSH (test code = TSH) 2.979 uIU/mL 0.350-4.940 [facility], serum or [id number] 00:00:00* Test Item Value Reference Range Interpretation Comme nts PSA, total (test code = PSA, total) 0.46 NG/mL <4.00 [facility]Hem[facility] A1c/Hemoglobin.total in [id number] 00:00:00* Test Item Value Reference Range Interpretation Comme nts Hemoglobin A1c/Hemoglobin.to nicole in Blood (test code = 4548-4) 5.9 % 1.0-5.7 H average blood glucose (calcu lation) (test code = average blood glucose (calculation)) 123 mg/dL [facility] 1996 panel - Serum or [id number] 00:00:00* Test Item Value Reference Range Interpretation Comme nts HDL (test code = HDL) 48 mg/dL triglyceride (test code = triglyceride) 272 mg/dL <150 H VLDL (calculated) (test code = VLDL (calculated)) 54 mg/dL cholesterol/HDL ratio (test code = cholesterol/HDL ratio) 5.7 mg/dL non-HDL cholesterol (calcula rogers) (test code = non-HDL cholesterol (calculated)) 225 mg/dL <160 H cholesterol (test code = cholesterol) 273 mg/dL <200 H Cholesterol in LDL [Mass/vol ume] in Serum or Plasma (test code = 2089-1) 171 mg/dL <130 H [facility]Thy[facility]in [Units/volume] in Serum or [id number] 00:00:00* Test Item Value Reference Range Interpretation Comme nts TSH (test code = TSH) 2.979 uIU/mL 0.350-4.940 [facility], serum or [id number] 00:00:00* Test Item Value Reference Range Interpretation Comme nts PSA, total (test code = PSA, total) 0.46 NG/mL <4.00 [facility] HospitalHem[facility] A1c/Hemoglobin.total in [id number] 00:00:00* Test Item Value Reference Range Interpretation Comme nts Hemoglobin A1c/Hemoglobin.to nicole in Blood (test code = 4548-4) 5.9 % 1.0-5.7 H average blood glucose (calcu lation) (test code = average blood glucose (calculation)) 123 mg/dL [facility]CB W Auto Differential panel - [id number] 00:00:00 * Test Item Value Reference Range Interpretation Comme [...] (test code = platelet count) 278.0 k/uL 163.0-337.0 MPV (test code = MPV) 10.1 fL [...] (test code = baso#) 0.07 x10*3/?L 0.01-0.08 [facility] PracticeComprehensive metabolic 2000 panel - Serum or Plasma 2020-05-13 00:00:00* Test Item Value Reference Range Interpretation Comme nts ALT (test code = ALT) 22 U/L 0-55 AST (test code = AST) 17 U/L 5-34 BUN (test code = BUN) 12.3 mg/dL 8.4-25.0 alk phos (test code = alk phos) 103 unit/L 40-150 glucose (test code = glucose) 96 mg/dL 70-99 albumin (test code = albumin) 3.8 g/dL 3.4-5.1 creatinine (test code = creatinine) 0.79 mg/dL 0.72-1.25 eGFR non- (t est code = eGFR non-) >60 total bilirubin (test code = total bilirubin) 0.3 mg/dL 0.2-1.2 eGFR - (nils t code = eGFR - ) >60 sodium (test code = sodium) 139 mEq/L 135-145 potassium (test code = potassium) 4.4 mEq/L 3.5-5.3 chloride (test code = chloride) 99 mmol/L 98-110 total protein (test code = t otal protein) 7.2 g/dL 6.1-8.2 calcium (test code = calcium) 9.8 mg/dL 8.6-10.4 CO2 (test code = CO2) 33.7 mmol/L 20.0-32.0 H anion gap (test code = anion gap) 6 calc [facility]Lip[facility] 1996 panel - Serum or [id number] 00:00:00* Test Item Value Reference Range Interpretation Comme nts HDL (test code = HDL) 43 mg/dL triglyceride (test code = triglyceride) 305 mg/dL <150 H VLDL (calculated) (test code = VLDL (calculated)) 61 mg/dL cholesterol/HDL ratio (test code = cholesterol/HDL ratio) 6.3 mg/dL non-HDL cholesterol (calcula rogers) (test code = non-HDL cholesterol (calculated)) 228 mg/dL <160 H cholesterol (test code = cholesterol) 271 mg/dL <200 H Cholesterol in LDL [Mass/vol ume] in Serum or Plasma (test code = 2089-1) 167 mg/dL <130 H [facility] HospitalThyrotropin [Units/volume] in Serum or [id number] 00:00:00* Test Item Value Reference Range Interpretation Comme nts TSH (test code = TSH) 2.328 uIU/mL 0.350-4.940 [facility] HospitalPS[facility], serum or [id number] 00:00:00* Test Item Value Reference Range Interpretation Comme nts PSA, total (test code = PSA, total) 0.33 NG/mL <4.00 [facility] HospitalHemoglobin A1c/Hemoglobin.total in [id number] 00:00:00* Test Item Value Reference Range Interpretation Comme [facility] Hemoglobin A1c/Hemoglobin.to nicole in Blood (test code = 4548-4) 5.9 % 1.0-5.7 H average blood glucose (calcu lated) (test code = average blood glucose (calculated)) 123 mg/dL [facility] W Auto Differential panel - [id number] 00:00:00 * Test Item Value Reference Range Interpretation Comme [...] (test code = platelet count) 278.0 k/uL 163.0-337.0 MPV (test code = MPV) 10.1 fL [...] (test code = baso#) 0.07 x10*3/?L 0.01-0.08 [facility] HospitalCom[facility] 1999 panel - Serum or Plasma 2020-05-13 00:00:00* Test Item Value Reference Range Interpretation Comme nts ALT (test code = ALT) 22 U/L 0-55 AST (test code = AST) 17 U/L 5-34 BUN (test code = BUN) 12.3 mg/dL 8.4-25.0 alk phos (test code = alk phos) 103 unit/L 40-150 glucose (test code = glucose) 96 mg/dL 70-99 albumin (test code = albumin) 3.8 g/dL 3.4-5.1 creatinine (test code = creatinine) 0.79 mg/dL 0.72-1.25 eGFR non- (t est code = eGFR non-) >60 total bilirubin (test code = total bilirubin) 0.3 mg/dL 0.2-1.2 eGFR - (nils t code = eGFR - ) >60 sodium (test code = sodium) 139 mEq/L 135-145 potassium (test code = potassium) 4.4 mEq/L 3.5-5.3 chloride (test code = chloride) 99 mmol/L 98-110 total protein (test code = t otal protein) 7.2 g/dL 6.1-8.2 calcium (test code = calcium) 9.8 mg/dL 8.6-10.4 CO2 (test code = CO2) 33.7 mmol/L 20.0-32.0 H anion gap (test code = anion gap) 6 calc [facility] Hospital[facility] 1995 panel - Serum or [id number] 00:00:00* Test Item Value Reference Range Interpretation Comme nts HDL (test code = HDL) 43 mg/dL triglyceride (test code = triglyceride) 305 mg/dL <150 H VLDL (calculated) (test code = VLDL (calculated)) 61 mg/dL cholesterol/HDL ratio (test code = cholesterol/HDL ratio) 6.3 mg/dL non-HDL cholesterol (calcula rogers) (test code = non-HDL cholesterol (calculated)) 228 mg/dL <160 H cholesterol (test code = cholesterol) 271 mg/dL <200 H Cholesterol in LDL [Mass/vol ume] in Serum or Plasma (test code = 2089-1) 167 mg/dL <130 H [facility] HospitalThyrotropin [Units/volume] in Serum or [id number] 00:00:00* Test Item Value Reference Range Interpretation Comme [facility] TSH (test code = TSH) 2.328 uIU/mL 0.350-4.940 [facility] HospitalPS[facility], serum or [id number] 00:00:00* Test Item Value Reference Range Interpretation Comme [facility] PSA, total (test code = PSA, total) 0.33 NG/mL <4.00 [facility] HospitalHemoglobin A1c/Hemoglobin.total in [id number] 00:00:00* Test Item Value Reference Range Interpretation Comme [facility] Hemoglobin A1c/Hemoglobin.to nicole in Blood (test code = 4548-4) 5.9 % 1.0-5.7 H average blood glucose (calcu lated) (test code = average blood glucose (calculated)) 123 mg/dL [facility] HospitalTriiodothyronine (T3) [Mass/volume] in Serum or Plasma 2019-05-19 00:00:00* Test Item Value Reference Range Interpretation Comme [facility] T3, total (test code = T3, total) 114 NG/dL 76-181 [facility] HospitalThyroxine (T4) free [Mass/volume] in Serum or Plasma 2019-05-19 00:00:00* Test Item Value Reference Range Interpretation Comme [facility] T4 free (test code = T4 free) 1.12 NG/dL 0.70-1.48 [facility] HospitalThyrotropin [Units/volume] in Serum or [id number] 00:00:00* Test Item Value Reference Range Interpretation Comme [facility] TSH (test code = TSH) 3.825 uIU/mL 0.350-4.940 [facility] HospitalTriiodothyronine (T3) [Mass/volume] in Serum or Plasma 2019-05-19 00:00:00* Test Item Value Reference Range Interpretation Comme [facility] T3, total (test code = T3, total) 114 NG/dL 76-181 [facility] HospitalThyroxine (T4) free [Mass/volume] in Serum or Plasma 2019-05-19 00:00:00* Test Item Value Reference Range Interpretation Comme [facility] T4 free (test code = T4 free) 1.12 NG/dL 0.70-1.48 [facility] HospitalThyrotropin [Units/volume] in Serum or [id number] 00:00:00* Test Item Value Reference Range Interpretation Comme [facility] TSH (test code = TSH) 3.825 uIU/mL 0.350-4.940 [facility]"
[2024-04-27] MEDS ORDERED: methocarbamoL 750 MG TAB ONE (04:25)
[2024-04-27] MEDS ORDERED: HYDROCODONE/APAP 5/325 MG TAB ONE (04:25)
--- NOTE | 2024-04-27 05:54 | EDPHYS ---
Physician Documentation [facility] Name: Kingston Harris Age: 58 yrs Sex: Male : 1965 Arrival Date: 04/27/2024 Time: 04:13 Bed 8 Private MD: ED Physician Adalberto Fung HPI: 04/27 04:20 This 58 yrs old Unknown Male presents to ER via Unassigned with complaints of right sp4 knee pain . 04:20 Right knee injury . sp4 Historical: - Allergies: 04:23 Erythromycin; jm12 - PMHx: 04:23 Anxiety; Chronic pain; COPD; Degenerative disc disease; Hypertension; psoriasis; jm12 - PSHx: 04:23 heart cath; jm12 - Immunization history:: Adult Immunizations up to date. - Infectious Disease History:: Denies. - Social history:: Smoking status: Patient denies any tobacco usage or history of. - Family history:: not pertinent. ROS: 05:55 Constitutional: Negative for fever, chills, and weight loss, positive R knee pain sp4 05:55 All other systems are negative, Exam: 05:55 Constitutional: This is a well developed, well nourished patient who is awake, alert, sp4 and in no acute distress. Positive for extensive psoriatic rash Head/Face: Normocephalic, atraumatic. Eyes: Pupils equal round and reactive to light, extra-ocular motions intact. Lids and lashes normal. Conjunctiva and sclera are not injected. Cornea within normal limits. Periorbital areas with no swelling, redness, or edema. ENT: Nares patent. No nasal discharge, no septal abnormalities noted. Tympanic membranes are normal and external auditory canals are clear. Oropharynx with no redness, swelling, or masses, exudates, or evidence of obstruction, uvula midline. Mucous membranes moist. Neck: Trachea midline, no thyromegaly or masses palpated, and no cervical lymphadenopathy. Supple, full range of motion without nuchal rigidity, or vertebral point tenderness. Chest/axilla: Normal chest wall appearance and motion. Nontender with no deformity. No lesions are appreciated. Cardiovascular: Regular rate and rhythm with a normal S1 and S2. No gallops, murmurs, or rubs. Normal PMI, no JVD. No pulse deficits. Respiratory: Lungs have equal breath sounds bilaterally, clear to auscultation and percussion. No rales, rhonchi or wheezes noted. No increased work of breathing, no retractions or nasal flaring. Abdomen/GI: Soft, with normal bowel sounds. No distension or tympany. No guarding or rebound. No evidence of tenderness throughout. Back: No spinal tenderness. No costovertebral tenderness. Skin: Warm, dry with normal turgor. Normal color with extensive psoriatic skin changes MS/ Extremity: Pulses equal, no cyanosis. Neurovascular intact. Full, normal range of motion. Positive for posterior knee tenderness without swelling or effusion. Neuro: Awake and alert, GCS 15, oriented to person, place, time, and situation. Cranial nerves II-XII grossly intact. Motor strength 5/5 in all extremities. Sensory grossly intact. Psych: Awake, alert, with orientation to person, place and time. Behavior, mood, and affect are within normal limits Vital Signs: 04:22 BP 120 / 78; Pulse 83; Resp 16; Temp 98.6; Pulse Ox 100% ; Weight 73.03 kg; Height 6 jm12 ft. 0 in. ; Pain 5/10; 05:26 BP 173 / 81; Pulse 67; Resp 16; Pulse Ox 100% ; jm12 04:22 Body Mass Index 21.84 (73.03 kg, 182.88 cm) [facility] 04:22 Pain Scale: Adult [facility] MDM: 04:22 Patient medically screened. sp4 05:50 ED course: EXAM DESCRIPTION: KNEE RIGHT 3 VIEW CLINICAL HISTORY: Right knee pain. sp4 COMPARISON: None. FINDINGS: 3 views of the right knee. No acute fracture or dislocation. Osteopenia. 3 compartment joint space narrowing and marginal osteophytosis. No joint effusion. IMPRESSION: 1. No acute fracture or dislocation. 2. 3 compartment osteoarthritic change. Electronically signed by: Refugio Madison DO 04/27/2024 05:27 AM. 05:55 Differential Diagnosis Right knee sprain, right knee contusion, right knee effusion. sp4 Data reviewed: vital signs, nurses notes, radiologic studies, plain films. ED course: And was advised to limit weightbearing for 2 weeks with use of knee immobilizer and crutches. Stable for discharge home with follow-up with zinc skimmer. 08/05 04:21 Order name: Knee Right 3 View XRAY sp4 04/27 05:51 Order name: Knee Immobilizer sp4 04/27 05:51 Order name: Crutches sp4 Administered Medications: 04:31 Drug: HYDROcodone-acetaminophen PO 5 mg-325 mg 2 tabs PO once Route: PO; jw7 04:31 Drug: Methocarbamol PO 750 mg PO once Route: PO; jw7 Disposition Summary: 04/27/24 05:54 Discharge Ordered Problem: new sp4 Symptoms: have improved sp4 Condition: Stable sp4 Diagnosis - Sprain of other specified parts of right knee sp4 Followup: sp4 - With: Private Physician - When: 7 - 10 days - Reason: Recheck today's complaints Discharge Instructions: - Discharge Summary Sheet sp4 - Knee Sprain, Adult, Doey-it-Fjry sp4 Forms: - Patient Portal Instructions sp4 Prescriptions: - Ibuprofen 800 mg Oral Tablet - take 1 tablet ORAL route every 8 hours As needed take with food; 30 tablet; sp4 Refills: 0, Product Selection Permitted Signatures: [facility] Devi Chen RN RN jw7 Adalberto Fung MD MD sp4 Lurdes Trivedi RN RN jm12 Corrections: (The following items were deleted from the chart) 04:22 04:22 Knee Right 3 View+RAD.RAD.BRZ ordered. EDAR EDMS
--- NOTE | 2024-04-27 05:54 | ER ---
Nurse's Notes [facility] Name: Kingston Harris Age: 58 yrs Sex: Male : 1965 Arrival Date: 04/27/2024 Time: 04:13 Bed 8 Private MD: Diagnosis: Sprain of other specified parts of right knee Presentation: 04/27 04:22 Chief complaint: Patient states: knee pain. Coronavirus screen: At this time, the [facility] client does not indicate any symptoms associated with coronavirus-19. Ebola Screen: No symptoms or risks identified at this time. Initial Sepsis Screen: Does the patient meet any 2 criteria? No. Patient's initial sepsis screen is negative. Does the patient have a suspected source of infection? No. Patient's initial sepsis screen is negative. Risk Assessment: Do you want to hurt yourself or someone else? Patient reports no desire to harm self or others. Onset of symptoms was April 27, 2024. 04:22 Method Of Arrival: EMS: [facility] 04:22 Acuity: SHANTE 4 [facility] Triage Assessment: 04:24 General: Appears in no apparent distress. Behavior is calm, cooperative. Pain: [facility] Complains of pain in right leg. Historical: - Allergies: 04:23 Erythromycin; [facility] - PMHx: 04:23 Anxiety; Chronic pain; COPD; Degenerative disc disease; Hypertension; psoriasis; [facility] - PSHx: 04:23 heart cath; [facility] - Immunization history:: Adult Immunizations up to date. - Infectious Disease History:: Denies. - Social history:: Smoking status: Patient denies any tobacco usage or history of. - Family history:: not pertinent. Assessment: 04:24 General: Appears in no apparent distress. Neuro: No deficits noted. Cardiovascular: No 12 deficits noted. Respiratory: No deficits noted. GI: No deficits noted. No signs and/or symptoms were reported involving the gastrointestinal system. : No deficits noted. No signs and/or symptoms were reported regarding the genitourinary system. EENT: No deficits noted. No signs and/or symptoms were reported regarding the EENT system. Derm: No deficits noted. No signs and/or symptoms reported regarding the dermatologic system. Musculoskeletal: Reports pain in right leg. 06:05 General: pt refuses immobilizer and crutches. Pain: Denies pain. [facility] Vital Signs: 04:22 BP 120 / 78; Pulse 83; Resp 16; Temp 98.6; Pulse Ox 100% ; Weight 73.03 kg; Height 6 [facility] ft. 0 in. ; Pain 5/10; 05:26 BP 173 / 81; Pulse 67; Resp 16; Pulse Ox 100% ; 12 04:22 Body Mass Index 21.84 (73.03 kg, 182.88 cm) jm 04:22 Pain Scale: Adult [facility] ED Course: 04:17 Patient arrived in ED. jw7 04:20 Adalberto Fung MD is Attending Physician. sp4 04:21 Lurdes Trivedi, RN is Primary Nurse. [facility] 04:23 Triage completed. [facility] 04:24 Arm band placed on right wrist. 12 04:40 Knee Right 3 View XRAY In Process Unspecified. EDMS 05:46 Patient ambulated to restroom with no assistance. ty Administered Medications: 04:31 Drug: HYDROcodone-acetaminophen PO 5 mg-325 mg 2 tabs PO once Route: PO; jw7 04:31 Drug: Methocarbamol PO 750 mg PO once Route: PO; 7 Outcome: 05:54 Discharge ordered by . sp4 06:08 Discharged to home [facility] 06:08 Condition: good 06:08 Discharge instructions given to Instructed on discharge instructions, follow up and referral plans. medication usage, Demonstrated understanding of Prescriptions given X 1, 06:09 Patient left the ED. [facility] Signatures: Dispatcher [employer] [facility] Devi Hughes RN RN jwAdalberto Frost MD MD sp4 Jamie Prabhakar ty Lurdes Trivedi, ANGELA RN [facility]
[2024-04-27 08:30] VITALS: TEMP 98.6; O2SAT 100
[2024-04-27 08:34] VITALS: BP 173/81
--- NOTE | 2024-04-27 13:43 | RAD REPORT ---
EXAM DESCRIPTION: RAD - Knee Right 3 View - 04/27/2024 4:38 am CLINICAL HISTORY: Right knee pain. COMPARISON: None. FINDINGS: 3 views of the right knee. No acute fracture or dislocation. Osteopenia. 3 compar tment joint space narrowing and marginal osteophytosis. No joint effusion. IMPRESSION: 1. No acute fracture or dislocation. 2. 3 compartment osteoarthritic change. Electronically signed by: Refugio Madison DO 04/27/2024 05:27 AM CDT 4ZDM Due to temporary technical issues with the PACS/Fluency reporting system, reports are being signed by the in house radiologist without review as a courtesy to ensure prompt reporting. The interpreting r adiologist is fully responsible for the content of the report.
== END 2024-04-27 06:09 | disposition home or self-care (01) ==
LOC: ER 04:13
DX: S83.8X1A Sprain of other specified parts of right knee, initial encounter (principal)
CPT/HCPCS: 99284